=== PATIENT | female | born 1950 | race Caucasian/White ===

== ENCOUNTER → 2020-06-17 08:10 | Outpatient (REF) | payer MEDICARE, SELFPAY ==
--- NOTE | 2020-06-17 08:00 | CA_ITS ---
Acquisition Time: 2020-06-17 08:28:14 Total Exercise Time: 00:08:07 Test Indications: Dyspnea Medications: TRAMADOL LEVOTHYROXINE HYDRALAZINE SEE H Protocol: KELSIE Max HR: 153 BPM 101% of Pred: 151 BPM Max BP: 140/080 mmHG Max Work Load: 10.1 METS Exercise stress test using Kelsie protocol. total of 8 min 7 sec. METS 10.1 Pt tolerated well, denies any anginal sx. EKG without any arrhythmias, No ischemic changes seen in peak execise or in recovery. Normotensive response to exercise. Test reviewed with Dr. Oneill. Referred By: Mundo Camacho Overread By: Sophie De Los Santos
== END ==
LOC: HO.CARD 08:10
PROVIDERS: PCP Internal Medicine; Visit Provider Internal Medicine
DX: Z00.00 Encounter for general adult medical examination without abnormal findings (principal); K21.9 Gastro-esophageal reflux disease without esophagitis; E03.9 Hypothyroidism, unspecified; M81.0 Age-related osteoporosis without current pathological fracture; E66.3 Overweight; R06.02 Shortness of breath
CPT/HCPCS: 93017

== ENCOUNTER → 2020-06-20 12:42 | Outpatient (REF) | payer MEDICARE, SELFPAY ==
--- NOTE | 2020-06-20 12:49 | CA_ITS ---
Transthoracic Echocardiogram Patient (Last, First, Middle): Venus Nguyen, Gender: Female Date of : 1950 Age: 70 Procedure Date: 06/20/2020 Procedure Type: Transthoracic Echocardiogram Location: OP Height: 147.32 cm Weight: 64.86 kg BSA: 1.58 m2 Heart Rate: bpm BP: 106 / 70 mmHg Customer Experience Professional: MIGUEL ANGEL Referring MD: Mundo Camacho MD Symptoms: [facility] [place] Conclusions: - Normal biventricular function. - Mild mitral regurgitation. - Trace aortic regurgitation. - Mild tricuspid regurgitation. - No pericardial effusion. Findings Left Ventricle Normal left ventricular size, thickness, systolic function, and wall motion. The visually estimated ejection fraction is between 55-60%. Diastolic function is normal for age. Right Ventricle Normal right ventricular cavity size and systolic function. Atria Both atria are normal in size. There is no evidence of interatrial shunt by color Doppler. Aortic Valve Normal aortic valve structure and function. There is no aortic valve stenosis. There is trace (trivial) aortic valve regurgitation. Mitral Valve Normal mitral valve structure and function. There is mild mitral valve regurgitation. There is no mitral valve stenosis. Pulmonic Valve Normal pulmonic valve structure and function. There is trace pulmonic valve regurgitation. Tricuspid Valve Normal tricuspid valve structure and function. There is mild tricuspid valve regurgitation. Normal right atrial pressure. There is no evidence of pulmonary hypertension. Great Vessels All visible segments of the aorta are normal in size. The visualized portions of the pulmonary artery and branches are normal. Venous The inferior vena cava is normal in size and collapses greater than 50% with inspiration. Pericardium/Pleural Normal pericardial structure. Prior Study Comparison No prior study available for comparison. Measurements 2D Linear Measurements RVIDd: 2.85 RVIDd Index: 1.80 IVSd: 0.93 0.6-0.9/0.6-1.0 cm LVIDd: 4.19 3.9-5.3/4.2-5.9 cm LVIDd Index: 2.65 2.4-3.2/2.2-3.1 cm/m2 LVIDs: 2.61 2.0-3.6 cm LVPWd: 0.79 0.7-1.1 cm Ao Root: 2.30 2.1-3.5 cm LA Diam: 3.40 2.7-3.8/3.0-4.0 cm LAIDs Index: 2.15 1.5-2.3 cm/m2 LV Mass: 138.29 67-162/88-224 g LV Mass Index: 87.52 43-95/49-115 g/m2 LVOT Diam: 2.00 3.0+(-)1.3 cm 2D Systolic Function EF 4C: 70.40 >55% EF 2C: 77.00 >55% Mitral Valve MV Pk E: 0.97 MV PK A: 0.76 MV Decel Time: 236.00 E/A: 1.30 E'Lateral: 11.30 E'Medial: 8.05 E/E' Med: 12.00 E/E' Lat: 8.50 MR Vol - PW Dopp: 18.92 MR VTI: 1.72 MR ERO: 11.00 MR Alias Alec: 0.34 MR RAD: 0.50 Aortic Valve AoV Pk Alec: 1.42 AoV Mn Alec: 0.97 AoV VTI: 0.33 AoV Pk Grad: 8.00 Aov Mn Grad: 4.00 TEMITOPE Cont.VTI: 2.19 LVOT LVOT Pk Alec: 1.10 LVOT Mn Alec: 0.73 LVOT VTI: 0.23 LVOT Pk Grad: 5.00 LVOT Mn Grad: 3.00 LVOT Diam: 2.00 LVOT Area: 3.14 Diastolic Function MV Pk E: 0.97 MV Pk A: 0.76 E/A: 1.30 E'Medial: 8.05 E/E' Med: 12.00 E' Laterial: 11.30 E/E' Lat: 8.50 Tricuspid Valve TR Pk Alec: 2.55 TR Pk Grad: 26.00 RA Press: 3.00 RVSP: 29.00 Great Vessels Aorta Ao Root-2D: 2.30 2.0-3.7 cm Ao Asc: 3.10 2.1-3.4 cm Ao Arch: 2.90 Updated in Other Vendor System with Status of Final Rustam Kowalski MD electronically signed on 06/21/2020 7:12:34 PM with status of Final
== END ==
LOC: HO.CARD 12:42
PROVIDERS: PCP Internal Medicine; Visit Provider Internal Medicine
DX: Z00.00 Encounter for general adult medical examination without abnormal findings (principal); R06.02 Shortness of breath; K21.9 Gastro-esophageal reflux disease without esophagitis; E03.9 Hypothyroidism, unspecified; M81.0 Age-related osteoporosis without current pathological fracture; E66.3 Overweight
CPT/HCPCS: 93306

== ENCOUNTER 2020-07-07 06:17 | Outpatient (REF) | payer MEDICARE, SELFPAY ==
--- NOTE | 2020-07-07 06:33 | XR_ITS ---
EXAMINATION: XR CHEST CLINICAL INFORMATION: Shortness of breath on exertion. Annual physical exam. COMPARISON: 11/07/2018 TECHNIQUE: 2 views of the chest were obtained. FINDINGS: The lungs are well expanded. There is no focal consolidation, edema, or effusion. No pneumothorax. The cardiomediastinal silhouette is within normal limits. No acute osseous abnormality. XR/XR chest 2V IMPRESSION: Clear lungs.
[2020-07-07 07:39] LABS: MANUAL DIFF FLAG NO
[2020-07-07 07:43] LABS: Hematocrit 41.5 % (37-47); Hemoglobin 13.2 g/dl (12.0-16.0); Imm Gran Abs Auto 0.01 X10*3/uL (0.00-0.03); Imm Gran Pct Auto 0.2 % (0.0-0.4); Lymphocytes Absolute Auto 2.6 X10*3/uL (1.2-4.9); Lymphocytes Percent Auto 56.7 % (20-40); Mean Corpuscular HGB Conc 31.8 g/dl (31.0-35.0); Mean Corpuscular Hemoglobin 30.8 pg (27.0-33.0); Mean Platelet Volume 9.6 fL (9.4-12.3); Monocytes Absolute Auto 0.4 X10*3/uL (0.1-1.2); Monocytes Percent Auto 9.3 % (2-11); Neutrophils Absolute Auto 1.6 X10*3/uL (2.0-8.3); Neutrophils Percent Auto 33.8 % (45-73); Platelet Count 201 X10*3/uL (160-400); Red Blood Count 4.28 X10*6/uL (4.20-5.50); Red Cell Distribution Width 12.6 % (11.0-16.0); White Blood Count 4.6 X10*3/uL (4.8-10.8)
[2020-07-07 08:16] LABS: Alanine Aminotransferase 19 U/L (0-31); Alkaline Phosphatase 104 U/L (39-117); Anion Gap 12 (12-20); Aspartate Amino Transferase 27 U/L (5-31); Bilirubin Total 0.4 mg/dL (0.0-1.0); Blood Urea Nitrogen 15 mg/dL (9-16); Calcium 8.7 mg/dL (8.4-10.2); Carbon Dioxide 28 mmol/L (22-29); Chloride 105 mmol/L (96-108); Estimated Glomerular Filt Rate > 60; Glucose Fasting 89 mg/dL (60-99); Potassium 4.5 mmol/l (3.3-5.1); Sodium 140 mmol/L (135-145); Total Protein 6.4 g/dL (6.5-8.0)
== END 2020-07-07 06:18 | disposition home or self-care (01) ==
LOC: HO.LAB 06:17
PROVIDERS: Visit Provider Internal Medicine
DX: K21.9 Gastro-esophageal reflux disease without esophagitis (principal); Z00.00 Encounter for general adult medical examination without abnormal findings; E03.9 Hypothyroidism, unspecified; R06.02 Shortness of breath; M81.0 Age-related osteoporosis without current pathological fracture; E66.3 Overweight
CPT/HCPCS: 36415; 71046; 80053; 85025

== ENCOUNTER → 2020-07-09 08:45 | Outpatient (BNVA) | payer MEDICARE, SELFPAY | PROVIDERS: PCP Internal Medicine; Referring Provider Internal Medicine; Visit Provider Student in an Organized Health Care Education/Training Program | DX: M81.0 Age-related osteoporosis without current pathological fracture (principal); M19.042 Primary osteoarthritis, left hand; M19.041 Primary osteoarthritis, right hand; Z79.899 Other long term (current) drug therapy | CPT/HCPCS: 99212 ==

== ENCOUNTER 2020-11-12 06:14 | Outpatient (REF) | payer MEDICARE, SELFPAY ==
[2020-11-12 07:41] LABS: Alanine Aminotransferase 34 U/L (0-31); Albumin Level 4.2 g/dL (3.5-5.0); Alkaline Phosphatase 109 U/L (39-117); Anion Gap 9 (12-20); Aspartate Amino Transferase 40 U/L (5-31); Bilirubin Total 0.5 mg/dL (0.0-1.0); Blood Urea Nitrogen 16 mg/dL (9-16); Calcium 9.3 mg/dL (8.4-10.2); Carbon Dioxide 30 mmol/L (22-29); Chloride 105 mmol/L (96-108); Estimated Glomerular Filt Rate > 60; Glucose Random 95 mg/dL (60-115); Potassium 4.7 mmol/L (3.3-5.1); Sodium 139 mmol/L (135-145); Total Protein 6.5 g/dL (6.5-8.0)
[2020-11-12 08:02] LABS: TSH reflex Free T4 1.49 uIU/mL (0.32-4.0)
[2020-11-18 06:41] LABS: Vitamin D 25-OH, D2 <4 ng/mL; Vitamin D 25-OH, D3 32 ng/mL; Vitamin D 25-OH, Total 32 ng/mL (30-100)
== END 2020-11-12 06:15 | disposition home or self-care (01) ==
LOC: HO.LAB 06:14
PROVIDERS: Absent Provider Nurse Practitioner Family; PCP Internal Medicine; Visit Provider Student in an Organized Health Care Education/Training Program
DX: M81.0 Age-related osteoporosis without current pathological fracture (principal); E03.9 Hypothyroidism, unspecified
CPT/HCPCS: 36415; 80053; 82306; 84443

== ENCOUNTER 2020-12-11 11:04 | Outpatient (REF) | payer MEDICARE, SELFPAY ==
[2020-12-11 12:23] LABS: Glucose Urine UA NEG (NEG); Leukocyte Esterase Urine NEG (NEG); Nitrite Urine NEG (NEG); Urine Blood NEG (NEG); Urine Ketones NEG (NEG); Urine Protein NEG (NEG-TRACE)
[2020-12-11 12:35] LABS: Appearance Urine CLEAR; Color Urine YELLOW
== END 2020-12-11 11:05 | disposition home or self-care (01) ==
LOC: HO.LAB 11:04
PROVIDERS: PCP Internal Medicine; Visit Provider Internal Medicine
DX: R30.0 Dysuria (principal)
CPT/HCPCS: 81003

== ENCOUNTER → 2021-02-26 08:04 | Outpatient (BNVA) | payer MEDICARE, SELFPAY | PROVIDERS: PCP Internal Medicine; Visit Provider Student in an Organized Health Care Education/Training Program | DX: M81.0 Age-related osteoporosis without current pathological fracture (principal); M19.042 Primary osteoarthritis, left hand; M19.041 Primary osteoarthritis, right hand | CPT/HCPCS: 99212 ==

== ENCOUNTER 2021-05-14 08:00 | Outpatient (REF) | payer MEDICARE, SELFPAY ==
--- NOTE | ~2021-05-14 | US_ITS ---
EXAMINATION: US THYROID CLINICAL INFORMATION: Thyroid nodule. COMPARISON: Ultrasound soft tissue head/neck thyroid dated 03/06/2020 and 03/21/2019. TECHNIQUE: Linear transducer grayscale and color Doppler examination with attention to the region of the thyroid. FINDINGS: SIZE: Measurements of the thyroid lobes and nodules are given in sagittal, anteroposterior and transverse dimensions respectively. Right Thyroid Lobe: 3.3 x 0.9 x 0.8 cm, volume 1.2 mL. Previously 2.9 x 0.7 x 1.2 cm, volume 1.2 mL. Parenchyma: The gland echotexture is homogeneous. Thyroid vascularity is normal. Left Thyroid Lobe: 2.8 x 0.6 x 1.1 cm, volume 1.0 mL. Previously 3.3 x 0.7 x 1.0 cm, volume 0.1 mL. Parenchyma: The gland echotexture is homogeneous. Thyroid vascularity is normal. Isthmus: 0.3 cm in maximum AP dimension. Previously 0.2 cm. Estimated total number of nodules greater than or equal to 1 cm: 0. Planograph Operator nodules are described as follows: 1. Location: Right mid. Size: 0.1 x 0.1 x 0.1 cm, volume 0.001 mL. Previously: 0.1 x 0.1 x 0.1 cm, volume 0.001 mL. Nodule characteristics: Composition: Solid (2). Echogenicity: Hyperechoic (1). Shape: Not taller than wide (0). Margins: Smooth (0). Echogenic Foci: Macrocalcifications (1). ACR TI-RADS total points: 4 ACR TI-RADS category: 4 Significant change in size (>/= 20% in 2 dimensions and minimal increase of 2 mm or 50% or greater increase in volume): None Change in features: None Change in ACR TI-RADS risk category: Not applicable 2. Location: Right mid. Size: 0.1 x 0.15 0.1 cm, volume 0.001 mL. Previously: 0.1 x 0.2 x 0.1 cm, volume 0.002 mL. Nodule characteristics: Composition: Cystic(0). ACR TI-RADS total points: 0 ACR TI-RADS category: 1 Significant change in size (>/= 20% in 2 dimensions and minimal increase of 2 mm or 50% or greater increase in volume): None Change in features: None Change in ACR TI-RADS risk category: Not applicable 3. Location: Left mid. Size: 0.5 x 0.4 x 0.3 cm, volume 0.05 mL. Previously: 0.8 x 0.5 x 0.7 cm, volume 0.15 mL. Nodule characteristics: Composition: Solid (2). Echogenicity: Isoechoic (1). Shape: Not taller than wide (0). Margins: Smooth (0). Echogenic Foci: None (0). ACR TI-RADS total points: 3 ACR TI-RADS category: 3 Significant change in size (>/= 20% in 2 dimensions and minimal increase of 2 mm or 50% or greater increase in volume): None Change in features: None Change in ACR TI-RADS risk category: None applicable 4. Location: Left mid inferior. Size: 0.7 x 0.6 x 0.5 cm, volume 0.1 mL. Previously: 0.7 x 0.6 x 0.6 cm, volume 0.1 mL. Nodule characteristics: Composition: Solid (2). Echogenicity: Hypoechoic (2). Shape: Not taller than wide (0). Margins: Smooth (0). Echogenic Foci: None (0). ACR TI-RADS total points: 4 ACR TI-RADS category: 4 Significant change in size (>/= 20% in 2 dimensions and minimal increase of 2 mm or 50% or greater increase in volume): None Change in features: None Change in ACR TI-RADS risk category: Not applicable 5. Location: Left mid. Size: 0.7 x 0.5 x 0.6 cm, volume 0.1 mL. Previously: 0.3 x 0.4 x 0.2 cm, volume 0.1 mL. Nodule characteristics: Composition: Solid (2). Echogenicity: Hypoechoic (2). Shape: Not taller than wide (0). Margins: Smooth (0). Echogenic Foci: None (0). ACR TI-RADS total points: 4 ACR TI-RADS category: 4 Significant change in size (>/= 20% in 2 dimensions and minimal increase of 2 mm or 50% or greater increase in volume): None Change in features: None Change in ACR TI-RADS risk category: Not applicable NODES: No lymphadenopathy is seen in the tissue surrounding the thyroid gland. US/US thyroid IMPRESSION: Subcentimeter nonsuspicious nodules in both lobes, stable. ACR TI-RADS RECOMMENDATION REFERENCE: Ultrasound-guided fine-needle aspiration, followup ultrasound, no further follow up. * TR1 (0 point) and TR 2 (2 points): No FNA or follow up * TR3 (3 points): FNA if more than or equal to 2.5 cm in maximum dimension, followup ultrasound in 1, 3 and 5 years if 1.5 to 2.4 cm in maximum dimension. * TR4 (4-6 points): FNA if more than or equal to 1.5 cm in maximum dimension, followup ultrasound in 1, 2, 3 and 5 years if 1 to 1.4 cm in maximum dimension. * TR5 (more than or equal to 7 points): FNA if more than or equal to 1 cm in maximum dimension, followup ultrasound every year for 5 years if 0.5 to 0.9 cm in maximum dimension. * TR3, TR4 or TR5 nodules that are below the size threshold for follow up receive no follow up.
== END 2021-05-14 08:01 | disposition home or self-care (01) ==
LOC: HO.US 08:00
PROVIDERS: Visit Provider Internal Medicine
DX: E04.2 Nontoxic multinodular goiter (principal)
CPT/HCPCS: 76536

== ENCOUNTER 2021-05-19 16:10 | Outpatient (REF) | payer MEDICARE, SELFPAY ==
--- NOTE | ~2021-05-19 | MM_ITS ---
EXAMINATION: MM SCREENING DIGITAL BREAST TOMOSYNTHESIS, BILATERAL CLINICAL INFORMATION: Screening. Asymptomatic. Previous left breast biopsy, benign The lifetime risk of breast cancer based on the Tyrer-Cuzick Model is 1.9%. COMPARISON: Mammography: May 13, 2020 and studies dating back to March 27, 2012 TECHNIQUE: Digital breast tomosynthesis is performed in both the craniocaudal and mediolateral oblique views along with computer-aided detection (CAD). Synthesized 2D images are generated from the tomosynthesis. FINDINGS: There are scattered areas of fibroglandular density (ACR BI-RADS breast composition Category b). There are no significant masses, abnormal calcifications, or other abnormalities. MM/MM tomosynthesis screening BI IMPRESSION: There are no significant changes from prior study. ASSESSMENT: BI-RADS 1: Negative RECOMMENDATION: Routine annual mammography screening. This patient's information was entered into a reminder system with a target due date for their next mammogram.
== END 2021-05-19 16:11 | disposition home or self-care (01) ==
LOC: HO.MAMMO 16:10
PROVIDERS: Visit Provider Internal Medicine
DX: Z12.31 Encounter for screening mammogram for malignant neoplasm of breast (principal)
CPT/HCPCS: 77063; 77067

== ENCOUNTER 2021-06-23 06:19 | Outpatient (REF) | payer MEDICARE, SELFPAY ==
[2021-06-23 07:48] LABS: Alanine Aminotransferase 15 U/L (0-31); Albumin Level 4.3 g/dL (3.5-5.0); Alkaline Phosphatase 100 U/L (39-117); Anion Gap 12 (12-20); Aspartate Amino Transferase 24 U/L (5-31); Bilirubin Total 0.5 mg/dL (0.0-1.0); Blood Urea Nitrogen 15 mg/dL (9-16); Calcium 9.8 mg/dL (8.4-10.2); Carbon Dioxide 29 mmol/L (22-29); Chloride 106 mmol/L (96-108); Estimated Glomerular Filt Rate > 60; Glucose Fasting 92 mg/dL (60-99); Potassium 4.7 mmol/L (3.3-5.1); Sodium 142 mmol/L (135-145); Total Protein 6.8 g/dL (6.5-8.0)
== END 2021-06-23 06:20 | disposition home or self-care (01) ==
LOC: HO.LAB 06:19
PROVIDERS: PCP Internal Medicine; Visit Provider Nurse Practitioner Family
DX: Z13.1 Encounter for screening for diabetes mellitus (principal)
CPT/HCPCS: 36415; 80053

== ENCOUNTER → 2021-07-22 10:12 | Outpatient (BNVA) | payer MEDICARE, SELFPAY | PROVIDERS: PCP Internal Medicine; Visit Provider Internal Medicine | DX: E03.9 Hypothyroidism, unspecified (principal); E04.2 Nontoxic multinodular goiter; M81.0 Age-related osteoporosis without current pathological fracture | CPT/HCPCS: 99212 ==

== ENCOUNTER 2021-07-22 11:08 | Outpatient (REF) | payer MEDICARE, SELFPAY ==
[2021-07-22 14:44] LABS: Free T4 (Free Thyroxine) 1.13 ng/dL (0.71-1.85); Thyroid Stimulating Hormone 1.06 uIU/mL (0.32-4.0)
== END 2021-07-22 11:09 | disposition home or self-care (01) ==
LOC: HO.10HDL 11:08
PROVIDERS: Visit Provider Internal Medicine
DX: E03.9 Hypothyroidism, unspecified (principal); E04.2 Nontoxic multinodular goiter
CPT/HCPCS: 36415; 84439; 84443

== ENCOUNTER 2021-12-09 08:54 | Inpatient (IN) | payer MEDICARE, SELFPAY ==
[2021-12-09] VITALS (10 sets, daily range): BP systolic 121–156; BP diastolic 63–90; PULSE 73–102; RESP 14–31; TEMP 36.8–37.2; O2SAT 96–99; BMI 28.3
--- NOTE | ~2021-12-09 | XR_ITS ---
EXAMINATION: XR CHEST CLINICAL INFORMATION: Bradycardia. COMPARISON: 07/07/2020 chest radiographs. TECHNIQUE: Frontal view of the chest was obtained. FINDINGS: Support devices: Enteric tube. The lungs are clear. The heart and mediastinal structures are unremarkable. XR/XR chest 1V IMPRESSION: No acute cardiopulmonary process.
--- NOTE | ~2021-12-09 | CT_ITS ---
EXAMINATION: CT ABDOMEN AND PELVIS WITH CONTRAST CLINICAL INFORMATION: Left lower quadrant pain COMPARISON: None TECHNIQUE: Multidetector volumetric images were obtained from the superior aspect of the liver through the pubic symphysis following administration 85 mL of Omnipaque 350 intravenous contrast. Sagittal and coronal reformatted images were obtained on the technologist's workstation. Oral contrast: No This CT examination was performed using dose optimization techniques as appropriate, variously including the following: *Automated exposure control *Adjustment of mA and/or kV according to patient size (this includes techniques or standardized protocols for targeted exams where dose is matched to indication/reason for exam; i.e. extremities or head) *Use of iterative reconstruction technique DLP: 593 mGy-cm FINDINGS: LUNG BASES: Mild elevation of the right hemidiaphragm. The visualized cardiac structures are unremarkable. LIVER, GALLBLADDER, AND BILIARY TREE: The liver is normal in size, shape, and attenuation. No focal hepatic lesion or intrahepatic biliary ductal dilatation is present. The gallbladder is absent. Dilated common bile duct measuring 0.9 cm with no ductal filling defect. PANCREAS: Unremarkable. SPLEEN: Unremarkable. ADRENAL GLANDS: Unremarkable. KIDNEYS AND URETERS: The kidneys are normal in size, shape, and attenuation. No hydronephrosis, hydroureter, or calculi seen. No perinephric stranding. Right lower pole simple renal cyst. No follow-up imaging recommended. BLADDER: Unremarkable. GASTROINTESTINAL TRACT: The stomach is unremarkable. The small bowel is dilated and fluid-filled. This leads to an area of fecalization in the pelvis were there is transition to decompressed bowel, series 3 image 62. The small bowel distal to this location is decompressed. Scattered stool throughout and otherwise decompressed colon. No free air. Small volume ascites. ABDOMINAL WALL: No significant hernia is appreciated. LYMPH NODES: Normal. VASCULAR: Normal caliber aorta with mild atherosclerotic calcification. PELVIC VISCERA: Uterus not seen. No adnexal mass. OSSEOUS STRUCTURES: No acute or suspicious osseous abnormality. CT/CT abdomen pelvis w con IMPRESSION: Small bowel obstruction with transition point in the central pelvis. Small amount of free fluid. Fleischner guidelines were followed.
--- NOTE | 2021-12-09 10:07 | ED.ABDPAIN ---
HPI - Abdominal Pain General Chief Complaint: Abdominal Pain Stated Complaint: severe abd pain/vomiting Time Seen by Provider: 12/09/21 09:52 Source: patient and family Mode of arrival: ambulatory Limitations: no limitations History of Present Illness HPI narrative: 71-year-old female with a history of hypothyroidism, GERD, osteoarthritis, gastritis on PPI here with reports of intermittent left-sided abdominal pain since Tuesday. This is associated with nausea and vomiting. No diarrhea, constipation, new urinary symptoms, fevers or chills. Patient tells me she has a surgical history of a total hysterectomy and a cholecystectomy. Related Data Home Medications Medication Instructions Recorded Confirmed calcium carbonate 600 mg-vitamin 1 tab PO DAILY 07/09/20 12/09/21 D3 5 mcg (200 unit) tablet (Calcium 600 + D(3)) tramadol 50 mg tablet 50 mg PO DAILY PRN 12/09/21 12/09/21 Previous Rx's Medication Instructions Recorded levothyroxine 75 mcg tablet 75 mcg PO DAILY #84 tab 10/05/21 omeprazole 20 mg capsule,delayed 20 mg PO DAILY 90 Days #90 cap 11/20/21 release Allergies Allergy/AdvReac Type Severity Reaction Status Date / Time nystatin Allergy Intermediate Rash Verified 11/20/21 15:29 Review of Systems Review of Systems Yes all other systems are reviewed and are negative Constitutional: Reports no additional constitutional complaints, Denies body ache(s), Denies chills, Denies fever(s), Denies headache(s) and Denies weakness Eyes: Reports no additional eye complaints and Denies change in vision Reports system reviewed and no additional complaints, except as documented, Denies dizziness, Denies headache(s), Denies nasal congestion, Denies nasal discharge and Denies neck pain Cardiovascular: Reports no additional cardiovascular complaints, Denies chest pain, Denies leg edema and Denies dyspnea Respiratory: Reports no additional respiratory complaints, Denies cough and Denies dyspnea Gastrointestinal: Reports no additional gastrointestinal complaints, Reports abdominal pain, Denies diarrhea, Denies nausea and Reports vomiting Genitourinary: Reports no additional female genitourinary complaints and Denies urinary incontinence Musculoskeletal: Reports no additional musculoskeletal complaints, Denies back pain, Denies arthralgias, Denies joint swelling, Denies neck pain, Denies numbness and Denies tingling Skin/Breast: Reports system reviewed and no additional complaints, except as docu and Denies rash Reports system reviewed and no additional complaints, except as documented, Denies dizziness, Denies headache(s), Denies numbness, Denies tingling and Denies weakness PMFSH Past Medical History Attestation statement: The following information was validated with the patient. Source: old records reviewed and nursing notes reviewed Medical History GERD (gastroesophageal reflux disease) History of seizures Hypothyroidism Impacted cerumen of left ear Multinodular thyroid Osteoarthritis of hand, left Osteoarthritis of hand, right Osteoporosis Peripheral vascular disease Thyroid nodule Vitamin D deficiency Surgical History History of cholecystectomy History of colonoscopy History of surgery History of total abdominal hysterectomy and bilateral salpingo-oophorectomy Family History Family History Father Throat cancer Mother No problems noted. Brother Liver cancer Social History Social History Household Members: Spouse Housing: [facility] Alcohol intake: never Patient Tobacco Use Status: Never used Tobacco e-Cigarette/Vaping Use: Never Used Second Hand Smoke Exposure: No Use of substances other than those prescribed or required for medical reasons: No Advance Directives: No Advance Directives Information Provided: No service: No Current occupational status: unemployed Physical Exam ED Vital Signs: Vital Signs - 24 hr 12/09/21 08:58 12/09/21 09:55 12/09/21 10:58 Temperature 98.3 F 98.4 F Pulse Rate 102 H 86 81 Respiratory Rate 16 14 20 Blood Pressure 138/83 156/80 H 131/71 Pulse Oximetry 99 98 98 12/09/21 11:32 12/09/21 12:09 Temperature Pulse Rate 73 77 Respiratory Rate 16 15 Blood Pressure 126/68 121/63 Pulse Oximetry 97 98 BMI result Body Mass Index 28.3 Const General: alert Orientation/consciousness: patient oriented x3 Limitations: no limitations HENMT Other: Tacky MM Head: Yes normal to inspection Ears: hearing grossly normal bilaterally and TM's normal bilaterally General nose exam: Normal external nose present Face and sinus: Yes normal facial exam Throat: Yes posterior oropharynx normal Eyes General: appearance normal, both eyes and all related structures Pupils: Equal, round and reactive pupils present Neck Neck: Yes normal visual inspection, Yes full ROM, Yes no lymphadenopathy and Yes no meningeal signs Chest Chest palpation & inspection: normal inspection of the chest Resp Effort & Inspection: normal respiratory effort Auscultation: clear to auscultation bilaterally Cardio Rate: regular rate Rhythm: regular rhythm Peripheral pulses: Peripheral pulses 2+ throughout GI Inspection: Yes normal to inspection Palpation (GI): Soft to palpation and Tenderness to palpation present (GI) (LLQ/LUQ) General: Yes no CVA tenderness Back/Spine/Pelvis Back: no CVA tenderness Thoracic/Lumbar Spine: thoracic and lumbar spine normal to inspection Neuro General: patient oriented x3, moves all extremities and no meningeal signs Cranial nerves: Yes Equal, round and reactive pupils present Cognition (Neuro): normal cognition Extrem General: Yes normal to inspection, Yes no pedal edema and Yes no calf tenderness Course Course Course Narrative: 71-year-old female here with reports of left-sided abdominal pain with nausea and vomiting for several days. Pain radiates to the patient's back. On exam the patient has tenderness the left upper and left lower quadrant. Will check labs, UA, CT. Will provide analgesia, antiemetic 1240-CT concerning for small bowel obstruction. Will discuss with General surgery. Per patient had a BM yesterday morning and it was small. 1300-spoke to Dr. Gifford from general surgery. Patient will need NGT placement. Accepted admission. MDM - Abdominal Pain MDM Narrative Medical decision making narrative: SBO Differential Diagnosis Differential diagnosis: Likely calculus of kidney, diverticulitis and gastritis Medical Records Attestation: I reviewed the patient's medical records. Lab Data Attestation: I reviewed the patient's lab results. Result diagrams: 12/09/21 10:34 12/09/21 10:34 Labs: Lab Results 12/09/21 12/09/21 12/09/21 Range/Units 10:25 10:26 10:34 WBC 8.8 (4.8-10.8) X10*3/uL RBC 4.80 (4.20-5.50) X10*6/uL Hgb 14.6 (12.0-16.0) g/dl Hct 44.9 (37.0-47.0) % MCV 93.5 (80.0-98.0) fL MCH 30.4 (27.0-33.0) pg MCHC 32.5 (31.0-35.0) g/dl RDW 12.4 (11.0-16.0) % Plt Count 229 (160-400) X10*3/uL MPV 8.7 L (9.4-12.3) fL Immature Gran % (Auto) 0.3 (0.0-0.4) % Neut % (Auto) 84.7 H (45-73) % Lymph % (Auto) 9.3 L (20-40) % [place] % (Auto) 5.7 (2-11) % Eos % (Auto) 0.0 (0-4) % Baso % (Auto) 0.0 (0-2) % Lymph # (Auto) 0.8 L (1.2-4.9) X10*3/uL [place] # (Auto) 0.5 (0.1-1.2) X10*3/uL Eos # (Auto) 0.0 (0.0-0.4) X10*3/uL Baso # (Auto) 0.0 (0.0-0.2) X10*3/uL Abs Immat Gran (auto) 0.03 (0.00-0.03) X10*3/uL Absolute Neuts (auto) 7.5 (2.0-8.3) x10*3/uL Absolute Nucleated RBC 0.000 (0.0-0.012) X10*3/uL Nucleated RBC % (auto) 0.0 (0.0-0.2) /100WBC Sodium (135-145) mmol/L Potassium (3.3-5.1) mmol/L Chloride (96-108) mmol/L Carbon Dioxide (22-29) mmol/L Anion Gap (12-20) BUN (9-16) mg/dL Creatinine (0.5-1.4) mg/dL Estim Creat Clear Calc Estimated GFR Random Glucose (60-115) mg/dL Calcium (8.4-10.2) mg/dL Total Bilirubin (0.0-1.0) mg/dL Direct Bilirubin (0.0-0.5) mg/dL AST (5-31) U/L ALT (0-31) U/L Alkaline Phosphatase (39-117) U/L Total Protein (6.5-8.0) g/dL Albumin (3.5-5.0) g/dL Lipase (8-78) U/L Urine Color DK YELLOW Urine Appearance HAZY Urine pH 6.0 (5.0-8.0) Ur Specific Ericson >= 1.030 H (1.005-1.025) Urine Protein 1+ H (NEG-TRACE) MG/DL Urine Glucose (UA) NEG (NEG) MG/DL Urine Ketones 15 (NEG) MG/DL Urine Blood NEG (NEG) Urine Nitrite NEG (NEG) Ur Leukocyte Esterase NEG (NEG) Urine RBC 0 (0) /HPF Urine WBC 0-2 (0-4) /HPF Ur Squamous Epith Cells 1+ /LPF Urine Bacteria NONE /LPF Hyaline Casts 1-4 /LPF Urine Mucus 4+ /LPF Urine Test NEGATIVE (NEGATIVE) 12/09/21 Range/Units 10:34 WBC (4.8-10.8) X10*3/uL RBC (4.20-5.50) X10*6/uL Hgb (12.0-16.0) g/dl Hct (37.0-47.0) % MCV (80.0-98.0) fL MCH (27.0-33.0) pg MCHC (31.0-35.0) g/dl RDW (11.0-16.0) % Plt Count (160-400) X10*3/uL MPV (9.4-12.3) fL Immature Gran % (Auto) (0.0-0.4) % Neut % (Auto) (45-73) % Lymph % (Auto) (20-40) % [place] % (Auto) (2-11) % Eos % (Auto) (0-4) % Baso % (Auto) (0-2) % Lymph # (Auto) (1.2-4.9) X10*3/uL [place] # (Auto) (0.1-1.2) X10*3/uL Eos # (Auto) (0.0-0.4) X10*3/uL Baso # (Auto) (0.0-0.2) X10*3/uL Abs Immat Gran (auto) (0.00-0.03) X10*3/uL Absolute Neuts (auto) (2.0-8.3) x10*3/uL Absolute Nucleated RBC (0.0-0.012) X10*3/uL Nucleated RBC % (auto) (0.0-0.2) /100WBC Sodium 137 (135-145) mmol/L Potassium 4.0 (3.3-5.1) mmol/L Chloride 100 (96-108) mmol/L Carbon Dioxide 26 (22-29) mmol/L Anion Gap 15 (12-20) BUN 26 H (9-16) mg/dL Creatinine 0.78 (0.5-1.4) mg/dL Estim Creat Clear Calc 54.3 Estimated GFR > 60 Random Glucose 154 H (60-115) mg/dL Calcium 10.2 (8.4-10.2) mg/dL Total Bilirubin 0.9 (0.0-1.0) mg/dL Direct Bilirubin 0.5 (0.0-0.5) mg/dL AST 46 H D (5-31) U/L ALT 35 H (0-31) U/L Alkaline Phosphatase 139 H D (39-117) U/L Total Protein 7.1 (6.5-8.0) g/dL Albumin 4.4 (3.5-5.0) g/dL Lipase 11 (8-78) U/L Urine Color Urine Appearance Urine pH (5.0-8.0) Ur Specific [place] (1.005-1.025) Urine Protein (NEG-TRACE) MG/DL Urine Glucose (UA) (NEG) MG/DL Urine Ketones (NEG) MG/DL Urine Blood (NEG) Urine Nitrite (NEG) Ur Leukocyte Esterase (NEG) Urine RBC (0) /HPF Urine WBC (0-4) /HPF Ur Squamous Epith Cells /LPF Urine Bacteria /LPF Hyaline Casts /LPF Urine Mucus /LPF Urine Test (NEGATIVE) Discharge Plan Discharge Clinical Impression: Small bowel obstruction Patient Disposition: Admitted As Inpatient
[2021-12-09 10:33] LABS: Appearance Urine HAZY; Color Urine DK YELLOW; Glucose Urine UA NEG (NEG); Leukocyte Esterase Urine NEG (NEG); Nitrite Urine NEG (NEG); Specific Gravity - Urine >= 1.030 (1.005-1.025); UACC Culture Trigger NO; Urine Blood NEG (NEG); Urine Ketones 15 MG/DL (NEG); Urine Protein 1+ MG/DL (NEG-TRACE)
[2021-12-09 10:35] LABS: UPreg QC Valid YES; Urine Pregnancy NEGATIVE (NEGATIVE)
[2021-12-09 10:37] LABS: MANUAL DIFF FLAG NO
[2021-12-09 10:38] LABS: Hematocrit 44.9 % (37.0-47.0); Hemoglobin 14.6 g/dl (12.0-16.0); Imm Gran Abs Auto 0.03 X10*3/uL (0.00-0.03); Imm Gran Pct Auto 0.3 % (0.0-0.4); Lymphocytes Absolute Auto 0.8 X10*3/uL (1.2-4.9); Lymphocytes Percent Auto 9.3 % (20-40); Mean Corpuscular HGB Conc 32.5 g/dl (31.0-35.0); Mean Corpuscular Hemoglobin 30.4 pg (27.0-33.0); Mean Corpuscular Volume 93.5 fL (80.0-98.0); Mean Platelet Volume 8.7 fL (9.4-12.3); Monocytes Absolute Auto 0.5 X10*3/uL (0.1-1.2); Monocytes Percent Auto 5.7 % (2-11); Neutrophils Absolute Auto 7.5 x10*3/uL (2.0-8.3); Neutrophils Percent Auto 84.7 % (45-73); Platelet Count 229 X10*3/uL (160-400); Red Cell Distribution Width 12.4 % (11.0-16.0); White Blood Count 8.8 X10*3/uL (4.8-10.8)
[2021-12-09 10:47] LABS: Mucus Urine 4+ /LPF; RBC Urine 0 /HPF (0); Squamous Epithelial Cell Urine 1+ /LPF; WBC Urine 0-2 /HPF (0-4)
[2021-12-09 10:56] LABS: Alanine Aminotransferase 35 U/L (0-31); Albumin Level 4.4 g/dL (3.5-5.0); Alkaline Phosphatase 139 U/L (39-117); Anion Gap 15 (12-20); Aspartate Amino Transferase 46 U/L (5-31); Bilirubin Direct 0.5 mg/dL (0.0-0.5); Bilirubin Total 0.9 mg/dL (0.0-1.0); Blood Urea Nitrogen 26 mg/dL (9-16); Calcium 10.2 mg/dL (8.4-10.2); Carbon Dioxide 26 mmol/L (22-29); Chloride 100 mmol/L (96-108); Creatinine Clr Calc Pharmacy 54.3; Estimated Glomerular Filt Rate > 60; Glucose Random 154 mg/dL (60-115); Lipase 11 U/L (8-78); Sodium 137 mmol/L (135-145); Total Protein 7.1 g/dL (6.5-8.0)
[2021-12-09] MEDS: ondansetron HCL 4 MG/2 ML VIAL IVPUSH ×3 (11:04→23:27)
[2021-12-09] MEDS: Morphine Sulfate 2 MG/ML CARTRIDGE IVPUSH (11:05)
[2021-12-09] MEDS: iohexoL 350 MG/ML 100 ML INFUS..BTL 85 ML IV (12:01)
--- NOTE | 2021-12-09 13:09 | PHA.MEDREC ---
Pharmacy Consult ? Medication Reconciliation Pharmacy has completed the medication reconciliation.
--- NOTE | 2021-12-09 13:35 | P.HPGS_ITS ---
History of Present Illness History of Present Illness Date of Service: 12/09/21 <Christy Mondragon PA-C - Last Filed: 12/09/21 13:56> 12/09/21 <Moisés Gifford MD - Last Filed: 12/09/21 15:13> Chief complaint: SBO <Christy Mondragon PA-C - Last Filed: 12/09/21 13:56> Narrative: Venus Nguyen is a 71 year old female with PMH of hypothyroidism, osteoporosis, GERD who presented to the ED with complaints of abdominal pain. According to her daughter, she was having a phlebectomy for her varicose veins on Tuesday and began to complains of abdominal pain. This was associated with nausea without vomiting but she has been spitting up yellow/green material . The pain progressively worsened and persisted prompting them to come to the ED for evaluation. She passed flatus and had a normal bowel movement yesterday. She has never had a pain like this before. She has had a cholecystectomy and total hysterectomy in the past. Work up in the ED included CT scan abd/pelvis which showed dilated and fluid-filled small bowel leading to an area of fecalization in the pelvis were there is transition to decompressed bowel. <Christy Mondragon PA-C - Last Filed: 12/09/21 13:56> Review of Systems Constitutional: Constitutional: Denies chills and Denies fever(s) <Ranulfo Mondragon PA-C - Last Filed: 12/09/21 13:56> Cardiovascular: Cardiovascular: Denies chest pain, Denies palpitations and Denies dyspnea <Christy Mondragon PA-C - Last Filed: 12/09/21 13:56> Respiratory: Respiratory: Denies cough and Denies dyspnea <Christy Mondragon PA-C - Last Filed: 12/09/21 13:56> Gastrointestinal: Gastrointestinal: Reports as per HPI <MO Ackerman Last Filed: 12/09/21 13:56> Integumentary/Breasts: Skin/Breast: Denies rash <MO Ackerman Last Filed: 12/09/21 13:56> Neurologic: Denies focal weakness <MO Ackerman Last Filed: 12/09/21 13:56> Endocrine: Endocrine: Denies palpitations <MO Ackerman Last Filed: 12/09/21 13:56> [facility] Past Medical History Medical History: Medical History GERD (gastroesophageal reflux disease) History of seizures Hypothyroidism Impacted cerumen of left ear Multinodular thyroid Osteoarthritis of hand, left Osteoarthritis of hand, right Osteoporosis Peripheral vascular disease Thyroid nodule Vitamin D deficiency <MO Ackerman Last Filed: 12/09/21 13:56> Family History Family History: Family History Father Throat cancer Mother No problems noted. Brother Liver cancer <MO Ackerman Last Filed: 12/09/21 13:56> Surgical History Surgical History: Surgical History History of cholecystectomy History of colonoscopy History of surgery History of total abdominal hysterectomy and bilateral salpingo-oophorectomy <MO Ackerman Last Filed: 12/09/21 13:56> Social History Social History: Social History Household Members: Spouse [facility] Alcohol intake: never Patient Tobacco Use Status: Never used Tobacco e-Cigarette/Vaping Use: Never Used Second Hand Smoke Exposure: No Use of substances other than those prescribed or required for medical reasons: No Advance Directives: No Advance Directives Information Provided: No service: No Current occupational status: unemployed <MO Ackerman Last Filed: 12/09/21 13:56> Meds Allergies/Adverse reactions: Allergies Allergy/AdvReac Type Severity Reaction Status Date / Time nystatin Allergy Intermediate Rash Verified 11/20/21 15:29 <MO Ackerman Last Filed: 12/09/21 13:56> Active Medications: Current Medications Acetaminophen (Acetaminophen 325 Mg Tablet) 650 mg PO Q6H PRN PRN Reason: fever, pain Benzocaine (Throat Lozenge, Medicated Lozenge) 1 lozenge MUCOUS MEM Q2H PRN PRN Reason: Sore Throat Famotidine (Famotidine/Pf 20 Mg/2 Ml Vial) 20 mg IVPUSH DAILY [facility] Lactated Ringer's (Lr) 1,000 mls @ 100 mls/hr IVCONT .Q10H [place] Morphine Sulfate (Morphine Sulfate 4 Mg/Ml Cartridge) 2 mg IVPUSH Q3H PRN; Protocol PRN Reason: Pain, Severe (Pain Scale 7-10) Ondansetron HCl (Ondansetron Hcl 4 Mg/2 Ml Vial) 4 mg IVPUSH Q8H PRN PRN Reason: Nausea and Vomiting Pharmacy Consult (Consult Rx Perform Med Rec) 1 each MISCELLANE ONCE PRN PRN Reason: Consult order Sodium Chloride (0.9 % Sodium Chloride Flush 3 Ml Syringe) 3 ml IVFLUSH QSHIFT [facility] <MO Ackerman Last Filed: 12/09/21 13:56> Home medications: Home Medications Medication Instructions Recorded Confirmed Last Taken Type calcium carbonate 600 mg-vitamin 1 tab PO DAILY 07/09/20 12/09/21 12/08/21 History D3 5 mcg (200 unit) tablet (Calcium 600 + D(3)) tramadol 50 mg tablet 50 mg PO DAILY PRN 12/09/21 12/09/21 Unknown History <MO Ackerman Last Filed: 12/09/21 13:56> Physical Exam Vital Signs: Vital Signs: Last Vital Signs Temp 98.4 F 12/09/21 09:55 Pulse 77 12/09/21 12:09 Resp 15 12/09/21 12:09 BP 121/63 12/09/21 12:09 Pulse Ox 98 12/09/21 12:09 BMI result Body Mass Index 28.3 <MO Ackerman Last Filed: 12/09/21 13:56> Const: General: comfortable, no acute distress and alert <MO Acekrman Last Filed: 12/09/21 13:56> Orientation/consciousness: patient oriented x3 <MO Ackerman Last Filed: 12/09/21 13:56> Resp: Effort & Inspection: normal respiratory effort <MO Ackerman Last Filed: 12/09/21 13:56> Cardio: Rate: regular rate <MO Ackerman Last Filed: 13:56> GI: Inspection: Yes distended and Yes scar <MO Ackerman Last Filed: 12/09/21 13:56> Palpation (GI): Soft to palpation, Tenderness to palpation present (GI) (lower abdomen) Negative for with no rebound tenderness, no guarding and not rigid <MO Ackerman Last Filed: 12/09/21 13:56> Percussion: Yes tympanic to percussion <MO Ackerman Last Filed: 12/09/21 13:56> Abdomen image: 1. 2. 3. <MO Ackerman Last Filed: 12/09/21 13:56> Skin: General skin exam: no rashes or lesions noted <MO Ackerman Last Filed: 12/09/21 13:56> Neuro: General: patient oriented x3 <MO Ackerman Last Filed: 12/09/21 13:56> Extrem: General: Yes no clubbing, cyanosis or edema <Christy Mondragon MO Henry Last Filed: 12/09/21 13:56> Results Results Labs: Short CBC 12/09/21 Range/Units 10:34 WBC 8.8 (4.8-10.8) X10*3/uL Hgb 14.6 (12.0-16.0) g/dl Hct 44.9 (37.0-47.0) % Plt Count 229 (160-400) X10*3/uL BMP 12/09/21 10:34 Sodium 137 Potassium 4.0 Chloride 100 Carbon Dioxide 26 BUN 26 H Creatinine 0.78 Calcium 10.2 Liver Function 12/09/21 Range/Units 10:34 Total Bilirubin 0.9 (0.0-1.0) mg/dL Direct Bilirubin 0.5 (0.0-0.5) mg/dL AST 46 H D (5-31) U/L ALT 35 H (0-31) U/L Alkaline Phosphatase 139 H D (39-117) U/L Albumin 4.4 (3.5-5.0) g/dL Urine 12/09/21 12/09/21 Range/Units 10:25 10:26 Urine Color DK YELLOW Urine Appearance HAZY Urine pH 6.0 (5.0-8.0) Ur Specific [place] >= 1.030 H (1.005-1.025) Urine Protein 1+ H (NEG-TRACE) MG/DL Urine Glucose (UA) NEG (NEG) MG/DL Urine Test NEGATIVE (NEGATIVE) <Christy Mondragon PA-C - Last Filed: 12/09/21 13:56> Abdomen CT scan report/results: report reviewed and image reviewed <MO Ackerman Last Filed: 12/09/21 13:56> Assessment and Plan (1) Small bowel obstruction: Status: Acute <Christy Mondragon PA-C - Last Filed: 12/09/21 13:56> Patient with abdominal pain since about 48 hours ago Has history of hysterectomy and cholecystectomy Abdomen soft CT scan reviewed - diffuse small-bowel dilatation, with a transition point in the pelvis consistent with partial small-bowel obstruction There is good amount of air distally in the colon PSBO likely secondary to lesions postop NG tube placement, IV fluids pain management Explained plan to the patient and her daughter Seen and examined independently - agree with YANIRA Mondragon <Moisés Gifford MD - Last Filed: 12/09/21 15:13> Plan 71 year old female who presented with abdominal pain and nausea found to have dilated small bowel loops on CT scan. Picture consistent with SBO likely secondary to adhesions from prior surgery. She will be admitted to the surgical service for treatment of the obstruction. NGT to low intermittent suction for decompression, NPO status and IVF, PRN IV analgesics and antiemetics have been ordered. Further plan dependent on clinical course. This was discussed with patient and her daughter, Barbara. Encourage OOB and ambulation to stimulate bowel function. Patient is clinically well appearing with a relatively benign abdominal exam. Patient seen and discussed with Dr. Gifford. <Christy Mondragon PA-C - Last Filed: 12/09/21 13:56> Quality Stroke Does the patient have a stroke diagnosis?: No <Christy Mondragon PA-C - Last Filed: 12/09/21 13:56> VTE Prior VTE?: No <Christy Mondragon PA-C - Last Filed: 12/09/21 13:56> VTE Risk Level:: Medical - low <Christy Mondragon PA-C - Last Filed: 12/09/21 13:56> VTE Device Contraindication: N/A - Device Ordered <Christy Mondragon PA-C - Last Filed: 12/09/21 13:56> VTE Drug Contraindication: Treatment Not Indicated <Christy Mondragon PA-C - Last Filed: 12/09/21 13:56> Procedures Date of Service Date of Service: 12/09/21 <Christy Mondragon PA-C - Last Filed: 12/09/21 13:56>
[2021-12-09] MEDS: Lidocaine HCl 4 % Topical 50 ML SOLUTION 1 APPL TOPICAL (14:19)
[2021-12-09] MEDS: Morphine Sulfate 4 MG/ML CARTRIDGE 2 MG IVPUSH ×3 (14:25→23:27)
[2021-12-09] MEDS: Lactated Ringers 1,000 ML 100 ML IVCONT (15:03)
--- NOTE | 2021-12-09 15:19 | PC.NURSE ---
dr mc confimed ngt placement
[2021-12-09 16:09] LABS: COVID-19 Test Negative (Negative)
--- NOTE | 2021-12-09 23:27 | PC.NURSE ---
PT reported a return in pain and nausea that was relieved earlier with meds. PT requested zofran and morphine at this time.
[2021-12-10 00:09] VITALS: BP 115/72; PULSE 75; RESP 16; O2SAT 97
--- NOTE | 2021-12-10 00:14 | PC.NURSE ---
nursing report given to Akilah BOLAÑOS in ED overflow
[2021-12-10] MEDS: 0.9 % Sodium Chloride Flush 3 ML SYRINGE IVFLUSH (01:14)
[2021-12-10] MEDS: Lactated Ringers 1,000 ML 100 ML IVCONT ×3 (01:15→18:12)
--- NOTE | 2021-12-10 07:15 | PC.NURSE ---
assumed care of pt at 0700 this morning, AM Synthroid held by overnight RN pending Dr. Gifford rounds to determine status of NPO
[2021-12-10 07:29] LABS: Anion Gap 12 (12-20); Blood Urea Nitrogen 25 mg/dL (9-16); Calcium 8.9 mg/dL (8.4-10.2); Carbon Dioxide 28 mmol/L (22-29); Chloride 103 mmol/L (96-108); Creatinine Clr Calc Pharmacy 68.3; Estimated Glomerular Filt Rate > 60; Glucose Random 116 mg/dL (60-115); Potassium 4.5 mmol/L (3.3-5.1); Sodium 138 mmol/L (135-145)
[2021-12-10] MEDS: Levothyroxine Sodium 75 MCG TABLET PO (07:35)
[2021-12-10] MEDS: ondansetron HCL 4 MG/2 ML VIAL IVPUSH (07:35)
[2021-12-10] MEDS: Morphine Sulfate 4 MG/ML CARTRIDGE 2 MG IVPUSH (07:35)
--- NOTE | 2021-12-10 07:44 | PC.NURSE ---
surgery consult down to see pt, oked to clam NG tube and administer AM synthroid. pt given Morphine and zofran per NOV. pt at this time up to bathroom to change and clean herself.
[2021-12-10 08:11] VITALS: BP 113/65; PULSE 75; RESP 16; O2SAT 93
--- NOTE | 2021-12-10 08:59 | P.PNGS_ITS ---
Subjective Subjective Date of Service: 12/10/21 <Christy Mondragon PA-C - Last Filed: 12/10/21 09:02> 12/10/21 <Moisés Gifford MD - Last Filed: 12/10/21 10:11> Interval history: Less pain this morning and denies nausea but still feels a little bloated. Passing flatus but no BM. <MO Ackerman Last Filed: 12/10/21 09:02> Physical Exam Vital Signs: Vital Signs: Last Vital Signs Temp 98.6 F 12/09/21 22:36 Pulse 75 12/10/21 08:11 Resp 16 12/10/21 08:11 BP 113/65 12/10/21 08:11 Pulse Ox 93 12/10/21 08:11 BMI result Body Mass Index 28.3 <MO Ackerman Last Filed: 12/10/21 09:02> Const: General: comfortable, no acute distress and alert <Christy Mondragon PA-C - Last Filed: 12/10/21 09:02> Orientation/consciousness: patient oriented x3 <MO Ackerman Last Filed: 12/10/21 09:02> HEENT: Other: NGT in place <MO Ackerman Last Filed: 12/10/21 09:02> Resp: Effort & Inspection: normal respiratory effort <MO Ackerman Last Filed: 12/10/21 09:02> GI: Inspection: Yes distended (mild, soft) <MO Ackerman Last Filed: 12/10/21 09:02> Palpation (GI): Soft to palpation, Tenderness to palpation present (GI) periumbilically (on left), no guarding and not rigid <MO Ackerman Last Filed: 12/10/21 09:02> Percussion: Yes tympanic to percussion <MO Ackerman Last Filed: 12/10/21 09:02> Skin: General skin exam: no rashes or lesions noted <MO Ackerman Last Filed: 12/10/21 09:02> Neuro: General: patient oriented x3 <Christy Mondragon PA-C - Last Filed: 12/10/21 09:02> Objective Data Active Medications Acetaminophen (Acetaminophen 325 Mg Tablet) 650 mg PO Q6H PRN PRN Reason: fever, pain Benzocaine (Throat Lozenge, Medicated Lozenge) 1 lozenge MUCOUS MEM Q2H PRN PRN Reason: Sore Throat Famotidine (Famotidine/Pf 20 Mg/2 Ml Vial) 20 mg IVPUSH DAILY [facility] Lactated Ringer's (Lr) 1,000 mls @ 100 mls/hr IVCONT .Q10H [facility] Last Admin: 12/10/21 01:15 Dose: 100 mls/hr Documented by: JUDY Levothyroxine Sodium (Levothyroxine Sodium 75 Mcg Tablet) 75 mcg PO DAILY@0600 [facility] Last Admin: 12/10/21 07:35 Dose: 75 mcg Documented by: EMERY Morphine Sulfate (Morphine Sulfate 4 Mg/Ml Cartridge) 2 mg IVPUSH Q3H PRN; Protocol PRN Reason: Pain, Severe (Pain Scale 7-10) Last Admin: 12/10/21 07:35 Dose: 2 mg Documented by: EMERY Ondansetron HCl (Ondansetron Hcl 4 Mg/2 Ml Vial) 4 mg IVPUSH Q8H PRN PRN Reason: Nausea and Vomiting Last Admin: 12/10/21 07:35 Dose: 4 mg Documented by: EMERY Pharmacy Consult (Consult Rx Perform Med Rec) 1 each MISCELLANE ONCE PRN PRN Reason: Consult order Sodium Chloride (0.9 % Sodium Chloride Flush 3 Ml Syringe) 3 ml IVFLUSH QSHIFT [facility] Last Admin: 12/10/21 01:14 Dose: 3 ml Documented by: JUDY <Christy Mondragon PA-C - Last Filed: 12/10/21 09:02> Labs CBC & Chem 7: : 12/09/21 10:34 12/10/21 06:49 <Christy Mondragon PA-C - Last Filed: 12/10/21 09:02> Labs: Laboratory Results - last 24 hr 12/09/21 12/09/21 12/09/21 10:25 10:26 10:34 MCV 93.5 MCH 30.4 MCHC 32.5 RDW 12.4 Plt Count 229 MPV 8.7 L Immature Gran % (Auto) 0.3 Neut % (Auto) 84.7 H Lymph % (Auto) 9.3 L [place] % (Auto) 5.7 Eos % (Auto) 0.0 Baso % (Auto) 0.0 Lymph # (Auto) 0.8 L [place] # (Auto) 0.5 Eos # (Auto) 0.0 Baso # (Auto) 0.0 Abs Immat Gran (auto) 0.03 Absolute Neuts (auto) 7.5 Absolute Nucleated RBC 0.000 Nucleated RBC % (auto) 0.0 Anion Gap Estim Creat Clear Calc Estimated GFR Random Glucose Calcium Total Bilirubin Direct Bilirubin AST ALT Alkaline Phosphatase Total Protein Albumin Lipase Urine Color DK YELLOW Urine Appearance HAZY Urine pH 6.0 Ur Specific [place] >= 1.030 H Urine Protein 1+ H Urine Glucose (UA) NEG Urine Ketones 15 Urine Blood NEG Urine Nitrite NEG Ur Leukocyte Esterase NEG Urine RBC 0 Urine WBC 0-2 Ur Squamous Epith Cells 1+ Urine Bacteria NONE Hyaline Casts 1-4 Urine Mucus 4+ Urine Test NEGATIVE COVID-19 ([facility]) COVID-19 Clin Com 12/09/21 12/09/21 12/10/21 10:34 15:35 06:49 MCV MCH MCHC RDW Plt Count MPV Immature Gran % (Auto) Neut % (Auto) Lymph % (Auto) [place] % (Auto) Eos % (Auto) Baso % (Auto) Lymph # (Auto) [place] # (Auto) Eos # (Auto) Baso # (Auto) Abs Immat Gran (auto) Absolute Neuts (auto) Absolute Nucleated RBC Nucleated RBC % (auto) Anion Gap 15 12 Estim Creat Clear Calc 54.3 68.3 Estimated GFR > 60 > 60 Random Glucose 154 H 116 H Calcium 10.2 8.9 D Total Bilirubin 0.9 Direct Bilirubin 0.5 AST 46 H D ALT 35 H Alkaline Phosphatase 139 H D Total Protein 7.1 Albumin 4.4 Lipase 11 Urine Color Urine Appearance Urine pH Ur Specific [place] Urine Protein Urine Glucose (UA) Urine Ketones Urine Blood Urine Nitrite Ur Leukocyte Esterase Urine RBC Urine WBC Ur Squamous Epith Cells Urine Bacteria Hyaline Casts Urine Mucus Urine Test COVID-19 ([facility]) Negative COVID-19 Clin Com See Note <Christy Mondragon PA-C - Last Filed: 12/10/21 09:02> Procedures Date of Service Date of Service: 12/10/21 <Christy Mondragon PA-C - Last Filed: 12/10/21 09:02> Progress Note: A&P Assessment and plan (1) Small bowel obstruction: Status: Acute <Christy Mondragon PA-C - Last Filed: 12/10/21 09:02> Assessment and Plan: She denies flatus Does state that she seems better although still has pain Abdomen soft She looks well clinically Will re-evaluate NG tube later on for possible removal Seen and examined independently - agree with YANIRA Mondragon <Moisés Gifford MD - Last Filed: 12/10/21 10:11> Plan 71 year old female admitted with SBO. Appears to be resolving with supportive measures. Passing flatus and less pain this morning. VSS. Abd softly distended, tenderness appears to be improved. NGT output scanty. Will continue NGT, npo and IVF for now. Will reassess later today for possible dc of NGT. <Christy Mondragon PA-C - Last Filed: 12/10/21 09:02> Fall Risk Details Current Medications: Current Medications Acetaminophen (Acetaminophen 325 Mg Tablet) 650 mg PO Q6H PRN PRN Reason: fever, pain Benzocaine (Throat Lozenge, Medicated Lozenge) 1 lozenge MUCOUS MEM Q2H PRN PRN Reason: Sore Throat Famotidine (Famotidine/Pf 20 Mg/2 Ml Vial) 20 mg IVPUSH DAILY [facility] Lactated Ringer's (Lr) 1,000 mls @ 100 mls/hr IVCONT .Q10H [facility] Last Admin: 12/10/21 01:15 Dose: 100 mls/hr Documented by: Levothyroxine Sodium (Levothyroxine Sodium 75 Mcg Tablet) 75 mcg PO DAILY@0600 [facility] Last Admin: 12/10/21 07:35 Dose: 75 mcg Documented by: Morphine Sulfate (Morphine Sulfate 4 Mg/Ml Cartridge) 2 mg IVPUSH Q3H PRN; Protocol PRN Reason: Pain, Severe (Pain Scale 7-10) Last Admin: 12/10/21 07:35 Dose: 2 mg Documented by: Ondansetron HCl (Ondansetron Hcl 4 Mg/2 Ml Vial) 4 mg IVPUSH Q8H PRN PRN Reason: Nausea and Vomiting Last Admin: 12/10/21 07:35 Dose: 4 mg Documented by: Pharmacy Consult (Consult Rx Perform Med Rec) 1 each MISCELLANE ONCE PRN PRN Reason: Consult order Sodium Chloride (0.9 % Sodium Chloride Flush 3 Ml Syringe) 3 ml IVFLUSH QSHIFT [facility] Last Admin: 12/10/21 01:14 Dose: 3 ml Documented by: <Christy Mondragon PA-C - Last Filed: 12/10/21 09:02> Time Spent With Patient Time: Total time spent is greater than 50% in coordination of care (as documented) at patient's floor/unit and/or counseling patient: <MO Ackerman Last Filed: 12/10/21 09:02> Quality Stroke Does the patient have a stroke diagnosis?: No <Christy Mondragon PA-C - Last Filed: 12/10/21 09:02> VTE Prior VTE?: No <Christy Mondragon PA-C - Last Filed: 12/10/21 09:02> VTE Risk Level:: Medical - low <MO Ackerman Last Filed: 12/10/21 09:02> VTE Device Contraindication: N/A - Device Ordered <MO Ackerman Last Filed: 12/10/21 09:02> VTE Drug Contraindication: Treatment Not Indicated <MO Ackerman Last Filed: 12/10/21 09:02>
[2021-12-10] MEDS: Famotidine/PF 20 MG/2 ML VIAL IVPUSH (09:20)
--- NOTE | 2021-12-10 12:33 | MHC.CM.PN ---
Met with patient and her , Jun. Patient's primary language is [place], but she is able to speak and understand [place]ian. Patient lives with her , ambulates independently and had no services prior to coming to the hospital. No services anticiapted to be needed because patient is not homebound. PCP verified. Patient's daughter has a copy of HCP and will attempt to obtain a copy. IMM explained and signed. Patient received 3 Pfizer vaccines. Jun will transport patient home when medically stable. Continue to monitor for d/c needs.
[2021-12-10] MEDS: Morphine Sulfate 4 MG/ML CARTRIDGE IVPUSH ×2 (12:47→22:33)
[2021-12-10 13:43] VITALS: BP 102/56; PULSE 72; RESP 16; O2SAT 98
[2021-12-10 16:22] VITALS: BP 117/68; PULSE 76; RESP 16; O2SAT 97
[2021-12-10 18:10] VITALS: BP 132/72; PULSE 78; RESP 14; TEMP 36.9; O2SAT 96
[2021-12-10 23:46] VITALS: BP 118/64; PULSE 75; RESP 14; TEMP 36.8; O2SAT 95
[2021-12-11] VITALS (7 sets, daily range): BP systolic 120–145; BP diastolic 60–79; PULSE 70–82; RESP 16–19; TEMP 36.5–37.1; O2SAT 95–99
[2021-12-11] MEDS: Morphine Sulfate 4 MG/ML CARTRIDGE IVPUSH ×2 (04:30→14:53)
[2021-12-11] MEDS: Lactated Ringers 1,000 ML 100 ML IVCONT ×2 (04:31→13:59)
[2021-12-11] MEDS: Levothyroxine Sodium 75 MCG TABLET PO (05:23)
[2021-12-11] MEDS: Famotidine/PF 20 MG/2 ML VIAL IVPUSH (08:29)
[2021-12-11] MEDS: 0.9 % Sodium Chloride Flush 3 ML SYRINGE IVFLUSH ×2 (08:30→14:56)
--- NOTE | 2021-12-11 09:14 | PM.PNGS ---
Subjective Subjective Date of Service: 12/11/21 <Christy Mondragon PA-C - Last Filed: 12/11/21 09:17> 12/11/21 <Moisés Gifford MD - Last Filed: 12/11/21 13:50> Interval history: Feeling better this morning. Denies pain but some soreness. Denies flatus. Has been OOB and ambulating in room. <Christy Mondragon PA-C - Last Filed: 12/11/21 09:17> Physical Exam Vital Signs: Vital Signs: Last Vital Signs Temp 97.7 F 12/11/21 07:56 Pulse 75 12/11/21 07:56 Resp 18 12/11/21 07:56 BP 120/65 12/11/21 07:56 Pulse Ox 96 12/11/21 07:56 BMI result Body Mass Index 28.3 <MO Ackerman Last Filed: 12/11/21 09:17> Const: General: comfortable and no acute distress <Christy Mondragon PA-C - Last Filed: 12/11/21 09:17> Orientation/consciousness: patient oriented x3 <Christy Mondragon PA-C - Last Filed: 12/11/21 09:17> Resp: Effort & Inspection: normal respiratory effort <MO Ackerman Last Filed: 12/11/21 09:17> GI: Inspection: Yes distended (soft, decreasingly) <Christy Mondragon PA-C - Last Filed: 12/11/21 09:17> Palpation (GI): Soft to palpation, Tenderness to palpation present (GI) (very mild, periumbilical), no guarding and not rigid <Christy Mondragon PA-C - Last Filed: 12/11/21 09:17> Percussion: Yes normal to percussion <MO Ackerman Last Filed: 12/11/21 09:17> Skin: General skin exam: no rashes or lesions noted <MO Ackerman Last Filed: 12/11/21 09:17> Neuro: General: patient oriented x3 <MO Ackerman Last Filed: 12/11/21 09:17> Objective Data Active Medications Acetaminophen (Acetaminophen 325 Mg Tablet) 650 mg PO Q6H PRN PRN Reason: fever, pain Benzocaine (Throat Lozenge, Medicated Lozenge) 1 lozenge MUCOUS MEM Q2H PRN PRN Reason: Sore Throat Famotidine (Famotidine/Pf 20 Mg/2 Ml Vial) 20 mg IVPUSH DAILY REPLACED BY [facility] Last Admin: 12/11/21 08:29 Dose: 20 mg Documented by: LUCIA Lactated Ringer's (Lr) 1,000 mls @ 100 mls/hr IVCONT .Q10H REPLACED BY [facility] Last Admin: 12/11/21 04:31 Dose: 100 mls/hr Documented by: JEFFERSONASY Levothyroxine Sodium (Levothyroxine Sodium 75 Mcg Tablet) 75 mcg PO DAILY@0600 REPLACED BY [facility] Last Admin: 12/11/21 05:23 Dose: 75 mcg Documented by: SARAY Morphine Sulfate (Morphine Sulfate 4 Mg/Ml Cartridge) 4 mg IVPUSH Q4H PRN; Protocol PRN Reason: Pain, Severe (Pain Scale 7-10) Last Admin: 12/11/21 04:30 Dose: 4 mg Documented by: SARAY Ondansetron HCl (Ondansetron Hcl 4 Mg/2 Ml Vial) 4 mg IVPUSH Q8H PRN PRN Reason: Nausea and Vomiting Last Admin: 12/10/21 07:35 Dose: 4 mg Documented by: EMERY Pharmacy Consult (Consult Rx Perform Med Rec) 1 each MISCELLANE ONCE PRN PRN Reason: Consult order Sodium Chloride (0.9 % Sodium Chloride Flush 3 Ml Syringe) 3 ml IVFLUSH QSHIFT REPLACED BY [facility] Last Admin: 12/11/21 08:30 Dose: 3 ml Documented by: LUCIA <MO Ackerman Last Filed: 12/11/21 09:17> Labs CBC & Chem 7: : 12/09/21 10:34 12/10/21 06:49 <MO Ackerman Last Filed: 12/11/21 09:17> Procedures Date of Service Date of Service: 12/11/21 <MO Ackerman Last Filed: 12/11/21 09:17> Progress Note: A&P Assessment and plan (1) Small bowel obstruction: Status: Acute <Christy Mondragon PA-C - Last Filed: 12/11/21 09:17> Assessment and Plan: pt seen multiple times feels better but denies flatus NGT clamped - released just now, not much output pt however says she still feels bloated will keep NGT back to intermittent suction until nicolas (?) abd soft and benign seen and examined independently - agree with YANIRA Mondragon <Moisés Gifford MD - Last Filed: 12/11/21 13:50> Plan 71 year old female admitted with SBO. Improving symptomatically. NGT has had scanty output since placement but no real evidence of GI function yet. Will clamp ngt for 4 hrs, check residual. If remains asymptomatic and residual <100cc will remove. Continued to encourage OOB/ambulation for GI function. Patient comfortable with plan. <Christy Mondragon PA-C - Last Filed: 12/11/21 09:17> Fall Risk Details Current Medications: Current Medications Acetaminophen (Acetaminophen 325 Mg Tablet) 650 mg PO Q6H PRN PRN Reason: fever, pain Benzocaine (Throat Lozenge, Medicated Lozenge) 1 lozenge MUCOUS MEM Q2H PRN PRN Reason: Sore Throat Famotidine (Famotidine/Pf 20 Mg/2 Ml Vial) 20 mg IVPUSH DAILY REPLACED BY [facility] Last Admin: 12/11/21 08:29 Dose: 20 mg Documented by: Lactated Ringer's (Lr) 1,000 mls @ 100 mls/hr IVCONT .Q10H REPLACED BY [facility] Last Admin: 12/11/21 04:31 Dose: 100 mls/hr Documented by: Levothyroxine Sodium (Levothyroxine Sodium 75 Mcg Tablet) 75 mcg PO DAILY@0600 REPLACED BY [facility] Last Admin: 12/11/21 05:23 Dose: 75 mcg Documented by: Morphine Sulfate (Morphine Sulfate 4 Mg/Ml Cartridge) 4 mg IVPUSH Q4H PRN; Protocol PRN Reason: Pain, Severe (Pain Scale 7-10) Last Admin: 12/11/21 04:30 Dose: 4 mg Documented by: Ondansetron HCl (Ondansetron Hcl 4 Mg/2 Ml Vial) 4 mg IVPUSH Q8H PRN PRN Reason: Nausea and Vomiting Last Admin: 12/10/21 07:35 Dose: 4 mg Documented by: Pharmacy Consult (Consult Rx Perform Med Rec) 1 each MISCELLANE ONCE PRN PRN Reason: Consult order Sodium Chloride (0.9 % Sodium Chloride Flush 3 Ml Syringe) 3 ml IVFLUSH QSHIFT REPLACED BY [facility] Last Admin: 12/11/21 08:30 Dose: 3 ml Documented by: <Christy Mondragon PA-C - Last Filed: 12/11/21 09:17> Time Spent With Patient Time: Total time spent is greater than 50% in coordination of care (as documented) at patient's floor/unit and/or counseling patient: <Christy Mondragon PA-C - Last Filed: 12/11/21 09:17> Quality Stroke Does the patient have a stroke diagnosis?: No <Christy Mondragon PA-C - Last Filed: 12/11/21 09:17> VTE Prior VTE?: No <Christy Mondragon PA-C - Last Filed: 12/11/21 09:17> VTE Risk Level:: Medical - low <Christy Mondragon PA-C - Last Filed: 12/11/21 09:17> VTE Device Contraindication: N/A - Device Ordered <Christy Mondragon PA-C - Last Filed: 12/11/21 09:17> VTE Drug Contraindication: Treatment Not Indicated <Christy Mondragon PA-C - Last Filed: 12/11/21 09:17>
[2021-12-12] MEDS: Lactated Ringers 1,000 ML 100 ML IVCONT ×2 (02:15→12:49)
[2021-12-12 04:00] VITALS: BP 125/54; PULSE 82; RESP 17; TEMP 36.6; O2SAT 97
[2021-12-12] MEDS: Levothyroxine Sodium 75 MCG TABLET PO (05:03)
[2021-12-12 07:05] VITALS: BP 150/85; PULSE 77; RESP 18; TEMP 36; O2SAT 96
[2021-12-12] MEDS: Famotidine/PF 20 MG/2 ML VIAL IVPUSH (09:18)
[2021-12-12 10:57] VITALS: BP 136/64; PULSE 74; RESP 18; TEMP 37.2; O2SAT 96
[2021-12-12 15:28] VITALS: BP 140/65; PULSE 77; RESP 18; TEMP 37.1; O2SAT 98
--- NOTE | 2021-12-12 17:55 | PC.NURSE ---
Dr Hudson notified of approximatley 75ml output from NGT today. Pt passing small amount of flatus and had 2 liquid BMs this morning. Denies pain or nausea. States she just feels weak. Ambulated in [place] 3 times today. NGT clamped at this time. MD to come see pt after trial of clear liquids
[2021-12-12 20:00] VITALS: BP 154/71; PULSE 76; RESP 18; TEMP 36.4; O2SAT 98
--- NOTE | 2021-12-12 20:16 | P.PNGS_ITS ---
Subjective Subjective Date of Service: 12/12/21 Interval history: pt feeling ok, tired has been walking passing gas and several loose stools no burping has tolerated ng clamp for 3 hrs now drinking clear liquids Physical Exam Vital Signs: Vital Signs: Last Vital Signs Temp 97.6 F 12/12/21 20:00 Pulse 76 12/12/21 20:00 Resp 18 12/12/21 20:00 BP 154/71 H 12/12/21 20:00 Pulse Ox 98 12/12/21 20:00 BMI result Body Mass Index 28.3 GI: Other: soft, mild distension fair bowel sounds nontender Objective Data Active Medications Acetaminophen (Acetaminophen 325 Mg Tablet) 650 mg PO Q6H PRN PRN Reason: fever, pain Benzocaine (Throat Lozenge, Medicated Lozenge) 1 lozenge MUCOUS MEM Q2H PRN PRN Reason: Sore Throat Famotidine (Famotidine/Pf 20 Mg/2 Ml Vial) 20 mg IVPUSH DAILY [facility] Last Admin: 12/12/21 09:18 Dose: 20 mg Documented by: DANIE Levothyroxine Sodium (Levothyroxine Sodium 75 Mcg Tablet) 75 mcg PO DAILY@0600 [facility] Last Admin: 12/12/21 05:03 Dose: 75 mcg Documented by: RIZWAN Morphine Sulfate (Morphine Sulfate 4 Mg/Ml Cartridge) 4 mg IVPUSH Q4H PRN; Protocol PRN Reason: Pain, Severe (Pain Scale 7-10) Last Admin: 12/11/21 14:53 Dose: 4 mg Documented by: LUCIA Ondansetron HCl (Ondansetron Hcl 4 Mg/2 Ml Vial) 4 mg IVPUSH Q8H PRN PRN Reason: Nausea and Vomiting Last Admin: 12/10/21 07:35 Dose: 4 mg Documented by: EMERY Pharmacy Consult (Consult Rx Perform Med Rec) 1 each MISCELLANE ONCE PRN PRN Reason: Consult order Sodium Chloride (0.9 % Sodium Chloride Flush 3 Ml Syringe) 3 ml IVFLUSH QSHIFT [facility] Last Admin: 12/12/21 15:08 Dose: Not Given Documented by: DANIE Non-Admin Reason: IV Running Labs CBC & Chem 7: 12/09/21 10:34 12/10/21 06:49 Procedures Date of Service Date of Service: 12/12/21 Progress Note: A&P Assessment and plan (1) Small bowel obstruction: Status: Acute Plan pt improving from sbo - i clamped ng for the last 3 hrs and put back on suction and we got another 100 cc of clearish fluid which was probably the drink she had. bs are fair. nontender. plan to cont with ng clamp now. heplock and take in po liquids as tolerated if does well after breakfast check residual and dc ng tube and advance diet if nauseated hook back up to suction pt agrees with the plan Fall Risk Details Current Medications: Current Medications Acetaminophen (Acetaminophen 325 Mg Tablet) 650 mg PO Q6H PRN PRN Reason: fever, pain Benzocaine (Throat Lozenge, Medicated Lozenge) 1 lozenge MUCOUS MEM Q2H PRN PRN Reason: Sore Throat Famotidine (Famotidine/Pf 20 Mg/2 Ml Vial) 20 mg IVPUSH DAILY [facility] Last Admin: 12/12/21 09:18 Dose: 20 mg Documented by: Levothyroxine Sodium (Levothyroxine Sodium 75 Mcg Tablet) 75 mcg PO DAILY@0600 [facility] Last Admin: 12/12/21 05:03 Dose: 75 mcg Documented by: Morphine Sulfate (Morphine Sulfate 4 Mg/Ml Cartridge) 4 mg IVPUSH Q4H PRN; Protocol PRN Reason: Pain, Severe (Pain Scale 7-10) Last Admin: 12/11/21 14:53 Dose: 4 mg Documented by: Ondansetron HCl (Ondansetron Hcl 4 Mg/2 Ml Vial) 4 mg IVPUSH Q8H PRN PRN Reason: Nausea and Vomiting Last Admin: 12/10/21 07:35 Dose: 4 mg Documented by: Pharmacy Consult (Consult Rx Perform Med Rec) 1 each MISCELLANE ONCE PRN PRN Reason: Consult order Sodium Chloride (0.9 % Sodium Chloride Flush 3 Ml Syringe) 3 ml IVFLUSH QSHIFT [facility] Last Admin: 12/12/21 15:08 Dose: Not Given Documented by: Time Spent With Patient Time: Total time spent is greater than 50% in coordination of care (as documented) at patient's floor/unit and/or counseling patient: Quality Stroke Does the patient have a stroke diagnosis?: No VTE Prior VTE?: No VTE Risk Level:: Medical - low VTE Device Contraindication: N/A - Device Ordered VTE Drug Contraindication: Treatment Not Indicated
[2021-12-12 23:58] VITALS: BP 143/71; PULSE 78; RESP 18; TEMP 37.3; O2SAT 97
[2021-12-13] MEDS: 0.9 % Sodium Chloride Flush 3 ML SYRINGE IVFLUSH ×3 (01:22→17:23)
[2021-12-13 04:00] VITALS: BP 146/71; PULSE 85; RESP 18; TEMP 37.2; O2SAT 97
[2021-12-13] MEDS: Levothyroxine Sodium 75 MCG TABLET PO (06:18)
[2021-12-13 06:29] VITALS: BP 145/80; PULSE 85; RESP 16; TEMP 37.3; O2SAT 97
[2021-12-13] MEDS: Famotidine/PF 20 MG/2 ML VIAL IVPUSH (08:06)
[2021-12-13 11:49] VITALS: BP 131/75; PULSE 78; RESP 20; TEMP 36.7; O2SAT 99
--- NOTE | 2021-12-13 14:36 | P.PNGS_ITS ---
Subjective Subjective Date of Service: 12/13/21 Interval history: feels well tolerating liquids well passing gas and some small stools Physical Exam Vital Signs: Vital Signs: Last Vital Signs Temp 98.1 F 12/13/21 11:49 Pulse 78 12/13/21 11:49 Resp 20 12/13/21 11:49 BP 131/75 12/13/21 11:49 Pulse Ox 99 12/13/21 11:49 BMI result Body Mass Index 28.3 GI: Other: soft nontender nondistended active bowel sounds Objective Data Active Medications Acetaminophen (Acetaminophen 325 Mg Tablet) 650 mg PO Q6H PRN PRN Reason: fever, pain Benzocaine (Throat Lozenge, Medicated Lozenge) 1 lozenge MUCOUS MEM Q2H PRN PRN Reason: Sore Throat Famotidine (Famotidine/Pf 20 Mg/2 Ml Vial) 20 mg IVPUSH DAILY [facility] Last Admin: 12/13/21 08:06 Dose: 20 mg Documented by: DANIE Levothyroxine Sodium (Levothyroxine Sodium 75 Mcg Tablet) 75 mcg PO DAILY@0600 [facility] Last Admin: 12/13/21 06:18 Dose: 75 mcg Documented by: SAL Morphine Sulfate (Morphine Sulfate 4 Mg/Ml Cartridge) 4 mg IVPUSH Q4H PRN; Protocol PRN Reason: Pain, Severe (Pain Scale 7-10) Last Admin: 12/11/21 14:53 Dose: 4 mg Documented by: LUCIA Ondansetron HCl (Ondansetron Hcl 4 Mg/2 Ml Vial) 4 mg IVPUSH Q8H PRN PRN Reason: Nausea and Vomiting Last Admin: 12/10/21 07:35 Dose: 4 mg Documented by: EMERY Pharmacy Consult (Consult Rx Perform Med Rec) 1 each MISCELLANE ONCE PRN PRN Reason: Consult order Sodium Chloride (0.9 % Sodium Chloride Flush 3 Ml Syringe) 3 ml IVFLUSH QSHIFT [facility] Last Admin: 12/13/21 08:06 Dose: 3 ml Documented by: DANIE Labs CBC & Chem 7: 12/09/21 10:34 12/10/21 06:49 Procedures Date of Service Date of Service: 12/13/21 Progress Note: A&P Assessment and plan (1) Small bowel obstruction: Status: Acute Assessment and Plan: pt doing well resolved sbo prob from ileus - advance tand dc home tomorrow she understand and agrees with plan Fall Risk Details Current Medications: Current Medications Acetaminophen (Acetaminophen 325 Mg Tablet) 650 mg PO Q6H PRN PRN Reason: fever, pain Benzocaine (Throat Lozenge, Medicated Lozenge) 1 lozenge MUCOUS MEM Q2H PRN PRN Reason: Sore Throat Famotidine (Famotidine/Pf 20 Mg/2 Ml Vial) 20 mg IVPUSH DAILY [facility] Last Admin: 12/13/21 08:06 Dose: 20 mg Documented by: Levothyroxine Sodium (Levothyroxine Sodium 75 Mcg Tablet) 75 mcg PO DAILY@0600 [facility] Last Admin: 12/13/21 06:18 Dose: 75 mcg Documented by: Morphine Sulfate (Morphine Sulfate 4 Mg/Ml Cartridge) 4 mg IVPUSH Q4H PRN; Pro tocol PRN Reason: Pain, Severe (Pain Scale 7-10) Last Admin: 12/11/21 14:53 Dose: 4 mg Documented by: Ondansetron HCl (Ondansetron Hcl 4 Mg/2 Ml Vial) 4 mg IVPUSH Q8H PRN PRN Reason: Nausea and Vomiting Last Admin: 12/10/21 07:35 Dose: 4 mg Documented by: Pharmacy Consult (Consult Rx Perform Med Rec) 1 each MISCELLANE ONCE PRN PRN Reason: Consult order Sodium Chloride (0.9 % Sodium Chloride Flush 3 Ml Syringe) 3 ml IVFLUSH QSHIFT [facility] Last Admin: 12/13/21 08:06 Dose: 3 ml Documented by: Time Spent With Patient Time: Total time spent is greater than 50% in coordination of care (as documented) at patient's floor/unit and/or counseling patient: Quality Stroke Does the patient have a stroke diagnosis?: No VTE Prior VTE?: No VTE Risk Level:: Medical - low VTE Device Contraindication: N/A - Device Ordered VTE Drug Contraindication: Treatment Not Indicated
[2021-12-13 15:23] VITALS: BP 134/63; PULSE 87; RESP 18; TEMP 37.1; O2SAT 96
[2021-12-13 20:00] VITALS: BP 129/70; PULSE 78; RESP 18; TEMP 37; O2SAT 97
[2021-12-13 23:54] VITALS: BP 127/60; PULSE 83; RESP 20; TEMP 36.9; O2SAT 95
[2021-12-14 04:00] VITALS: BP 124/72; PULSE 85; RESP 17; TEMP 37.3; O2SAT 98
[2021-12-14] MEDS: Levothyroxine Sodium 75 MCG TABLET PO (05:42)
[2021-12-14 06:55] VITALS: BP 132/66; PULSE 77; RESP 18; TEMP 36.6; O2SAT 98
--- NOTE | 2021-12-14 09:13 | PM.PNGS ---
Subjective Subjective Date of Service: 12/14/21 Interval history: Tolerating diet No vomiting No abdominal pain Passing flatus, BMs Physical Exam Vital Signs: Vital Signs: Last Vital Signs Temp 98 F 12/14/21 06:55 Pulse 77 12/14/21 06:55 Resp 18 12/14/21 06:55 BP 132/66 12/14/21 06:55 Pulse Ox 98 12/14/21 06:55 BMI result Body Mass Index 28.3 Const: General: comfortable and no acute distress Resp: Effort & Inspection: normal respiratory effort Cardio: Rhythm: regular rhythm GI: Palpation (GI): Soft to palpation, not firm, nontender and no guarding Objective Data Active Medications Acetaminophen (Acetaminophen 325 Mg Tablet) 650 mg PO Q6H PRN PRN Reason: fever, pain Benzocaine (Throat Lozenge, Medicated Lozenge) 1 lozenge MUCOUS MEM Q2H PRN PRN Reason: Sore Throat Famotidine (Famotidine/Pf 20 Mg/2 Ml Vial) 20 mg IVPUSH DAILY [facility] Last Admin: 12/14/21 08:56 Dose: Not Given Documented by: DANIE Non-Admin Reason: No Access Levothyroxine Sodium (Levothyroxine Sodium 75 Mcg Tablet) 75 mcg PO DAILY@0600 [facility] Last Admin: 12/14/21 05:42 Dose: 75 mcg Documented by: ABRAM Morphine Sulfate (Morphine Sulfate 4 Mg/Ml Cartridge) 4 mg IVPUSH Q4H PRN; Protocol PRN Reason: Pain, Severe (Pain Scale 7-10) Last Admin: 12/11/21 14:53 Dose: 4 mg Documented by: LUCIA Ondansetron HCl (Ondansetron Hcl 4 Mg/2 Ml Vial) 4 mg IVPUSH Q8H PRN PRN Reason: Nausea and Vomiting Last Admin: 12/10/21 07:35 Dose: 4 mg Documented by: EMERY Pharmacy Consult (Consult Rx Perform Med Rec) 1 each MISCELLANE ONCE PRN PRN Reason: Consult order Sodium Chloride (0.9 % Sodium Chloride Flush 3 Ml Syringe) 3 ml IVFLUSH QSHIFT [facility] Last Admin: 12/14/21 06:59 Dose: Not Given Documented by: DANIE Non-Admin Reason: No Access Labs CBC & Chem 7: 12/09/21 10:34 04/07/22 06:49 Procedures Date of Service Date of Service: 12/14/21 Progress Note: A&P Assessment and plan (1) Small bowel obstruction: Status: Acute Assessment and Plan: Symptoms resolved Likely secondary to lesions from previous hysterectomy Good GI function Okay to DC home today She understands possibility of recurrent episodes Fall Risk Details Current Medications: Current Medications Acetaminophen (Acetaminophen 325 Mg Tablet) 650 mg PO Q6H PRN PRN Reason: fever, pain Benzocaine (Throat Lozenge, Medicated Lozenge) 1 lozenge MUCOUS MEM Q2H PRN PRN Reason: Sore Throat Famotidine (Famotidine/Pf 20 Mg/2 Ml Vial) 20 mg IVPUSH DAILY [facility] Last Admin: 12/14/21 08:56 Dose: Not Given Documented by: Levothyroxine Sodium (Levothyroxine Sodium 75 Mcg Tablet) 75 mcg PO DAILY@0600 [facility] Last Admin: 12/14/21 05:42 Dose: 75 mcg Documented by: Morphine Sulfate (Morphine Sulfate 4 Mg/Ml Cartridge) 4 mg IVPUSH Q4H PRN; Protocol PRN Reason: Pain, Severe (Pain Scale 7-10) Last Admin: 12/11/21 14:53 Dose: 4 mg Documented by: Ondansetron HCl (Ondansetron Hcl 4 Mg/2 Ml Vial) 4 mg IVPUSH Q8H PRN PRN Reason: Nausea and Vomiting Last Admin: 12/10/21 07:35 Dose: 4 mg Documented by: Pharmacy Consult (Consult Rx Perform Med Rec) 1 each MISCELLANE ONCE PRN PRN Reason: Consult order Sodium Chloride (0.9 % Sodium Chloride Flush 3 Ml Syringe) 3 ml IVFLUSH QSHIFT [facility] Last Admin: 12/14/21 06:59 Dose: Not Given Documented by: Time Spent With Patient Time: Total time spent is greater than 50% in coordination of care (as documented) at patient's floor/unit and/or counseling patient: Quality Stroke Does the patient have a stroke diagnosis?: No VTE Prior VTE?: No VTE Risk Level:: Medical - low VTE Device Contraindication: N/A - Device Ordered VTE Drug Contraindication: Treatment Not Indicated
--- NOTE | 2021-12-14 09:32 | MHC.CM.PN ---
PATIENT IS DISCHARGED HOME - SELF CARE SPOUSE IN ROOM TO PROVIDE TRANSPORT HOME. IMM 12/13 IN CHART
--- NOTE | 2021-12-15 10:59 | PM.DS ---
DS: Providers Provider Date of Service: 12/14/21 Date of admission: 12/09/21 13:27 Primary care physician: Mundo Camacho MD Attending physician on admission: Moisés Gifford Attending physician on discharge: Moisés Gifford DS: Diagnosis Discharge Diagnosis (1) Small bowel obstruction: Status: Acute DS: Summary Hospital Course Hospital Course: BRIEF HPI: Venus Nguyen is a 71 year old female with PMH of hypothyroidism, osteoporosis, GERD who presented to the ED with complaints of abdominal pain. According to her daughter, she was having a phlebectomy for her varicose veins on Tuesday and began to complains of abdominal pain. This was associated with nausea without vomiting but she has been spitting up yellow/green material . The pain progressively worsened and persisted prompting them to come to the ED for evaluation. She passed flatus and had a normal bowel movement yesterday. She has never had a pain like this before. She has had a cholecystectomy and total hysterectomy in the past. Work up in the ED included CT scan abd/pelvis which showed dilated and fluid-filled small bowel leading to an area of fecalization in the pelvis were there is transition to decompressed bowel. HOSPITAL COURSE: The patient was admitted to the surgical service for further treatment of the PSBO. NGT was inserted to low intermittent suction for bowel decompression, NPO status continued, IVF, PRN IV analgesics and antiemetics were ordered. The patient had an uncomplicated recovery course. The patient improved symptomatically with supportive measures. Her abdominal pain resolved and she had evidence of return of GI function. The NGT was left in place for 3 hospital days and then discontinued. She was started on clear liquids and then advanced to solid diet. She was tolerating a solid diet without recurrent abdominal pain, nausea or vomiting. She felt ready for discharge. She was discharged to home on 12/14/21 in stable condition. She is to follow up with her PCP upon discharge. Status at Discharge Functional status at discharge: independent ambulation Overall status at discharge: patient is back to baseline Time Spent with Patient Time attestation: Total time spent providing and/or coordinating discharge services: Discharge coordination time: Greater than 30 minutes Quality: Safe Use of Opioids Does Pt have an Active Cancer Diagnosis on the Problem List?: No Quality: Stroke Does the patient have a stroke diagnosis?: No Physical Exam Vital Signs: Vital Signs: Last Vital Signs Temp 98 F 12/14/21 06:55 Pulse 77 04/11/22 06:55 Resp 18 12/14/21 06:55 BP 132/66 12/14/21 06:55 Pulse Ox 98 12/14/21 06:55 BMI result Body Mass Index 28.3 Const: General: comfortable, no acute distress and alert Resp: Effort & Inspection: normal respiratory effort GI: Inspection: No distended Palpation (GI): Soft to palpation, nontender, no guarding and not rigid Skin: General skin exam: no rashes or lesions noted Discharge Plan Discharge Patient Disposition: Home, Self-Care Discharge Diagnosis: SBO Referrals: Po,Mundo Espinoza MD [Primary Care Provider] - 1 Week Discharge Medications: Continued levothyroxine 75 mcg tablet 75 mcg PO DAILY Qty: 84 1RF tramadol 50 mg tablet 50 mg PO DAILY PRN (Reason: pain) 0RF calcium carbonate-vitamin D3 [Calcium 600 + D(3)] 600 mg(1,500mg) -200 unit tablet 1 tab PO DAILY 0RF omeprazole 20 mg capsule,delayed release(DR/EC) 20 mg PO DAILY 90 Days Qty: 90 3RF Discharge Orders: Discharge Order (Routine); Ordered 12/14/21 Ordered By: Moisés Gifford Diet: advance to usual diet Activity on Discharge: As tolerated Stand Alone Forms: Patient Portal Discharge page Care Plan Goals: Gradual return to activity. Health Concerns: SBO Plan of Treatment: Supportive measures F/u with PCP Assessment: Improved Discharge Date/Time: 12/14/21 11:33
== END 2021-12-14 11:33 | disposition home or self-care (01) | DRG 390 ==
LOC: HO.ED 13:17 → HO.EDOVER 13:35 → HO.S3 12-10 15:41
PROVIDERS: Nurse Practitioner Family; Admitting Provider Physician Assistant Surgical; Emergency Provider Emergency Medicine Emergency Medical Services; PCP Internal Medicine; Visit Provider Physician Assistant Surgical
DX: K91.31 Postprocedural partial intestinal obstruction (principal); E03.9 Hypothyroidism, unspecified; K21.9 Gastro-esophageal reflux disease without esophagitis; M81.0 Age-related osteoporosis without current pathological fracture; Z20.822 Contact with and (suspected) exposure to COVID-19; Z79.890 Hormone replacement therapy; Z79.899 Other long term (current) drug therapy
CPT/HCPCS: 36415; 71045; 74177; 80048; 80076; 81001; 81025; 83690; 85025; 87635; 96374; 96375; 99284; 99285; J2270; J2405; Q9967

== ENCOUNTER 2021-12-22 13:20 | Outpatient (REF) | payer MEDICARE, SELFPAY ==
--- NOTE | ~2021-12-22 | MM_ITS ---
EXAMINATION: BONE DENSITOMETRY CLINICAL INDICATION: Age-related osteoporosis without current pathological fracture. COMPARISON: Previous BD dated 09/18/2019 and baseline BD dated 10/28/2006. TECHNIQUE: Using a [employer] DXA System (software version: 13.1) manufactured by [employer], dual-energy x-ray absorptiometry was performed of the lumbar spine and left hip. The images are of good technical quality. Summary results are attached. FINDINGS: AP SPINE L1-L4: Current: BMD 0.770 g/cm2, Z-score -1.7, T-score -3.4, osteoporosis, 10.5% decrease from previous, 16.8% decrease from baseline (<5% change is not significant). Prior: BMD 0.860 g/cm2. Baseline: BMD 0.926 g/cm2. LEFT FEMUR, NECK: Current: BMD 0.721 g/cm2, Z-score -0.6, T-score -2.3, osteopenia. Prior: BMD 0.759 g/cm2. Baseline: BMD 0.818 g/cm2. LEFT FEMUR, TOTAL: Current: BMD 0.774 g/cm2, Z-score -0.3, T-score -1.9, osteopenia, 7.2% decrease from previous, 8.5% decrease from baseline (<5% change is not significant). Prior: BMD 0.834 g/cm2. Baseline: BMD 0.846 g/cm2. IDENTIFIED RISK FACTORS: Early menopause, secondary osteoporosis, hysterectomy, bilateral oophorectomy. HISTORY OF FRACTURE: None listed. MEDICATIONS: Calcium supplements or multivitamin, vitamin D. MM/XR DEXA axial skeleton IMPRESSION: 1. DIAGNOSIS: Osteoporosis based on the lowest T-score value of -3.4 in the lumbar spine applying World Health Organization criteria. 2. 10-YEAR FRACTURE RISK PREDICTION, FRAX: According to the guidelines, FRAX calculation should only be performed on patients in the osteopenia bone density category. Therefore, FRAX was not performed on this patient. 3. Treatment Recommendations: NOF guidelines recommend consideration for treatment in postmenopausal women and men age 50 and older presenting with the following: -A hip or vertebral (clinical or morphometric) fracture. -T-score less than or equal to -2.5 at the femoral neck or spine after appropriate evaluation to exclude secondary causes. -Low bone mass at the hip or spine and a 10-year fracture probability by FRAX of greater than or equal to 3% for hip fracture or greater than or equal to 20% for major osteoporotic fracture based on the [place] adapted WHO algorithm. 4. Other Recommendations: All treatment decisions require clinical judgment and consideration of individual patient factors, including patient preferences, comorbidities, previous drug use, risk factors not captured in the FRAX model (e.g. frailty, falls, vitamin D deficiency, increased bone turnover, interval significant decline in bone density) and possible under or overestimation of fracture risk by FRAX. Additional medical evaluation for secondary cause of low bone mineral density may be appropriate. FUTURE SCAN RECOMMENDATION: People with diagnosed cases of osteoporosis or at high risk for fracture should have regular bone mineral density tests. For patients eligible for Medicare, routine testing is allowed once every 2 years. The testing frequency can be increased to one year for patients who have rapidly progressing disease, those who are receiving or discontinuing medical therapy to restore bone mass, or have additional risk factors.
== END 2021-12-22 13:21 | disposition home or self-care (01) ==
LOC: HO.MAMMO 13:20
PROVIDERS: PCP Internal Medicine; Visit Provider Internal Medicine
DX: Z13.820 Encounter for screening for osteoporosis (principal); M81.0 Age-related osteoporosis without current pathological fracture; Z78.0 Asymptomatic menopausal state
CPT/HCPCS: 77080

== ENCOUNTER 2021-12-29 06:01 | Outpatient (REF) | payer MEDICARE, SELFPAY ==
[2021-12-29 06:20] LABS: MANUAL DIFF FLAG NO
[2021-12-29 07:31] LABS: Basophils Percent Auto 0.3 % (0-2); Hematocrit 40.5 % (37.0-47.0); Hemoglobin 12.9 g/dl (12.0-16.0); Lymphocytes Absolute Auto 2.1 X10*3/uL (1.2-4.9); Lymphocytes Percent Auto 54.8 % (20-40); Mean Corpuscular HGB Conc 31.9 g/dl (31.0-35.0); Mean Corpuscular Hemoglobin 30.8 pg (27.0-33.0); Mean Corpuscular Volume 96.7 fL (80.0-98.0); Monocytes Absolute Auto 0.3 X10*3/uL (0.1-1.2); Monocytes Percent Auto 8.1 % (2-11); Neutrophils Absolute Auto 1.4 x10*3/uL (2.0-8.3); Neutrophils Percent Auto 36.8 % (45-73); Platelet Count 268 X10*3/uL (160-400); Red Blood Count 4.19 X10*6/uL (4.20-5.50); Red Cell Distribution Width 12.6 % (11.0-16.0); White Blood Count 3.9 X10*3/uL (4.8-10.8)
[2021-12-29 07:53] LABS: Alanine Aminotransferase 31 U/L (0-31); Alkaline Phosphatase 97 U/L (39-117); Anion Gap 10 (12-20); Aspartate Amino Transferase 35 U/L (5-31); Bilirubin Total 0.5 mg/dL (0.0-1.0); Blood Urea Nitrogen 11 mg/dL (9-16); Calcium 9.6 mg/dL (8.4-10.2); Carbon Dioxide 29 mmol/L (22-29); Chloride 105 mmol/L (96-108); Cholesterol 210 mg/dL; Estimated Glomerular Filt Rate > 60; Glucose Random 94 mg/dL (60-115); HDL Cholesterol 67 mg/dL; LDL Cholesterol Calculated 128 mg/dl; Potassium 4.5 mmol/L (3.3-5.1); Sodium 139 mmol/L (135-145); Total Protein 6.3 g/dL (6.5-8.0); Triglycerides 76 mg/dL
[2021-12-29 08:15] LABS: Free T4 (Free Thyroxine) 1.23 ng/dL (0.71-1.85); Thyroid Stimulating Hormone 1.79 uIU/mL (0.32-4.0); Vitamin D 25-OH Total 33.2 ng/mL (>30)
[2021-12-29 08:21] LABS: Erythrocyte Sedimentation Rate 12 MM/HR (0-20)
[2021-12-29 08:28] LABS: Folate 14.3 ng/mL (> or = 4.0); Vitamin B12 435 pg/mL (200-900)
[2021-12-31 14:11] LABS: Anti Nuclear Antibody Screen NEGATIVE (NEGATIVE)
== END 2021-12-29 06:02 | disposition home or self-care (01) ==
LOC: HO.LAB 06:01
PROVIDERS: PCP Internal Medicine; Visit Provider Internal Medicine
DX: R79.89 Other specified abnormal findings of blood chemistry (principal); K56.609 Unspecified intestinal obstruction, unspecified as to partial versus complete obstruction; E03.9 Hypothyroidism, unspecified; E78.00 Pure hypercholesterolemia, unspecified
CPT/HCPCS: 36415; 80053; 80061; 82306; 82607; 82746; 84439; 84443; 85025; 85652; 86038; 86039

== ENCOUNTER → 2021-12-30 10:06 | Outpatient (BNVA) | payer MEDICARE, SELFPAY | PROVIDERS: PCP Internal Medicine; Referring Provider Internal Medicine; Visit Provider Surgery | DX: K56.609 Unspecified intestinal obstruction, unspecified as to partial versus complete obstruction (principal) | CPT/HCPCS: 99212 ==

== ENCOUNTER 2022-01-06 13:46 | Outpatient (REF) | payer MEDICARE, SELFPAY ==
--- NOTE | ~2022-01-06 | US_ITS ---
EXAMINATION: US PELVIS LIMITED (BLADDER) CLINICAL INFORMATION: Frequency of micturition. COMPARISON: CT abdomen and pelvis 12/09/2021. TECHNIQUE: Real-time imaging of the bladder. FINDINGS: BLADDER: Well distended and normal. Bilateral ureteral jets are demonstrated. Prevoid bladder volume is 170.0 mL. Postvoid bladder volume is 29.9 mL. No significant wall thickening or trabeculation identified. US/US bladder IMPRESSION: Small post void residual.
== END 2022-01-06 13:47 | disposition home or self-care (01) ==
LOC: HO.US 13:46
PROVIDERS: PCP Internal Medicine; Visit Provider Internal Medicine
DX: R35.0 Frequency of micturition (principal); R30.0 Dysuria
CPT/HCPCS: 76857

== ENCOUNTER 2022-02-22 10:22 | Outpatient (REF) | payer MEDICARE, SELFPAY ==
[2022-02-22 18:23] LABS: Alanine Aminotransferase 20 U/L (0-31); Albumin Level 4.3 g/dL (3.5-5.0); Alkaline Phosphatase 121 U/L (39-117); Anion Gap 11 (12-20); Aspartate Amino Transferase 28 U/L (5-31); Bilirubin Total 0.5 mg/dL (0.0-1.0); Blood Urea Nitrogen 5 mg/dL (9-16); Calcium 9.2 mg/dL (8.4-10.2); Carbon Dioxide 28 mmol/L (22-29); Chloride 104 mmol/L (96-108); Estimated Glomerular Filt Rate > 60; Glucose Random 110 mg/dL (60-115); Sodium 139 mmol/L (135-145); Total Protein 6.8 g/dL (6.5-8.0)
[2022-02-22 18:44] LABS: Free T4 (Free Thyroxine) 1.06 ng/dL (0.71-1.85); Thyroid Stimulating Hormone 0.82 uIU/mL (0.32-4.0); Vitamin D 25-OH Total 29.5 ng/mL (>30)
[2022-02-23 13:57] LABS: Calcium (PTHI) 9.5 mg/dL (8.6-10.4); PTHI 95 pg/mL (16-77)
[2022-03-01 13:32] LABS: Prot Elec - Albumin 4.1 g/dL (3.8-4.8); Prot Elec - Alpha1 0.3 g/dL (0.2-0.3); Prot Elec - Alpha2 0.7 g/dL (0.5-0.9); Prot Elec - Beta 1 0.4 g/dL (0.4-0.6); Prot Elec - Beta 2 0.3 g/dL (0.2-0.5); Prot Elec - Gamma 0.8 g/dL (0.8-1.7); Prot Elec - Total Protein 6.5 g/dL (6.1-8.1)
== END 2022-02-22 10:23 | disposition home or self-care (01) ==
LOC: HO.LAB 10:22
PROVIDERS: PCP Internal Medicine; Visit Provider Internal Medicine
DX: K21.9 Gastro-esophageal reflux disease without esophagitis (principal); M81.0 Age-related osteoporosis without current pathological fracture; E03.9 Hypothyroidism, unspecified; E04.2 Nontoxic multinodular goiter; E55.9 Vitamin D deficiency, unspecified
CPT/HCPCS: 36415; 80053; 82306; 83970; 84100; 84165; 84439; 84443; Q3014

== ENCOUNTER 2022-02-24 11:06 | Outpatient (REF) | payer MEDICARE, SELFPAY ==
[2022-02-24 13:37] LABS: Total Volume 24 Hour Urine 2975 mL
[2022-02-26 16:41] LABS: Calcium, 24 Hr Urine 193 mg/24 h; Calcium/Creatinine Ratio 191 mg/g creat (30-275); Creatinine 24Hr Urine 1.01 g/24 h (0.50-2.15)
== END 2022-02-24 11:07 | disposition home or self-care (01) ==
LOC: HO.LNP 11:06
PROVIDERS: Visit Provider Internal Medicine
DX: M81.0 Age-related osteoporosis without current pathological fracture (principal)
CPT/HCPCS: 82340; 82570

== ENCOUNTER → 2022-02-26 08:13 | Outpatient (BNVA) | payer MEDICARE, SELFPAY | PROVIDERS: PCP Internal Medicine; Visit Provider Nurse Practitioner Family | DX: M19.042 Primary osteoarthritis, left hand (principal); M19.041 Primary osteoarthritis, right hand; M81.0 Age-related osteoporosis without current pathological fracture; M54.50 Low back pain, unspecified | CPT/HCPCS: 99212 ==

== ENCOUNTER 2022-04-28 14:08 | Outpatient (REF) | payer MEDICARE, SELFPAY ==
[2022-04-28 16:07] LABS: Alanine Aminotransferase 16 U/L (0-31); Albumin Level 4.5 g/dL (3.5-5.0); Alkaline Phosphatase 107 U/L (39-117); Anion Gap 15 (12-20); Aspartate Amino Transferase 28 U/L (5-31); Bilirubin Total 0.3 mg/dL (0.0-1.0); Blood Urea Nitrogen 13 mg/dL (9-16); Calcium 9.8 mg/dL (8.4-10.2); Carbon Dioxide 26 mmol/L (22-29); Chloride 104 mmol/L (96-108); Estimated Glomerular Filt Rate > 60; Glucose Random 92 mg/dL (60-115); Phosphorus 3.8 mg/dL (2.7-4.5); Potassium 4.5 mmol/L (3.3-5.1); Sodium 140 mmol/L (135-145)
[2022-04-28 16:29] LABS: Vitamin D 25-OH Total 34.5 ng/mL (>30)
[2022-04-29 16:13] LABS: Calcium (PTHI) 9.8 mg/dL (8.6-10.4); PTHI 90 pg/mL (16-77)
== END 2022-04-28 14:09 | disposition home or self-care (01) ==
LOC: HO.LAB 14:08
PROVIDERS: PCP Internal Medicine; Visit Provider Internal Medicine
DX: M81.0 Age-related osteoporosis without current pathological fracture (principal); E03.9 Hypothyroidism, unspecified; E04.2 Nontoxic multinodular goiter; E55.9 Vitamin D deficiency, unspecified; E21.3 Hyperparathyroidism, unspecified
CPT/HCPCS: 36415; 80053; 82306; 83970; 84100; 99212

== ENCOUNTER 2022-05-14 12:30 | Outpatient (REF) | payer MEDICARE, SELFPAY ==
[2022-05-14 13:25] LABS: Total Volume 24 Hour Urine 2475 mL
[2022-05-14 14:24] LABS: Creatinine, 24Hr Urine 0.7 G/Day (1.0-2.0); Creatinine, mg/dL 29.32
[2022-05-17 17:46] LABS: Calcium, 24 Hr Urine 210 mg/24 h; Calcium/Creatinine Ratio 274 mg/g creat (30-275); Creatinine 24Hr Urine 0.77 g/24 h (0.50-2.15)
== END 2022-05-14 12:31 | disposition home or self-care (01) ==
LOC: HO.LNP 12:30
PROVIDERS: Visit Provider Internal Medicine
DX: E21.3 Hyperparathyroidism, unspecified (principal)
CPT/HCPCS: 82340; 82570

== ENCOUNTER 2022-06-17 11:39 | Outpatient (REF) | payer MEDICARE, SELFPAY ==
--- NOTE | ~2022-06-17 | MM_ITS ---
EXAMINATION: MM SCREENING DIGITAL BREAST TOMOSYNTHESIS, BILATERAL CLINICAL INFORMATION: Screening. Asymptomatic. The lifetime risk of breast cancer based on the Tyrer-Cuzick Model is 2.8%. COMPARISON: Mammography: May 19, 2021 and studies dating back to July 15, 2014 TECHNIQUE: Digital breast tomosynthesis is performed in both the craniocaudal and mediolateral oblique views along with computer-aided detection (CAD). Synthesized 2D images are generated from the tomosynthesis. FINDINGS: There are scattered areas of fibroglandular density (ACR BI-RADS breast composition Category b). There are no significant masses, abnormal calcifications, or other abnormalities. MM/MM tomosynthesis screening BI IMPRESSION: No significant changes from prior exam. ASSESSMENT: BI-RADS 1: Negative RECOMMENDATION: Routine annual mammography screening. This patient's information was entered into a reminder system with a target due date for their next mammogram.
== END 2022-06-17 11:40 | disposition home or self-care (01) ==
LOC: HO.MAMMO 11:39
PROVIDERS: Visit Provider Internal Medicine
DX: Z12.31 Encounter for screening mammogram for malignant neoplasm of breast (principal)
CPT/HCPCS: 77063; 77067

== ENCOUNTER 2022-06-21 08:39 | Outpatient (REF) | payer MEDICARE, SELFPAY ==
--- NOTE | ~2022-06-21 | US_ITS ---
EXAMINATION: US THYROID CLINICAL INFORMATION: Nontoxic multinodular goiter. COMPARISON: Ultrasound thyroid 05/14/2021 and 03/06/2020. US-guided thyroid biopsy 05/15/2020. TECHNIQUE: Linear transducer grayscale and color Doppler examination with attention to the region of the thyroid. FINDINGS: SIZE: Measurements of the thyroid lobes and nodules are given in sagittal, anteroposterior and transverse dimensions respectively. Right Thyroid Lobe: 2.7 x 0.9 x 1.0 cm, volume 1.3 mL. Previously 3.3 x 0.9 x 0.8 cm, volume 1.2 mL. Parenchyma: The gland echotexture is heterogeneous. Thyroid vascularity is normal. Left Thyroid Lobe: 3.3 x 0.9 x 1.0 cm, volume 1.6 mL. Previously 2.8 x 0.6 x 1.1 cm, volume 1.0 mL. Parenchyma: The gland echotexture is heterogeneous. Thyroid vascularity is normal. Isthmus: 0.2 cm in maximum AP dimension. Previously 0.3 cm. Estimated total number of nodules greater than or equal to 1 cm: 0. Wrapper Caser nodules are described as follows: 1. Location: Right superior. Size: 0.2 x 0.1 x 0.1 cm, volume 0.001 mL. Previously: 0.1 x 0.1 x 0.1 cm, volume 0.001 mL. Nodule characteristics: Composition: Solid (2). Echogenicity: Hyperechoic (1). Shape: Not taller than wide (0). Margins: Smooth (0). Echogenic Foci: Macrocalcifications (1). ACR TI-RADS total points: 4 Previous: 3 ACR TI-RADS category: 4 Previous: 3 Significant change in size (>/= 20% in 2 dimensions and minimal increase of 2 mm or 50% or greater increase in volume): None Change in features: None Change in ACR TI-RADS risk category: None 2. Location: Right mid. Size: 0.3 x 0.3 x 0.2 cm, volume 0.009 mL. Previously: 0.1 x 0.2 x 0.1 cm, volume 0.001 mL. Nodule characteristics: Composition: Solid/almost completely solid (2). Echogenicity: Isoechoic (1). Shape: Not taller than wide (0). Margins: Smooth (0). Echogenic Foci: None (0). ACR TI-RADS total points: 3 Previous: 0 ACR TI-RADS category: 3 Previous: 1 Significant change in size (>/= 20% in 2 dimensions and minimal increase of 2 mm or 50% or greater increase in volume): None Change in features: None Change in ACR TI-RADS risk category: Slight increase 3. Location: Left superior. Size: 0.9 x 0.4 x 0.8 cm, volume 0.15 mL. Previously: 0.5 x 0.4 x 0.3 cm, volume 0.05 mL. Nodule characteristics: Composition: Solid/almost completely solid (2). Echogenicity: Isoechoic (1). Shape: Not taller than wide (0). Margins: Smooth (0). Echogenic Foci: None (0). ACR TI-RADS total points: 3 Previous: 3 ACR TI-RADS category: 3 Previous: 3 Significant change in size (>/= 20% in 2 dimensions and minimal increase of 2 mm or 50% or greater increase in volume): None Change in features: None Change in ACR TI-RADS risk category: None 4. Location: Left mid. Size: 0.9 x 0.5 x 0.7 cm, volume 0.16 mL. Previously: 0.7 x 0.6 x 0.5 cm, volume 0.1 mL. Nodule characteristics: Composition: Solid/almost completely solid (2). Echogenicity: Hypoechoic (2). Shape: Not taller than wide (0). Margins: Smooth (0). Echogenic Foci: None (0). ACR TI-RADS total points: 4 Previous: 4 ACR TI-RADS category: 4 Previous: 4 Significant change in size (>/= 20% in 2 dimensions and minimal increase of 2 mm or 50% or greater increase in volume): None Change in features: None Change in ACR TI-RADS risk category: No change 5. Location: Left inferior. Size: 0.8 x 0.5 x 0.7 cm, volume 0.14 mL. Previously: 0.7 x 0.5 x 0.6 cm, volume 0.1 mL. Nodule characteristics: Composition: Solid (2). Echogenicity: Hypoechoic (2). Shape: Not taller than wide (0). Margins: Smooth (0). Echogenic Foci: None (0). ACR TI-RADS total points: 4 Previous: 4 ACR TI-RADS category: 4 Previous: 4 Significant change in size (>/= 20% in 2 dimensions and minimal increase of 2 mm or 50% or greater increase in volume): None Change in features: None Change in ACR TI-RADS risk category: No change NODES: No lymphadenopathy is seen in the tissue surrounding the thyroid gland. US/US thyroid IMPRESSION: 1. Small heterogeneous thyroid gland with subcentimeter thyroid nodules. 2. TR1 (0 point) and TR 2 (2 points). 3. TR4 (4-6 points): FNA if more than or equal to 1.5 cm in maximum dimension, followup ultrasound in 1, 2, 3 and 5 years if 1 to 1.4 cm in maximum dimension. 4. TR5 (more than or equal to 7 points): FNA if more than or equal to 1 cm in maximum dimension, followup ultrasound every year for 5 years if 0.5 to 0.9 cm in maximum dimension.
== END 2022-06-21 08:40 | disposition home or self-care (01) ==
LOC: HO.US 08:39
PROVIDERS: Visit Provider Internal Medicine
DX: E04.2 Nontoxic multinodular goiter (principal)
CPT/HCPCS: 76536

== ENCOUNTER 2022-08-06 09:37 | Outpatient (REF) | payer MEDICARE, SELFPAY ==
[2022-08-06 12:25] LABS: Free T4 (Free Thyroxine) 1.15 ng/dL (0.71-1.85); Thyroid Stimulating Hormone 0.97 uIU/mL (0.32-4.0)
== END 2022-08-06 09:38 | disposition home or self-care (01) ==
LOC: HO.LAB 09:37
PROVIDERS: Internal Medicine; PCP Internal Medicine; Visit Provider Family Medicine Adult Medicine
DX: E03.9 Hypothyroidism, unspecified (principal); E04.2 Nontoxic multinodular goiter
CPT/HCPCS: 36415; 84439; 84443

== ENCOUNTER → 2022-10-06 09:15 | Outpatient (BNVA) | payer MEDICARE, SELFPAY | PROVIDERS: PCP Internal Medicine; Visit Provider Internal Medicine | DX: M81.0 Age-related osteoporosis without current pathological fracture (principal); E03.9 Hypothyroidism, unspecified; E04.2 Nontoxic multinodular goiter; E55.9 Vitamin D deficiency, unspecified; E21.3 Hyperparathyroidism, unspecified | CPT/HCPCS: 99212 ==

== ENCOUNTER 2022-10-06 10:23 | Outpatient (REF) | payer MEDICARE, SELFPAY ==
[2022-10-06 14:31] LABS: Alanine Aminotransferase 16 U/L (0-31); Albumin Level 4.5 g/dL (3.5-5.0); Alkaline Phosphatase 120 U/L (39-117); Anion Gap 13 (12-20); Aspartate Amino Transferase 28 U/L (5-31); Bilirubin Total 0.6 mg/dL (0.0-1.0); Blood Urea Nitrogen 14 mg/dL (9-16); Calcium 9.7 mg/dL (8.4-10.2); Carbon Dioxide 29 mmol/L (22-29); Chloride 103 mmol/L (96-108); Estimated Glomerular Filt Rate > 60; Glucose Random 93 mg/dL (60-115); Phosphorus 3.8 mg/dL (2.7-4.5); Potassium 4.6 mmol/L (3.3-5.1); Sodium 140 mmol/L (135-145)
[2022-10-06 14:49] LABS: Vitamin D 25-OH Total 32.9 ng/mL (>30)
[2022-10-07 18:48] LABS: Calcium (PTHI) 9.9 mg/dL (8.6-10.4); PTHI 73 pg/mL (16-77)
== END 2022-10-06 10:24 | disposition home or self-care (01) ==
LOC: HO.10HDL 10:23
PROVIDERS: PCP Internal Medicine; Visit Provider Internal Medicine
DX: E21.3 Hyperparathyroidism, unspecified (principal); E55.9 Vitamin D deficiency, unspecified
CPT/HCPCS: 36415; 80053; 82306; 83970; 84100

== ENCOUNTER 2022-12-10 06:21 | Outpatient (REF) | payer MEDICARE, SELFPAY ==
[2022-12-10 07:24] LABS: Hematocrit 43.9 % (37.0-47.0); Hemoglobin 13.9 g/dl (12.0-16.0); Imm Gran Abs Auto 0.01 X10*3/uL (0.00-0.03); Imm Gran Pct Auto 0.2 % (0.0-0.4); Lymphocytes Absolute Auto 2.7 X10*3/uL (1.2-4.9); Lymphocytes Percent Auto 61.7 % (20-40); MANUAL DIFF FLAG SCAN; Mean Corpuscular HGB Conc 31.7 g/dl (31.0-35.0); Mean Corpuscular Hemoglobin 30.5 pg (27.0-33.0); Mean Corpuscular Volume 96.3 fL (80.0-98.0); Mean Platelet Volume 9.4 fL (9.4-12.3); Monocytes Absolute Auto 0.4 X10*3/uL (0.1-1.2); Monocytes Percent Auto 8.5 % (2-11); Neutrophils Absolute Auto 1.3 x10*3/uL (2.0-8.3); Neutrophils Percent Auto 29.6 % (45-73); Platelet Count 199 X10*3/uL (160-400); Red Blood Count 4.56 X10*6/uL (4.20-5.50); Red Cell Distribution Width 12.7 % (11.0-16.0); SCAN SMEAR FLAG 1; White Blood Count 4.4 X10*3/uL (4.8-10.8)
[2022-12-10 08:04] LABS: Alanine Aminotransferase 15 U/L (0-31); Albumin Level 4.1 g/dL (3.5-5.0); Alkaline Phosphatase 103 U/L (39-117); Anion Gap 11 (12-20); Aspartate Amino Transferase 24 U/L (5-31); Bilirubin Total 0.6 mg/dL (0.0-1.0); Blood Urea Nitrogen 14 mg/dL (9-16); Calcium 9.4 mg/dL (8.4-10.2); Carbon Dioxide 29 mmol/L (22-29); Chloride 104 mmol/L (96-108); Cholesterol 231 mg/dL; Estimated Glomerular Filt Rate > 60; Glucose Random 88 mg/dL (60-115); HDL Cholesterol 75 mg/dL; LDL Cholesterol Calculated 135 mg/dl; Potassium 4.4 mmol/L (3.3-5.1); Sodium 140 mmol/L (135-145); Total Protein 6.3 g/dL (6.5-8.0); Triglycerides 105 mg/dL; Uric Acid 3.2 mg/dL (2.4-5.7)
[2022-12-10 08:12] LABS: SLIDE REVIEW VERIFIED
[2022-12-10 08:38] LABS: Folate 15.3 ng/mL (> or = 4.0); Vitamin B12 398 pg/mL (200-900)
== END 2022-12-10 06:22 | disposition home or self-care (01) ==
LOC: HO.LAB 06:21
PROVIDERS: PCP Internal Medicine; Visit Provider Internal Medicine
DX: E03.9 Hypothyroidism, unspecified (principal); E78.00 Pure hypercholesterolemia, unspecified; E21.3 Hyperparathyroidism, unspecified; M81.0 Age-related osteoporosis without current pathological fracture; E55.9 Vitamin D deficiency, unspecified
CPT/HCPCS: 36415; 80053; 80061; 82306; 82607; 82746; 84439; 84443; 84550; 85025

== ENCOUNTER 2022-12-28 08:06 | Outpatient (REF) | payer MEDICARE, SELFPAY ==
[2022-12-28 11:28] LABS: Alanine Aminotransferase 16 U/L (0-31); Albumin Level 4.3 g/dL (3.5-5.0); Alkaline Phosphatase 113 U/L (39-117); Anion Gap 20 (12-20); Aspartate Amino Transferase 32 U/L (5-31); Bilirubin Total 0.6 mg/dL (0.0-1.0); Blood Urea Nitrogen 17 mg/dL (9-16); Calcium 9.4 mg/dL (8.4-10.2); Carbon Dioxide 18 mmol/L (22-29); Chloride 107 mmol/L (96-108); Estimated Glomerular Filt Rate > 60; Glucose Random 84 mg/dL (60-115); Potassium 4.6 mmol/L (3.3-5.1); Sodium 140 mmol/L (135-145); Total Protein 7.1 g/dL (6.5-8.0)
== END 2022-12-28 08:07 | disposition home or self-care (01) ==
LOC: HO.LAB 08:06
PROVIDERS: PCP Internal Medicine; Visit Provider Internal Medicine
DX: E78.00 Pure hypercholesterolemia, unspecified (principal)
CPT/HCPCS: 36415; 80053

== ENCOUNTER 2023-01-05 10:15 | Outpatient (REF) | payer MEDICARE, SELFPAY ==
--- NOTE | ~2023-01-05 | US_ITS ---
EXAMINATION: US RETROPERITONEAL LIMITED (RENAL ONLY) CLINICAL INFORMATION: Frequency of micturition. COMPARISON: CT abdomen and pelvis 12/09/2021. TECHNIQUE: Real-time imaging of the kidneys. FINDINGS: RIGHT KIDNEY: 9.9 x 3.8 x 5.2 cm (SAG x AP x TRV). The kidney is normal in size, contour, and echogenicity. Renal cortical thickness is normal. Small cyst in the lower pole measuring 7 mm. No imaging follow-up recommended. No renal calculi or hydronephrosis. LEFT KIDNEY: 10.8 x 4.4 x 4.4 cm (SAG x AP x TRV). The kidney is normal in size, contour, and echogenicity. Renal cortical thickness is normal. Small cyst in the midpole measuring 6 mm. No imaging follow-up recommended. No renal calculi or hydronephrosis. US/US renal BI IMPRESSION: Small bilateral renal cysts. No imaging follow-up recommended. Otherwise unremarkable exam.
== END 2023-01-05 10:16 | disposition home or self-care (01) ==
LOC: HO.US 10:15
PROVIDERS: PCP Internal Medicine; Visit Provider Internal Medicine
DX: R35.0 Frequency of micturition (principal)
CPT/HCPCS: 76775

== ENCOUNTER → 2023-02-07 10:07 | Outpatient (BNVA) | payer MEDICARE, SELFPAY | PROVIDERS: PCP Internal Medicine; Visit Provider Internal Medicine | DX: M81.0 Age-related osteoporosis without current pathological fracture (principal); E03.9 Hypothyroidism, unspecified; E04.2 Nontoxic multinodular goiter; E55.9 Vitamin D deficiency, unspecified; E21.3 Hyperparathyroidism, unspecified | CPT/HCPCS: 99212 ==

== ENCOUNTER 2023-02-07 10:40 | Outpatient (REF) | payer MEDICARE, SELFPAY ==
[2023-02-07 13:48] LABS: Free T4 (Free Thyroxine) 1.09 ng/dL (0.71-1.85); Thyroid Stimulating Hormone 0.87 uIU/mL (0.32-4.0)
== END 2023-02-07 10:41 | disposition home or self-care (01) ==
LOC: HO.10HDL 10:40
PROVIDERS: Visit Provider Internal Medicine
DX: E04.2 Nontoxic multinodular goiter (principal); M81.0 Age-related osteoporosis without current pathological fracture; E03.9 Hypothyroidism, unspecified; E55.9 Vitamin D deficiency, unspecified; E21.3 Hyperparathyroidism, unspecified
CPT/HCPCS: 36415; 84439; 84443

== ENCOUNTER 2023-02-15 11:07 | Outpatient (REF) | payer MEDICARE, SELFPAY ==
[2023-02-15 12:35] LABS: Alanine Aminotransferase 75 U/L (0-31); Albumin Level 3.9 g/dL (3.5-5.0); Alkaline Phosphatase 116 U/L (39-117); Anion Gap 13 (12-20); Aspartate Amino Transferase 72 U/L (5-31); Bilirubin Total 0.5 mg/dL (0.0-1.0); Blood Urea Nitrogen 15 mg/dL (9-16); Calcium 9.4 mg/dL (8.4-10.2); Carbon Dioxide 23 mmol/L (22-29); Chloride 107 mmol/L (96-108); Cholesterol 206 mg/dL; Estimated Glomerular Filt Rate > 60; Glucose Random 103 mg/dL (60-115); HDL Cholesterol 77 mg/dL; LDL Cholesterol Calculated 115 mg/dl; Phosphorus 3.6 mg/dL (2.7-4.5); Potassium 4.2 mmol/L (3.3-5.1); Sodium 139 mmol/L (135-145); Total Protein 6.6 g/dL (6.5-8.0); Triglycerides 74 mg/dL
[2023-02-15 12:49] LABS: Free T4 (Free Thyroxine) 1.21 ng/dL (0.71-1.85); Thyroid Stimulating Hormone 1.17 uIU/mL (0.32-4.0); Vitamin D 25-OH Total 33.6 ng/mL (>30)
[2023-02-15 12:59] LABS: Appearance Urine Clear; Color Urine Yellow; Glucose Urine UA Negative (Negative); Leukocyte Esterase Urine Trace (Negative); Nitrite Urine Negative (Negative); Specific Gravity - Urine <= 1.005 (1.005-1.025); UMIC TRIGGER UACC YES; Urine Blood Negative (Negative); Urine Ketones Negative (Negative); Urine Protein Negative (Neg-Trace)
[2023-02-15 13:01] LABS: Bacteria Urine None Seen (None Seen); Hyaline Casts Urine 0-2 /LPF (0-2); RBC Urine 0-2 /HPF (0-2); Squamous Epithelial Cell Urine 0-2 /HPF (0-2); WBC Urine 0-5 /HPF (0-5)
[2023-02-16 13:24] LABS: Calcium (PTHI) 9.3 mg/dL (8.6-10.4); PTHI 70 pg/mL (16-77)
== END 2023-02-15 11:08 | disposition home or self-care (01) ==
LOC: HO.LAB 11:07
PROVIDERS: Internal Medicine; PCP Internal Medicine; Visit Provider Internal Medicine
DX: E03.9 Hypothyroidism, unspecified (principal); E04.2 Nontoxic multinodular goiter; E55.9 Vitamin D deficiency, unspecified; E78.00 Pure hypercholesterolemia, unspecified; M81.0 Age-related osteoporosis without current pathological fracture
CPT/HCPCS: 36415; 80053; 80061; 81001; 81003; 82306; 83970; 84100; 84439; 84443

== ENCOUNTER 2023-02-17 11:59 | Outpatient (REF) | payer MEDICARE, SELFPAY ==
[2023-02-23 07:48] LABS: N-Telopeptide 30 (see note); NTXCreaRU 50 mg/dL (20-275)
== END 2023-02-17 12:00 | disposition home or self-care (01) ==
LOC: HO.LNP 11:59
PROVIDERS: Visit Provider Internal Medicine
DX: M81.0 Age-related osteoporosis without current pathological fracture (principal)
CPT/HCPCS: 82523

== ENCOUNTER 2023-02-21 10:14 | Outpatient (REF) | payer MEDICARE, SELFPAY ==
[2023-02-21 11:53] LABS: Alanine Aminotransferase 28 U/L (0-31); Alkaline Phosphatase 112 U/L (39-117); Aspartate Amino Transferase 32 U/L (5-31); Bilirubin Direct 0.1 mg/dL (0.0-0.5); Bilirubin Total 0.4 mg/dL (0.0-1.0); Total Protein 6.8 g/dL (6.5-8.0)
[2023-02-21 11:56] LABS: Appearance Urine Clear; Color Urine Yellow; Glucose Urine UA Negative (Negative); Leukocyte Esterase Urine Small (1+) (Negative); Nitrite Urine Negative (Negative); PH 5.5 (5.0-9.0); UMIC TRIGGER UACC YES; Urine Blood Trace (Negative); Urine Ketones Negative (Negative); Urine Protein Negative (Neg-Trace)
[2023-02-21 12:07] LABS: Bacteria Urine None Seen (None Seen); Hyaline Casts Urine 0-2 /LPF (0-2); RBC Urine 0-2 /HPF (0-2); Squamous Epithelial Cell Urine 0-2 /HPF (0-2); UACC Culture Trigger YES; WBC Urine 0-5 /HPF (0-5)
[2023-02-21 12:08] LABS: Free T4 (Free Thyroxine) 1.02 ng/dL (0.71-1.85)
[2023-02-21 12:12] LABS: Thyroid Stimulating Hormone 0.91 uIU/mL (0.32-4.0)
== END 2023-02-21 10:15 | disposition home or self-care (01) ==
LOC: HO.LAB 10:14
PROVIDERS: PCP Internal Medicine; Visit Provider Internal Medicine
DX: E03.9 Hypothyroidism, unspecified (principal); E66.9 Obesity, unspecified; R82.90 Unspecified abnormal findings in urine
CPT/HCPCS: 36415; 80076; 81001; 84439; 84443; 87086

== ENCOUNTER 2023-03-12 06:58 | Outpatient (REF) | payer MEDICARE, SELFPAY | END 2023-03-12 06:59 | disposition home or self-care (01) | LOC: HO.LAB 06:58 | PROVIDERS: PCP Internal Medicine; Visit Provider Internal Medicine | DX: R82.90 Unspecified abnormal findings in urine (principal) | CPT/HCPCS: 81001; 87086 ==

== ENCOUNTER 2023-03-16 09:39 | Outpatient (AMB) | payer MEDICARE, SELFPAY ==
--- NOTE | 2023-03-16 09:36 | MHC.OFFVIS ---
Intake Intake Visit Reasons: Lab results/[phone] Allergies nystatin Allergy (Intermediate, Verified 03/16/23 11:05) Rash Medication List - Last Reconciled 03/16/23 by Maggie Lovell, DO calcium carbonate-vitamin D3 600 mg-5 mcg (200 unit) (Calcium 600 + D(3)) 1 tab PO DAILY dicyclomine 10 mg PO levothyroxine 75 mcg PO DAILY omeprazole 20 mg PO DAILY 90 days sulfamethoxazole-trimethoprim 800-160 mg (Bactrim DS) 1 tab PO BID tramadol 50 mg PO DAILY PRN HPI HPI Comments History of Present Illness Details 73 YO F with PMHx Hypothyroidism, a NTMNG and also hyperparathyroidism with resultant osteoporosis who is seen in F/U. 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 She has a heterogenous thyroid gland consistent with claribel's disease, but does appear to have a LMP true nodule. She underwent FNA biopsy of this nodule 05/15/[address] Baca with benign cytology. Repeat thyroid US reveals this nodule has decreased in size. She does report occasional dysphagia when eating pork cones, but otherwise denies any compressive symptoms. She denies any symptoms of hyper or hypothyroidism currently. She denies a personal history of head or neck irradiation. She denies any Family history of thyroid cancer. 2) Osteoporosis: Received treatment in the past with Actonel, for approximately 6 years.? She stopped this in 2019. Tolerated treatment well without complication. She also tried Fosamax, but had GI distress from this. She did have significant decline in her BMD while on Actonel, thus failing treatment with bisphosphonate. She underwent a full biochemical evaluation for secondary causes of osteoporosis which revealed an elevated PTH level, but was otherwise WNL. 24 hour urine collection is high normal. She underwent US head and neck which reveals a 0.9 cm L sided parathyroid adenoma. She was referred to Dr. Samayoa and will be undergoing a parathyroidectomy this May. No history of pathologic fracture or ONJ. Has 1 servings of dietary calcium per day in the form of cheese.? Takes Calcium supplement 1200 mg daily in divided doses.? Takes no additional Vitamin D supplement. Does use PPI daily. Denies ever using anticoagulant, antiepileptic or glucocorticoid medication.? Does weight bearing exercise 5 days per week in the form of walking. ? Fracture history: Denies Height loss: Has lost 3 inches in height [employer] MECH[employer] history: Menarche was age 16. Menses was always regular. . She did not breastfeed. Menopause was in her 30's after a TAHBSOO. She did not use HRT after. Denies history of Kidney stones: Denies family history of Osteoporosis or hip fracture. UTD on dental cleanings and sees dentist every 6 months.? No planned upcoming dental work or extractions. DXA: 12/22/2021 FINDINGS: AP SPINE L1-L4: Current: BMD 0.770 g/cm2, Z-score -1.7, T-score -3.4, osteoporosis, 10.5% decrease from previous, 16.8% decrease from baseline (<5% change is not significant). Prior: BMD 0.860 g/cm2. Baseline: BMD 0.926 g/cm2. LEFT FEMUR, NECK: Current: BMD 0.721 g/cm2, Z-score -0.6, T-score -2.3, osteopenia. Prior: BMD 0.759 g/cm2. Baseline: BMD 0.818 g/cm2. LEFT FEMUR, TOTAL: Current: BMD 0.774 g/cm2, Z-score -0.3, T-score -1.9, osteopenia, 7.2% decrease from previous, 8.5% decrease from baseline (<5% change is not significant). Prior: BMD 0.834 g/cm2. Baseline: BMD 0.846 g/cm2. Thyroid US: 06/21/2022 Right Thyroid Lobe: 2.7 x 0.9 x 1.0 cm, volume 1.3 mL. Previously 3.3 x 0.9 x 0.8 cm, volume 1.2 mL. Parenchyma: The gland echotexture is heterogeneous. Thyroid vascularity is normal. Left Thyroid Lobe: 3.3 x 0.9 x 1.0 cm, volume 1.6 mL. Previously 2.8 x 0.6 x 1.1 cm, volume 1.0 mL. Parenchyma: The gland echotexture is heterogeneous. Thyroid vascularity is normal. Isthmus: 0.2 cm in maximum AP dimension. Previously 0.3 cm. Estimated total number of nodules greater than or equal to 1 cm: 0. 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 Location: Right superior. ?? ? Size: 0.2 x 0.1 x 0.1 cm, volume 0.001 mL. ?? ? Previously: 0.1 x 0.1 x 0.1 cm, volume 0.001 mL. ?? ? Nodule characteristics: ?? ? Composition: Solid (2). ?? ? Echogenicity: Hyperechoic (1). ?? ? Shape: Not taller than wide (0). ?? ? Margins: Smooth (0). ?? ? Echogenic Foci: Macrocalcifications (1). ? ACR TI-RADS total points: 4 Previous: 3 ?? ? ACR TI-RADS category: 4 Previous: 3 ? Significant change in size (>/= 20% in 2 dimensions and minimal increase of 2 mm or 50% or greater increase in volume): None ?? ? Change in features: None ?? ? Change in ACR TI-RADS risk category: None 2.? Location: Right mid. ?? ? Size: 0.3 x 0.3 x 0.2 cm, volume 0.009 mL. ?? ? Previously: 0.1 x 0.2 x 0.1 cm, volume 0.001 mL. ?? ? Nodule characteristics: ?? ? Composition: Solid/almost completely solid (2). ?? ? Echogenicity: Isoechoic (1). ?? ? Shape: Not taller than wide (0). ?? ? Margins: Smooth (0). ?? ? Echogenic Foci: None (0). ? ACR TI-RADS total points: 3 Previous: 0 ?? ? ACR TI-RADS category: 3 Previous: 1 ? Significant change in size (>/= 20% in 2 dimensions and minimal increase of 2 mm or 50% or greater increase in volume): None ?? ? Change in features: None ?? ? Change in ACR TI-RADS risk category: Slight increase 3.? Location: Left superior. ?? ? Size: 0.9 x 0.4 x 0.8 cm, volume 0.15 mL. ?? ? Previously: 0.5 x 0.4 x 0.3 cm, volume 0.05 mL. ?? ? Nodule characteristics: ?? ? Composition: Solid/almost completely solid (2). ?? ? Echogenicity: Isoechoic (1). ?? ? Shape: Not taller than wide (0). ?? ? Margins: Smooth (0). ?? ? Echogenic Foci: None (0).? ACR TI-RADS total points: 3 Previous: 3 ?? ? ACR TI-RADS category: 3 Previous: 3 ? Significant change in size (>/= 20% in 2 dimensions and minimal increase of 2 mm or 50% or greater increase in volume): None ?? ? Change in features: None ?? ? Change in ACR TI-RADS risk category: None 4.? Location: Left mid. ?? ? Size: 0.9 x 0.5 x 0.7 cm, volume 0.16 mL. ?? ? Previously: 0.7 x 0.6 x 0.5 cm, volume 0.1 mL. ?? ? Nodule characteristics: ?? ? Composition: Solid/almost completely solid (2). ?? ? Echogenicity: Hypoechoic (2). ?? ? Shape: Not taller than wide (0). ?? ? Margins: Smooth (0). ?? ? Echogenic Foci: None (0). ? ACR TI-RADS total points: 4 Previous: 4 ?? ? ACR TI-RADS category: 4 Previous: 4 ? Significant change in size (>/= 20% in 2 dimensions and minimal increase of 2 mm or 50% or greater increase in volume): None ?? ? Change in features: None ?? ? Change in ACR TI-RADS risk category: No change 5.? Location: Left inferior. ?? ? Size: 0.8 x 0.5 x 0.7 cm, volume 0.14 mL. ?? ? Previously: 0.7 x 0.5 x 0.6 cm, volume 0.1 mL. ?? ? Nodule characteristics: ?? ? Composition: Solid (2). ?? ? Echogenicity: Hypoechoic (2). ?? ? Shape: Not taller than wide (0). ?? ? Margins: Smooth (0). ?? ? Echogenic Foci: None (0). ? ACR TI-RADS total points: 4 Previous: 4 ?? ? ACR TI-RADS category: 4 Previous: 4 ? Significant change in size (>/= 20% in 2 dimensions and minimal increase of 2 mm or 50% or greater increase in volume): None ?? ? Change in features: None ?? ? Change in ACR TI-RADS risk category: No change NODES: No lymphadenopathy is seen in the tissue surrounding the thyroid gland. Labs: Laboratory Tests 02/15/23 02/15/23 02/17/23 11:13 11:13 07:15 Creatinine 0.65 Estimated GFR > 60 Albumin N-Telopeptide X-li nked 30 25-OH Vitamin D To richar 33.6 PTH Intact 70 Calcium (PTH Intac t) 9.3 02/21/23 10:25 Creatinine Estimated GFR Albumin 4.0 N-Telopeptide X-li nked 25-OH Vitamin D To richar PTH Intact Calcium (PTH Intac t) PFSH Medical History Age-related osteoporosis without current pathological fracture GERD (gastroesophageal reflux disease) History of seizures Hyperparathyroidism Hypothyroidism Impacted cerumen of left ear Multinodular thyroid Osteoarthritis of hand, left Osteoarthritis of hand, right Osteoporosis Peripheral vascular disease Screening for breast cancer Screening for diabetes mellitus Thyroid nodule Surgical History History of cholecystectomy History of colonoscopy History of surgery History of total abdominal hysterectomy and bilateral salpingo-oophorectomy Family History Father Throat cancer Mother No problems noted. Brother Liver cancer Social History Household Members: Spouse Housing: Condominium Do you presently have visiting nurse or other home services: No Alcohol intake: never Patient Tobacco Use Status: Never used Tobacco e-Cigarette/Vaping Use: Never Used Second Hand Smoke Exposure: No service: No Current occupational status: unemployed Cognitive needs: No Hearing needs: No Vision needs: Yes Assessment & Plan Assessment & Plan (1) Osteoporosis: Code(s): M81.0 - Age-related osteoporosis without current pathological fracture Qualifiers: Osteoporosis type: age-related Presence of current pathological fracture: without current pathological fracture Qualified Code(s): M81.0 - Age-related osteoporosis without current pathological fracture Plan: Patient with Osteoporosis of the spine and osteopenia of the hip. She has failed treatment with oral bisphosphonate as she had significant declines in her BMD at all sites while on treatment. She completed 6 years of treatment with oral bisphosphonate. 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 She did not use HRT after. PTH levels were elevated, with labs consistent with normocalcemic hyperparathyroidism. 24 hour urine calcium is high normal. Her US images of her thyroid US dated 06/21/2022 were independently reviewed today and I suspect what is read as a 0.9 cm L lobe thyroid nodule in fact represents a parathyroid adenoma. We did discuss surgical parathyroidectomy as an option as she has failed antiresorptive treatment already. She did see Dr. Samayoa and will be undergoing a surgical parathyroidectomy later this year. She did have FNA biopsy of an abnormal appearing cervical lymph node, with nondiagnostic results. She is awaiting word regarding repeat FNA biopsy vs surgical excision at the time of her parathyroidectomy. She will F/U with our office after her parathyroidectomy. We did review that she will remain off all antiresorptive therapy for 2 years following parathyroidectomy to allow bone remineralization. All of her questions were answered. She is in agreement with this plan of care. I did review this plan of care over the phone with her Daughter. I spent 20 minutes in reviewing the record, seeing the patient and documenting in the medical record, including 10 minutes on the phone with the Patient. 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 She remains on levothyroxine 75 mcg PO daily. Last TSH was at goal. No changes. (3) Multinodular thyroid: Comment: May 2021 last ultrasound Code(s): E04.2 - Nontoxic multinodular goiter Plan: Patient with a multinodular thyroid. She previously underwent an FNA biopsy of her LMP 1.0 cm nodule 05/15/[address] Baca. I am not certain this represents a true nodule, it may be a pseudonodule as her gland is diffusely heterogenous. Images of her repeat thyroid US dated 06/21/2022 were independently reviewed. The gland is diffusely heterogenous and there are no nodules meeting indication for FNA biopsy at this time. (4) Hyperparathyroidism: Code(s): E21.3 - Hyperparathyroidism, unspecified Plan: Management as per osteoporosis section. Telehealth Telehealth Location of provider rendering services: practice address Location of patient: address on file Patient Identification confirmed using: Name, : Yes Telehealth method: voice only Patient verbally consented to treatment: Yes Patient verbally consented to billing insurance company: Yes Patient informed of any privacy concerns related to visit: Yes Coding Level of Care Code Tele Est Pt Level 3 (82547) Diagnoses Osteoporosis M81.0 Osteoporosis type: age-related Presence of current pathological fracture: without current pathological fracture Hypothyroidism E03.9 Hypothyroidism type: unspecified Multinodular thyroid E04.2 Hyperparathyroidism E21.3
== END 2023-03-16 12:32 | disposition home or self-care (01) ==
LOC: HO.ENCR 09:39
PROVIDERS: PCP Internal Medicine; Visit Provider Internal Medicine
DX: M81.0 Age-related osteoporosis without current pathological fracture (principal); E03.9 Hypothyroidism, unspecified; E04.2 Nontoxic multinodular goiter; E21.3 Hyperparathyroidism, unspecified
CPT/HCPCS: 99443

== ENCOUNTER → 2023-03-16 09:39 | Outpatient (BNVA) | payer MEDICARE, SELFPAY | PROVIDERS: PCP Internal Medicine; Visit Provider Internal Medicine ==

== ENCOUNTER 2023-03-17 10:42 | Outpatient (AMB) | payer MEDICARE, SELFPAY ==
[2023-03-17 10:45] VITALS: BP 120/68; PULSE 67; O2SAT 97; BMI 29.9
--- NOTE | 2023-03-17 10:45 | MHC.PC.OV ---
Vital Signs 03/17/23 10:45 Height 4 ft 11 in Weight 148 lb BMI 29.9 BP 120/68 Blood Pressure Location Lt brachial Position Sitting Pulse 67 Pulse Source Pulse Oximeter Pulse Oximetry (%) 97 Oxygen Delivery Method Room Air Intake Visit Reasons: hyperparathyroid, hypothyroid, cholesterol Allergies nystatin Allergy (Intermediate, Verified 03/17/23 10:46) Rash Medication List - Last Reconciled 03/17/23 by Mundo Camacho MD calcium carbonate-vitamin D3 600 mg-5 mcg (200 unit) (Calcium 600 + D(3)) 1 tab PO DAILY clobetasol 0.05% 1 appl topical BID 2 weeks dicyclomine 10 mg PO levothyroxine 75 mcg PO DAILY omeprazole 20 mg PO DAILY 90 days sulfamethoxazole-trimethoprim 800-160 mg (Bactrim DS) 1 tab PO BID tramadol 50 mg PO DAILY PRN Tobacco use date assessed: 03/03/23 Fall risk assessment: No Falls in past year Last assessed Fall Risk: 03/17/23 Dental Screening Dental Screen Date: 03/17/23 Did you have a dental visit in the last 12 months?: Yes Did you have a dental problem in the last 6 months where you did not have access to dental care?: No Was dental information given to patient?: Patient has dentist HPI hyperparathyroid, hypothyroid, cholesterol HPI Details 73 years old obese female with osteoporosis GERD multi nodule thyroid hyperparathyroidism with resultant osteoporosis, hypothyroidism coming in for follow-up. Last seen in December ultrasound and blood work was requested. Parathyroidectomy scheduled for May for left sided parathyroid adenoma 0.9 cm Patient follows up with endocrinology bone density last done in December 2021.. Patient was also seen by the nurse practitioner in February for pruritic rash patient was given a steroid taper . Patient had some blood work recently showing mildly elevated liver function test workup was requested for another blood work and ultrasound of abdomen . 2 WEEKS RASH ON THE HANDS ONLY STATES has not changes anything but explained to the patient that contact dermatitis patient also going on a trip to [place] and was asking for medication to calmer down when she flies. Discussed about things that can get allergies like soaps sun exposure lotions new clothing gloves latex? [facility] Medical History (Updated 03/17/23 @ 11:11 by Mundo Camacho MD) Age-related osteoporosis without current pathological fracture GERD (gastroesophageal reflux disease) History of seizures Hyperparathyroidism Hypothyroidism Impacted cerumen of left ear Multinodular thyroid Osteoarthritis of hand, left Osteoarthritis of hand, right Osteoporosis Peripheral vascular disease Screening for breast cancer Screening for diabetes mellitus Thyroid nodule Surgical History (Updated 03/17/23 @ 11:02 by Mundo Camacho MD) History of cholecystectomy History of colonoscopy History of surgery History of total abdominal hysterectomy and bilateral salpingo-oophorectomy Family History Father Throat cancer Mother No problems noted. Brother Liver cancer Social History Household Members: Spouse [facility] Do you presently have visiting nurse or other home services: No Alcohol intake: never Patient Tobacco Use Status: Never used Tobacco e-Cigarette/Vaping Use: Never Used Second Hand Smoke Exposure: No service: No Current occupational status: unemployed Cognitive needs: No Hearing needs: No Vision needs: Yes Questionnaire PHQ-9 Over the last 2 weeks, how often have you been bothered by any of the following problems? 1. Little interest or pleasure in doing things: not at all 2. Feeling down, depressed, or hopeless: not at all 3. Trouble falling or staying asleep, or sleeping too much: not at all 4. Feeling tired or having little energy: not at all 5. Poor appetite or overeating: not at all 6. Feeling bad about yourself - or that you are a failure or have let yourself or your family down: not at all 7. Trouble concentrating on things, such as reading the newspaper or watching television: not at all 8. Moving or speaking so slowly that other people could have noticed. Or the opposite - being so fidgety or restless that you have been moving around a lot more than usual: not at all 9. Thoughts that you would be better off or of hurting yourself in some way: not at all Total score: 0 Depression Screening Interpretation: Negative 42959 - PHQ-9 Billing: Yes Source: Developed by Drs. Suman Domingo, Josefa Al, Jay Zepeda and colleagues, with an educational atul from [employer]. Thrive Questionnaire Date Thrive assessed: 12/13/22 AUDIT C Alcohol Use Questionnaire (AUDIT-C) 1. How often do you have a drink containing alcohol?: Never 2. How many drinks containing alcohol do you have on a typical day when you are drinking?: 1 or 2 (0) 3. How often do you have six or more drinks on one occasion?: Never Total Score: 0 Score Reviewed/Action Taken: No LUCIA-7 AMB Questionnaire LUCIA-7 Date LUCIA - 7 assessed: 12/13/22 Source: Developed by Drs. Suman Domingo, Josefa Al, Jay Zepeda and colleagues, with an educational atul from [employer]. Physical exam (Primary Care) Vital Signs: Last Vital Signs Pulse 67 03/17/23 10:45 BP 120/68 03/17/23 10:45 Pulse Ox 97 03/17/23 10:45 Oxygen Delivery Method Room Air 03/17/23 10:45 Care Plan Goal for BP management: Right hand with erythema on all the fingers only with a little scabbing on the thumb area otherwise no other rash BMI result Body Mass Index 29.9 Tobacco/Smoking Status: Tobacco use Status Tobacco use date assessed 03/03/23 03/17/23 10:49 Patient Tobacco Use Status Never used Tobacco 03/17/23 10:49 e-Cigarette/Vaping Use Never Used 03/17/23 10:49 PHQ-9: PHQ-9 Score PHQ-9: Total score 0 03/17/23 10:49 Depression Screening Interpretation: Negative Thrive Assessment: Date of Thrive Assessment Date Thrive assessed 12/13/22 03/17/23 10:49 Const General: alert; No acute distress Eyes Conjunctivae: conjunctivae normal Resp Auscultation: clear to auscultation bilaterally Cardio Rate: regular rate Rhythm: regular rhythm GI Inspection: Yes normal to inspection Extrem General: Yes normal to inspection and No edema Assessment and Plan Assessment & Plan (1) Overweight (BMI 25.0-29.9): Code(s): E66.3 - Overweight Plan: Continue with diet and exercise (2) LFT elevation: Code(s): R79.89 - Other specified abnormal findings of blood chemistry Plan: Workup requested for ultrasound of the abdomen as well as follow-up blood work (3) Hypercholesterolemia: Code(s): E78.00 - Pure hypercholesterolemia, unspecified Plan: Avoid fried foods, chicken skin, eggs, butter margarine, pastries and meat. Be it pork or beef they have a lot of cholesterol LDL goal of less than 130 and triglyceride of less than 150 (4) Hyperparathyroidism: Code(s): E21.3 - Hyperparathyroidism, unspecified Plan: May 2023 planned parathyroidectomy (5) Multinodular thyroid: Comment: May 2021 last ultrasound Code(s): E04.2 - Nontoxic multinodular goiter Plan: Patient follows up with endocrinology and being monitored (6) GERD (gastroesophageal reflux disease): Code(s): K21.9 - Gastro-esophageal reflux disease without esophagitis Plan: Avoid the foods that causes that usually spicy foods, tomato products, juices, coffee, soda and foods that your sensitive to. After eating do not lie down, allow 3-4 hours before in lie down. And keep the head of bed above 30 degrees to avoid the acid from going up. On omeprazole (7) Hypothyroidism: Code(s): E03.9 - Hypothyroidism, unspecified Qualifiers: Hypothyroidism type: unspecified Qualified Code(s): E03.9 - Hypothyroidism, unspecified Plan: Continue with thyroid medication (8) Osteoporosis: Code(s): M81.0 - Age-related osteoporosis without current pathological fracture Qualifiers: Osteoporosis type: age-related Presence of current pathological fracture: without current pathological fracture Qualified Code(s): M81.0 - Age-related osteoporosis without current pathological fracture Plan: Parathyroidectomy planned May 2023 (9) Allergic contact dermatitis of hand: Code(s): L23.9 - Allergic contact dermatitis, unspecified cause (10) Generalized anxiety disorder: Code(s): F41.1 - Generalized anxiety disorder Medications: New clobetasol 0.05% 1 appl topical BID 2 weeks 118 mL 0RF L23.9 - Allergic contact dermatitis, unspecified cause alprazolam 0.25 mg PO DAILY 10 tabs 0RF F41.1 - Generalized anxiety disorder Coding Level of Care Code Est Pt Level 4 (39211) Diagnoses Overweight (BMI 25.0-29.9) E66.3 LFT elevation R79.89 Hypercholesterolemia E78.00 Hyperparathyroidism E21.3 Multinodular thyroid E04.2 GERD (gastroesophageal reflux disease) K21.9 Hypothyroidism E03.9 Hypothyroidism type: unspecified Osteoporosis M81.0 Osteoporosis type: age-related Presence of current pathological fracture: without current pathological fracture Allergic contact dermatitis of hand L23.9 Generalized anxiety disorder F41.1
== END 2023-03-17 11:14 | disposition home or self-care (01) ==
PROVIDERS: PCP Internal Medicine; Visit Provider Internal Medicine
DX: E21.3 Hyperparathyroidism, unspecified (principal); E04.2 Nontoxic multinodular goiter; K21.9 Gastro-esophageal reflux disease without esophagitis; E03.9 Hypothyroidism, unspecified; E78.00 Pure hypercholesterolemia, unspecified; R79.89 Other specified abnormal findings of blood chemistry; E66.3 Overweight; Z68.29 Body mass index [BMI] 29.0-29.9, adult; M81.0 Age-related osteoporosis without current pathological fracture; L23.9 Allergic contact dermatitis, unspecified cause; F41.1 Generalized anxiety disorder
CPT/HCPCS: 99214

== ENCOUNTER 2023-03-17 11:23 | Outpatient (REF) | payer MEDICARE, SELFPAY ==
[2023-03-17 13:48] LABS: Appearance Urine Clear; Color Urine Yellow; Glucose Urine UA Negative (Negative); Leukocyte Esterase Urine Negative (Negative); Nitrite Urine Negative (Negative); Urine Blood Negative (Negative); Urine Ketones Trace mg/dL (Negative); Urine Protein Negative (Neg-Trace)
[2023-03-17 14:35] LABS: Iron 84 mcg/dL (30-160); Percent Iron Saturation 30 % (15-50); Total Iron Binding Capacity 280 mcg/dL (228-428); Unsaturated Iron Binding 196 ug/dL
[2023-03-17 14:37] LABS: Ferritin 53 ng/mL (10-250)
[2023-03-18 05:26] LABS: HBc Num1 0.11 S/CO (0.00-0.79); HBsAGNum1 0.33 S/CO (0.00-0.99); Hepatitis B Core Antibody Nonreactive (Nonreactive); Hepatitis B Surface Antigen Negative (Negative); ~HepC Num1 0.07 S/CO (0.00-0.79); ~Hepatitis B Surface Antibody NONREACTIVE (Nonreactive); ~Hepatitis C Antibody Nonreactive (Nonreactive)
[2023-03-22 13:23] LABS: Prot Elec - Albumin 4.4 g/dL (3.8-4.8); Prot Elec - Alpha1 0.3 g/dL (0.2-0.3); Prot Elec - Alpha2 0.7 g/dL (0.5-0.9); Prot Elec - Beta 1 0.5 g/dL (0.4-0.6); Prot Elec - Beta 2 0.2 g/dL (0.2-0.5); Prot Elec - Gamma 0.8 g/dL (0.8-1.7); Prot Elec - Total Protein 6.8 g/dL (6.1-8.1)
== END 2023-03-17 11:24 | disposition home or self-care (01) ==
LOC: HO.LAB 11:23
PROVIDERS: PCP Internal Medicine; Visit Provider Internal Medicine
DX: R79.89 Other specified abnormal findings of blood chemistry (principal); R39.9 Unspecified symptoms and signs involving the genitourinary system
CPT/HCPCS: 36415; 81003; 82728; 83540; 84165; 86704; 86706; 86803; 87340

== ENCOUNTER 2023-04-05 07:43 | Outpatient (AMB) | payer MEDICARE, SELFPAY ==
[2023-04-05 08:02] VITALS: BP 108/66; PULSE 86; TEMP 36.3; O2SAT 98; BMI 30.5
--- NOTE | 2023-04-05 08:02 | A.OFFVIS_ITS ---
Intake Vital Signs 04/05/23 08:02 Height 4 ft 11 in Weight 151 lb 3.794 oz BMI 30.5 BP 108/66 Blood Pressure Location Lt brachial Position Sitting Pulse 86 Pulse Source Pulse Oximeter Temp 97.3 F Temp Source Skin Pulse Oximetry (%) 98 Intake Visit Reasons: osteoarthritis - LVM with appt Shotblaster Required: No Accompanied by: Self / Same As Patient Allergies nystatin Allergy (Intermediate, Verified 03/17/23 10:46) Rash Medication List - Last Reconciled 04/05/23 by Ruiz Early MD alprazolam 0.25 mg PO DAILY calcium carbonate-vitamin D3 600 mg-5 mcg (200 unit) (Calcium 600 + D(3)) 1 tab PO DAILY clobetasol 0.05% 1 appl topical BID 2 weeks dicyclomine 10 mg PO levothyroxine 75 mcg PO DAILY omeprazole 20 mg PO DAILY 90 days sulfamethoxazole-trimethoprim 800-160 mg (Bactrim DS) 1 tab PO BID tramadol 50 mg PO DAILY PRN HPI HPI Comments History of Present Illness Details This is a 73-year-old female who presents for evaluation of osteoarthritis. Patient states that sometimes she feels that her hands are weak and she has difficulty opening up jars. She denies any tingling or numbness of her fingers. She also has lower back pain that is nonradiating. She occasionally takes tramadol as needed for her pain. She states that she is scheduled for parathyroidectomy surgery next month. Doing well otherwise [facility] Medical History Age-related osteoporosis without current pathological fracture GERD (gastroesophageal reflux disease) History of seizures Hyperparathyroidism Hypothyroidism Impacted cerumen of left ear Multinodular thyroid Osteoarthritis of hand, left Osteoarthritis of hand, right Osteoporosis Peripheral vascular disease Screening for breast cancer Screening for diabetes mellitus Thyroid nodule Surgical History History of cholecystectomy History of colonoscopy History of surgery History of total abdominal hysterectomy and bilateral salpingo-oophorectomy Family History Father Throat cancer Mother No problems noted. Brother Liver cancer Social History Household Members: Spouse Housing: Condominium Do you presently have visiting nurse or other home services: No Alcohol intake: never Patient Tobacco Use Status: Never used Tobacco e-Cigarette/Vaping Use: Never Used Second Hand Smoke Exposure: No service: No Current occupational status: unemployed Cognitive needs: No Hearing needs: No Vision needs: Yes Review of Systems Musc Reports back pain, Reports arthralgias, Denies numbness and Denies tingling Neuro Denies numbness and Denies tingling Physical Exam Vital Signs: Last Vital Signs Temp 97.3 F 04/05/23 08:02 Pulse 86 04/05/23 08:02 BP 108/66 04/05/23 08:02 Pulse Ox 98 04/05/23 08:02 BMI result Body Mass Index 30.5 Const General: cooperative, healthy appearing and comfortable Nutritional Appearance: overweight Orientation/consciousness: patient oriented x3 Limitations: no limitations HEENT Head: Yes normocephalic and Yes atraumatic Mouth: moist mucous membranes Resp Effort & Inspection: normal respiratory effort and able to speak in complete sentences Auscultation: clear to auscultation bilaterally Cardio Rate: regular rate Rhythm: regular rhythm Skin General skin exam: no rashes or lesions noted Neuro General: patient oriented x3 Extrem Other: Normal gait. Normal range of motion of upper extremities Osteoarthritic changes of hands with no swollen or tender joints Negative Tinel sign bilaterally Assessment & Plan Assessment & Plan (1) Osteoarthritis of hand, left: Code(s): M19.042 - Primary osteoarthritis, left hand Qualifiers: Osteoarthritis type: primary Qualified Code(s): M19.042 - Primary osteoarthritis, left hand Plan: Stable at this time. Patient is having some intermittent trouble opening jars and completing household tasks with her hands. Discussed referral to occupational therapy which she declines at this time. She will continue Tylenol as needed for her pain. (2) Osteoarthritis of hand, right: Code(s): M19.041 - Primary osteoarthritis, right hand Qualifiers: Osteoarthritis type: primary Qualified Code(s): M19.041 - Primary osteoarthritis, right hand Plan: Stable. Continue Tylenol as needed. (3) Low back pain: Code(s): M54.50 - Low back pain, unspecified Plan: Without symptoms suggestive of radiculopathy. I suggested a heating pad. Coding Level of Care Code Est Pt Level 3 (98924) Diagnoses Osteoarthritis of hand, left M19.042 Osteoarthritis type: primary Osteoarthritis of hand, right M19.041 Osteoarthritis type: primary Low back pain M54.50
== END 2023-04-05 08:21 | disposition home or self-care (01) ==
PROVIDERS: PCP Internal Medicine; Visit Provider Student in an Organized Health Care Education/Training Program
DX: M19.042 Primary osteoarthritis, left hand (principal); M19.041 Primary osteoarthritis, right hand; M54.50 Low back pain, unspecified
CPT/HCPCS: 99213

== ENCOUNTER → 2023-04-05 07:43 | Outpatient (BNVA) | payer MEDICARE, SELFPAY | PROVIDERS: PCP Internal Medicine; Visit Provider Student in an Organized Health Care Education/Training Program | DX: M19.042 Primary osteoarthritis, left hand (principal); M19.041 Primary osteoarthritis, right hand; M54.50 Low back pain, unspecified | CPT/HCPCS: 99212 ==

== ENCOUNTER 2023-04-15 08:45 | Outpatient (REF) | payer MEDICARE, SELFPAY ==
--- NOTE | ~2023-04-15 | US_ITS ---
EXAMINATION: US ABDOMEN COMPLETE CLINICAL INFORMATION: Elevated liver function tests. COMPARISON: Renal ultrasound 01/05/2023. CT abdomen and pelvis 12/09/2021. TECHNIQUE: Real-time imaging of the abdominal viscera. Limited visualization due to bowel gas. FINDINGS: PANCREAS: Limited visualization of pancreatic tail and head. Imaged portion of pancreatic body is unremarkable. ABDOMINAL AORTA: Nonaneurysmal. INFERIOR VENA CAVA: Visualized portions are normal. LIVER: Diffusely heterogeneous liver with diffuse increase in echogenicity, characteristic of primary hepatocellular disease, possibly due to hepatic steatosis, limiting visualization. GALLBLADDER: Gallbladder is surgically absent. COMMON BILE DUCT: Normal in caliber measuring 0.5 cm in diameter. RIGHT KIDNEY: No hydronephrosis. No renal calculi. Renal cortical thickness is normal. The kidney measures 9.9 cm in maximum dimension. LEFT KIDNEY: No hydronephrosis. No renal calculi. Renal cortical thickness is normal. Left renal 0.9 x 0.7 x 0.8 cm lower pole cyst. There is no indication for followup imaging. The kidney measures 9.8 cm in maximum dimension. SPLEEN: Normal. The spleen measures 7.5 cm in maximum dimension. FREE FLUID: None. US/US abdomen complete IMPRESSION: 1. Diffusely heterogeneous liver with diffuse increase in echogenicity, characteristic of primary hepatocellular disease, possibly due to hepatic steatosis, limiting visualization. 2. Gallbladder is surgically absent.
== END 2023-04-15 08:46 | disposition home or self-care (01) ==
LOC: HO.US 08:45
PROVIDERS: PCP Internal Medicine; Visit Provider Internal Medicine
DX: R79.89 Other specified abnormal findings of blood chemistry (principal)
CPT/HCPCS: 76700

== ENCOUNTER 2023-06-06 09:34 | Outpatient (REF) | payer MEDICARE, SELFPAY ==
[2023-06-06 12:06] LABS: Appearance Urine Clear; Color Urine Yellow; Glucose Urine UA Negative (Negative); Leukocyte Esterase Urine Small (1+) (Negative); Nitrite Urine Negative (Negative); UMIC TRIGGER UACC YES; Urine Blood Negative (Negative); Urine Ketones Negative (Negative); Urine Protein Negative (Neg-Trace)
[2023-06-06 12:17] LABS: Bacteria Urine None Seen (None Seen); Hyaline Casts Urine 0-2 /LPF (0-2); RBC Urine 0-2 /HPF (0-2); Squamous Epithelial Cell Urine 0-2 /HPF (0-2); UACC Culture Trigger YES; WBC Urine 0-5 /HPF (0-5)
== END 2023-06-06 09:35 | disposition home or self-care (01) ==
LOC: HO.LAB 09:34
PROVIDERS: PCP Internal Medicine; Visit Provider Internal Medicine
DX: R39.9 Unspecified symptoms and signs involving the genitourinary system (principal)
CPT/HCPCS: 81001; 87086

== ENCOUNTER 2023-06-06 14:31 | Outpatient (AMB) | payer MEDICARE, SELFPAY ==
--- NOTE | 2023-06-06 14:33 | A.OFFPC_ITS ---
Vital Signs 06/06/23 14:34 Height 4 ft 11 in Weight 151 lb 8 oz BMI 30.6 BP 104/70 Blood Pressure Location Lt brachial Position Sitting Respiration 17 Pulse 87 Pulse Source Pulse Oximeter Pulse Oximetry (%) 97 Oxygen Delivery Method Room Air Intake Visit Reasons: vaginal itchiness Intake Note: Pt is here for ongoing vaginal discomfort and itchiness. Horseradish Grinder Required: No Accompanied by: Self / Same As Patient Allergies nystatin Allergy (Intermediate, Verified 06/07/23 07:17) Rash Medication List - Last Reconciled 06/07/23 by Delonte Langston PA-C alprazolam 0.25 mg PO DAILY calcitriol 0.25 mcg PO DAILY calcium carbonate-vitamin D3 600 mg-5 mcg (200 unit) (Calcium 600 + D(3)) 1 tab PO DAILY clobetasol 0.05% 1 appl topical BID 2 weeks dicyclomine 10 mg PO levothyroxine 75 mcg PO DAILY miconazole nitrate 2% 1 appl topical DAILY 14 days omeprazole 20 mg PO DAILY 90 days prednisone 10 mg PO DIRECTED 6 days tramadol 50 mg PO DAILY PRN Tobacco use date assessed: 03/03/23 Fall risk assessment: No Falls in past year Last assessed Fall Risk: 06/06/23 Dental Screening Dental Screen Date: 06/06/23 Did you have a dental visit in the last 12 months?: Yes Did you have a dental problem in the last 6 months where you did not have access to dental care?: No Was dental information given to patient?: Patient has dentist HPI vaginal itchiness HPI Details Patient is a 73-year-old female here today for problem visit. This is the 1st time I am meeting this 73 female. She reports over last 4 days having vaginal irritation and itch, denies any vaginal discharge or odor. Urinalysis done showing 1+ leukocytes -pending culturer [facility] Medical History Age-related osteoporosis without current pathological fracture GERD (gastroesophageal reflux disease) History of seizures Hyperparathyroidism Hypothyroidism Impacted cerumen of left ear Multinodular thyroid Osteoarthritis of hand, left Osteoarthritis of hand, right Osteoporosis Peripheral vascular disease Screening for breast cancer Screening for diabetes mellitus Thyroid nodule Surgical History History of colonoscopy History of surgery History of total abdominal hysterectomy and bilateral salpingo-oophorectomy History of cholecystectomy Family History Father Throat cancer Mother No problems noted. Brother Liver cancer Social History Household Members: Spouse Housing: Condominium Do you presently have visiting nurse or other home services: No Alcohol intake: never Patient Tobacco Use Status: Never used Tobacco e-Cigarette/Vaping Use: Never Used Second Hand Smoke Exposure: No service: No Current occupational status: unemployed Cognitive needs: No Hearing needs: No Vision needs: Yes Questionnaire Thrive Questionnaire Date Thrive assessed: 12/13/22 LUCIA-7 AMB Questionnaire LUCIA-7 Date LUCIA - 7 assessed: 12/13/22 Source: Developed by Drs. Suman Domingo, Josefa Al, Jay Zepeda and colleagues, with an educational atul from [employer]. Review of Systems Const Denies headache(s) Eyes Denies loss of vision ENT Denies vertigo, Denies dizziness, Denies headache(s) and Denies sore throat Card Denies chest pain, Denies leg edema and Denies lightheadedness Resp Denies cough, Denies hemoptysis and Denies wheezing GI Denies abdominal pain, Denies melena, Denies constipation, Denies diarrhea and Denies vomiting Denies urinary frequency, Denies dysuria and Denies urinary urgency Musc Denies arthralgias, Denies joint swelling, Denies numbness and Denies tingling Neuro Denies Abnormal speech present, Denies behavioral changes, Denies vertigo, Denies dizziness, Denies headache(s), Denies loss of vision, Denies memory loss, Denies numbness and Denies tingling Psych Denies anxiety, Denies behavioral changes, Denies depression, Denies memory loss and Denies panic attacks Alonso/Lymph Denies easy bleeding and Denies easy bruising Aller/Immun Denies wheezing Physical exam (Primary Care) Vital Signs: Last Vital Signs Pulse 87 06/06/23 14:34 Resp 17 06/06/23 14:34 BP 104/70 06/06/23 14:34 Pulse Ox 97 06/06/23 14:34 Oxygen Delivery Method Room Air 06/06/23 14:34 BMI result Body Mass Index 30.6 Tobacco/Smoking Status: Tobacco use Status Tobacco use date assessed 03/03/23 06/06/23 14:34 Patient Tobacco Use Status Never used Tobacco 06/06/23 14:34 e-Cigarette/Vaping Use Never Used 06/06/23 14:34 Thrive Assessment: Date of Thrive Assessment Date Thrive assessed 12/13/22 06/06/23 14:34 Const General: healthy appearing, no acute distress, alert and awake Nutritional Appearance: well nourished Orientation/consciousness: oriented to person, oriented to place and oriented to time HENMT Ears: TM's normal bilaterally General nose exam: Normal nasal mucous membranes and turbinates present Eyes Conjunctivae: conjunctivae normal Sclerae: sclerae normal Pupils: Equal, round and reactive pupils present Neck Neck: Yes no lymphadenopathy and Yes no JVD Thyroid: Thyroid normal Carotids: no bruits Resp Effort & Inspection: normal respiratory effort and not tachypneic Auscultation: no crackles, no rales, no rhonchi and no wheezes Cardio Rate: regular rate Rhythm: regular rhythm Heart sounds: no murmurs and normal S1 and S2 GI Palpation (GI): Soft to palpation, nontender, no hepatomegaly and no splenomegaly Auscultation: normal bowel sounds Skin General skin exam: no rashes or lesions noted and dry skin Neuro General: oriented to person, oriented to place and oriented to time Cranial nerves: Yes Equal, round and reactive pupils present Speech: No Abnormal speech present Gait exam (Neuro): Normal gait present Motor exam (neuro): no tremor noted Extrem Right upper extremity: full ROM Left upper extremity: full ROM Right lower extremity: full ROM; no edema Left lower extremity: full ROM; no edema Psych Mental Status: mental status grossly normal Speech and movement: Normal speech and movement present Affect: normal affect Attitude: cooperative Thought process: Normal thought process present Assessment and Plan Assessment & Plan (1) Vaginitis: Code(s): N76.0 - Acute vaginitis Qualifiers: Chronicity: acute Qualified Code(s): N76.0 - Acute vaginitis Plan: PATIENT'S SIGNS SYMPTOMS MOST CONSISTENT WITH A VAGINITIS, Has been treated in the past with prednisone taper for the skin irritation and inflammation. Has had reactions to nystatin cream. Will try miconazole 2% topical would cream. Medications: New miconazole nitrate 2% 1 appl topical DAILY 14 grams 0RF 14 days N76.0 - Acute vaginitis prednisone see taper instructions-Take 3 tablets x2 days, 2 tablets x2 days, 1 tablet x2 days, 10 mg PO DIRECTED 12 tabs 0RF 6 days N76.0 - Acute vaginitis Coding Level of Care Code Est Pt Level 3 (95711) Diagnoses Acute vaginitis N76.0 Chronicity: acute
[2023-06-06 14:34] VITALS: BP 104/70; PULSE 87; RESP 17; O2SAT 97; BMI 30.6
== END 2023-06-06 14:53 | disposition home or self-care (01) ==
PROVIDERS: PCP Internal Medicine; Visit Provider Physician Assistant
DX: N76.0 Acute vaginitis (principal)
CPT/HCPCS: 99213

== ENCOUNTER 2023-06-10 09:48 | Outpatient (AMB) | payer MEDICARE, SELFPAY ==
[2023-06-10 09:50] VITALS: BP 122/70; PULSE 79; O2SAT 98; BMI 30.7
--- NOTE | 2023-06-10 09:50 | AM.OFFVISMDC ---
Intake Vital Signs 06/10/23 09:50 Height 4 ft 11 in Weight 152 lb 0.2 oz BMI 30.7 BP 122/70 Blood Pressure Location Lt brachial Position Sitting Pulse 79 Pulse Source Pulse Oximeter Temp Source Skin Pulse Oximetry (%) 98 Oxygen Delivery Method Room Air Intake Visit Reasons: REJI [id number] Discuss/Bill ACP Intake Note: Patient is here for an Annual Wellness Visit. Redrawer Required: No Allergies nystatin Allergy (Intermediate, Verified 06/10/23 10:04) Rash Medication List - Last Reconciled 06/10/23 by TRISTA Gray alprazolam 0.25 mg PO DAILY calcitriol 0.25 mcg PO DAILY calcium carbonate-vitamin D3 600 mg-5 mcg (200 unit) (Calcium 600 + D(3)) 1 tab PO DAILY clobetasol 0.05% 1 appl topical BID 2 weeks dicyclomine 10 mg PO levothyroxine 75 mcg PO DAILY miconazole nitrate 2% 1 appl topical DAILY 14 days omeprazole 20 mg PO DAILY 90 days prednisone 10 mg PO DIRECTED 6 days tramadol 50 mg PO DAILY PRN HPI [facility] [id number] Discuss/Bill ACP HPI Details Patient is a 73-year-old female who presents today for subsequent wellness visit. Patient of Dr. Camacho. Patient is up-to-date with her health preventative screenings and immunizations. Patient has an upcoming mammogram 06/2023. Bone density screen 12/2021 with osteoporosis. Colonoscopy normal in 2014 and repeat in 10 years. Up-to-date with immunizations. [place] of care was reviewed with the patient and she was provided with a screening schedule. Healthcare proxy is on file and patient was provided with a MOLST form. In addition, patient reports that 5 days ago she was seen in the office and was diagnosed with vaginitis. She was started on prednisone and miconazole cream, patient reports no improvement in vaginal itching denies vaginal discharge or odor, urine was negative for UTI 5 days ago. Reports last prednisone will be taking today, no improvement in symptoms. [facility], LAT[facility] Medical History (Updated 06/10/23 @ 10:44 by TRISTA Gray) Overweight (BMI 25.0-29.9) Pruritic rash Superficial thrombophlebitis Small bowel obstruction Rash Varicose vein of leg Screening for breast cancer Hyperparathyroidism Age-related osteoporosis without current pathological fracture Multinodular thyroid Screening for diabetes mellitus Impacted cerumen of left ear History of seizures Peripheral vascular disease Thyroid nodule GERD (gastroesophageal reflux disease) Hypothyroidism Osteoarthritis of hand, right Osteoarthritis of hand, left Osteoporosis Surgical History History of colonoscopy History of surgery History of total abdominal hysterectomy and bilateral salpingo-oophorectomy History of cholecystectomy Family History Father Throat cancer Mother No problems noted. Brother Liver cancer Social History Household Members: Spouse Housing: Condominium Do you presently have visiting nurse or other home services: No Alcohol intake: never Patient Tobacco Use Status: Never used Tobacco e-Cigarette/Vaping Use: Never Used Second Hand Smoke Exposure: No service: No Current occupational status: unemployed Cognitive needs: No Hearing needs: No Vision needs: Yes Questionnaire Medicare Wellness Checkup [age] What gender do you identify with?: female During the past 4 weeks, how much have you been bothered by emotional problems such as feeling anxious, depressed, irritable, sad or downhearted, and blue?: not at all During the past 4 weeks, has your physical & emotional health limited your social activities with family, friends, neighbors, or groups?: not at all During the past 4 weeks, how much bodily pain have you generally had?: severe pain During the past 4 weeks, was someone available to help you if you needed & wanted help?: no, not at all During the past 4 weeks, what was the hardest physical activity you could do for at least 2 minutes?: light Can you get to places out of walking distance without help? (For eg., can you travel alone on buses, taxis or drive your car?): Yes Can you go shopping for groceries or clothes without someone's help?: Yes Can you prepare your own meals?: Yes Can you do your housework without help?: Yes Because of any health problems, do you need the help of another person with your personal care needs such as eating, bathing, dressing or getting around the house?: No Can you handle your own money without help?: Yes During the past 4 weeks, how would you rate your health in general?: very good During the past 4 weeks how have things been going for you?: good & bad parts about equal Are you having difficulties driving your car?: no Do you always fasten your seat belt when you are in a car?: yes, usually During past 4 weeks, have you been bothered by the following: never: Falling or dizzy when standing up, Sexual problems?, Trouble eating well?, Teeth or denture problems?, Problems using the telephone? and Tiredness or fatigue? Have you fallen 2 or more times in the past year?: No Are you afraid of falling?: Yes Are you a smoker?: no During the past 4 weeks, how many drinks of wine, beer, or other alcoholic beverages did you have?: no alcohol at all Do you exercise for about 20 minutes 3 or more times a week?: yes, most of the time Have you been given information to help with the following?: yes: Keeping track of your medications? and no: Hazards in your house that might hurt you? How often do you have trouble taking medicines the way you have been told to take them?: I always take medicine as prescribed How confident are you that you can control & manage most of your health problems?: very confident What is your race?: or origin or descent Mini Mental State Exam (MMSE) Orientation What is the (year) (season) (date) (day) (month)?: year, season, date, day and month Score Score: 5 Activity of Daily Living Bathing - sponge bath, tub bath or shower: receives no assistance (gets in/out by self, if usual bathing means Dressing - getting clothes from closets & drawers, including inner/outer garments & fasteners.: gets clothes & gets completely dressed without help Toileting - going to the 'toilet room' for urine/bowel elimination & cleaning self/arranging clothes: goes to toilet room, cleans self, arranges clothes without help Transfer: moves in & out of bed and chair without help (may use support object) Continence: controls urination/bowel movements completely by self Feeding: feeds self without help Total Score: 0 Information obtained from: patient Using telephone: independent Traveling: dependent Shopping: independent Preparing meals: independent Housework: independent Taking medicine: independent Managing money: independent PHQ-9 Over the last 2 weeks, how often have you been bothered by any of the following problems? 1. Little interest or pleasure in doing things: not at all 2. Feeling down, depressed, or hopeless: not at all 3. Trouble falling or staying asleep, or sleeping too much: not at all 4. Feeling tired or having little energy: not at all 5. Poor appetite or overeating: not at all 6. Feeling bad about yourself - or that you are a failure or have let yourself or your family down: not at all 7. Trouble concentrating on things, such as reading the newspaper or watching television: not at all 8. Moving or speaking so slowly that other people could have noticed. Or the opposite - being so fidgety or restless that you have been moving around a lot more than usual: not at all 9. Thoughts that you would be better off or of hurting yourself in some way: not at all Total score: 0 Depression Screening Interpretation: Negative Depression Screening Done: Yes 87693 - PHQ-9 Billing: Yes Source: Developed by Drs. Suman Domingo, Josefa Al, Jay Zepeda and colleagues, with an educational atul from [employer]. Review of Systems Reports as per HPI Physical Exam Vital Signs: Last Vital Signs Pulse 79 06/10/23 09:50 BP 122/70 06/10/23 09:50 Pulse Ox 98 06/10/23 09:50 Oxygen Delivery Method Room Air 06/10/23 09:50 BMI result Body Mass Index 30.7 Const General: cooperative and no acute distress Orientation/consciousness: patient oriented x3 HEENT Other: Whisper test: pass Resp Auscultation: clear to auscultation bilaterally Cardio Rate: regular rate Rhythm: regular rhythm Heart sounds: S1 normal heart sound present and S2 normal heart sound present GI Auscultation: normal bowel sounds Other: Labia majora and minora with mild erythema, no vaginal discharge noted Neuro Other: Balance: Normal Get up and walk: able to Romberg: negative Tandem gait: able to General: patient oriented x3 Assessment & Plan Assessment & Plan (1) Adult general medical exam: Code(s): Z00.00 - Encounter for general adult medical examination without abnormal findings (2) GERD (gastroesophageal reflux disease): Code(s): K21.9 - Gastro-esophageal reflux disease without esophagitis Plan: Continue omeprazole 20 mg daily. Encouraged to avoid GERD trigger foods. (3) Hypothyroidism: Code(s): E03.9 - Hypothyroidism, unspecified Qualifiers: Hypothyroidism type: unspecified Qualified Code(s): E03.9 - Hypothyroidism, unspecified Plan: Continue to follow-up with Endocrinology. Continue current treatment (4) Osteoporosis: Code(s): M81.0 - Age-related osteoporosis without current pathological fracture Qualifiers: Osteoporosis type: age-related Presence of current pathological fracture: without current pathological fracture Qualified Code(s): M81.0 - Age-related osteoporosis without current pathological fracture Plan: Continue to follow-up with endocrinology/rheumatology (5) Multinodular thyroid: Comment: May 2021 last ultrasound Code(s): E04.2 - Nontoxic multinodular goiter Plan: Continue to follow-up with endocrinology (6) Vaginitis: Code(s): N76.0 - Acute vaginitis Qualifiers: Chronicity: acute Qualified Code(s): N76.0 - Acute vaginitis Plan: Suspect yeast infection, will treat with Diflucan 150 mg x1 and if no improvement repeat dose in 3 days Signs and symptoms reviewed when to notify provider or go to the emergency department (7) Generalized anxiety disorder: Code(s): F41.1 - Generalized anxiety disorder Plan: On Xanax daily prn-educated about dependency and memory loss (8) Hyperparathyroidism: Code(s): E21.3 - Hyperparathyroidism, unspecified Plan: Continue to follow-up with endocrinology (9) Hypercholesterolemia: Code(s): E78.00 - Pure hypercholesterolemia, unspecified Plan: Low-cholesterol diet and weight loss (10) Obesity (BMI 30.0-34.9): Code(s): E66.9 - Obesity, unspecified Plan: Healthy food choices and exercise as tolerated Medications: New fluconazole (Diflucan) 150 mg PO Q3D 2 tabs 0RF N76.0 - Acute vaginitis Quality Reporting (2019) Depression/Bipolar (159/160/161/177) PHQ-9: Total score: 0 Coding Level of Care Code Medicare Subsequent (G0439) Diagnoses Adult general medical exam Z00.00 GERD (gastroesophageal reflux disease) K21.9 Hypothyroidism, unspecified type E03.9 Hypothyroidism type: unspecified Age-related osteoporosis without current pathological fracture M81.0 Osteoporosis type: age-related Presence of current pathological fracture: without current pathological fracture Multinodular thyroid E04.2 Acute vaginitis N76.0 Chronicity: acute Generalized anxiety disorder F41.1 Hyperparathyroidism E21.3 Hypercholesterolemia E78.00 Obesity (BMI 30.0-34.9) E66.9 CPT Codes Advance Care Planning - Advance Care Planning discussion: On file, no changes ([id number]) Advance Care Planning - Time spent: 1-15 minutes, on File ([id number]) Advance Care Planning Advance Care Planning discussion: On file, no changes Date of discussion: 06/10/23 Who was present: pt and granulating blender Forms completed: None Time spent: 1-15 minutes, on File Actual minutes spent: 2 Did not discuss due to Cultural/Spiritual beliefs: No
== END 2023-06-10 10:21 | disposition home or self-care (01) ==
PROVIDERS: PCP Internal Medicine; Visit Provider Nurse Practitioner Family
DX: Z00.00 Encounter for general adult medical examination without abnormal findings (principal); K21.9 Gastro-esophageal reflux disease without esophagitis; E03.9 Hypothyroidism, unspecified; E21.3 Hyperparathyroidism, unspecified; M81.0 Age-related osteoporosis without current pathological fracture; E04.2 Nontoxic multinodular goiter; N76.0 Acute vaginitis; F41.1 Generalized anxiety disorder; E78.00 Pure hypercholesterolemia, unspecified; E66.9 Obesity, unspecified
CPT/HCPCS: 1123F; G0439

== ENCOUNTER 2023-06-21 08:08 | Outpatient (REF) | payer MEDICARE, SELFPAY ==
--- NOTE | ~2023-06-21 | MM_ITS ---
EXAMINATION: MM SCREENING DIGITAL BREAST TOMOSYNTHESIS, BILATERAL CLINICAL INFORMATION: Screening. Asymptomatic. COMPARISON: Mammography: This study is compared with prior exams dating back to 2018. TECHNIQUE: Digital breast tomosynthesis is performed in both the craniocaudal and mediolateral oblique views along with computer-aided detection (CAD). Synthesized 2D images are generated from the tomosynthesis. FINDINGS: There are scattered areas of fibroglandular density (ACR BI-RADS breast composition Category b). There are no significant masses, abnormal calcifications, or other abnormalities. There is tissue marker in the superior aspect of the left breast from prior benign percutaneous biopsy. MM/MM tomosynthesis screening BI IMPRESSION: No mammographic evidence of malignancy. ASSESSMENT: BI-RADS BI-RADS 2 - Benign Findings RECOMMENDATION: Routine annual mammography screening. 1 year F/U This examination should not preclude the clinical evaluation of a suspicious palpable abnormality. This patient's information was entered into a reminder system with a target due date for their next mammogram.
== END 2023-06-21 08:09 | disposition home or self-care (01) ==
LOC: HO.MAMMO 08:08
PROVIDERS: PCP Internal Medicine; Visit Provider Internal Medicine
DX: Z12.31 Encounter for screening mammogram for malignant neoplasm of breast (principal)
CPT/HCPCS: 77063; 77067

== ENCOUNTER → 2023-06-21 08:30 | Outpatient (BNV) | payer MEDICARE, SELFPAY | PROVIDERS: PCP Internal Medicine; Visit Provider Radiology Diagnostic Radiology | DX: Z12.31 Encounter for screening mammogram for malignant neoplasm of breast (principal) | CPT/HCPCS: 77063; 77067 ==

== ENCOUNTER 2023-09-07 06:29 | Outpatient (REF) | payer MEDICARE, SELFPAY ==
[2023-09-07 13:48] LABS: Appearance Urine Clear; Color Urine Yellow; Glucose Urine UA Negative (Negative); Leukocyte Esterase Urine Negative (Negative); Nitrite Urine Negative (Negative); Specific Gravity - Urine <= 1.005 (1.005-1.025); Urine Blood Negative (Negative); Urine Ketones Negative (Negative); Urine Protein Negative (Neg-Trace)
== END 2023-09-07 06:30 | disposition home or self-care (01) ==
LOC: HO.LAB 06:29
PROVIDERS: PCP Internal Medicine; Visit Provider Internal Medicine
DX: R39.9 Unspecified symptoms and signs involving the genitourinary system (principal)
CPT/HCPCS: 81003

== ENCOUNTER 2023-09-19 10:38 | Outpatient (AMB) | payer MEDICARE, SELFPAY ==
[2023-09-19 10:41] VITALS: BP 122/82; PULSE 74; O2SAT 99; BMI 29.9
--- NOTE | 2023-09-19 10:41 | MHC.PC.OV ---
Vital Signs 09/19/23 10:41 Height 4 ft 11 in Weight 148 lb 0.4 oz BMI 29.9 BP 122/82 Blood Pressure Location Lt brachial Position Sitting Pulse 74 Pulse Source Pulse Oximeter Pulse Oximetry (%) 99 Oxygen Delivery Method Room Air Intake Visit Reasons: atrial fib Natural Sciences Department Chair Required: No Allergies nystatin Allergy (Intermediate, Verified 09/19/23 10:41) Rash Medication List - Last Reconciled 09/19/23 by Mundo Camacho MD alprazolam 0.25 mg PO DAILY calcium carbonate-vitamin D3 600 mg-5 mcg (200 unit) (Calcium 600 + D(3)) 1 tab PO BID dicyclomine 10 mg PO BID PRN levothyroxine 75 mcg PO DAILY omeprazole 20 mg PO DAILY 90 days tramadol 50 mg PO DAILY PRN Tobacco use date assessed: 09/19/23 Fall risk assessment: No Falls in past year Last assessed Fall Risk: 09/19/23 Dental Screening Dental Screen Date: 09/19/23 Did you have a dental visit in the last 12 months?: Yes Did you have a dental problem in the last 6 months where you did not have access to dental care?: No Was dental information given to patient?: Patient has dentist HPI atrial fib HPI Details 73-year-old obese female with hypercholesterolemia hyperparathyroidism multinodular thyroid GERD hypothyroidism osteoporosis and generalized anxiety disorder last seen in March 2023. Patient is up-to-date with bone density mammogram and colonoscopy. Patient did have the COVID and the flu shot. June 2023 seen by the nurse practitioner for annual well visit. Patient did undergo subtotal parathyroidectomy May 2023 for primary hyperparathyroidism and osteoporosis. Plan of repeating serum calcium and albumin levels on June 2023.. June 2023 noted also some vaginal itch and was seen by the nurse practitioner treated with miconazole and prednisone. Patient had some elevation in liver function test and had ultrasound done showing diffusely heterogeneous liver possibly due to hepatic steatosis.. Patient did see Rheumatology also for osteoarthritis has been advised to have occupational therapy [facility] Medical History (Updated 09/19/23 @ 11:04 by Mundo Camacho MD) Overweight (BMI 25.0-29.9) Pruritic rash Superficial thrombophlebitis Small bowel obstruction Rash Varicose vein of leg Screening for breast cancer Hyperparathyroidism Age-related osteoporosis without current pathological fracture Multinodular thyroid Screening for diabetes mellitus Impacted cerumen of left ear History of seizures Peripheral vascular disease Thyroid nodule GERD (gastroesophageal reflux disease) Hypothyroidism Osteoarthritis of hand, right Osteoarthritis of hand, left Osteoporosis Surgical History (Updated 09/13/23 @ 21:16 by Mundo Camacho MD) History of colonoscopy History of surgery History of total abdominal hysterectomy and bilateral salpingo-oophorectomy History of cholecystectomy Family History Father Throat cancer Mother No problems noted. Brother Liver cancer Social History Household Members: Spouse [facility]: [facility] Do you presently have visiting nurse or other home services: No Alcohol intake: never Patient Tobacco Use Status: Never used Tobacco e-Cigarette/Vaping Use: Never Used Second Hand Smoke Exposure: No service: No Current occupational status: unemployed Cognitive needs: No Hearing needs: No Vision needs: Yes Questionnaire PHQ-9 Over the last 2 weeks, how often have you been bothered by any of the following problems? 1. Little interest or pleasure in doing things: not at all 2. Feeling down, depressed, or hopeless: not at all 3. Trouble falling or staying asleep, or sleeping too much: not at all 4. Feeling tired or having little energy: not at all 5. Poor appetite or overeating: not at all 6. Feeling bad about yourself - or that you are a failure or have let yourself or your family down: not at all 7. Trouble concentrating on things, such as reading the newspaper or watching television: not at all 8. Moving or speaking so slowly that other people could have noticed. Or the opposite - being so fidgety or restless that you have been moving around a lot more than usual: not at all 9. Thoughts that you would be better off or of hurting yourself in some way: not at all Total score: 0 Depression Screening Interpretation: Negative Depression Screening Done: Yes 08079 - PHQ-9 Billing: Yes Source: Developed by Drs. Suman Domingo, Josefa Al, Jay Zepeda and colleagues, with an educational atul from [email or web address]. Thrive Questionnaire Date Thrive assessed: 09/19/23 AUDIT C Alcohol Use Questionnaire (AUDIT-C) 1. How often do you have a drink containing alcohol?: Never 2. How many drinks containing alcohol do you have on a typical day when you are drinking?: 1 or 2 (0) 3. How often do you have six or more drinks on one occasion?: Never Total Score: 0 Score Reviewed/Action Taken: No LUCIA-7 AMB Questionnaire LUCIA-7 Date LUCIA - 7 assessed: 09/19/23 Feeling nervous, anxious, or on edge: 0 = Not at all Not being able to stop or control worryin = Not at all Worrying too much about different things: 0 = Not at all Trouble relaxin = Not at all Being so restless that it is hard to sit still: 0 = Not at all Becoming easily annoyed or irritable: 0 = Not at all Feeling afraid as if something awful might happen: 0 = Not at all Total LUCIA-7 score (0-4 normal; 5-9 mild; 10-14 moderate; 15-21 severe): 0 Source: Developed by Drs. Suman Domingo, Josefa Al, Jay Zepeda and colleagues, with an educational atul from [email or web address]. Physical exam (Primary Care) Vital Signs: Oxygen Delivery Method Room Air 09/19/23 10:41 Blood pressure is normal pulse ox is normal and pulse normal BMI result Body Mass Index 29.9 Tobacco/Smoking Status: Tobacco use Status Tobacco use date assessed 09/19/23 09/19/23 10:47 Patient Tobacco Use Status Never used Tobacco 09/19/23 10:47 e-Cigarette/Vaping Use Never Used 09/19/23 10:47 PHQ-9: PHQ-9 Score PHQ-9: Total score 0 09/19/23 10:47 Depression Screening Interpretation: Negative Thrive Assessment: Date of Thrive Assessment Date Thrive assessed 09/19/23 09/19/23 10:47 Const General: alert; No acute distress Eyes Conjunctivae: conjunctivae normal Resp Auscultation: clear to auscultation bilaterally Cardio Rate: regular rate Rhythm: regular rhythm GI Inspection: Yes normal to inspection Extrem General: Yes normal to inspection and No edema Assessment and Plan Assessment & Plan (1) Hyperparathyroidism: Comment: May 2023 status post parathyroidectomy subtotal Code(s): E21.3 - Hyperparathyroidism, unspecified Plan: Status post parathyroidectomy May 2023. Monitor for calcium (2) S/P parathyroidectomy: Comment: 05/2023 Code(s): Z98.890 - Other specified postprocedural states; Z90.89 - Acquired absence of other organs Plan: Monitor for calcium (3) Osteoarthritis of hand, left: Code(s): M19.042 - Primary osteoarthritis, left hand Qualifiers: Osteoarthritis type: primary Qualified Code(s): M19.042 - Primary osteoarthritis, left hand Plan: Has met with Rheumatology discussed about occupational therapy (4) Osteoarthritis of hand, right: Code(s): M19.041 - Primary osteoarthritis, right hand Qualifiers: Osteoarthritis type: primary Qualified Code(s): M19.041 - Primary osteoarthritis, right hand Plan: Met with Rheumatology and advised occupational therapy but patient did not go for occupational therapy. Discussed about diclofenac gel to help with pain (5) GERD (gastroesophageal reflux disease): Code(s): K21.9 - Gastro-esophageal reflux disease without esophagitis Plan: GERD plan (6) Osteoporosis: Code(s): M81.0 - Age-related osteoporosis without current pathological fracture Qualifiers: Osteoporosis type: age-related Presence of current pathological fracture: without current pathological fracture Qualified Code(s): M81.0 - Age-related osteoporosis without current pathological fracture Plan: Patient on calcium and vitamin-D status post parathyroidectomy (7) Hypothyroidism: Code(s): E03.9 - Hypothyroidism, unspecified Qualifiers: Hypothyroidism type: unspecified Qualified Code(s): E03.9 - Hypothyroidism, unspecified Plan: Continue with thyroid medication (8) Vaginal pruritus: Code(s): N89.8 - Other specified noninflammatory disorders of vagina (9) Varicose veins of both lower extremities: Code(s): I83.93 - Asymptomatic varicose veins of bilateral lower extremities Orders: Orders Vitamin D 25-OH Total Today Z90.89 - Acquired absence of other organs, Z98.890 - Other specified postprocedural states Lipid Panel Today E03.9 - Hypothyroidism, unspecified, E78.00 - Pure hypercholesterolemia, unspecified Comprehensive Met. Panel Today Z90.89 - Acquired absence of other organs, Z98.890 - Other specified postprocedural states Thyroid Stimulating Hormone Today E03.9 - Hypothyroidism, unspecified Free T4 (Free Thyroxine) Today E03.9 - Hypothyroidism, unspecified Complete Blood Count Auto Diff Today E03.9 - Hypothyroidism, unspecified ECG 12 lead EKG Today E78.00 - Pure hypercholesterolemia, unspecified Referrals [employer] Referral N89.8 - Other specified noninflammatory disorders of vagina Vascular Surgery Referral I83.93 - Asymptomatic varicose veins of bilateral lower extremities Medications: Refilled omeprazole 20 mg PO DAILY 90 days 90 caps 3RF K21.9 - Gastro-esophageal reflux disease without esophagitis Coding Level of Care Code Est Pt Level 4 (41133) Diagnoses Hyperparathyroidism E21.3 S/P parathyroidectomy Z98.890; Z90.89 Primary osteoarthritis of left hand M19.042 Osteoarthritis type: primary Primary osteoarthritis of right hand M19.041 Osteoarthritis type: primary GERD (gastroesophageal reflux disease) K21.9 Age-related osteoporosis without current pathological fracture M81.0 Osteoporosis type: age-related Presence of current pathological fracture: without current pathological fracture Hypothyroidism, unspecified type E03.9 Hypothyroidism type: unspecified Vaginal pruritus N89.8 Varicose veins of both lower extremities I83.93
== END 2023-09-19 11:08 | disposition home or self-care (01) ==
PROVIDERS: PCP Internal Medicine; Visit Provider Internal Medicine
DX: E21.3 Hyperparathyroidism, unspecified (principal); Z98.890 Other specified postprocedural states; Z90.89 Acquired absence of other organs; M19.042 Primary osteoarthritis, left hand; M19.041 Primary osteoarthritis, right hand; K21.9 Gastro-esophageal reflux disease without esophagitis; M81.0 Age-related osteoporosis without current pathological fracture; E03.9 Hypothyroidism, unspecified; N89.8 Other specified noninflammatory disorders of vagina; I83.93 Asymptomatic varicose veins of bilateral lower extremities
CPT/HCPCS: 99214

== ENCOUNTER → 2023-10-05 11:03 | Outpatient (REF) | payer MEDICARE, SELFPAY ==
--- NOTE | 2023-10-05 11:10 | ECG_ITS ---
Test Reason : E78.00 Blood Pressure : / mmHG Vent. Rate : 064 BPM Atrial Rate : 064 BPM P-R Int : 168 ms QRS Dur : 072 ms QT Int : 414 ms P-R-T Axes : 058 059 034 degrees QTc Int : 427 ms Normal sinus rhythm Normal ECG No previous ECGs available Referred By: Mundo Camacho Electronically Signed By:DAVE CHUNG MD
== END ==
LOC: HO.CARD 11:03
PROVIDERS: PCP Internal Medicine; Visit Provider Internal Medicine
DX: E78.00 Pure hypercholesterolemia, unspecified (principal)
CPT/HCPCS: 93005

== ENCOUNTER → 2023-10-05 11:10 | Outpatient (BNV) | payer MEDICARE, SELFPAY | PROVIDERS: PCP Internal Medicine; Visit Provider Internal Medicine Cardiovascular Disease | DX: E78.00 Pure hypercholesterolemia, unspecified (principal) | CPT/HCPCS: 93010 ==

== ENCOUNTER 2023-10-07 06:08 | Outpatient (REF) | payer MEDICARE, SELFPAY ==
[2023-10-07 06:30] LABS: MANUAL DIFF FLAG NO
[2023-10-07 07:33] LABS: Hematocrit 41.8 % (37.0-47.0); Hemoglobin 13.9 g/dl (12.0-16.0); Lymphocytes Absolute Auto 1.6 X10*3/uL (1.2-4.9); Lymphocytes Percent Auto 41.1 % (20-40); Mean Corpuscular HGB Conc 33.3 g/dl (31.0-35.0); Mean Corpuscular Hemoglobin 31.9 pg (27.0-33.0); Mean Corpuscular Volume 95.9 fL (80.0-98.0); Mean Platelet Volume 9.6 fL (9.4-12.3); Monocytes Absolute Auto 0.4 X10*3/uL (0.1-1.2); Monocytes Percent Auto 10.5 % (2-11); Neutrophils Absolute Auto 1.9 x10*3/uL (2.0-8.3); Neutrophils Percent Auto 48.4 % (45-73); Platelet Count 179 X10*3/uL (160-400); Red Blood Count 4.36 X10*6/uL (4.20-5.50); Red Cell Distribution Width 12.6 % (11.0-16.0); White Blood Count 3.8 X10*3/uL (4.8-10.8)
[2023-10-07 08:03] LABS: Alanine Aminotransferase 22 U/L (0-31); Albumin Level 4.1 g/dL (3.5-5.0); Alkaline Phosphatase 98 U/L (39-117); Anion Gap 12 (12-20); Aspartate Amino Transferase 28 U/L (5-31); Bilirubin Total 0.4 mg/dL (0.0-1.0); Blood Urea Nitrogen 18 mg/dL (9-16); Calcium 9.1 mg/dL (8.4-10.2); Carbon Dioxide 25 mmol/L (22-29); Chloride 107 mmol/L (96-108); Cholesterol 211 mg/dL (<200); Estimated Glomerular Filt Rate > 60; Glucose Random 84 mg/dL (60-115); HDL Cholesterol 74 mg/dL (>40); LDL Cholesterol Calculated 121 mg/dL (<100); Sodium 140 mmol/L (135-145); Total Protein 6.9 g/dL (6.5-8.0); Triglycerides 81 mg/dL (<150)
[2023-10-07 08:25] LABS: Free T4 (Free Thyroxine) 1.13 ng/dL (0.71-1.85); Thyroid Stimulating Hormone 1.57 uIU/mL (0.32-4.0); Vitamin D 25-OH Total 41.3 ng/mL (>30)
== END 2023-10-07 06:09 | disposition home or self-care (01) ==
LOC: HO.LAB 06:08
PROVIDERS: PCP Internal Medicine; Visit Provider Internal Medicine
DX: E03.9 Hypothyroidism, unspecified (principal); E78.00 Pure hypercholesterolemia, unspecified; Z90.89 Acquired absence of other organs; Z98.890 Other specified postprocedural states
CPT/HCPCS: 36415; 80053; 80061; 82306; 84439; 84443; 85025

== ENCOUNTER 2023-10-13 15:40 | Outpatient (AMB) | payer MEDICARE, SELFPAY ==
[2023-10-13 15:50] VITALS: BP 140/82; PULSE 51
--- NOTE | 2023-10-13 15:50 | MHC.OFFVIS ---
Intake Vital Signs 10/13/23 15:50 Height 41 ft Weight 149 lb 14.629 oz BMI 0.4 BP 140/82 H Blood Pressure Location Lt brachial Position Sitting Pulse 51 Pulse Source Pulse Oximeter Intake Visit Reasons: F/U Hyperparathyroidism-lvm Intake Note: Patient present today for Hyperparathyroidism follow up visit. Patient last seen by Dr. Butler on 03/16/23. 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 The patient last saw Dr. 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 She has a heterogenous thyroid gland consistent with claribel's disease, but does appear to have a LMP true nodule. She underwent FNA biopsy of this nodule 05/15/[address] Baca with benign cytology. Repeat thyroid US reveals this nodule has decreased in size. She does report occasional dysphagia when eating pork cones, but otherwise denies any compressive symptoms. She denies any symptoms of hyper or hypothyroidism currently. She denies a personal history of head or neck irradiation. She denies any Family history of thyroid cancer. 2) Osteoporosis: Received treatment in the past with Actonel, for approximately 6 years.? She stopped this in 2019. Tolerated treatment well without complication. She also tried Fosamax, but had GI distress from this. She did have significant decline in her BMD while on Actonel, thus failing treatment with bisphosphonate. She underwent a full biochemical evaluation for secondary causes of osteoporosis which revealed an elevated PTH level, but was otherwise WNL. 24 hour urine collection is high normal. She underwent US head and neck which reveals a 0.9 cm L sided parathyroid adenoma. She was referred to Dr. Samayoa and will be undergoing a parathyroidectomy this May. No history of pathologic fracture or ONJ. Has 1 servings of dietary calcium per day in the form of cheese.? Takes Calcium supplement 1200 mg daily in divided doses.? Takes no additional Vitamin D supplement. Does use PPI daily. Denies ever using anticoagulant, antiepileptic or glucocorticoid medication.? Does weight bearing exercise 5 days per week in the form of walking. ? 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 Menses was always regular. . She did not breastfeed. Menopause was in her 30's after a TAHBSOO. She did not use HRT after. Denies history of Kidney stones: Denies family history of Osteoporosis or hip fracture. UTD on dental cleanings and sees dentist every 6 months.? No planned upcoming dental work or extractions. DXA: 12/22/2021 FINDINGS: AP SPINE L1-L4: Current: BMD 0.770 g/cm2, Z-score -1.7, T-score -3.4, osteoporosis, 10.5% decrease from previous, 16.8% decrease from baseline (<5% change is not significant). Prior: BMD 0.860 g/cm2. Baseline: BMD 0.926 g/cm2. LEFT FEMUR, NECK: Current: BMD 0.721 g/cm2, Z-score -0.6, T-score -2.3, osteopenia. Prior: BMD 0.759 g/cm2. Baseline: BMD 0.818 g/cm2. LEFT FEMUR, TOTAL: Current: BMD 0.774 g/cm2, Z-score -0.3, T-score -1.9, osteopenia, 7.2% decrease from previous, 8.5% decrease from baseline (<5% change is not significant). Prior: BMD 0.834 g/cm2. Baseline: BMD 0.846 g/cm2. Thyroid US: 06/21/2022 Right Thyroid Lobe: 2.7 x 0.9 x 1.0 cm, volume 1.3 mL. Previously 3.3 x 0.9 x 0.8 cm, volume 1.2 mL. Parenchyma: The gland echotexture is heterogeneous. Thyroid vascularity is normal. Left Thyroid Lobe: 3.3 x 0.9 x 1.0 cm, volume 1.6 mL. Previously 2.8 x 0.6 x 1.1 cm, volume 1.0 mL. Parenchyma: The gland echotexture is heterogeneous. Thyroid vascularity is normal. Isthmus: 0.2 cm in maximum AP dimension. Previously 0.3 cm. Estimated total number of nodules greater than or equal to 1 cm: 0. Horticultural Agent nodules are described as follows: 1.? Location: Right superior. ?? ? Size: 0.2 x 0.1 x 0.1 cm, volume 0.001 mL. ?? ? Previously: 0.1 x 0.1 x 0.1 cm, volume 0.001 mL. ?? ? Nodule characteristics: ?? ? Composition: Solid (2). ?? ? Echogenicity: Hyperechoic (1). ?? ? Shape: Not taller than wide (0). ?? ? Margins: Smooth (0). ?? ? Echogenic Foci: Macrocalcifications (1). ? ACR TI-RADS total points: 4 Previous: 3 ?? ? ACR TI-RADS category: 4 Previous: 3 ? Significant change in size (>/= 20% in 2 dimensions and minimal increase of 2 mm or 50% or greater increase in volume): None ?? ? Change in features: None ?? ? Change in ACR TI-RADS risk category: None 2.? Location: Right mid. ?? ? Size: 0.3 x 0.3 x 0.2 cm, volume 0.009 mL. ?? ? Previously: 0.1 x 0.2 x 0.1 cm, volume 0.001 mL. ?? ? Nodule characteristics: ?? ? Composition: Solid/almost completely solid (2). ?? ? Echogenicity: Isoechoic (1). ?? ? Shape: Not taller than wide (0). ?? ? Margins: Smooth (0). ?? ? Echogenic Foci: None (0). ? ACR TI-RADS total points: 3 Previous: 0 ?? ? ACR TI-RADS category: 3 Previous: 1 ? Significant change in size (>/= 20% in 2 dimensions and minimal increase of 2 mm or 50% or greater increase in volume): None ?? ? Change in features: None ?? ? Change in ACR TI-RADS risk category: Slight increase 3.? Location: Left superior. ?? ? Size: 0.9 x 0.4 x 0.8 cm, volume 0.15 mL. ?? ? Previously: 0.5 x 0.4 x 0.3 cm, volume 0.05 mL. ?? ? Nodule characteristics: ?? ? Composition: Solid/almost completely solid (2). ?? ? Echogenicity: Isoechoic (1). ?? ? Shape: Not taller than wide (0). ?? ? Margins: Smooth (0). ?? ? Echogenic Foci: None (0).? ACR TI-RADS total points: 3 Previous: 3 ?? ? ACR TI-RADS category: 3 Previous: 3 ? Significant change in size (>/= 20% in 2 dimensions and minimal increase of 2 mm or 50% or greater increase in volume): None ?? ? Change in features: None ?? ? Change in ACR TI-RADS risk category: None 4.? Location: Left mid. ?? ? Size: 0.9 x 0.5 x 0.7 cm, volume 0.16 mL. ?? ? Previously: 0.7 x 0.6 x 0.5 cm, volume 0.1 mL. ?? ? Nodule characteristics: ?? ? Composition: Solid/almost completely solid (2). ?? ? Echogenicity: Hypoechoic (2). ?? ? Shape: Not taller than wide (0). ?? ? Margins: Smooth (0). ?? ? Echogenic Foci: None (0). ? ACR TI-RADS total points: 4 Previous: 4 ?? ? ACR TI-RADS category: 4 Previous: 4 ? Significant change in size (>/= 20% in 2 dimensions and minimal increase of 2 mm or 50% or greater increase in volume): None ?? ? Change in features: None ?? ? Change in ACR TI-RADS risk category: No change 5.? Location: Left inferior. ?? ? Size: 0.8 x 0.5 x 0.7 cm, volume 0.14 mL. ?? ? Previously: 0.7 x 0.5 x 0.6 cm, volume 0.1 mL. ?? ? Nodule characteristics: ?? ? Composition: Solid (2). ?? ? Echogenicity: Hypoechoic (2). ?? ? Shape: Not taller than wide (0). ?? ? Margins: Smooth (0). ?? ? Echogenic Foci: None (0). ? ACR TI-RADS total points: 4 Previous: 4 ?? ? ACR TI-RADS category: 4 Previous: 4 ? Significant change in size (>/= 20% in 2 dimensions and minimal increase of 2 mm or 50% or greater increase in volume): None ?? ? Change in features: None ?? ? Change in ACR TI-RADS risk category: No change NODES: No lymphadenopathy is seen in the tissue surrounding the thyroid gland. Labs: Laboratory Tests 02/15/23 02/15/23 02/17/23 11:13 11:13 07:15 Creatinine 0.65 Estimated GFR > 60 Albumin N-Telopeptide X-li nked 30 25-OH Vitamin D To richar 33.6 PTH Intact 70 Calcium (PTH Intac t) 9.3 02/21/23 10:25 Creatinine Estimated GFR Albumin 4.0 N-Telopeptide X-li nked 25-OH Vitamin D To richar PTH Intact Calcium (PTH Intac t) She underwent a parathyroidectomy on 05/13/2023 with removal of a left superior, left inferior, right superior and right inferior gland. She is currently on calcium and vitamin-D supplementation. Recent calcium is 9.1 . She has underlying osteoporosis worse the spine [facility] Medical History (Updated 09/19/23 @ 11:04 by Mundo Camacho MD) Overweight (BMI 25.0-29.9) Pruritic rash Superficial thrombophlebitis Small bowel obstruction Rash Varicose vein of leg Screening for breast cancer Hyperparathyroidism Age-related osteoporosis without current pathological fracture Multinodular thyroid Screening for diabetes mellitus Impacted cerumen of left ear History of seizures Peripheral vascular disease Thyroid nodule GERD (gastroesophageal reflux disease) Hypothyroidism Osteoarthritis of hand, right Osteoarthritis of hand, left Osteoporosis Surgical History History of colonoscopy History of surgery History of total abdominal hysterectomy and bilateral salpingo-oophorectomy History of cholecystectomy Family History Father Throat cancer Mother No problems noted. Brother Liver cancer Social History Household Members: Spouse Housing: Condominium Do you presently have visiting nurse or other home services: No Alcohol intake: never Patient Tobacco Use Status: Never used Tobacco e-Cigarette/Vaping Use: Never Used Second Hand Smoke Exposure: No service: No Current occupational status: unemployed Cognitive needs: No Hearing needs: No Vision needs: Yes Physical Exam Vital Signs: Last Vital Signs Pulse 51 10/13/23 15:50 BP 140/82 H 10/13/23 15:50 BMI result Body Mass Index 0.4 Assessment & Plan Assessment & Plan (1) S/P parathyroidectomy: Comment: 05/2023 Code(s): Z98.890 - Other specified postprocedural states; Z90.89 - Acquired absence of other organs Plan: Status post parathyroidectomy with normalization of calcium. Currently on calcium and vitamin-D supplementation with recent normal calcium. Continue current management (2) Osteoporosis: Code(s): M81.0 - Age-related osteoporosis without current pathological fracture Qualifiers: Osteoporosis type: age-related Presence of current pathological fracture: without current pathological fracture Qualified Code(s): M81.0 - Age-related osteoporosis without current pathological fracture Plan: Will recheck DEXA bone density of hip, spine distal forearm in 6 months' to 1 year time. Continue calcium and vitamin-D supplementation hold off on pharmacologic therapy. She had difficulty swallowing the calcium supplementation and I recommended she switch to Viactiv 600 mg twice a day or 1200 mg once a day and vitamin D3 1000 units per day Orders: Orders XR DEXA axial skeleton 8 Months M81.0 - Age-related osteoporosis without current pathological fracture Coding Level of Care Code Est Pt Level 3 (92562) Diagnoses S/P parathyroidectomy Z98.890; Z90.89 Age-related osteoporosis without current pathological fracture M81.0 Osteoporosis type: age-related Presence of current pathological fracture: without current pathological fracture
== END 2023-10-13 16:25 | disposition home or self-care (01) ==
PROVIDERS: PCP Internal Medicine; Visit Provider Internal Medicine Endocrinology, Diabetes & Metabolism
DX: Z98.890 Other specified postprocedural states (principal); Z90.89 Acquired absence of other organs; M81.0 Age-related osteoporosis without current pathological fracture
CPT/HCPCS: 99213

== ENCOUNTER → 2023-10-13 15:40 | Outpatient (BNVA) | payer MEDICARE, SELFPAY | PROVIDERS: PCP Internal Medicine; Visit Provider Internal Medicine Endocrinology, Diabetes & Metabolism | DX: M81.0 Age-related osteoporosis without current pathological fracture (principal); Z98.890 Other specified postprocedural states; Z90.89 Acquired absence of other organs | CPT/HCPCS: 99212 ==

== ENCOUNTER 2023-12-08 10:42 | Outpatient (AMB) | payer MEDICARE, SELFPAY ==
--- NOTE | 2023-12-08 10:43 | MHC.OFFVIS ---
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 She reports last year she was treated at urgent care for a fungal infection she reports it did not really improve any after treatment. Currently today she feels okay. She has not sexually active as her has medical issues. Admits to occasional vaginal odor. She does not use soap externally, wears cotton undergarments. Admits to frequency of urination at times with a sense of urgency, occasionally urinates at night. She does not drink excessive amounts of caffeine, or any consumption of soda, artificial sweeteners, sugary drinks, or carbonated beverages. Denies any pelvic pain. History of a hysterectomy due to heavy menstrual bleeding and fibroids. [facility] Medical History Overweight (BMI 25.0-29.9) Pruritic rash Superficial thrombophlebitis Small bowel obstruction Rash Varicose vein of leg Screening for breast cancer Hyperparathyroidism Age-related osteoporosis without current pathological fracture Multinodular thyroid Screening for diabetes mellitus Impacted cerumen of left ear History of seizures Peripheral vascular disease Thyroid nodule GERD (gastroesophageal reflux disease) Hypothyroidism Osteoarthritis of hand, right Osteoarthritis of hand, left Osteoporosis Surgical History History of colonoscopy History of surgery History of total abdominal hysterectomy and bilateral salpingo-oophorectomy History of cholecystectomy Family History Father Throat cancer Mother No problems noted. Brother Liver cancer Social History Household Members: Spouse Housing: Condominium Do you presently have visiting nurse or other home services: No Alcohol intake: never Patient Tobacco Use Status: Never used Tobacco e-Cigarette/Vaping Use: Never Used Second Hand Smoke Exposure: No service: No Current occupational status: unemployed Cognitive needs: No Hearing needs: No Vision needs: Yes Female Reproductive History Menstrual Menopause type: surgical Total pregnancies: 3 Full term: 3 Number of Living Children: 3 Review of Systems Const All systems reviewed & are unremarkable except as noted in HPI and below Physical Exam Vital Signs: Last Vital Signs BP 132/84 12/08/23 10:44 BMI result Body Mass Index 30.1 Const General: cooperative, healthy appearing and no acute distress Orientation/consciousness: patient oriented x3 GI Inspection: Yes normal to inspection Palpation (GI): Soft to palpation and Other GI palpation findings present (Nontender) Rectal Exam - Female: visual inspection normal Other: Externally dry General: Yes bladder normal to palpation External Female Exam: normal appearance of the urethra Speculum Exam - Vagina: normal appearance of the vagina, normal palpation, vagina atrophic (Moderate atrophy with petechiae) and other (Very little vaginal moisture) Speculum Exam - Cervix: Cervix absent (Vaginal cuff present no lesions or nodules) Bimanual exam- vagina & uterus: normal bimanual exam, normal palpation, bladder normal to palpation and uterus absent Bimanual Exam- Adnexa, other: normal adnexae Neuro General: patient oriented x3 Assessment & Plan Assessment & Plan (1) Vaginal atrophy: Code(s): N95.2 - Postmenopausal atrophic vaginitis (2) Vulvar pruritus: Code(s): L29.2 - Pruritus vulvae Plan BV panel sent. Discussed atrophic changes, with use of a vulvar and internal anatomy pictures. Explained menopausal changes in its affect on the vulva and urinary symptoms. She denies any risk to breast cancer history. Is interested in starting estrogen therapy external use only at this time as she is not sexually active and has no plans to be. Instructions for Estrace use reviewed with the use of the diagram. All of her questions and concerns were addressed to the best of my ability and shared decision making. She is agreeable to the plan of care. Follow-up exam in 6-8 weeks after initial therapy. Patient to scheduled today on her way out. This note is constructed using voice recognition software. While every effort has been made to ensure accuracy, gunner's mate m errors may have been included. Orders: Orders Bacterial Vaginosis Panel Today N76.0 - Acute vaginitis, N89.8 - Other specified noninflammatory disorders of vagina Medications: New estradiol 0.01%(0.1mg/gram) (Estrace) use nightly externally for two weeks, then twice a week 1 g vaginal 2XW 42.5 grams 0RF Coding Level of Care Code Tele New Pt Level 3 (62677) Diagnoses Vaginal atrophy N95.2 Vulvar pruritus L29.2
[2023-12-08 10:44] VITALS: BP 132/84; BMI 30.1
== END 2023-12-08 11:14 | disposition home or self-care (01) ==
PROVIDERS: PCP Internal Medicine; Visit Provider Advanced Practice Midwife
DX: N95.2 Postmenopausal atrophic vaginitis (principal); L29.2 Pruritus vulvae
CPT/HCPCS: 99203

== ENCOUNTER 2023-12-08 10:42 | Outpatient (REF) | payer MEDICARE, SELFPAY ==
[2023-12-09 14:00] LABS: BV Int Neg Control Negative (Negative); BV Int Pos Control Positive (Positive)
== END 2023-12-08 10:43 | disposition home or self-care (01) ==
LOC: HO.LAB 10:42
PROVIDERS: PCP Internal Medicine; Visit Provider Advanced Practice Midwife
DX: N76.0 Acute vaginitis (principal); R35.0 Frequency of micturition; N95.2 Postmenopausal atrophic vaginitis; L29.2 Pruritus vulvae
CPT/HCPCS: 87480; 87510; 87660; 99202

== ENCOUNTER 2023-12-24 07:01 | Outpatient (REF) | payer MEDICARE, SELFPAY ==
[2023-12-24 07:25] LABS: MANUAL DIFF FLAG NO
[2023-12-24 09:01] LABS: Basophils Percent Auto 0.2 % (0-2); Hematocrit 42.3 % (37.0-47.0); Hemoglobin 13.6 g/dl (12.0-16.0); Imm Gran Abs Auto 0.01 X10*3/uL (0.00-0.03); Imm Gran Pct Auto 0.2 % (0.0-0.4); Lymphocytes Absolute Auto 1.9 X10*3/uL (1.2-4.9); Lymphocytes Percent Auto 44.6 % (20-40); Mean Corpuscular HGB Conc 32.2 g/dl (31.0-35.0); Mean Corpuscular Hemoglobin 31.7 pg (27.0-33.0); Mean Corpuscular Volume 98.6 fL (80.0-98.0); Mean Platelet Volume 9.5 fL (9.4-12.3); Monocytes Absolute Auto 0.4 X10*3/uL (0.1-1.2); Monocytes Percent Auto 10.1 % (2-11); Neutrophils Absolute Auto 1.9 x10*3/uL (2.0-8.3); Neutrophils Percent Auto 44.9 % (45-73); Platelet Count 216 X10*3/uL (160-400); Red Blood Count 4.29 X10*6/uL (4.20-5.50); Red Cell Distribution Width 13.2 % (11.0-16.0); White Blood Count 4.2 X10*3/uL (4.8-10.8)
[2023-12-24 09:44] LABS: Alanine Aminotransferase 14 U/L (0-31); Alkaline Phosphatase 96 U/L (39-117); Anion Gap 10 (12-20); Aspartate Amino Transferase 23 U/L (5-31); Bilirubin Total 0.5 mg/dL (0.0-1.0); Blood Urea Nitrogen 16 mg/dL (9-16); Calcium 8.9 mg/dL (8.4-10.2); Carbon Dioxide 28 mmol/L (22-29); Chloride 108 mmol/L (96-108); Estimated Glomerular Filt Rate > 60; Glucose Random 85 mg/dL (60-115); Potassium 4.4 mmol/L (3.3-5.1); Sodium 142 mmol/L (135-145); Total Protein 6.7 g/dL (6.5-8.0)
[2023-12-24 10:04] LABS: Free T4 (Free Thyroxine) 1.03 ng/dL (0.71-1.85); Thyroid Stimulating Hormone 1.95 uIU/mL (0.32-4.0)
== END 2023-12-24 07:02 | disposition home or self-care (01) ==
LOC: HO.LAB 07:01
PROVIDERS: PCP Internal Medicine; Visit Provider Internal Medicine
DX: E03.9 Hypothyroidism, unspecified (principal)
CPT/HCPCS: 36415; 80053; 84439; 84443; 85025

== ENCOUNTER 2024-01-02 09:25 | Outpatient (AMB) | payer MEDICARE, SELFPAY ==
[2024-01-02 09:27] VITALS: BP 130/72; PULSE 73; O2SAT 96; BMI 30.1
--- NOTE | 2024-01-02 09:27 | MHC.PC.OV ---
Vital Signs 01/02/24 09:27 Height 4 ft 11 in Weight 149 lb 0.2 oz BMI 30.1 BP 130/72 Blood Pressure Location Lt brachial Position Sitting Pulse 73 Pulse Source Pulse Oximeter Pulse Oximetry (%) 96 Oxygen Delivery Method Room Air Intake Visit Reasons: cholesterol , parathyroid Dual Rate Supervisor Required: No Allergies nystatin Allergy (Intermediate, Verified 01/02/24 09:27) Rash Tobacco use date assessed: 01/02/24 Fall risk assessment: No Falls in past year Last assessed Fall Risk: 01/02/24 Dental Screening Dental Screen Date: 09/19/23 HPI cholesterol , parathyroid HPI Details 73-year-old obese female with a history of parathyroidectomy for hyperparathyroidism, GERD osteoporosis hypothyroidism coming in for follow-up. Last seen in September 2023. Osteoporosis December 2021 last bone density, mammogram is up-to-date June 2023 and colonoscopy up-to-date July 2015. Patient follows up with Dr. Coe regarding peripheral vascular disease. Advised conservative measures. Reviewed the notes has followed up with Gynecology as well as endocrinology.. Bone density scheduled in June 2024 normal calcium currently on calcium and vitamin-D. complains of cough and has had this since may [facility] Medical History Overweight (BMI 25.0-29.9) Pruritic rash Superficial thrombophlebitis Small bowel obstruction Rash Varicose vein of leg Screening for breast cancer Hyperparathyroidism Age-related osteoporosis without current pathological fracture Multinodular thyroid Screening for diabetes mellitus Impacted cerumen of left ear History of seizures Peripheral vascular disease Thyroid nodule GERD (gastroesophageal reflux disease) Hypothyroidism Osteoarthritis of hand, right Osteoarthritis of hand, left Osteoporosis Surgical History History of colonoscopy History of surgery History of total abdominal hysterectomy and bilateral salpingo-oophorectomy History of cholecystectomy Family History Father Throat cancer Mother No problems noted. Brother Liver cancer Social History Household Members: Spouse Housing: Condominium Do you presently have visiting nurse or other home services: No Alcohol intake: never Patient Tobacco Use Status: Never used Tobacco e-Cigarette/Vaping Use: Never Used Second Hand Smoke Exposure: No service: No Current occupational status: unemployed Cognitive needs: No Hearing needs: No Vision needs: Yes Questionnaire Thrive Questionnaire Date Thrive assessed: 09/19/23 AUDIT C Alcohol Use Questionnaire (AUDIT-C) 1. How often do you have a drink containing alcohol?: Never 2. How many drinks containing alcohol do you have on a typical day when you are drinking?: 1 or 2 (0) 3. How often do you have six or more drinks on one occasion?: Never Total Score: 0 Score Reviewed/Action Taken: No LUCIA-7 AMB Questionnaire LUCIA-7 Date LUCIA - 7 assessed: 09/19/23 Source: Developed by Drs. Suman Domingo, Josefa Al, Jay Zepeda and colleagues, with an educational atul from [employer]. Physical exam (Primary Care) Vital Signs: Last Vital Signs Pulse 73 01/02/24 09:27 BP 130/72 01/02/24 09:27 Pulse Ox 96 01/02/24 09:27 Oxygen Delivery Method Room Air 01/02/24 09:27 BMI result Body Mass Index 30.1 Tobacco/Smoking Status: Tobacco use Status Tobacco use date assessed 01/02/24 01/02/24 09:32 Patient Tobacco Use Status Never used Tobacco 01/02/24 09:32 e-Cigarette/Vaping Use Never Used 01/02/24 09:32 Thrive Assessment: Date of Thrive Assessment Date Thrive assessed 09/19/23 01/02/24 09:32 Const General: alert; No acute distress Eyes Conjunctivae: conjunctivae normal Resp Auscultation: clear to auscultation bilaterally Cardio Rate: regular rate Rhythm: regular rhythm GI Inspection: Yes normal to inspection Extrem General: Yes normal to inspection and No edema Assessment and Plan Assessment & Plan (1) Hypothyroidism: Code(s): E03.9 - Hypothyroidism, unspecified Qualifiers: Hypothyroidism type: unspecified Qualified Code(s): E03.9 - Hypothyroidism, unspecified Plan: Continue with thyroid medication. Blood work up-to-date December 2023 (2) GERD (gastroesophageal reflux disease): Code(s): K21.9 - Gastro-esophageal reflux disease without esophagitis Plan: Avoid the foods that causes that usually spicy foods, tomato products, juices, coffee, soda and foods that your sensitive to. After eating do not lie down, allow 3-4 hours before in lie down. And keep the head of bed above 30 degrees to avoid the acid from going up. (3) Osteoporosis: Code(s): M81.0 - Age-related osteoporosis without current pathological fracture Qualifiers: Osteoporosis type: age-related Presence of current pathological fracture: without current pathological fracture Qualified Code(s): M81.0 - Age-related osteoporosis without current pathological fracture Plan: Patient is being followed up by Endocrinology scheduled June to have bone density (4) S/P parathyroidectomy: Comment: 05/2023 Code(s): Z98.890 - Other specified postprocedural states; Z90.89 - Acquired absence of other organs Plan: Patient is being monitored by Endocrinology. Calcium normal (5) Varicose veins of both lower extremities: Code(s): I83.93 - Asymptomatic varicose veins of bilateral lower extremities Plan: Patient is being followed up by vascular surgeon and conservative management. When sitting down elevate the legs, exercise, and support stockings (6) Generalized anxiety disorder: Code(s): F41.1 - Generalized anxiety disorder Plan: Stable continue with present medication (7) Obesity (BMI 30.0-34.9): Code(s): E66.9 - Obesity, unspecified Plan: Diet and exercise (8) Cough: Code(s): R05.9 - Cough, unspecified Plan: States had this since may 2023 post surgery. advised to try allergy med for 2 weeks and see. if persist - will need PFT (9) Frequency of micturition: Code(s): R35.0 - Frequency of micturition Orders: Orders XR chest 2V Today R05.9 - Cough, unspecified UA CC w/rflx Micro + Cult Today R30.0 - Dysuria, R35.0 - Frequency of micturition US bladder Today R35.0 - Frequency of micturition Coding Level of Care Code Est Pt Level 4 (43063) Diagnoses Hypothyroidism, unspecified type E03.9 Hypothyroidism type: unspecified GERD (gastroesophageal reflux disease) K21.9 Age-related osteoporosis without current pathological fracture M81.0 Osteoporosis type: age-related Presence of current pathological fracture: without current pathological fracture S/P parathyroidectomy Z98.890; Z90.89 Varicose veins of both lower extremities I83.93 Generalized anxiety disorder F41.1 Obesity (BMI 30.0-34.9) E66.9 Cough R05.9 Frequency of micturition R35.0
== END 2024-01-02 09:53 | disposition home or self-care (01) ==
PROVIDERS: PCP Internal Medicine; Visit Provider Internal Medicine
DX: E03.9 Hypothyroidism, unspecified (principal); K21.9 Gastro-esophageal reflux disease without esophagitis; E66.9 Obesity, unspecified; Z68.30 Body mass index [BMI] 30.0-30.9, adult; M81.0 Age-related osteoporosis without current pathological fracture; Z98.890 Other specified postprocedural states; Z90.89 Acquired absence of other organs; I83.93 Asymptomatic varicose veins of bilateral lower extremities; F41.1 Generalized anxiety disorder; R05.9 Cough, unspecified; R35.0 Frequency of micturition
CPT/HCPCS: 99214

== ENCOUNTER 2024-01-09 15:01 | Outpatient (REF) | payer MEDICARE, SELFPAY ==
--- NOTE | ~2024-01-09 | US_ITS ---
EXAMINATION: US PELVIS LIMITED (BLADDER) CLINICAL INFORMATION: Frequency of micturition. COMPARISON: Bladder ultrasound 01/06/2022. TECHNIQUE: Real-time imaging of the bladder. FINDINGS: BLADDER: Well distended and appears normal. Bilateral ureteral jets are demonstrated. Prevoid bladder volume is 210.0 mL. Postvoid bladder volume is 19.4 mL. US/US bladder IMPRESSION: Morphologically normal-appearing urinary bladder. Post void bladder residual of 20 mL..
== END 2024-01-09 15:02 | disposition home or self-care (01) ==
LOC: HO.US 15:01
PROVIDERS: PCP Internal Medicine; Visit Provider Internal Medicine
DX: R35.0 Frequency of micturition (principal)
CPT/HCPCS: 76857

== ENCOUNTER 2024-01-17 08:03 | Outpatient (AMB) | payer MEDICARE, SELFPAY ==
--- NOTE | 2024-01-17 08:09 | A.OFFVIS_ITS ---
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 Allergies nystatin Allergy (Intermediate, Verified 01/02/24 09:27) Rash Medication List - Last Reconciled 01/17/24 by Georgette Pierce LPN calcium carbonate-vitamin D3 600 mg-5 mcg (200 unit) (Calcium 600 + D(3)) 1 tab PO BID dicyclomine 10 mg PO BID PRN estradiol 0.01%(0.1mg/gram) (Estrace) 1 g vaginal 2XW levothyroxine 75 mcg PO DAILY omeprazole 20 mg PO DAILY 90 days tramadol 50 mg PO DAILY PRN Post menopausal: Yes Do you need a note to return to daycare/school/sports/work: No HPI Comments Details: Patient is here today for a follow up skin check she has been using estrogen cream externally for atrophic changes. She reports some improvement but not 100%. She has not currently sexually active and does not plan to be and she does not interested in internal use of Estrace because she does not like the medicine coming out later. [facility] Medical History Overweight (BMI 25.0-29.9) Pruritic rash Superficial thrombophlebitis Small bowel obstruction Rash Varicose vein of leg Screening for breast cancer Hyperparathyroidism Age-related osteoporosis without current pathological fracture Multinodular thyroid Screening for diabetes mellitus Impacted cerumen of left ear History of seizures Peripheral vascular disease Thyroid nodule GERD (gastroesophageal reflux disease) Hypothyroidism Osteoarthritis of hand, right Osteoarthritis of hand, left Osteoporosis Surgical History History of colonoscopy History of surgery History of total abdominal hysterectomy and bilateral salpingo-oophorectomy History of cholecystectomy Family History Father Throat cancer Mother No problems noted. Brother Liver cancer Social History Household Members: Spouse Housing: Condominium Do you presently have visiting nurse or other home services: No Alcohol intake: never Patient Tobacco Use Status: Never used Tobacco e-Cigarette/Vaping Use: Never Used Second Hand Smoke Exposure: No service: No Current occupational status: unemployed Cognitive needs: No Hearing needs: No Vision needs: Yes Review of Systems Const All systems reviewed & are unremarkable except as noted in HPI and below Physical Exam Vital Signs: Last Vital Signs BP 116/64 01/17/24 08:11 BMI result Body Mass Index 31.1 Const General: cooperative, healthy appearing and no acute distress Orientation/consciousness: patient oriented x3 GI Inspection: Yes normal to inspection Palpation (GI): Soft to palpation and Other GI palpation findings present (Nontender) Rectal Exam - Female: visual inspection normal Other: No external lesions or erythema General: Yes bladder normal to palpation External Female Exam: normal appearance of the urethra Speculum Exam - Vagina: normal appearance of the vagina, normal palpation, normal vaginal discharge and vagina atrophic Speculum Exam - Cervix: normal appearance of the cervix and normal palpation Bimanual exam- vagina & uterus: normal bimanual exam, normal palpation, uterine size normal, bladder normal to palpation, normal palpation, uterine shape normal and non-tender Bimanual Exam- Adnexa, other: normal adnexae Neuro General: patient oriented x3 Assessment & Plan Assessment & Plan (1) Vulvar pruritus: Code(s): L29.2 - Pruritus vulvae Plan Discussed: Instructions: Clean with warm water, no soaps, scented products. Wear loose, cotton underclothes, avoid tight outer clothing. Medication use reviewed. Reviewed again risks and contraindications for use including breast cancer diagnoses. Return to the office in 2 months for a skin check, or call sooner if she has not improving. All of her questions and concerns were addressed to the best of my ability and shared decision making. She is agreeable to the plan of care. This note is constructed using voice recognition software. While every effort has been made to ensure accuracy, anthropology department chair errors may have been included. Coding Level of Care Code Est Pt Level 3 (46547) Diagnoses Vulvar pruritus L29.2
[2024-01-17 08:11] VITALS: BP 116/64; BMI 31.1
== END 2024-01-17 08:36 | disposition home or self-care (01) ==
LOC: HO.HWS 08:03
PROVIDERS: PCP Internal Medicine; Visit Provider Advanced Practice Midwife
DX: L29.2 Pruritus vulvae (principal)
CPT/HCPCS: 99213

== ENCOUNTER → 2024-01-17 08:03 | Outpatient (BNVA) | payer MEDICARE, SELFPAY | PROVIDERS: PCP Internal Medicine; Visit Provider Advanced Practice Midwife | DX: L29.2 Pruritus vulvae (principal) | CPT/HCPCS: 99212 ==

== ENCOUNTER 2024-03-20 09:00 | Outpatient (AMB) | payer MEDICARE, SELFPAY ==
--- NOTE | 2024-03-20 09:07 | A.OFFVIS_ITS ---
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 She reports little itching still on the right labia externally. She is using her cream 2 to 3 times a week externally only. She has not sexually active. [facility] Medical History Overweight (BMI 25.0-29.9) Pruritic rash Superficial thrombophlebitis Small bowel obstruction Rash Varicose vein of leg Screening for breast cancer Hyperparathyroidism Age-related osteoporosis without current pathological fracture Multinodular thyroid Screening for diabetes mellitus Impacted cerumen of left ear History of seizures Peripheral vascular disease Thyroid nodule GERD (gastroesophageal reflux disease) Hypothyroidism Osteoarthritis of hand, right Osteoarthritis of hand, left Osteoporosis Surgical History History of colonoscopy History of surgery History of total abdominal hysterectomy and bilateral salpingo-oophorectomy History of cholecystectomy Family History Father Throat cancer Mother No problems noted. Brother Liver cancer Social History Household Members: Spouse Housing: Condominium Do you presently have visiting nurse or other home services: No Alcohol intake: never Patient Tobacco Use Status: Never used Tobacco e-Cigarette/Vaping Use: Never Used Second Hand Smoke Exposure: No service: No Current occupational status: unemployed Cognitive needs: No Hearing needs: No Vision needs: Yes Review of Systems Const All systems reviewed & are unremarkable except as noted in HPI and below Physical Exam Const General: cooperative, healthy appearing and no acute distress Orientation/consciousness: patient oriented x3 GI Inspection: Yes normal to inspection Palpation (GI): Soft to palpation and Other GI palpation findings present (No ntender) Rectal Exam - Female: visual inspection normal Other: External inspection skin is clear there is no lesions, discoloration, hypopigmentation, excoriations, erythema, or other abnormal changes. Skin is clean healthy we would aging changes. General: Yes bladder normal to palpation External Female Exam: normal appearance of the urethra Speculum Exam - Vagina: normal appearance of the vagina, normal palpation, normal vaginal discharge and vagina atrophic Speculum Exam - Cervix: Cervix absent (No lesions or nodules) Bimanual exam- vagina & uterus: normal bimanual exam, normal palpation, bladder normal to palpation and uterus absent Bimanual Exam- Adnexa, other: normal adnexae Neuro General: patient oriented x3 Assessment & Plan Assessment & Plan (1) Vulvar pruritus: Code(s): L29.2 - Pruritus vulvae (2) Atrophic skin: Code(s): L90.9 - Atrophic disorder of skin, unspecified Plan Discussed: Use of medication, application, continue with cotton underwear no soap, if itching is not improved or worsens to follow up in office for further evaluation. Plan skin check in 6 months. All of her questions and concerns we re addressed to the best of my ability and shared decision making. She is agreeable to the plan of care. This note is constructed using voice recognition software. While every effort has been made to ensure accuracy, director insurance errors may have been included. Medications: Refilled estradiol 0.01%(0.1mg/gram) (Estrace) use nightly externally for two weeks, then twice a week 1 g vaginal 2XW 42.5 grams 1RF Coding Level of Care Code Est Pt Level 3 (51646) Diagnoses Vulvar pruritus L29.2 Atrophic skin L90.9
[2024-03-20 09:14] VITALS: BP 110/64; BMI 31.1
== END 2024-03-20 09:54 | disposition home or self-care (01) ==
LOC: HO.HWS 09:01
PROVIDERS: PCP Internal Medicine; Visit Provider Advanced Practice Midwife
DX: L29.2 Pruritus vulvae (principal); L90.9 Atrophic disorder of skin, unspecified
CPT/HCPCS: 99213

== ENCOUNTER → 2024-03-20 09:00 | Outpatient (BNVA) | payer MEDICARE, SELFPAY | PROVIDERS: PCP Internal Medicine; Visit Provider Advanced Practice Midwife | DX: L29.2 Pruritus vulvae (principal); L90.9 Atrophic disorder of skin, unspecified | CPT/HCPCS: 99212 ==

== ENCOUNTER 2024-04-05 07:53 | Outpatient (AMB) | payer MEDICARE, SELFPAY ==
--- NOTE | 2024-04-05 07:54 | A.OFFVIS_ITS ---
Vital Signs 04/05/24 07:58 Height 4 ft 11 in Weight 152 lb 1.903 oz BMI 30.7 BP 116/68 Blood Pressure Location Rt brachial Position Sitting Pulse 75 Pulse Source Pulse Oximeter Pulse Oximetry (%) 98 Oxygen Delivery Method Room Air Intake Visit Reasons: OA/lm Intake Note: Patient presents for OA. Allergies nystatin Allergy (Intermediate, Verified 04/05/24 07:57) Rash Medication List - Last Reconciled 04/05/24 by Ruiz Early MD calcium carbonate-vitamin D3 600 mg-5 mcg (200 unit) (Calcium 600 + D(3)) 1 tab PO BID dicyclomine 10 mg PO BID PRN estradiol 0.01%(0.1mg/gram) (Estrace) 1 g vaginal 2XW levothyroxine 75 mcg PO DAILY omeprazole 20 mg PO DAILY 90 days HPI Comments Details: This is a 74-year-old female who presents for evaluation of osteoarthritis. She states that she continues to have intermittent achy hands as well as weakness, some difficulty opening up jars but she still able to open them. She uses a squeeze ball and lifts light weights at home. She takes Tylenol as needed for joint pains [facility] Medical History (Updated 04/05/24 @ 08:11 by Ruiz Early MD) Overweight (BMI 25.0-29.9) Pruritic rash Superficial thrombophlebitis Small bowel obstruction Rash Varicose vein of leg Screening for breast cancer Hyperparathyroidism Age-related osteoporosis without current pathological fracture Multinodular thyroid Screening for diabetes mellitus Impacted cerumen of left ear History of seizures Peripheral vascular disease Thyroid nodule GERD (gastroesophageal reflux disease) Hypothyroidism Osteoporosis Surgical History History of colonoscopy History of surgery History of total abdominal hysterectomy and bilateral salpingo-oophorectomy History of cholecystectomy Family History Father Throat cancer Mother No problems noted. Brother Liver cancer Social History Household Members: Spouse Housing: Condominium Do you presently have visiting nurse or other home services: No Alcohol intake: never Patient Tobacco Use Status: Never used Tobacco e-Cigarette/Vaping Use: Never Used Second Hand Smoke Exposure: No service: No Current occupational status: unemployed Cognitive needs: No Hearing needs: No Vision needs: Yes Female Reproductive History Menstrual Menopause type: surgical Total pregnancies: 3 Full term: 3 Number of Living Children: 3 Review of Systems Musc Reports arthralgias, Denies joint swelling and Reports muscle weakness Physical Exam Vital Signs: Last Vital Signs Pulse 75 04/05/24 07:58 BP 116/68 04/05/24 07:58 Pulse Ox 98 04/05/24 07:58 Oxygen Delivery Method Room Air 04/05/24 07:58 BMI result Body Mass Index 30.7 Const General: cooperative, healthy appearing and comfortable Nutritional Appearance: overweight Orientation/consciousness: patient oriented x3 Limitations: no limitations HEENT Head: Yes normocephalic and Yes atraumatic Mouth: moist mucous membranes Resp Effort & Inspection: normal respiratory effort and able to speak in complete sentences Auscultation: clear to auscultation bilaterally Cardio Rate: regular rate Rhythm: regular rhythm Skin General skin exam: no rashes or lesions noted Neuro General: patient oriented x3 Extrem Other: Normal gait. 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 Advised patient to continue to use squeeze ball maintain her hand strength.? She will continue Tylenol as needed for her pain. Follow-up as needed Plan I spent 12 minutes reviewing patient's chart, evaluating patient, counseling patient and documenting in the chart Coding Level of Care Code Est Pt Level 3 (11927) Diagnoses Osteoarthritis of hands, bilateral M19.041; M19.042
[2024-04-05 07:58] VITALS: BP 116/68; PULSE 75; O2SAT 98; BMI 30.7
== END 2024-04-05 08:12 | disposition home or self-care (01) ==
PROVIDERS: PCP Internal Medicine; Visit Provider Student in an Organized Health Care Education/Training Program
DX: M19.041 Primary osteoarthritis, right hand (principal); M19.042 Primary osteoarthritis, left hand
CPT/HCPCS: 99213

== ENCOUNTER → 2024-04-05 07:53 | Outpatient (BNVA) | payer MEDICARE, SELFPAY | PROVIDERS: PCP Internal Medicine; Visit Provider Student in an Organized Health Care Education/Training Program | DX: M19.041 Primary osteoarthritis, right hand (principal); M19.042 Primary osteoarthritis, left hand | CPT/HCPCS: 99212 ==

== ENCOUNTER 2024-04-09 10:10 | Outpatient (REF) | payer MEDICARE, SELFPAY ==
--- NOTE | ~2024-04-09 | XR_ITS ---
EXAMINATION: XR CHEST 2 VIEWS CLINICAL INFORMATION: Cough. COMPARISON: Chest radiograph dated 12/09/2021. TECHNIQUE: Frontal and lateral views of the chest were obtained. FINDINGS: The heart, great vessels, pulmonary vasculature and mediastinum are normal. The lungs show no focal infiltrate, effusion or pneumothorax. There is no acute osseous abnormality. There is a mild thoracic levoscoliosis, which may be positional. XR/XR chest 2V IMPRESSION: No active cardiopulmonary disease. Electronically signed by: Gene Jauregui MD 05/03/2024 02:26 PM EDT
== END 2024-04-09 10:11 | disposition home or self-care (01) ==
LOC: HO.XRAY 10:10
PROVIDERS: PCP Internal Medicine; Visit Provider Internal Medicine
DX: R05.9 Cough, unspecified (principal)
CPT/HCPCS: 71046

== ENCOUNTER 2024-04-10 06:07 | Outpatient (REF) | payer MEDICARE, SELFPAY ==
[2024-04-10 07:56] LABS: Cholesterol 191 mg/dL (<200); HDL Cholesterol 70 mg/dL (>40); LDL Cholesterol Calculated 109 mg/dL (<100); Triglycerides 64 mg/dL (<150)
[2024-04-10 08:12] LABS: Free T4 (Free Thyroxine) 1.14 ng/dL (0.71-1.85); Thyroid Stimulating Hormone 0.64 uIU/mL (0.32-4.0)
[2024-04-10 10:22] LABS: Appearance Urine Clear; Color Urine Yellow; Glucose Urine UA Negative (Negative); Leukocyte Esterase Urine Moderate (2+) (Negative); Nitrite Urine Negative (Negative); UMIC TRIGGER UACC YES; Urine Blood Negative (Negative); Urine Ketones Negative (Negative); Urine Protein Negative (Neg-Trace)
[2024-04-10 10:45] LABS: Bacteria Urine None Seen (None Seen); Hyaline Casts Urine 0-2 /LPF (0-2); RBC Urine 0-2 /HPF (0-2); WBC Urine 0-5 /HPF (0-5)
[2024-04-10 10:49] LABS: UACC Culture Trigger YES
== END 2024-04-10 06:08 | disposition home or self-care (01) ==
LOC: HO.LAB 06:07
PROVIDERS: PCP Internal Medicine
DX: Z00.00 Encounter for general adult medical examination without abnormal findings (principal); R30.0 Dysuria; R35.0 Frequency of micturition
CPT/HCPCS: 36415; 80061; 81001; 84439; 84443; 87086

== ENCOUNTER 2024-04-16 14:35 | Outpatient (AMB) | payer MEDICARE, SELFPAY ==
[2024-04-16 14:52] VITALS: BP 124/70; PULSE 74; O2SAT 98; BMI 30.1
--- NOTE | 2024-04-16 14:52 | A.OFFPC_ITS ---
Vital Signs 04/16/24 14:52 Height 4 ft 11 in Weight 149 lb BMI 30.1 BP 124/70 Blood Pressure Location Lt brachial Position Sitting Pulse 74 Pulse Source Pulse Oximeter Pulse Oximetry (%) 98 Oxygen Delivery Method Room Air Intake Visit Reasons: 3 month frequency & cough Allergies nystatin Allergy (Intermediate, Verified 04/16/24 14:53) Rash Medication List - Last Reconciled 04/16/24 by Mundo Camacho MD calcium-vitamin D3-vitamin K 650 mg-12.5 mcg-40 mcg (Viactiv) 1 tab PO BID cholecalciferol (vitamin D3) 25 mcg PO DAILY dicyclomine 10 mg PO BID PRN estradiol 0.01%(0.1mg/gram) (Estrace) 1 g vaginal 2XW levothyroxine 75 mcg PO DAILY nitrofurantoin monohyd/m-cryst 100 mg 100 mg PO Q12H 5 days omeprazole 20 mg PO DAILY 90 days Tobacco use date assessed: 01/02/24 Fall risk assessment: No Falls in past year Last assessed Fall Risk: 04/16/24 Dental Screening Dental Screen Date: 09/19/23 HPI 3 month frequency & cough HPI Details 74-year-old obese female(noted 3 lb weig ht loss) with hypothyroidism GERD osteoporosis peripheral vascular disease and generalized anxiety disorder last seen in December 2023. Patient's bone density is due for this year mammogram is up-to-date colonoscopy is up-to-date. Patient was seen by the Rheumatology in 04/05/2024 diagnosis of osteoarthritis of the hands advised to exercise. Patient also being followed up by gynecology for vaginal atrophy and was treated with Estrace cream. Patient was complaining frequency and had bladder ultrasound showing normal results. [facility] Medical History (Updated 04/05/24 @ 08:11 by Ruiz Early MD) Overweight (BMI 25.0-29.9) Pruritic rash Superficial thrombophlebitis Small bowel obstruction Rash Varicose vein of leg Screening for breast cancer Hyperparathyroidism Age-related osteoporosis without current pathological fracture Multinodular thyroid Screening for diabetes mellitus Impacted cerumen of left ear History of seizures Peripheral vascular disease Thyroid nodule GERD (gastroesophageal reflux disease) Hypothyroidism Osteoporosis Surgical History History of colonoscopy History of surgery History of total abdominal hysterectomy and bilateral salpingo-oophorectomy History of cholecystectomy Family History Father Throat cancer Mother No problems noted. Brother Liver cancer Social History Household Members: Spouse Housing: Condominium Do you presently have visiting nurse or other home services: No Alcohol intake: never Patient Tobacco Use Status: Never used Tobacco Tobacco use type: Cigarette e-Cigarette/Vaping Use: Never Used Second Hand Smoke Exposure: No service: No Current occupational status: unemployed Cognitive needs: No Hearing needs: No Vision needs: Yes Questionnaire PHQ-9 Over the last 2 weeks, how often have you been bothered by any of the following problems? 1. Little interest or pleasure in doing things: not at all 2. Feeling down, depressed, or hopeless: not at all 3. Trouble falling or staying asleep, or sleeping too much: not at all 4. Feeling tired or having little energy: not at all 5. Poor appetite or overeating: not at all 6. Feeling bad about yourself - or that you are a failure or have let yourself or your family down: not at all 7. Trouble concentrating on things, such as reading the newspaper or watching television: not at all 8. Moving or speaking so slowly that other people could have noticed. Or the opposite - being so fidgety or restless that you have been moving around a lot more than usual: not at all 9. Thoughts that you would be better off or of hurting yourself in some way: not at all Total score: 0 Depression Screening Interpretation: Negative Depression Screening Done: Yes 92492 - PHQ-9 Billing: Yes Source: Developed by Drs. Suman Domingo, Josefa Al, Jay Zepeda and colleagues, with an educational atul from [employer]. Thrive Questionnaire Date Thrive assessed: 09/19/23 AUDIT C Alcohol Use Questionnaire (AUDIT-C) 1. How often do you have a drink containing alcohol?: Never 2. How many drinks containing alcohol do you have on a typical day when you are drinking?: 1 or 2 (0) 3. How often do you have six or more drinks on one occasion?: Never Total Score: 0 Score Reviewed/Action Taken: No LUCIA-7 AMB Questionnaire LUCIA-7 Date LUCIA - 7 assessed: 09/19/23 Source: Developed by Drs. Suman Domingo, Josefa Al, Jay Zepeda and colleagues, with an educational atul from [employer]. Physical exam (Primary Care) Vital Signs: Last Vital Signs Pulse 74 04/16/24 14:52 BP 124/70 04/16/24 14:52 Pulse Ox 98 04/16/24 14:52 Oxygen Delivery Method Room Air 04/16/24 14:52 BMI result Body Mass Index 30.1 Tobacco/Smoking Status: Tobacco use Status Tobacco use date assessed 01/02/24 04/16/24 14:56 Patient Tobacco Use Status Never used Tobacco 04/16/24 14:56 Tobacco use type Cigarette 04/16/24 14:56 e-Cigarette/Vaping Use Never Used 04/16/24 14:56 PHQ-9: PHQ-9 Score PHQ-9: Total score 0 04/16/24 14:56 Depression Screening Interpretation: Negative Thrive Assessment: Date of Thrive Assessment Date Thrive assessed 09/19/23 04/16/24 14:56 Const General: alert; No acute distress Eyes Conjunctivae: conjunctivae normal Resp Auscultation: clear to auscultation bilaterally Cardio Rate: regular rate Rhythm: regular rhythm GI Inspection: Yes normal to inspection Extrem General: Yes normal to inspection and No edema Assessment and Plan Assessment & Plan (1) Frequency of micturition: Code(s): R35.0 - Frequency of micturition Plan: Ultrasound was done with negative results. (2) Osteoarthritis of hands, bilateral: Code(s): M19.041 - Primary osteoarthritis, right hand; M19.042 - Primary osteoarthritis, left hand Plan: Patient was advised by Rheumatology for exercises (3) Cough: Code(s): R05.9 - Cough, unspecified Plan: Chest x-ray is pending (4) Obesity (BMI 30.0-34.9): Code(s): E66.9 - Obesity, unspecified Plan: Diet and exercise (5) Hypercholesterolemia: Code(s): E78.00 - Pure hypercholesterolemia, unspecified Plan: Avoid fried foods, chicken skin, eggs, butter margarine, pastries and meat. Be it pork or beef they have a lot of cholesterol LDL goal of less than 130 and triglyceride of less than 150 (6) Generalized anxiety disorder: Code(s): F41.1 - Generalized anxiety disorder Plan: Stable (7) Hypothyroidism: Code(s): E03.9 - Hypothyroidism, unspecified Qualifiers: Hypothyroidism type: unspecified Qualified Code(s): E03.9 - Hypothyroidism, unspecified Plan: Continue with thyroid medication (8) GERD (gastroesophageal reflux disease): Code(s): K21.9 - Gastro-esophageal reflux disease without esophagitis Plan: Avoid the foods that causes that usually spicy foods, tomato products, juices, coffee, soda and foods that your sensitive to. After eating do not lie down, allow 3-4 hours before in lie down. And keep the head of bed above 30 degrees to avoid the acid from going up. (9) Osteoporosis: Code(s): M81.0 - Age-related osteoporosis without current pathological fracture Qualifiers: Osteoporosis type: age-related Presence of current pathological fracture: without current pathological fracture Qualified Code(s): M81.0 - Age- related osteoporosis without current pathological fracture Plan: Discussed about calcium and vitamin-D and keeping active. Medications: New calcium-vitamin D3-vitamin K 650 mg-12.5 mcg-40 mcg (Viactiv) 1 tab PO BID 60 tabs 0RF cholecalciferol (vitamin D3) 25 mcg PO DAILY 30 caps 0RF Coding Level of Care Code Est Pt Level 4 (33657) Diagnoses Frequency of micturition R35.0 Osteoarthritis of hands, bilateral M19.041; M19.042 Cough R05.9 Obesity (BMI 30.0-34.9) E66.9 Hypercholesterolemia E78.00 Generalized anxiety disorder F41.1 Hypothyroidism, unspecified type E03.9 Hypothyroidism type: unspecified GERD (gastroesophageal reflux disease) K21.9 Age-related osteoporosis without current pathological fracture M81.0 Osteoporosis type: age-related Presence of current pathological fracture: without current pathological fracture
== END 2024-04-16 15:29 | disposition home or self-care (01) ==
PROVIDERS: PCP Internal Medicine; Visit Provider Internal Medicine
DX: R35.0 Frequency of micturition (principal); M19.041 Primary osteoarthritis, right hand; M19.042 Primary osteoarthritis, left hand; R05.9 Cough, unspecified; Z68.30 Body mass index [BMI] 30.0-30.9, adult; E66.9 Obesity, unspecified; E78.00 Pure hypercholesterolemia, unspecified; F41.1 Generalized anxiety disorder; E03.9 Hypothyroidism, unspecified; K21.9 Gastro-esophageal reflux disease without esophagitis; M81.0 Age-related osteoporosis without current pathological fracture
CPT/HCPCS: 99214

== ENCOUNTER 2024-06-22 08:42 | Outpatient (REF) | payer MEDICARE, SELFPAY ==
--- NOTE | ~2024-06-22 | MM_ITS ---
EXAMINATION: BONE DENSITOMETRY CLINICAL INDICATION: Age-related osteoporosis without current pathological fracture. COMPARISON: Previous BD dated 12/22/2021 and baseline BD dated 10/28/2006. This is the patient's baseline examination for the forearm radius 33%. TECHNIQUE: Using a [employer] DXA System (software version: 13.1) manufactured by [employer], dual-energy x-ray absorptiometry was performed of the lumbar spine, left hip and left forearm radius 33%. The images are of good technical quality. Summary results are attached. FINDINGS: LEFT FEMUR, NECK: Current: BMD 0.789 g/cm2, Z-score 0.1, T-score -1.8, osteopenia. Prior: BMD 0.721 g/cm2. Baseline: BMD 0.818 g/cm2. LEFT FEMUR, TOTAL: Current: BMD 0.805 g/cm2, Z-score 0.0, T-score -1.6, osteopenia, 4.0% increase from previous, 4.8% decrease from baseline (<5% change is not significant). Prior: BMD 0.774 g/cm2. Baseline: BMD 0.846 g/cm2. AP SPINE L1-L4: Current: BMD 0.812 g/cm2, Z-score -1.3, T-score -3.1, osteoporosis, 5.5% increase from previous, 12.3% decrease from baseline (<5% change is not significant). Prior: BMD 0.770 g/cm2. Baseline: BMD 0.926 g/cm2. LEFT FOREARM RADIUS 33%: BMD 0.580 g/cm2, Z-score -1.3, T-score -3.4, osteoporosis. IDENTIFIED RISK FACTORS: Early menopause, secondary osteoporosis, hysterectomy, bilateral oophorectomy, hyperparathyroidism, osteoporosis. HISTORY OF FRACTURE: None listed. MEDICATIONS: Vitamin D. MM/XR DEXA appendicular skeleton IMPRESSION: 1. DIAGNOSIS: Osteoporosis based on the lowest T-score value of -3.4 in the forearm radius 33% applying World Health Organization criteria. 2. 10-YEAR FRACTURE RISK PREDICTION, FRAX: According to the guidelines, FRAX calculation should only be performed on patients in the osteopenia bone density category. Therefore, FRAX was not performed on this patient. 3. Treatment Recommendations: NOF guidelines recommend consideration for treatment in postmenopausal women and men age 50 and older presenting with the following: -A hip or vertebral (clinical or morphometric) fracture. -T-score less than or equal to -2.5 at the femoral neck or spine after appropriate evaluation to exclude secondary causes. -Low bone mass at the hip or spine and a 10-year fracture probability by FRAX of greater than or equal to 3% for hip fracture or greater than or equal to 20% for major osteoporotic fracture based on the [place] adapted WHO algorithm. 4. Other Recommendations: All treatment decisions require clinical judgment and consideration of individual patient factors, including patient preferences, comorbidities, previous drug use, risk factors not captured in the FRAX model (e.g. frailty, falls, vitamin D deficiency, increased bone turnover, interval significant decline in bone density) and possible under or overestimation of fracture risk by FRAX. Additional medical evaluation for secondary cause of low bone mineral density may be appropriate. FUTURE SCAN RECOMMENDATION: People with diagnosed cases of osteoporosis or at high risk for fracture should have regular bone mineral density tests. For patients eligible for Medicare, routine testing is allowed once every 2 years. The testing frequency can be increased to one year for patients who have rapidly progressing disease, those who are receiving or discontinuing medical therapy to restore bone mass, or have additional risk factors. Electronically signed by: Garfield Lockett MD 06/22/2024 04:28 PM EDT RP
--- NOTE | ~2024-06-22 | MM_ITS ---
EXAMINATION: MM SCREENING DIGITAL BREAST TOMOSYNTHESIS, BILATERAL CLINICAL INFORMATION: Screening. Asymptomatic. COMPARISON: Mammography: Comparison is made with available priors TECHNIQUE: Digital breast mammography with tomosynthesis is performed in both the craniocaudal and mediolateral oblique views along with computer-aided detection (CAD). FINDINGS: There are scattered areas of fibroglandular density (ACR BI-RADS breast composition Category b). There are no significant masses, abnormal calcifications, or other abnormalities. MM/MM tomosynthesis screening BI IMPRESSION: No mammographic evidence of malignancy. ASSESSMENT: BI-RADS BI-RADS 1 - Negative RECOMMENDATION: Routine annual mammography screening. 1 year F/U This examination should not preclude the clinical evaluation of a suspicious palpable abnormality. This patient's information was entered into a reminder system with a target due date for their next mammogram. Electronically signed by: Elba White DO 07/03/2024 01:52 PM EDT
== END 2024-06-22 08:43 | disposition home or self-care (01) ==
LOC: HO.MAMMO 08:42
PROVIDERS: PCP Internal Medicine; Referring Provider Student in an Organized Health Care Education/Training Program; Visit Provider Internal Medicine Endocrinology, Diabetes & Metabolism
DX: Z12.31 Encounter for screening mammogram for malignant neoplasm of breast (principal); M81.0 Age-related osteoporosis without current pathological fracture
CPT/HCPCS: 77063; 77067; 77081

== ENCOUNTER → 2024-06-22 09:00 | Outpatient (BNV) | payer MEDICARE, SELFPAY | PROVIDERS: PCP Internal Medicine; Referring Provider Student in an Organized Health Care Education/Training Program; Visit Provider Internal Medicine | DX: Z12.31 Encounter for screening mammogram for malignant neoplasm of breast (principal) | CPT/HCPCS: 77063; 77067 ==

== ENCOUNTER 2024-07-10 08:16 | Outpatient (AMB) | payer MEDICARE, SELFPAY ==
--- NOTE | 2024-07-10 08:28 | A.OFFVIS_ITS ---
Intake Vital Signs 07/10/24 08:30 Height 4 ft 11 in Weight 68.039 kg BMI 30.3 BP 122/68 Blood Pressure Location Lt brachial Position Sitting Pulse 74 Pulse Source Pulse Oximeter Pulse Oximetry (%) 97 Oxygen Delivery Method Room Air Intake Visit Reasons: REJI [id number] comm Allergies nystatin Allergy (Intermediate, Verified 07/10/24 08:31) Rash Medication List - Last Reconciled 07/10/24 by Mundo Camacho MD calcium-vitamin D3-vitamin K 650 mg-12.5 mcg-40 mcg (Viactiv) 1 tab PO BID cholecalciferol (vitamin D3) 25 mcg PO DAILY dicyclomine 10 mg PO BID PRN estradiol 0.01%(0.1mg/gram) (Estrace) 1 g vaginal 2XW levothyroxine 75 mcg PO DAILY omeprazole 20 mg PO DAILY 90 days HPI [facility] [id number] comm HPI Details 74-year-old obese female with a history of osteoporosis hypothyroidism GERD hypercholesterolemia generalized anxiety disorder and osteoarthritis coming in for annual well visit last seen in April 2024. Patient's bone density last done in 12/23/2021 mammogram up-to-date in 06/24/2024 colonoscopy done in 2014. Review of the notes has seen vascular for the varicose veins had ultrasound- guided foam sclerotherapy, conservative measures recommended will be seeing to have another procedure 07/25/2024. Bone density done in June 22 showing osteoporosis with left femur 4% increase and spine 5% increase. Normal LV function 06/2020 Osteoporosis September 06/24/2024^ Mammogram May Colonoscopy Dr. Yates July 2015 Gynecology December 2023 [facility], rheumatology Dr. Early, endocrinology and [facility] Surgeon Dr[facility] Medical History (Updated 07/10/24 @ 08:55 by Mundo Camacho MD) Overweight (BMI 25.0-29.9) Pruritic rash Superficial thrombophlebitis Small bowel obstruction Rash Varicose vein of leg Screening for breast cancer Hyperparathyroidism Age-related osteoporosis without current pathological fracture Multinodular thyroid Screening for diabetes mellitus Impacted cerumen of left ear History of seizures Peripheral vascular disease Thyroid nodule GERD (gastroesophageal reflux disease) Hypothyroidism Osteoporosis Surgical History History of colonoscopy History of surgery History of total abdominal hysterectomy and bilateral salpingo-oophorectomy History of cholecystectomy Family History Father Throat cancer Mother No problems noted. Brother Liver cancer Social History Household Members: Spouse Housing: Condominium Do you presently have visiting nurse or other home services: No Alcohol intake: never Patient Tobacco Use Status: Never used Tobacco Tobacco use type: Cigarette e-Cigarette/Vaping Use: Never Used Second Hand Smoke Exposure: No service: No Current occupational status: unemployed Cognitive needs: No Hearing needs: No Vision needs: Yes Questionnaire Medicare Wellness Checkup [age] What gender do you identify with?: female During the past 4 weeks, how much have you been bothered by emotional problems such as feeling anxious, depressed, irritable, sad or downhearted, and blue?: not at all During the past 4 weeks, has your physical & emotional health limited your social activities with family, friends, neighbors, or groups?: not at all During the past 4 weeks, how much bodily pain have you generally had?: mild pain During the past 4 weeks, was someone available to help you if you needed & wanted help?: no, not at all During the past 4 weeks, what was the hardest physical activity you could do for at least 2 minutes?: moderate Can you get to places out of walking distance without help? (For eg., can you travel alone on buses, taxis or drive your car?): Yes Can you go shopping for groceries or clothes without someone's help?: Yes Can you prepare your own meals?: Yes Can you do your housework without help?: Yes Because of any health problems, do you need the help of another person with your personal care needs such as eating, bathing, dressing or getting around the ho use?: No Can you handle your own money without help?: Yes During the past 4 weeks, how would you rate your health in general?: excellent During the past 4 weeks how have things been going for you?: very well; could hardly better Are you having difficulties driving your car?: not applicable, I don't use a car Do you always fasten your seat belt when you are in a car?: yes, usually During past 4 weeks, have you been bothered by the following: never: Falling or dizzy when standing up, Sexual problems?, Trouble eating well?, Teeth or denture problems?, Problems using the telephone? and Tiredness or fatigue? Have you fallen 2 or more times in the past year?: No Are you afraid of falling?: Yes Are you a smoker?: no During the past 4 weeks, how many drinks of wine, beer, or other alcoholic beverages did you have?: no alcohol at all Do you exercise for about 20 minutes 3 or more times a week?: yes, all the time Have you been given information to help with the following?: yes: Keeping track of your medications? and no: Hazards in your house that might hurt you? How often do you have trouble taking medicines the way you have been told to take them?: I always take medicine as prescribed How confident are you that you can control & manage most of your health problems?: very confident What is your race?: or origin or descent PHQ-9 Over the last 2 weeks, how often have you been bothered by any of the following problems? 1. Little interest or pleasure in doing things: not at all 2. Feeling down, depressed, or hopeless: not at all 3. Trouble falling or staying asleep, or sleeping too much: not at all 4. Feeling tired or having little energy: not at all 5. Poor appetite or overeating: not at all 6. Feeling bad about yourself - or that you are a failure or have let yourself or your family down: not at all 7. Trouble concentrating on things, such as reading the newspaper or watching television: not at all 8. Moving or speaking so slowly that other people could have noticed. Or the opposite - being so fidgety or restless that you have been moving around a lot more than usual: not at all 9. Thoughts that you would be better off or of hurting yourself in some way: not at all Total score: 0 Depression Screening Interpretation: Negative Depression Screening Done: Yes [id number] - PHQ-9 Billing: Yes Source: Developed by Drs. Suman Domingo, JosefaJay Champion and colleagues, with an educational atul from [employer]. Thrive Questionnaire Date Thrive assessed: 09/19/23 LUCIA-7 AMB Questionnaire LUCIA-7 Date LUCIA - 7 assessed: 09/19/23 Source: Developed by Drs. Suman Domingo, Jay Lindsey and colleagues, with an educational atul from [employer]. Review of Systems Const Denies poor appetite and Denies weakness Eyes Denies no additional complaints ENT Reports Normal hearing present, Denies dizziness, Denies nasal congestion, Denies tinnitus and Denies sore throat Card Denies chest pain, Denies syncope, Denies rapid heart rate and Denies dyspnea Resp Denies cough and Denies dyspnea GI Denies change in stool character, Reports constipation, Denies diarrhea, Denies nausea and Denies vomiting Denies urinary frequency, Denies difficulty voiding and Denies dysuria Neuro Reports Normal hearing present, Denies confusion, Denies dizziness, Denies syncope and Denies weakness Psych Denies confusion Physical Exam Vital Signs: Last Vital Signs Pulse 74 07/10/24 08:30 BP 122/68 07/10/24 08:30 Pulse Ox 97 07/10/24 08:30 Oxygen Delivery Method Room Air 07/10/24 08:30 BMI result Body Mass Index 30.3 Const General: No confusion Orientation/consciousness: No confusion HEENT Head: Yes normocephalic Ears: external ears normal and TM's normal bilaterally Face and sinus: Yes normal facial exam Mouth: moist mucous membranes Throat: Yes tonsils normal Eyes Conjunctivae: conjunctivae normal Pupils: Equal, round and reactive pupils present and Pupil accommodation reflex normal Direct Ophthalmoscopy: normal light reflex Neck Neck: No lymphadenopathy Thyroid: Thyroid normal Chest Chest palpation & inspection: normal inspection of the chest Resp Effort & Inspection: normal respiratory effort and no audible wheezes Auscultation: clear to auscultation bilaterally, no crackles, no wheezes and lung sounds not diminished Cardio Rate: regular rate Rhythm: regular rhythm Peripheral pulses: radial pulses present and dorsalis pedis present GI Other: guaiac negative Palpation (GI): no masses Auscultation: normal bowel sounds and normoactive bowel sounds Rectal Exam - Female: deferred Skin General skin exam: no rashes or lesions noted Rashes: no rashes Neuro General: No confusion Cranial nerves: Yes Equal, round and reactive pupils present and Yes Normal hearing present Cognition (Neuro): normal cognition Gait exam (Neuro): Normal gait present Motor exam (neuro): 5/5 motor strength present throughout Deep tendon reflexes (DTR's): Right brachioradialis reflex intensity grade: 2+, Left brachioradialis reflex intensity grade: 2+, Right patellar reflex intensity grade: 2+ and Left patellar reflex intensity grade: 2+ Extrem General: No edema Immunizations tetanus-diphtheria toxoids-Td 2 Lf unit-2 Lf unit/0.5 mL IM suspension Performing Provider: Mundo Camacho MD [facility] Administered by: Akilah Ames CMA on 07/10/24 09:18 Dose Route Admin Location Dispensed Lot Number Expiration Date NDC Motor Room Controller 0.5 mL IM Left Deltoid 0.5 mL [id number] 10/15/24 [address]-9 [employer] VIS Given Date VIS Provided VIS Publication Date 07/10/24 Single Vaccine 21 Eligibility Eligibility Date Funding Source Not [facility] Eligible 07/10/24 [facility] Assessment & Plan Assessment & Plan (1) Medicare annual wellness visit, subsequent: Code(s): Z00.00 - Encounter for general adult medical examination without abnormal findings Plan: Patient is advised to eat healthy, keep well hydrated, keep active and have adequate sleep. (2) Varicose veins of both lower extremities: Code(s): I83.93 - Asymptomatic varicose veins of bilateral lower extremities Qualifiers: Varicose vein complication: unspecified Qualified Code(s): I83.93 - Asymptomatic varicose veins of bilateral lower extremities Plan: Patient follows up with the vascular surgeon (3) Osteoporosis: Comment: 06/24/2024 Code(s): M81.0 - Age-related osteoporosis without current pathological fracture Qualifiers: Osteoporosis type: age-related Presence of current pathological fracture: without current pathological fracture Qualified Code(s): M81.0 - Age- related osteoporosis without current pathological fracture Plan: Discussed about calcium and vitamin-D. There is improvement of the bone density. (4) Hypothyroidism: Code(s): E03.9 - Hypothyroidism, unspecified Qualifiers: Hypothyroidism type: unspecified Qualified Code(s): E03.9 - Hypothyroidism, unspecified Plan: Continue with thyroid medication (5) GERD (gastroesophageal reflux disease): Code(s): K21.9 - Gastro-esophageal reflux disease without esophagitis Qualifiers: Esophagitis presence: without esophagitis Qualified Code(s): K21.9 - Gastro-esophageal reflux disease without esophagitis Plan: Avoid the foods that causes that usually spicy foods, tomato products, juices, coffee, soda and foods that your sensitive to. After eating do not lie down, allow 3-4 hours before in lie down. And keep the head of bed above 30 degrees to avoid the acid from going up. (6) Hypercholesterolemia: Code(s): E78.00 - Pure hypercholesterolemia, unspecified Plan: Avoid fried foods, chicken skin, eggs, butter margarine, pastries and meat. Be it pork or beef they have a lot of cholesterol LDL goal of less than 130 and triglyceride of less than 150. (7) Obesity (BMI 30.0-34.9): Code(s): E66.9 - Obesity, unspecified Plan: Diet and exercise (8) Generalized anxiety disorder: Code(s): F41.1 - Generalized anxiety disorder Plan: Stable Orders: Orders Complete Blood Count Auto Diff 3 Months E21.3 - Hyperparathyroidism, unspecified Td State Immunization Today Z23 - Encounter for immunization Comprehensive Met. Panel 3 Months E21.3 - Hyperparathyroidism, unspecified Free T4 (Free Thyroxine) 3 Months E21.3 - Hyperparathyroidism, unspecified Thyroid Stimulating Hormone 3 Months E21.3 - Hyperparathyroidism, unspecified Lipid Panel 3 Months E21.3 - Hyperparathyroidism, unspecified, E78.00 - Pure hypercholesterolemia, unspecified Vitamin B12 and Folate 3 Months E21.3 - Hyperparathyroidism, unspecified UA CC w/rflx Micro + Cult 3 Months E21.3 - Hyperparathyroidism, unspecified, R30.0 - Dysuria Medications: New tetanus-diphtheria toxoids-Td 0.5 mL IM ONCE 0.5 mL 0RF Z23 - Encounter for immunization Refilled omeprazole 20 mg PO DAILY 90 caps 3RF 90 days K21.9 - Gastro-esophageal reflux disease without esophagitis tramadol 50 mg PO DAILY PRN 30 tabs 1RF pain Quality Reporting (2019) Depression/Bipolar (159/160/161/177) PHQ-9: Total score: 0 Coding Level of Care Code Medicare Subsequent (G0439) Diagnoses Medicare annual wellness visit, subsequent Z00.00 Varicose veins of both lower extremities, unspecified whether complicated I83.93 Varicose vein complication: unspecified Age-related osteoporosis without current pathological fracture M81.0 Osteoporosis type: age-related Presence of current pathological fracture: without current pathological fracture Hypothyroidism, unspecified type E03.9 Hypothyroidism type: unspecified Gastroesophageal reflux disease without esophagitis K21.9 Esophagitis presence: without esophagitis Hypercholesterolemia E78.00 Obesity (BMI 30.0-34.9) E66.9 Generalized anxiety disorder F41.1
[2024-07-10 08:30] VITALS: BP 122/68; PULSE 74; O2SAT 97; BMI 30.3
== END 2024-07-10 09:34 | disposition home or self-care (01) ==
LOC: HO.HMCH 08:17
PROVIDERS: PCP Internal Medicine; Visit Provider Internal Medicine
DX: Z00.00 Encounter for general adult medical examination without abnormal findings (principal); I83.93 Asymptomatic varicose veins of bilateral lower extremities; M81.0 Age-related osteoporosis without current pathological fracture; Z68.30 Body mass index [BMI] 30.0-30.9, adult; E03.9 Hypothyroidism, unspecified; K21.9 Gastro-esophageal reflux disease without esophagitis; E78.00 Pure hypercholesterolemia, unspecified; E66.9 Obesity, unspecified; F41.1 Generalized anxiety disorder; Z23 Encounter for immunization

== ENCOUNTER → 2024-07-10 08:16 | Outpatient (BNVA) | payer MEDICARE, SELFPAY | PROVIDERS: PCP Internal Medicine; Visit Provider Internal Medicine | DX: Z00.00 Encounter for general adult medical examination without abnormal findings (principal); Z23 Encounter for immunization; I83.93 Asymptomatic varicose veins of bilateral lower extremities; M81.0 Age-related osteoporosis without current pathological fracture; E03.9 Hypothyroidism, unspecified; K21.9 Gastro-esophageal reflux disease without esophagitis; E78.00 Pure hypercholesterolemia, unspecified; F41.1 Generalized anxiety disorder; E66.9 Obesity, unspecified | CPT/HCPCS: 90471; 90714; 96127 ==

== ENCOUNTER 2024-07-12 09:09 | Outpatient (AMB) | payer MEDICARE, SELFPAY ==
--- NOTE | 2024-07-12 09:14 | A.OFFVIS_ITS ---
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 Accompanied by: Self / Same As Patient Allergies nystatin Allergy (Intermediate, Verified 07/12/24 09:18) Rash Medication List - Last Reconciled 07/12/24 by Suman Perez MD calcium-vitamin D3-vitamin K 650 mg-12.5 mcg-40 mcg (Viactiv) 1 tab PO BID cholecalciferol (vitamin D3) 25 mcg PO DAILY dicyclomine 10 mg PO BID PRN estradiol 0.01%(0.1mg/gram) (Estrace) 1 g vaginal 2XW levothyroxine 75 mcg PO DAILY omeprazole 20 mg PO DAILY 90 days tramadol 50 mg PO DAILY PRN HPI Comments Details: 74 YO F with PMHx Hypothyroidism, a NTMNG and also hyperparathyroidism with resultant osteoporosis who is seen in F/U. 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 She has a heterogenous thyroid gland consistent with claribel's disease, but does appear to have a LMP true nodule. She underwent FNA biopsy of this nodule 05/15/[address] Baca with benign cytology. Repeat thyroid US reveals this nodule has decreased in size. She does report occasional dysphagia when eating pork cones, but otherwise denies any compressive symptoms. She denies any symptoms of hyper or hypothyroidism currently. She denies a personal history of head or neck irradiation. She denies any Family history of thyroid cancer. 2) Osteoporosis: Received treatment in the past with Actonel, for approximately 6 years.? She stopped this in 2019. Tolerated treatment well without complication. She also tried Fosamax, but had GI distress from this. She did have significant decline in her BMD while on Actonel, thus failing treatment with bisphosphonate. She underwent a full biochemical evaluation for secondary causes of osteoporosis which revealed an elevated PTH level, but was otherwise WNL. 24 hour urine collection is high normal. She underwent US head and neck which reveals a 0.9 cm L sided parathyroid adenoma. She was referred to Dr. Samayoa and will be undergoing a parathyr oidectomy this May. No history of pathologic fracture or ONJ. Has 1 servings of dietary calcium per day in the form of cheese.? Takes Calcium supplement 1200 mg daily in divided doses.? Takes no additional Vitamin D supplement. Does use PPI daily. Denies ever using anticoagulant, antiepileptic or glucocorticoid medication.? Does weight bearing exercise 5 days per week in the form of walking. ? 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 Menses was always regular. . She did not breastfeed. Menopause was in her 30's after a TAHBSOO. She did not use HRT after. Denies history of Kidney stones: Denies family history of Osteoporosis or hip fracture. UTD on dental cleanings and sees dentist every 6 months.? No planned upcoming dental work or extractions. DXA: 12/22/2021 FINDINGS: AP SPINE L1-L4: Current: BMD 0.770 g/cm2, Z-score -1.7, T-score -3.4, osteoporosis, 10.5% decrease from previous, 16.8% decrease from baseline (<5% change is not significant). Prior: BMD 0.860 g/cm2. Baseline: BMD 0.926 g/cm2. LEFT FEMUR, NECK: Current: BMD 0.721 g/cm2, Z-score -0.6, T-score -2.3, osteopenia. Prior: BMD 0.759 g/cm2. Baseline: BMD 0.818 g/cm2. LEFT FEMUR, TOTAL: Current: BMD 0.774 g/cm2, Z-score -0.3, T-score -1.9, osteopenia, 7.2% decrease from previous, 8.5% decrease from baseline (<5% change is not significant). Prior: BMD 0.834 g/cm2. Baseline: BMD 0.846 g/cm2. Thyroid US: 06/21/2022 Right Thyroid Lobe: 2.7 x 0.9 x 1.0 cm, volume 1.3 mL. Previously 3.3 x 0.9 x 0.8 cm, volume 1.2 mL. Parenchyma: The gland echotexture is heterogeneous. Thyroid vascularity is normal. Left Thyroid Lobe: 3.3 x 0.9 x 1.0 cm, volume 1.6 mL. Previously 2.8 x 0.6 x 1.1 cm, volume 1.0 mL. Parenchyma: The gland echotexture is heterogeneous. Thyroid vascularity is normal. Isthmus: 0.2 cm in maximum AP dimension. Previously 0.3 cm. Estimated total number of nodules greater than or equal to 1 cm: 0. Lotteries Agent nodules are described as follows: 1.? Location: Right superior. ?? ? Size: 0.2 x 0.1 x 0.1 cm, volume 0.001 mL. ?? ? Previously: 0.1 x 0.1 x 0.1 cm, volume 0.001 mL. ?? ? Nodule characteristics: ?? ? Composition: Solid (2). ?? ? Echogenicity: Hyperechoic (1). ?? ? Shape: Not taller than wide (0). ?? ? Margins: Smooth (0). ?? ? Echogenic Foci: Macrocalcifications (1). ? ACR TI-RADS total points: 4 Previous: 3 ?? ? ACR TI-RADS category: 4 Previous: 3 ? Significant change in size (>/= 20% in 2 dimensions and minimal increase of 2 mm or 50% or greater increase in volume): None ?? ? Change in features: None ?? ? Change in ACR TI-RADS risk category: None 2.? Location: Right mid. ?? ? Size: 0.3 x 0.3 x 0.2 cm, volume 0.009 mL. ?? ? Previously: 0.1 x 0.2 x 0.1 cm, volume 0.001 mL. ?? ? Nodule characteristics: ?? ? Composition: Solid/almost completely solid (2). ?? ? Echogenicity: Isoechoic (1). ?? ? Shape: Not taller than wide (0). ?? ? Margins: Smooth (0). ?? ? Echogenic Foci: None (0). ? ACR TI-RADS total points: 3 Previous: 0 ?? ? ACR TI-RADS category: 3 Previous: 1 ? Significant change in size (>/= 20% in 2 dimensions and minimal increase of 2 mm or 50% or greater increase in volume): None ?? ? Change in features: None ?? ? Change in ACR TI-RADS risk category: Slight increase 3.? Location: Left superior. ?? ? Size: 0.9 x 0.4 x 0.8 cm, volume 0.15 mL. ?? ? Previously: 0.5 x 0.4 x 0.3 cm, volume 0.05 mL. ?? ? Nodule characteristics: ?? ? Composition: Solid/almost completely solid (2). ?? ? Echogenicity: Isoechoic (1). ?? ? Shape: Not taller than wide (0). ?? ? Margins: Smooth (0). ?? ? Echogenic Foci: None (0).? ACR TI-RADS total points: 3 Previous: 3 ?? ? ACR TI-RADS category: 3 Previous: 3 ? Significant change in size (>/= 20% in 2 dimensions and minimal increase of 2 mm or 50% or greater increase in volume): None ?? ? Change in features: None ?? ? Change in ACR TI-RADS risk category: None 4.? Location: Left mid. ?? ? Size: 0.9 x 0.5 x 0.7 cm, volume 0.16 mL. ?? ? Previously: 0.7 x 0.6 x 0.5 cm, volume 0.1 mL. ?? ? Nodule characteristics: ?? ? Composition: Solid/almost completely solid (2). ?? ? Echogenicity: Hypoechoic (2). ?? ? Shape: Not taller than wide (0). ?? ? Margins: Smooth (0). ?? ? Echogenic Foci: None (0). ? ACR TI-RADS total points: 4 Previous: 4 ?? ? ACR TI-RADS category: 4 Previous: 4 ? Significant change in size (>/= 20% in 2 dimensions and minimal increase of 2 mm or 50% or greater increase in volume): None ?? ? Change in features: None ?? ? Change in ACR TI-RADS risk category: No change 5.? Location: Left inferior. ?? ? Size: 0.8 x 0.5 x 0.7 cm, volume 0.14 mL. ?? ? Previously: 0.7 x 0.5 x 0.6 cm, volume 0.1 mL. ?? ? Nodule characteristics: ?? ? Composition: Solid (2). ?? ? Echogenicity: Hypoechoic (2). ?? ? Shape: Not taller than wide (0). ?? ? Margins: Smooth (0). ?? ? Echogenic Foci: None (0). ? ACR TI-RADS total points: 4 Previous: 4 ?? ? ACR TI-RADS category: 4 Previous: 4 ? Significant change in size (>/= 20% in 2 dimensions and minimal increase of 2 mm or 50% or greater increase in volume): None ?? ? Change in features: None ?? ? Change in ACR TI-RADS risk category: No change NODES: No lymphadenopathy is seen in the tissue surrounding the thyroid gland. Labs: Laboratory Tests 02/15/23 02/15/23 02/17/23 11:13 11:13 07:15 Creatinine 0.65 Estimated GFR > 60 Albumin N-Telopeptide X-linked 30 25-OH Vitamin D Total 33.6 PTH Intact 70 Calcium (PTH Intact) 9.3 02/21/23 10:25 Creatinine Estimated GFR Albumin 4.0 N-Telopeptide X-linked 25-OH Vitamin D Total PTH Intact Calcium (PTH Intact) She underwent a parathyroidectomy on 05/13/2023 with removal of a left superior, left inferior, right superior and right inferior gland. She is currently on calcium and vitamin-D supplementation. Recent calcium is 9.1 . She has underlying osteoporosis worse the spine [facility] Medical History (Updated 07/10/24 @ 08:55 by Mnudo Camacho MD) Overweight (BMI 25.0-29.9) Pruritic rash Superficial thrombophlebitis Small bowel obstruction Rash Varicose vein of leg Screening for breast cancer Hyperparathyroidism Age-related osteoporosis without current pathological fracture Multinodular thyroid Screening for diabetes mellitus Impacted cerumen of left ear History of seizures Peripheral vascular disease Thyroid nodule GERD (gastroesophageal reflux disease) Hypothyroidism Osteoporosis Surgical History History of colonoscopy History of surgery History of total abdominal hysterectomy and bilateral salpingo-oophorectomy History of cholecystectomy Family History Father Throat cancer Mother No problems noted. Brother Liver cancer Social History Household Members: Spouse Housing: Condominium Do you presently have visiting nurse or other home services: No Alcohol intake: never Patient Tobacco Use Status: Never used Tobacco Tobacco use type: Cigarette e-Cigarette/Vaping Use: Never Used Second Hand Smoke Exposure: No service: No Current occupational status: unemployed Cognitive needs: No Hearing needs: No Vision needs: Yes Physical Exam Vital Signs: BMI result Body Mass Index 31.1 Assessment & Plan Assessment & Plan (1) Osteoporosis: Comment: 06/24/2024 Code(s): M81.0 - Age-related osteoporosis without current pathological fracture Category: Medical Qualifiers: Osteoporosis type: age-related Presence of current pathological fracture: without current pathological fracture Qualified Code(s): M81.0 - Age- related osteoporosis without current pathological fracture Plan: This 74-year-old white female with a history of primary hyperparathyroidism status post parathyroidectomy 05/13/2023 with residual osteoporosis moderate to severe seen on recent bone density Continue calcium and vitamin-D supplementation hold off on pharmacologic therapy. Would consider starting anabolic therapy at this point > 1 yr after parathyroid surgery. Would avoid Tymlos and Forteo as patient had prior history of primary hyperparathyroidism but would use Evenity . Alternatively, this does not get insurance approval, we will consider use of NXT-ID Coding Level of Care Code Est Pt Level 3 (94025) Diagnoses Age-related osteoporosis without current pathological fracture M81.0 Osteoporosis type: age-related Presence of current pathological fracture: without current pathological fracture
[2024-07-12 09:17] VITALS: BP 114/66; PULSE 69; BMI 31.1
== END 2024-07-12 09:41 | disposition home or self-care (01) ==
LOC: HO.ENCR 09:09
PROVIDERS: PCP Internal Medicine; Visit Provider Internal Medicine Endocrinology, Diabetes & Metabolism
DX: M81.0 Age-related osteoporosis without current pathological fracture (principal)
CPT/HCPCS: 99213

== ENCOUNTER → 2024-07-12 09:09 | Outpatient (BNVA) | payer MEDICARE, SELFPAY | PROVIDERS: PCP Internal Medicine; Visit Provider Internal Medicine Endocrinology, Diabetes & Metabolism | DX: M81.0 Age-related osteoporosis without current pathological fracture (principal); E21.3 Hyperparathyroidism, unspecified | CPT/HCPCS: 99212 ==

== ENCOUNTER 2024-07-23 09:38 | Outpatient (AMB) | payer MEDICARE, SELFPAY ==
--- NOTE | 2024-07-23 10:14 | AM.OFFVISNUR ---
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 Pt tolerated injection well and was observed for 15 minutes following injection. Pt advised to watch injection sites for any redness, warmth or swelling and to call us if this were to occur. Pt advised areas may be sore for a few days but to call us with any increasing pain. Assessment & Plan Assessment & Plan Orders: Orders AMB Romosozumab Injection Patient Supplied Today M81.0 - Age-related osteoporosis without current pathological fracture Medications: New romosozumab-aqqg 210 mg (2.34 mL) subcut ONCE 2.34 mL 0RF M81.0 - Age-related osteoporosis without current pathological fracture
== END 2024-07-23 10:13 | disposition home or self-care (01) ==
PROVIDERS: PCP Internal Medicine
DX: M81.0 Age-related osteoporosis without current pathological fracture (principal)

== ENCOUNTER → 2024-07-23 09:38 | Outpatient (BNVA) | payer MEDICARE, SELFPAY | PROVIDERS: PCP Internal Medicine | DX: M81.0 Age-related osteoporosis without current pathological fracture (principal) | CPT/HCPCS: 96372; J3111 ==

== ENCOUNTER 2024-08-20 09:38 | Outpatient (AMB) | payer MEDICARE, SELFPAY ==
--- OUTSIDE RECORDS SUMMARY | 2024-08-20 09:43 | XMS_ITS | Continuity of Care Document ---
Author Organization [facility] Address [address] [place] [address] Phone Care Team Providers Care Nursing Techn Name Role Phone Saravanan CARRILLO, GIANA, Suman EDDY Unavailable U navailable Allergies, Adverse Reactions, Alerts Substance Reaction Status Criticality latex Active No Information Medications Medication Instructions Dosage Effective Dates (start - stop) Status Comments levothyroxine 88 mcg tablet - Active Prilosec OTC 20 mg tablet,delayed release - Active Calcium 500 500 mg calcium (1,250 mg) chewable tablet - Active Procedures Procedure Date Duplex Scan-extrem Veins; Uni/ CT & MA D Inj Scleros Solut; Mx Veins 1- CT & MA N Ultrason Guidan Needle Bx-rad- CT & MA N Duplex Scan-extrem Veins; Uni/ CT & MA N Inj Scleros Solut; Mx Veins 1- CT & MA N Ultrason Guidan Needle Bx-rad- CT & MA N Offic Cons New/estab Mod 40 Mi- CT & [place] Duplex Scan-extrem Veins; Uni/ CT & [place] O ct Office/Outpt E&M Established 15 Mins- CT & [place] Duplex Scan-extrem Veins; Comp- CT & [place] Duplex Scan-extrem Veins; Comp- CT & [place] Inj Scleros Solut; Mx Veins 1- CT & MA M Ultrason Guidan Needle Bx-rad- CT & MA M Duplex Scan-extrem Veins; Uni/ 24 Inj Scleros Solut; Mx Veins 1 4 Ultrason Guidan Needle Bx-rad 4 Offic Cons New/estab Mod-hi 60 Duplex Scan-extrem Veins; Comp Advance Directives Directive Yes / No Effective Date File Name No Information Encounters Encounter Description Practice Location Reason(s) For Visit Diagnoses Date Provider Providers Copied on Encounter [facility], [address] [place] [address] Dr Escobedo 1000SuIbrahima yeh [place], [id number], [place] tel:[phone] CVR - [facility] Encounter for follow-up examination after completed treatment for conditions other than malignant neoplasmPain in right leg 4 Saravanan CARRILLO RVT, NUNU Will. [address] [place] [address], [id number], [place]. tel:[phone] Referring Provider: Mundo Camacho MD, [address] [place] [address] [address] [facility] [place], [address]. tel:[phone] [place] [facility], [address] [place] [address] Dr Escobedo 1000SuIbrahima yeh MD, [id number], [place] tel:[phone] CVR [facility] Varicose veins of right lower extremity with other complications 4 Saravanan CARRILLO RVT, RPVI Robert. [address] [place] [address], [place], [place], [id number], [place]. tel:[phone] Referring Provider: Mundo Camacho MD, [address] [place] [address] Dr [address] [place], [address]. tel:[phone] [facility], [address] [place] [address] Dr Escobedo 1000SuIbrahima yeh [place], [id number], [place] tel:[phone] CVR - [facility] Encounter for follow-up examination after completed treatment for conditions other than malignant nePain in right leg 4 Saravanan CARRILLO RVT, RPVI Robert. [address] [place] [address], [place] [address], [place], [place], [id number], [place]. tel:[phone] Referring Provider: Mundo Caamcho MD, [address] [place] [address] [place], [address]. tel:[phone] [place] [facility], [address] [place] [address] [address]Suite Ibrahima Espinoza MD, [id number], [place] tel:[phone] [facility] Varicose veins of right lower extremity with other complications 4 Matteo Martinez. [address] [place] [address], [place] [address], [place], [place], [id number], [place]. tel:[phone] Referring Provider: Mundo Camacho MD, [address] [place] [address] [address] [place] [address] [place], [address]. tel:[phone] Offic Cons New/estab Mod 40 Mi- CT & [place] [facility], [address] [place] [address] [address] 1000Ibrahima [place], [id number], [place] tel:[phone] [facility] Body mass index [BMI] 30.0-30.9, adultChronic venous hypertension (idiopathic) without complications of right lower extremity Jun- 4 Saravanan CARRILLO RVT, RPVI Robert. [address] [place] [address], Suite [facility], [place], [place], [id number], [place]. tel:[phone] Referring Provider: Mundo Camacho MD, [address] [place] [address] [address] [place] [address] [place], [address]. tel:[phone] [place] [facility], [address] [place] [address] Dr Escobedo 1000[address] 1000Ibrahima [place], [id number], [place] tel:[phone] [facility] Chronic venous hypertension (idiopathic) with other complications of right lower extremity 4 Saravanan CARRILLO RVT, RPVI Robert. [address] [facility], [address], [facility] [place], [id number], [place]. tel:[phone] Referring Provider: Mundo Camacho MD, [address] [place] [address] Dr [address] [facility] [place], [address]. tel:[phone] Office/Outpt E&M Established 15 Mins- CT & [place] [facility], [address] [place] [address] [address]Suite Ibrahima Espinoza MD, [id number], [place] tel:[phone] CVR - [facility] Venous insufficiency (chronic) (peripheral) 4 Saravanan CARRILLO RVT, RPVI Robert. [address] [place] [address], Suite [facility], [place], [id number], [place]. tel:[phone] Referring Provider: Mundo Camacho MD, [address] [place] [address] [address] [place] [address] [place], [address]. tel:[phone] [place] [facility], [address] [place] [address] [address]Suite Ibrahima Espinoza MD, [id number], [place] tel:[phone] CVR - [facility] Varicose veins of bilateral lower extremities with pain 4 Saravanan CARRILLO RVT, NUNU Will. [address] [place] [address], Suite [facility], [facility] [place], [id number], [place]. tel:[phone] Referring Provider: Mundo Camacho MD, [address] [place] [address] Dr [address] [facility] [place], [address]. tel:[phone] [place] [facility], [address] [place] [address] [address]Suite Ibrahima Espinoza [place], [id number], [place] tel:[phone] CV[place] - [place] Encounter for follow-up examination after completed treatment for conditions other than malignant neChronic venous hypertension (idiopathic) with other complications of bilateral lower extremity 4 Saravanan CARRILLO RVT, RPVI Robert. [address] [facility], [address], [place], [id number], [place]. tel:[phone] Referring Provider: Mundo Camacho MD, [address] [place] [address] [place], [address]. tel:[phone] [facility], [address] [place] [address] Dr Escobedo 1000Suite 1000Ibrahima [place], [id number], [place] tel:[phone] CVR - [facility] Varicose veins of left lower extremity with other complications Mar-2 0 4 Leonel Cotton. [address] [place] [address], [place], [place], [id number], [place]. tel:[phone] Referring Provider: Mundo Camacho MD, [address] [place] [address], [address]. tel:[phone] [place] [facility], [address] [place] [address] [address] [address]Ibrah[place], [id number], [place] tel:[phone] CVR - [facility] Encounter for follow-up examination after completed treatment for conditions other than malignant neVaricose veins of right lower extremity with pain Nov- 4 Saravanan CARRILLO, RVT, RPGATITO Will. [address] [address], [place], [place], [id number], [place]. tel:[phone] Referring Provider: Mundo Camacho MD, [address] [place] [address] [place] [address], . tel:[phone] [facility], [address] [place] [address] [address] [address]Ibrah[place], [id number], [place] tel:[phone] CVR - [facility] Chronic venous hypertension (idiopathic) with inflammation of right lower extremity Nov-0 4 Leonel Cotton. [address] [address], [place], [place], [id number], [place]. tel:[phone] Referring Provider: Mundo Camacho MD, [address] [place] [address] [place], [address]. tel:[phone] Offic Cons New/estab Mod-hi 60 [facility], [address] [place] [address] Dr Escobedo 1000Suite 1000Ibrahima [place], [id number], tel:[phone] [facility] Chronic venous hypertension (idiopathic) with other complications of bilateral lower extremityPain in left lower legPain in right legPain in left legVenous insufficiency (chronic) (peripheral)C ramp and spasm b 4 Saravanan CARRILLO RVT, NUNU Will. [address] [place] [address], [facility] [place], [id number], [place]. tel:[phone] Referring Provider: Mundo Camacho MD, [address] [place] [address] [address] [facility] [place], [address]. tel:[phone] [facility], [address] [place] [address] Dr Escobedo 1000Suite Ibrahima Espinoza [place], [id number], [place] tel:[phone] [facility] Varicose veins of bilateral lower extremities with pain 4 Saravanan CARRILLO RVT, NUNU Will. [address] [place] [address], [facility] [place], [id number], [place]. tel:[phone] Referring Provider: Mundo Camacho MD, [address] [place] [address] Dr [address] [facility] [place], [address]. tel:[phone] Family History Family Member Type Diagnosis Age At Onset No Information Payers Payer name Insurance type Covered green party ID fela chiaraodilon(s) [employer] Medicare CI [id number] Social History Type Description Quantity Date Captured Comments Sex Female Smoking Status No Information Chief Complaint And Reason For Visit No Information Reason For Referral Reason For Referral No Information Plan Of Treatment Date Type Action Status Goal Diet education completed Goal Diet education completed Goal Diet education completed Referral Ordered: Weight management: Referral to physician timeframe: 3 Months (related to Body mass index (BMI) 30.0-30.9, adult) ordered Feb-05-2024 Referral Ordered: Weight management: Referral to physician timeframe: 3 Months (related to Body mass index (BMI) 30.0-30.9, adult) ordered Appointment Venus Nguyen BOOKED Appointment Venus Nguyen BOOKED History Of Present Illness Encounter Date Complaint History Of Prese nt Illness No Information Functional Status Date Functional Assessmen t No Information Instructions Date Instruction Additional Infor mation Continue compression stocking us e Related to Chrn Vns Hypertnsn w/o Compl; RIGHT Patient education booklet given Related to Chrn Vns Hypertnsn w/o Compl; RIGHT Giving Encouragement to Exercise Related to Body mass index [BMI] 30.0-30.9, adult Diet education Related to Body mass index [BMI] 30.0-30.9, adult Diet education Related to Body mass index (BMI) 30.0-30.9, adult Giving Encouragement to exercise Related to Body mass index (BMI) 30.0-30.9, adult Lifestyle education Related to B jasmin mass index (BMI) 30.0-30.9, adult Compression stocking usage as conservative measure Related to Venous insufficiency (chronic) (peripheral) Patient education booklet given Related to Venous insufficiency (chronic) (peripheral) Diet education Related to Body mass index (BMI) 30.0-30.9, adult Giving Encouragement to exercise Related to Body mass index (BMI) 30.0-30.9, adult Lifestyle education Related to B jasmin mass index (BMI) 30.0-30.9, adult Patient education booklet given Related to Chronic venous hypertension (idiopathic) with other complications of bilateral lower extremity Compression stocking usage as conservative measure Related to Chronic venous hypertension (idiopathic) with other complications of bilateral lower extremity Assessments Type Assessment Date No Information Patient Care Teams Name Effective Dates (start - stop) Status Members No Information
--- NOTE | 2024-08-20 10:14 | AM.OFFVISNUR ---
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 Pt denied any adverse reactions with first evenity injection. Pt tolerated injections well. Assessment & Plan Assessment & Plan Orders: Orders AMB Romosozumab Injection Patient Supplied Today M81.0 - Age-related osteoporosis without current pathological fracture Medications: New romosozumab-aqqg 210 mg (2.34 mL) subcut ONCE 2.34 mL 0RF M81.0 - Age-related osteoporosis without current pathological fracture
== END 2024-08-20 10:11 | disposition home or self-care (01) ==
PROVIDERS: PCP Internal Medicine
DX: M81.0 Age-related osteoporosis without current pathological fracture (principal)

== ENCOUNTER → 2024-08-20 09:38 | Outpatient (BNVA) | payer MEDICARE, SELFPAY | PROVIDERS: PCP Internal Medicine | DX: M81.0 Age-related osteoporosis without current pathological fracture (principal) | CPT/HCPCS: 96372; J3111 ==

== ENCOUNTER 2024-08-21 08:59 | Outpatient (AMB) | payer MEDICARE, SELFPAY ==
--- OUTSIDE RECORDS SUMMARY | 2024-08-21 09:12 | XMS_ITS | Continuity of Care Document ---
Author Organization [facility] Address [address] [place] [address] Phone Care Team Providers Care Pin Drafter Name Role Phone Saravanan CARRILLO, GIANA, Suman [...] Providers Copied on Encounter [facility], [address] [place] [address] Dr Escobedo [address]SuIbrahima yeh [place], [id number], [place] tel:[phone] CVR - [facility] Encounter for follow-up examination after completed treatment for conditions other than malignant neoplasmPain in right leg 4 Saravanan CARRILLO RVT, NUNU Will. [address] [place] [address], [id number], [place]. tel:[phone] Referring Provider: Mundo Camacho MD, [address] [place] [address] [address] [facility] [place], [address]. tel:[phone] [place] [facility], [address] [place] [address] Dr Escobedo 1000SuIbrahima eyh MD, [id number], [place] tel:[phone] CVR [facility] Varicose veins of right lower extremity with other complications 4 Saravanan CARRILLO RVT, RPVI Robert. [address] [place] [address], [place], [place], [id number], [place]. tel:[phone] Referring Provider: Mundo Camacho MD, [address] [place] [address] Dr [address] [place], [address]. tel:[phone] [facility], [address] [place] [address] Dr Escobedo 1000SuIbrahima yeh [place], [id number], [place] tel:[phone] CVR - [facility] Encounter for follow-up examination after completed treatment for conditions other than malignant nePain in right leg 4 Saravanan CARRILLO RVT, RPVI Robert. [address] [place] [address], [place] [address], [place], [place], [id number], [place]. tel:[phone] Referring Provider: Munod Camacho MD, [address] [place] [address] [place], [address]. tel:[phone] [place] [facility], [address] [place] [address] [address]Suite Ibrahima Espinoza MD, [id number], [place] tel:[phone] [facility] Varicose veins of right lower extremity with other complications 4 Matteo Martinez. [address] [place] [address], [place] [address], [place], [place], [id number], [place]. tel:[phone] Referring Provider: Mundo Camacho MD, [address] [place] [address] Dr [address] [place] [address] [place], [address]. tel:[phone] Offic Cons New/estab Mod 40 Mi- CT & [place] [facility], [address] [place] [address] [address] 1000Ibrahima [place], [id number], [place] tel:[phone] [facility] Body mass index [BMI] 30.0-30.9, adultChronic venous hypertension (idiopathic) without complications of right lower extremity Jun- 4 Saravanan CARRILLO RVT, RPVI Robert. [address] [place] [address], Suite [facility], [place], [place], [id number], [place]. tel:[phone] Referring Provider: Mundo Camacho MD, [address] [place] [address] Dr [address] [place] [address] [place], [address]. tel:[phone] [place] [facility], [address] [place] [address] Dr Escobedo 1000Suite 1000Ibrahima [place], [id number], [place] tel:[phone] [facility] Chronic venous hypertension (idiopathic) with other complications of right lower extremity 4 Saravanan CARRILLO RVT, RPVI Robert. [address] [facility], [address], [facility] [place], [id number], [place]. tel:[phone] Referring Provider: Mundo Camacho MD, [address] [place] [address] Dr [address] [facility] [place], [address]. tel:[phone] Office/Outpt E&M Established 15 Mins- CT & [place] [facility], [address] [place] [address] [address]Suite Ibrahima Espinoza MD, [id number], [place] tel:[phone] CVR - [facility] Venous insufficiency (chronic) (peripheral) 4 Saravanan CARRILLO RVT, RPVI Robert. [address] [place] [address], Suite [facility], [place], [id number], [place]. tel:[phone] Referring Provider: Mundo Camacho MD, [address] [place] [address] Dr [address] [place] [address] [place], [address]. tel:[phone] [place] [facility], [address] [place] [address] [address]Suite Ibrahima Espinoza MD, [id number], [place] tel:[phone] CVR - [facility] Varicose veins of bilateral lower extremities with pain 4 Saravanan CARRILLO RVT, NUNU Will. [address] [place] [address], Suite [facility], [facility] [place], [id number], [place]. tel:[phone] Referring Provider: Mundo Camacho MD, [address] [place] [address] Dr [address] [facility] [place], [address]. tel:[phone] [place] [facility], [address] [place] [address] [address]Suite Ibrahima Espinoza MD, [id number], [place] tel:[phone] CVR - [place] [facility] [place] Encounter for follow-up examination after completed treatment for conditions other than malignant neChronic venous hypertension (idiopathic) with other complications of bilateral lower extremity 4 Saravanan CARRILLO RVT, RPVI Robert. [address] [facility], [address], [place], [id number], [place]. tel:[phone] Referring Provider: Mundo Camacho MD, [address] [place] [address] [place], [address]. tel:[phone] [place] [facility], [address] [place] [address] Dr Escobedo 1000Suite 1000Ibrahima [place], [id number], [place] tel:[phone] CVR - [facility] Varicose veins of left lower extremity with other complications Mar-2 0 4 Leonel Cotton. [address] [address], [place], [place], [id number], [place]. tel:[phone] Referring Provider: Mundo Camacho MD, [address] [place] [address], [address]. tel:[phone] [place] [facility], [address] [place] [address] [address] [address]Ibrah[place], [id number], [place] tel:[phone] CVR - [facility] Encounter for follow-up examination after completed treatment for conditions other than malignant neVaricose veins of right lower extremity with pain Nov- 4 Saravanan CARRILLO, RVT, RPGATITO Will. [address] [address], [place], [place], [id number], [place]. tel:[phone] Referring Provider: Mundo Camacho MD, [address] [place] [address] [place] [address], . tel:[phone] [place] [facility], [address] [place] [address] [address] [address]Ibrahima [place], [id number], [place] tel:[phone] CVR - [facility] Chronic venous hypertension (idiopathic) with inflammation of right lower extremity Nov-0 4 Leonel Cotton. [address] [address], [place], [place], [id number], [place]. tel:[phone] Referring Provider: Mundo Camacho MD, [address] [place] [address] [place], [address]. tel:[phone] Offic Cons New/estab Mod-hi 60 [facility], [address] [place] [address] Dr Escobedo 1000Suite 1000I[place]hima [place], [id number], tel:[phone] [facility] Chronic venous hypertension (idiopathic) with other complications of bilateral lower extremityPain in left lower legPain in right legPain in left legVenous insufficiency (chronic) (peripheral)C ramp and spasm b 4 Saravanan CARRILLO RVT, NUNU Will. [address] [place] [address], [facility] [place], [id number], [place]. tel:[phone] Referring Provider: Mundo Camacho MD, [address] [place] [address] [address] [facility] [place], [address]. tel:[phone] [facility], [address] [place] [address] Dr Escobedo 1000Suite Ibrahima Espinoza [place], [id number], [place] tel:[phone] [facility] Varicose veins of bilateral lower extremities with pain 4 Saravanan CARRILLO RVT, NUNU Will. [address] [place] [address], [facility] [place], [id number], [place]. tel:[phone] Referring Provider: Mundo Camacho MD, [address] [place] [address] Dr [address] [facility] [place], [address]. tel:[phone] Family History Family Member Type Diagnosis Age At Onset No Information Payers Payer name Insurance type Covered constitution party ID fela chiaraodilon(s) [employer] Medicare CI [id number] Social History Type Description Quantity Date Captured [...] No Information Instructions Date Instruction Additional Infor edson Diet education Related to Body mass index [BMI] 30.0-30.9, adult Giving Encouragement to Exercise Related to Body mass index [BMI] 30.0-30.9, adult Patient education booklet given Related to Chrn Vns Hypertnsn w/o Compl; RIGHT Continue compression stocking us e Related to Chrn Vns Hypertnsn w/o Compl; RIGHT Patient education booklet given Related to Venous insufficiency (chronic) (peripheral) Compression stocking usage as conservative measure Related to Venous insufficiency (chronic) (peripheral) Lifestyle education Related to B jasmin mass index (BMI) 30.0-30.9, adult Giving Encouragement to exercise Related to Body mass index (BMI) 30.0-30.9, adult Diet education Related to Body mass index (BMI) 30.0-30.9, adult Compression stocking usage as conservative measure Related to Chronic venous hypertension (idiopathic) with other complications of bilateral lower extremity Patient education booklet given Related to Chronic venous hypertension (idiopathic) with other complications of bilateral lower extremity Lifestyle education Related to B jasmin mass index (BMI) 30.0-30.9, adult Giving Encouragement to exercise Related to Body mass index (BMI) 30.0-30.9, adult Diet education Related to Body mass index (BMI) 30.0-30.9, adult Assessments Type Assessment Date No Information Patient Care Teams Name Effective Dates (start - stop) Status Members No Information
--- NOTE | 2024-08-21 10:06 | MHC.OFFWIV ---
Intake Vital Signs 08/21/24 10:09 Weight 155 lb BP 138/80 Blood Pressure Location Lt brachial Position Sitting Pulse 68 Pulse Source Pulse Oximeter Temp 98.0 F Temp Source Oral Pulse Oximetry (%) 97 Oxygen Delivery Method Room Air Intake Visit Reasons: EP cough, headache, chills Intake Note: Patient here for cough, headache and chills that started about 1 week ago. Patient Tobacco Use Status: Never used Tobacco Allergies nystatin Allergy (Intermediate, Verified 08/21/24 10:09) Rash Do you need a note to return to daycare/school/sports/work: No HPI EP cough, headache, chills HPI Details This is a 74-year-old female patient who presents to the walk-in clinic today with a one-week history of cough, headache, chills. Reports productive cough with thick green sputum. States she gets in to severe coughing fits at times. Denies fever. Denies any GI symptoms. Has been taking Tylenol and Mucinex at home with minimal benefit. Denies any known exposure to sick contacts. [facility] Medical History Overweight (BMI 25.0-29.9) Pruritic rash Superficial thrombophlebitis Small bowel obstruction Rash Varicose vein of leg Screening for breast cancer Hyperparathyroidism Age-related osteoporosis without current pathological fracture Multinodular thyroid Screening for diabetes mellitus Impacted cerumen of left ear History of seizures Peripheral vascular disease Thyroid nodule GERD (gastroesophageal reflux disease) Hypothyroidism Osteoporosis Surgical History History of colonoscopy History of surgery History of total abdominal hysterectomy and bilateral salpingo-oophorectomy History of cholecystectomy Family History Father Throat cancer Mother No problems noted. Brother Liver cancer Social History Household Members: Spouse Housing: Condominium Do you presently have visiting nurse or other home services: No Alcohol intake: never Patient Tobacco Use Status: Never used Tobacco Tobacco use type: Cigarette e-Cigarette/Vaping Use: Never Used Second Hand Smoke Exposure: No service: No Current occupational status: unemployed Cognitive needs: No Hearing needs: No Vision needs: Yes Review of Systems Const All systems reviewed & are unremarkable except as noted in HPI and below Physical Exam Vital Signs: Last Vital Signs Temp 98.0 F 08/21/24 10:09 Pulse 68 08/21/24 10:09 BP 138/80 08/21/24 10:09 Pulse Ox 97 08/21/24 10:09 Oxygen Delivery Method Room Air 08/21/24 10:09 Const General: cooperative and no acute distress Limitations: no limitations HEENT Head: Yes normal to inspection Ears: hearing grossly normal bilaterally General nose exam: Normal external nose present Face and sinus: Yes normal facial exam Mouth: Normal oral and palatal mucosa present Throat: Yes posterior oropharynx normal Neck Neck: Yes no lymphadenopathy Resp Effort & Inspection: normal respiratory effort and Actively coughing Quality: productive Auscultation: rhonchi upper bilaterally Cardio Rate: regular rate Rhythm: regular rhythm Skin General skin exam: no rashes or lesions noted Extrem General: Yes normal to inspection, Yes capillary refill normal and Yes no clubbing, cyanosis or edema Psych Appearance: grossly normal Mental Status: mental status grossly normal Speech and movement: Normal speech and movement present Assessment & Plan Assessment & Plan (1) Upper respiratory infection: Code(s): J06.9 - Acute upper respiratory infection, unspecified Qualifiers: URI type: unspecified URI Qualified Code(s): J06.9 - Acute upper respiratory infection, unspecified Plan: Ongoing URI, greater than one-week, unresponsive to qbje-dij-[id number] measures. We will start on azithromycin. Reviewed indications, use, possible side effects of this medication. Will also start on benzonatate - reviewed this with patient. She declines any viral testing today. Advised ongoing conservative measures with rest, adequate hydration, healthy diet, [id number] Tylenol as needed. Patient will return to the clinic if she does not improve with time and these measures, or if new symptoms develop. She verbalizes understanding and agrees to plan. Medications: New benzonatate 100 mg PO BID 7 days PRN 14 caps 0RF cough R05.9 - Cough, unspecified azithromycin For 250 mg dose pack: take 500 mg today (day 1), then 250 mg for 4 days (days 2-5) PO 6 tabs 0RF J06.9 - Acute upper respiratory infection, unspecified Coding Level of Care Code Est Pt Level 4 (75228) Diagnoses Upper respiratory tract infection, unspecified type J06.9 URI type: unspecified URI
[2024-08-21 10:09] VITALS: BP 138/80; PULSE 68; TEMP 36.7; O2SAT 97
== END 2024-08-21 10:45 | disposition home or self-care (01) ==
PROVIDERS: PCP Internal Medicine; Visit Provider Nurse Practitioner Family
DX: J06.9 Acute upper respiratory infection, unspecified (principal)

== ENCOUNTER → 2024-08-21 08:59 | Outpatient (BNVA) | payer MEDICARE, SELFPAY | PROVIDERS: PCP Internal Medicine | DX: J06.9 Acute upper respiratory infection, unspecified (principal) | CPT/HCPCS: 99212 ==

== ENCOUNTER 2024-09-17 10:05 | Outpatient (AMB) | payer MEDICARE, SELFPAY ==
--- NOTE | 2024-09-17 10:30 | AM.OFFVISNUR ---
Intake Visit Reasons: evenity #3 Allergies nystatin Allergy (Intermediate, Verified 08/21/24 10:09) Rash Office Meds romosozumab-aqqg 210 mg/2.34 mL(105 mg/1.17 mL x2)subcutaneous syringe Performing Provider: Suman Perez [place] [facility] [place] Administered by: Althea Duncan RN on 09/17/24 10:30 Dose Route Admin Location Dispensed Lot Number Expiration Date [facility] House Director 210 mg subcut bilateral upper arms 2.34 mL [id number] 12/03/26 43474-712-80 AMGEN Comments: Consent form signed by patient. Pt tolerated injections well. Pt denies any adverse reactions to previous injections. Assessment & Plan Assessment & Plan Orders: Orders AMB Romosozumab Injection Patient Supplied Today M81.0 - Age-related osteoporosis without current pathological fracture Medications: New romosozumab-aqqg 210 mg (2.34 mL) subcut ONCE 2.34 mL 0RF M81.0 - Age-related osteoporosis without current pathological fracture
--- OUTSIDE RECORDS SUMMARY | 2024-09-17 11:29 | XMS_ITS | Continuity of Care Document ---
Author Organization [facility] Address [address] [place] [address] Phone Care Team Providers Care [employer] Specialist Name Role Phone Saravanan CARRILLO, GIANA, Suman [...] Mins- [place] & [place] [facility], [address] [place] [address] Dr [address] [address], [id number], [place] tel:[phone] [facility] Venous insufficiency (chronic) (peripheral) 4 Saravanan CARRILLO RVT, RPVI Robert. [address] [place] [address], [place], [id number], [place]. tel:[phone] Referring Provider: Mundo Camacho MD, [address] [place] [address] [address] [facility], [place], [address]. tel:[phone] [facility], [address] [place] [address] Dr Escobedo [address] 1000[place], [id number], [place] tel:[phone] [facility] Chronic venous hypertension (idiopathic) with other complications of right lower extremity 4 Saravanan CARRILLO RVT, RPVI Robert. [address] [place] [address], [facility] [place], [id number], [place]. tel:[phone] Referring Provider: Mundo Camacho MD, [address] [place] [address] [place], [address]. tel:[phone] [facility], [address] [place] [address] Dr [address]Suite [place]brahima Espinoza [place], [id number], [place] tel:[phone] [facility] - [place] [facility] [place] Encounter for follow-up examination after completed treatment for conditions other than malignant neoplasmPain in right leg 4 Saravanan CARRILLO RVT, NUNU Will. [address] [place] [address], [address], [facility] [place], [id number], [place]. tel:[phone] Referring Provider: Mundo Camacho MD, [address] [place] [address], [address]. tel:[phone] [place] [facility], [address] [place] [address] Dr [address] [address], [id number], [place] tel:[phone] [facility] - [place] Encounter for follow-up examination after completed treatment for conditions other than malignant nePain in right leg 4 Saravanan CARRILLO RVT, NUNU Will. [address] [facility], [address], [facility] [place], [id number], [place]. tel:[phone] Referring Provider: Mundo Camacho MD, [address] [place] [address], [address]. tel:[phone] [place] [facility], [address] [place] [address] Dr [address], [id number], [place] tel:[phone] [facility] - [place] [facility] [place] Varicose veins of right lower extremity with other complications 4 Saravanan CARRILLO RVT, NUNU Will. [address] [facility], [address], [facility] [place], [id number], [place]. tel:[phone] Referring Provider: Mundo Camacho MD, [address] [place] [address] [place], [address]. tel:[phone] [facility], [address] [place] [address] [address], [id number], [place] tel:[phone] [facility] - [place] [facility] [place] Varicose veins of right lower extremity with other complications Jul-2 0 4 Matteo Martinez. [facility], Suite [facility], [facility] [place], [id number], [place]. tel:[phone] Referring Provider: Mundo Camacho MD, [address] [facility] [place], [address]. tel:[phone] Offic Cons New/estab Mod 40 Mi- CT & [place] [facility], [address] [place] [address] Dr Escob[address], [id number], [place] tel:[phone] [facility] - [place] Body mass index [BMI] 30.0-30.9, adultChronic venous hypertension (idiopathic) without complications of right lower extremity Jun- 4 Saravanan CARRILLO RVT, RPVI Robert. [address] [place] [address], [place] [address], [facility] [place], [id number], [place]. tel:[phone] Referring Provider: Mundo Camacho MD, [address] [facility] [place], [address]. tel:[phone] [facility], [address] [place] [address] [address] [address]I[place], [id number], [place] tel:[phone] CV[facility] - [place] Chronic venous hypertension (idiopathic) with other complications of right lower extremity Jun- 4 Saravanan CARRILLO RVT, RPVI Robert. [address] [place] [address], Suite [facility], [facility] [place], [id number], [place]. tel:[phone] Referring Provider: Mundo Camacho MD, [address] [facility] [place], [address]. tel:[phone] Office/Outpt E&M Established 15 Mins- CT & [place] [facility], [address] [place] [address] Dr Ecso[address]o [address]Suite [place]bra[place] Espinoza [place], [id number], [place] tel:[phone] [facility] - [place] Venous insufficiency (chronic) (peripheral) 4 Saravanan CARRILLO RVT, NUNU Will. [address] [place] [address], Suite [facility], [place], [place], [id number], [place]. tel:[phone] Referring Provider: Mundo Camacho MD, [address] [place] [address] Dr [address] [facility] [place], [address]. tel:[phone] [place] [facility], [address] [place] [address] Dr Escobedo [address]Suite Ibrahima Espinoza [place], [id number], [place] tel:[phone] [facility] - [place] Varicose veins of bilateral lower extremities with pain 4 Saravanan CARRILLO RVT, NUNU Will. [address] [place] [address], [place] [address], [facility] [place], [id number], [place]. tel:[phone] Referring Provider: Mundo Camacho MD, [address] [place] [address] [place] [address] [place], [address]. tel:[phone] [facility], [address] [place] [address] Dr [address]ob[address]Suite Ibrahima Espinoza [place], [id number], [place] tel:[phone] [facility] - [place] Encounter for follow-up examination after completed treatment for conditions other than malignant neChronic venous hypertension (idiopathic) with other complications of bilateral lower extremity 4 Saravanan CARRILLO RVT, NUNU Will. [address] [place] [address], [address], [facility] [place], [id number], [place]. tel:[phone] Referring Provider: Mundo Camacho MD, [address] [place] [address] Dr [address] [place] [address] [place], [address]. tel:[phone] [facility], [address] [place] [address] Dr [address]Suite Ibrahima Espinoza [place], [id number], [place] tel:[phone] [facility] Varicose veins of left lower extremity with other complications 0 4 Leonel Cotton. [address] [address], [place], [place], [id number], [place]. tel:[phone] Referring Provider: Mundo Camacho MD, [address] [place] [address] Dr [address] [place] [address] [place], [address]. tel:[phone] [facility], [address] [place] [address] Dr [address]Suite [place] Espino[place], [id number], [place] tel:[phone] [facility] Encounter for follow-up examination after completed treatment for conditions other than malignant neVaricose veins of right lower extremity with pain 4 Saravanan CARRILLO, RVT, RPVI Suman. [address] [place] [address], [place], [place], [id number], [place]. tel:[phone] Referring Provider: Mundo Camacho MD, [address] [place] [address] Dr [address] [place] [address] [place], [address]. tel:[phone] [facility], [address] [place] [address] Dr [address]Suite [place]brahima Espinoza [place], [id number], [place] tel:[phone] [facility] Chronic venous hypertension (idiopathic) with inflammation of right lower extremity Nov-0 4 Leonel Cotton. [address] [address], [place], [place], [id number], [place]. tel:[phone] Referring Provider: Mundo Camacho MD, [address] [place] [address] Dr [address] [facility] In [facility], [place], [address]. tel:[phone] Offic Cons New/estab Mod-hi 60 [facility], [address] [place] [address] Dr [address]Suite [place]bra[place]ima Espinoza [place], [id number], [place] tel:[phone] [facility] Chronic venous hypertension (idiopathic) with other complications of bilateral lower extremityPain in left lower legPain in right legPain in left legVenous insufficiency (chronic) (peripheral)C ramp and spasm Feb-0 4 Saravanan CARRILLO RVT, NUNU Will. [address] [facility], [place] [address], [place], [place], [id number], [place]. tel:[phone] Referring Provider: Mundo Camacho MD, [address] [place] [address] Dr [address] [facility], [address]. tel:[phone] [facility], [address], [place], [id number], [place] tel:[phone] R - [facility] Varicose veins of bilateral lower extremities with pain b-0 4 Saravanan CARRILLO RVT, NUNU Will. [address] [facility], [place] [address], [place], [place], [id number], [place]. tel:[phone] Referring Provider: Mundo Camacho MD, [address] [place] [address] Dr [address] [facility] [place], [address]. tel:[phone] Family History Family Member Type Diagnosis Age At Onset No Information Payers Payer name Insurance type Covered green party ID Everett nicole(s) [employer] Medicare CI [id number] Social History Type Description Quantity Date Captured [...] given Related to Venous insufficiency (chronic) (peripheral) Continue compression stocking us e Related to [...]
== END 2024-09-17 10:32 | disposition home or self-care (01) ==
PROVIDERS: PCP Internal Medicine
DX: M81.0 Age-related osteoporosis without current pathological fracture (principal)

== ENCOUNTER → 2024-09-17 10:05 | Outpatient (BNVA) | payer MEDICARE, SELFPAY | PROVIDERS: PCP Internal Medicine | DX: M81.0 Age-related osteoporosis without current pathological fracture (principal) | CPT/HCPCS: 96372; J3111 ==

== ENCOUNTER 2024-09-25 08:19 | Outpatient (AMB) | payer MEDICARE, SELFPAY ==
--- NOTE | 2024-09-25 08:22 | A.OFFVIS_ITS ---
Vital Signs 09/25/24 08:23 BP 110/70 Intake Visit Reasons: skin check/30 minutes needed [employer] Fsc[employer] Developer: [employer] Fsc[employer] Developer Present (Marisela) Allergies nystatin Allergy (Intermediate, Verified 09/25/24 08:23) Rash Is last menstrual period known: Yes HPI Comments Details: Patient is here for a follow up skin check due to history of pruritus and atrophic changes. Currently using estrogen cream topically 3 to 4 times a week and still has some itching, although she reports it is much better. She admits to using [place] spring soap and loves hot showers. She denies any other powders lotions creams or other medical changes since her last visit [facility] Medical History Overweight (BMI 25.0-29.9) Pruritic rash Superficial thrombophlebitis Small bowel obstruction Rash Varicose vein of leg Screening for breast cancer Hyperparathyroidism Age-related osteoporosis without current pathological fracture Multinodular thyroid Screening for diabetes mellitus Impacted cerumen of left ear History of seizures Peripheral vascular disease Thyroid nodule GERD (gastroesophageal reflux disease) Hypothyroidism Osteoporosis Surgical History History of colonoscopy History of surgery History of total abdominal hysterectomy and bilateral salpingo-oophorectomy History of cholecystectomy Family History Father Throat cancer Mother No problems noted. Brother Liver cancer Social History Household Members: Spouse Housing: Condominium Do you presently have visiting nurse or other home services: No Alcohol intake: never Patient Tobacco Use Status: Never used Tobacco Tobacco use type: Cigarette e-Cigarette/Vaping Use: Never Used Second Hand Smoke Exposure: No service: No Current occupational status: unemployed Cognitive needs: No Hearing needs: No Vision needs: Yes Review of Systems Const All systems reviewed & are unremarkable except as noted in HPI and below Endo Reports no additional complaints Physical Exam Vital Signs: Last Vital Signs BP 110/70 09/25/24 08:23 Const General: cooperative, healthy appearing and no acute distress GI Rectal Exam - Female: visual inspection normal Other: External inspection only skin has normal aging changes there are no lesions, erythema, thickening, or excoriations. External Female Exam: normal external appearance and normal appearance of the urethra Psych Appearance: well kempt Attitude: cooperative Thought process: Normal thought process present Assessment & Plan Assessment & Plan (1) Atrophic skin: Code(s): L90.9 - Atrophic disorder of skin, unspecified Plan Discussed: Continuing with Estrace cream topically use 2 to 3 times a week, initiate Aquaphor skin barrier moisturizer to the external labia majora groin crease junction as needed for dry skin. Schedule annual exam and skin check in 3 months. Discontinue [place] spring soap, use only a mild soap such as a baby on sent it soap and no additional creams lotions or powders. If any worsening of symptoms occurs to report to the office sooner than her scheduled follow up time. Refill for Estrace provided. The patient expressed understanding and agreement with the plan of care. All of her questions and concerns were addressed to the best of my ability. This note is constructed using voice recognition software. While every effort has been made to ensure accuracy, glass wool blanket machine feeder errors may have been included. Medications: Refilled estradiol 0.01%(0.1mg/gram) (Estrace) use nightly externally for two weeks, then twice a week 1 g vaginal 2XW 42.5 grams 1RF Coding Level of Care Code Est Pt Level 3 (32031) Diagnoses Atrophic skin L90.9
[2024-09-25 08:23] VITALS: BP 110/70
--- OUTSIDE RECORDS SUMMARY | 2024-09-25 08:26 | XMS_ITS | Continuity of Care Document ---
Author Organization [facility] Address [address] [place] [address] Phone Care Team Providers Care Supervisor Stage Carpentry Name Role Phone Saravanan CARRILLO, GIANA, Suman [...] Mins- [place] & [place] [facility], [address] [place] [address] Dr [address] [address], [id number], [place] tel:[phone] [facility] Venous insufficiency (chronic) (peripheral) 4 Saravanan CARRILLO RVT, RPVI Robert. [address] [place] [address], [place], [id number], [place]. tel:[phone] Referring Provider: Mundo Camacho MD, [address] [place] [address] [address] [facility], [place], [address]. tel:[phone] [facility], [address] [place] [address] Dr Escobedo 1000[facility] [address], [id number], [place] tel:[phone] [facility] Chronic venous hypertension (idiopathic) with other complications of right lower extremity 4 Saravanan CARRILLO RVT, RPVI Robert. [address] [place] [address], [facility] [place], [id number], [place]. tel:[phone] Referring Provider: Mundo Camacho MD, [address] [place] [address] [place], [address]. tel:[phone] [facility], [address] [place] [address] Dr [address]Suite [place]bra[place]ima Espinoza [place], [id number], [place] tel:[phone] [facility] [place] Encounter for follow-up examination after completed treatment for conditions other than malignant neoplasmPain in right leg 4 Saravanan CARRILLO RVT, NUNU Will. [address] [place] [address], Suite [facility], [facility] [place], [id number], [place]. tel:[phone] Referring Provider: Mundo Camacho MD, [address] [place] [address], [address]. tel:[phone] [facility], [address] [place] [address] Dr [address] [address]I[place], [id number], [place] tel:[phone] [facility] Varicose veins of right lower extremity with other complications 4 Saravanan CARRILLO RVT, NUNU Will. [address] [place] [address], [address], [facility] [place], [id number], [place]. tel:[phone] Referring Provider: Mundo Camacho MD, [address] [place] [address] Dr [address] [place] [address], [address]. tel:[phone] [facility], [address] [place] [address] Dr [address]Suite [place]bra[place]ima Espinoza [place], [id number], [place] tel:[phone] [facility] [place] Encounter for follow-up examination after completed treatment for conditions other than malignant nePain in right leg 4 Saravanan CARRILLO RVT, NUNU Will. [address] [facility], [address], [facility] [place], [id number], [place]. tel:[phone] Referring Provider: Mundo Camacho MD, [address] [facility] [place], [address]. tel:[phone] [facility], [address] [place] [address] [address]I[place]ima [place], [id number], [place] tel:[phone] [facility] [place] Varicose veins of right lower extremity with other complications Jul-2 0 4 Matteo Martinez. [facility], Suite [facility], [facility] [place], [id number], [place]. tel:[phone] Referring Provider: Mundo Camacho MD, [address] [facility] [place], [address]. tel:[phone] Offic Cons New/estab Mod 40 Mi- CT & [place] [facility], [address] [place] [address] Dr [address], [id number], [place] tel:[phone] [facility] [place] Body mass index [BMI] 30.0-30.9, adultChronic venous hypertension (idiopathic) without complications of right lower extremity Jun- 4 Saravanan CARRILLO RVT, RPVI Robert. [address] [place] [address], [place] [address], [facility] [place], [id number], [place]. tel:[phone] Referring Provider: Mundo Camacho MD, [address] [facility] [place], [address]. tel:[phone] [facility], [address] [place] [address] [address] 1000I[place], [id number], [place] tel:[phone] [facility] [place] Chronic venous hypertension (idiopathic) with other complications of right lower extremity Jun- 4 Saravanan CARRILLO RVT, RPVI Robert. [address] [place] [address], Suite [facility], [facility] [place], [id number], [place]. tel:[phone] Referring Provider: Mundo Camacho MD, [address] [facility] [place], [address]. tel:[phone] Office/Outpt E&M Established 15 Mins- [place] & [place] [facility], [address] [place] [address] Dr Escobedo [address]Suite [place]brahima Espinoza [place], [id number], [place] tel:[phone] [facility] [place] Venous insufficiency (chronic) (peripheral) 4 Saravanan CARRILLO RVT, NUNU Will. [address] [place] [address], Suite [facility], [place], [place], [id number], [place]. tel:[phone] Referring Provider: Mundo Camacho MD, [address] [place] [address] Dr [address] [facility] [place], [address]. tel:[phone] [facility], [address] [place] [address] Dr [address]ob[address]Suite [place]bra[place]ima [place], [id number], [place] tel:[phone] [facility] [place] Varicose veins of bilateral lower extremities with pain 4 Saravanan CARRILLO RVT, NUNU Will. [address] [place] [address], [place] [address], [facility] [place], [id number], [place]. tel:[phone] Referring Provider: Mundo Camacho MD, [address] [place] [address] [place] [address] [place], [address]. tel:[phone] [facility], [address] [place] [address] Dr [address]ob[address]Suite [place]brahima Espinoza [place], [id number], [place] tel:[phone] [facility] [place] Encounter for follow-up examination after completed treatment for conditions other than malignant neChronic venous hypertension (idiopathic) with other complications of bilateral lower extremity 4 Saravanan CARRILLO RVT, NUNU Will. [address] [place] [address], [address], [facility] [place], [id number], [place]. tel:[phone] Referring Provider: Mundo Camacho MD, [address] [place] [address] Dr [address] [place] [address] [place], [address]. tel:[phone] [facility], [address] [place] [address] Dr [address]Suite [place]brahima [place], [id number], [place] tel:[phone] [facility] Varicose veins of left lower extremity with other complications 0 4 Leonel Cotton. [address] [place] [address], [place], [place], [id number], [place]. tel:[phone] Referring Provider: Mundo Camacho MD, [address] [place] [address] Dr [address] [place] [address] [place], [address]. tel:[phone] [facility], [address] [place] [address] Dr [address]Suite [place]brahima Espinoza [place], [id number], [place] tel:[phone] [facility] Encounter for follow-up examination after completed treatment for conditions other than malignant neVaricose veins of right lower extremity with pain 4 Saravanan CARRILLO, RVT, RPVI Suman. [address] [place] [address], [place], [place], [id number], [place]. tel:[phone] Referring Provider: Mundo Camacho MD, [address] [place] [address] Dr [address] [place] [address] [place], [address]. tel:[phone] [facility], [address] [place] [address] Dr [address]Suite Ibrahima [place]inoza [place], [id number], [place] tel:[phone] [facility] Chronic venous hypertension (idiopathic) with inflammation of right lower extremity Nov-0 4 Leonel Cotton. [address] [place] [address], [place], [place], [id number], [place]. tel:[phone] Referring Provider: Mundo Camacho MD, [address] [place] [address] Dr [address] [facility] In [facility], [place], [address]. tel:[phone] Offic Cons New/estab Mod-hi 60 [facility], [address] [place] [address] Dr [address]Suite [place]brahima [place], [id number], [place] tel:[phone] CVR [facility] Chronic venous hypertension (idiopathic) with other complications of bilateral lower extremityPain in left lower legPain in right legPain in left legVenous insufficiency (chronic) (peripheral)C ramp and spasm Feb-0 4 Saravanan CARRILLO RVT, NUNU Will. [address] [facility], [place] [address], [place], [place], [id number], [place]. tel:[phone] Referring Provider: Mundo Camacho MD, [address] [place] [address] Dr [address] [facility] [place], [address]. tel:[phone] [facility], [address], [place], [id number], [place] tel:[phone] [facility] Varicose veins of bilateral lower extremities with pain b-0 4 Saravanan CARRILLO RVT, NUNU Will. [address] [facility], [place] [address], [place], [place], [id number], [place]. tel:[phone] Referring Provider: Mundo Camacho MD, [address] [place] [address] Dr [address] [facility] [place], [address]. tel:[phone] Family History Family Member Type Diagnosis Age At Onset No Information Payers Payer name Insurance type Covered constitution party ID Everett nicole(s) [employer] Medicare CI [id number] Social History Type Description Quantity Date Captured [...] to Body mass index (BMI) 30.0-30.9, adult Patient education [...]
== END 2024-09-25 09:11 | disposition home or self-care (01) ==
LOC: HO.HWS 08:19
PROVIDERS: PCP Internal Medicine; Visit Provider Advanced Practice Midwife
DX: L90.9 Atrophic disorder of skin, unspecified (principal)
CPT/HCPCS: 99213

== ENCOUNTER → 2024-09-25 08:19 | Outpatient (BNVA) | payer MEDICARE, SELFPAY | PROVIDERS: PCP Internal Medicine; Visit Provider Advanced Practice Midwife | DX: L90.9 Atrophic disorder of skin, unspecified (principal) | CPT/HCPCS: 99212 ==

== ENCOUNTER 2024-10-15 09:46 | Outpatient (AMB) | payer MEDICARE, SELFPAY ==
--- NOTE | 2024-10-15 09:58 | AM.OFFVISNUR ---
Intake Visit Reasons: Evenity #4 Allergies nystatin Allergy (Intermediate, Verified 09/25/24 08:23) Rash Office Meds romosozumab-aqqg 210 mg/2.34 mL(105 mg/1.17 mL x2)subcutaneous syringe Performing Provider: Suman Perez MD Performing Location: [facility] Endocrinology Administered by: Althea Duncan RN on 10/15/24 09:58 Dose Route Admin Location Dispensed Lot Number Expiration Date [facility] Inside Polisher 210 mg subcut bilateral upper arms 2.34 mL [id number] 12/03/26 71700-694-08 AMGEN Comments: Consent form signed by patient. Pt tolerated injection well. Pt denies any problems with previous injections. Assessment & Plan Assessment & Plan Orders: Orders AMB Romosozumab Injection Patient Supplied Today M81.0 - Age-related osteoporosis without current pathological fracture Medications: New romosozumab-aqqg 210 mg (2.34 mL) subcut ONCE 2.34 mL 0RF M81.0 - Age-related osteoporosis without current pathological fracture Coding
== END 2024-10-15 09:58 | disposition home or self-care (01) ==
PROVIDERS: PCP Internal Medicine
DX: M81.0 Age-related osteoporosis without current pathological fracture (principal)

== ENCOUNTER → 2024-10-15 09:46 | Outpatient (BNVA) | payer MEDICARE, SELFPAY | PROVIDERS: PCP Internal Medicine | DX: M81.0 Age-related osteoporosis without current pathological fracture (principal) | CPT/HCPCS: 96372; J3111 ==

== ENCOUNTER 2024-11-12 08:57 | Outpatient (AMB) | payer MEDICARE, SELFPAY ==
--- NOTE | 2024-11-12 09:52 | AM.OFFVISNUR ---
Intake Visit Reasons: Evenity #5 Allergies nystatin Allergy (Intermediate, Verified 11/12/24 09:18) Rash Office Meds romosozumab-aqqg 210 mg/2.34 mL(105 mg/1.17 mL x2)subcutaneous syringe Performing Provider: Suman Perez MD Performing Location: [facility] [place] Endocrinology Administered by: Althea Duncan RN on 11/12/24 09:52 Dose Route Admin Location Dispensed Lot Number Expiration Date [facility] Electrical Engineer 210 mg subcut bilateral upper arms 2.34 mL [id number] 12/03/26 74293-317-34 AMGEN Comments: Consent form signed by patient. Pt tolerated injection well. Pt denies any problems with previous injections. Assessment & Plan Assessment & Plan Orders: Orders AMB Romosozumab Injection Patient Supplied Today M81.0 - Age-related osteoporosis without current pathological fracture Medications: New romosozumab-aqqg 210 mg (2.34 mL) subcut ONCE 2.34 mL 0RF M81.0 - Age-related osteoporosis without current pathological fracture Coding
== END 2024-11-12 09:50 | disposition home or self-care (01) ==
PROVIDERS: PCP Internal Medicine
DX: M81.0 Age-related osteoporosis without current pathological fracture (principal)

== ENCOUNTER 2024-11-12 08:57 | Outpatient (AMB) | payer MEDICARE, SELFPAY ==
--- NOTE | 2024-11-12 09:11 | A.OFFVIS_ITS ---
Vital Signs 11/12/24 09:17 Height 4 ft 11 in Weight 159 lb 9.835 oz BMI 32.2 BP 114/66 Blood Pressure Location Rt brachial Position Sitting Pulse 63 Pulse Source Pulse Oximeter Pulse Oximetry (%) 98 Oxygen Delivery Method Room Air Intake Visit Reasons: f/u osteoporosis Intake Note: Patient present today for Osteoporosis follow up. Supervisor Photocomposition Required: No Accompanied by: Self / Same As Patient Allergies nystatin Allergy (Intermediate, Verified 11/12/24 09:18) Rash Medication List - Last Reconciled 11/12/24 by Suman Perez MD calcium-vitamin D3-vitamin K 650 mg-12.5 mcg-40 mcg (Viactiv) 1 tab PO BID cholecalciferol (vitamin D3) 25 mcg PO DAILY dicyclomine 10 mg PO BID PRN estradiol 0.01%(0.1mg/gram) (Estrace) 1 g vaginal 2XW levothyroxine 75 mcg PO DAILY omeprazole 20 mg PO DAILY 90 days romosozumab-aqqg (Evenity) 210 mg (2.34 mL) subcut .q month tramadol 50 mg PO DAILY PRN HPI Comments Details: 74 YO F with PMHx Hypothyroidism, a NTMNG and also hyperparathyroidism with resultant osteoporosis who is seen in F/U for osteoporosis. 2) Osteoporosis: Received treatment in the past with Actonel, for approximately 6 years.? She stopped this in 2019. Tolerated treatment well without complication. She also tried Fosamax, but had GI distress from this. She did have significant decline in her BMD while on Actonel, thus failing treatment with bisphosphonate. She underwent a full biochemical evaluation for secondary causes of osteoporosis which revealed an elevated PTH level, but was otherwise WNL. 24 hour urine collection is high normal. She underwent US head and neck which reveals a 0.9 cm L sided parathyroid adenoma. She was referred to Dr. Samayoa and will be undergoing a parathyroidectomy this May. No history of pathologic fracture or ONJ. Has 1 servings of dietary calcium per day in the form of cheese.? Takes Calcium supplement 1200 mg daily in divided doses.? Takes no additional Vitamin D supplement. Does use PPI daily. Denies ever using anticoagulant, antiepileptic or glucocorticoid medication.? Does weight bearing exercise 5 days per week in the form of walking. ? Fracture history: Denies PRIVATE ADVISOR history: Menarche was age 16. Menses was always regular. . She did not breastfeed. Menopause was in her 30's after a TAHBSOO. She did not use HRT after. Denies history of Kidney stones: Denies family history of Osteoporosis or hip fracture. UTD on dental cleanings and sees dentist every 6 months.? No planned upcoming dental work or extractions. DXA: 12/22/2021 FINDINGS: AP SPINE L1-L4: Current: BMD 0.770 g/cm2, Z-score -1.7, T-score -3.4, osteoporosis, 10.5% decrease from previous, 16.8% decrease from baseline (<5% change is not significant). Prior: BMD 0.860 g/cm2. Baseline: BMD 0.926 g/cm2. LEFT FEMUR, NECK: Current: BMD 0.721 g/cm2, Z-score -0.6, T-score -2.3, osteopenia. Prior: BMD 0.759 g/cm2. Baseline: BMD 0.818 g/cm2. LEFT FEMUR, TOTAL: Current: BMD 0.774 g/cm2, Z-score -0.3, T-score -1.9, osteopenia, 7.2% decrease from previous, 8.5% decrease from baseline (<5% change is not significant). Prior: BMD 0.834 g/cm2. Baseline: BMD 0.846 g/cm2. Laboratory Tests 02/15/23 02/15/23 02/17/23 11:13 11:13 07:15 Creatinine 0.65 Estimated GFR > 60 Albumin N-Telopeptide X-linked 30 25-OH Vitamin D Total 33.6 PTH Intact 70 Calcium (PTH Intact) 9.3 02/21/23 10:25 Creatinine Estimated GFR Albumin 4.0 N-Telopeptide X-linked 25-OH Vitamin D Total PTH Intact Calcium (PTH Intact) The patient is a 74-year-old female presenting with osteoporosis management follow-up and unexplained weight gain. She initiated an osteoporosis treatment with Evenity regimen five months ago and is currently on the fifth dose. The treatment is well-tolerated with no fracture occurrences since the last clinic visit. The patient adheres to daily calcium and vitamin D supplementation. Despite adherence to a walking routine and a healthy diet, she struggles with weight gain. [facility] Medical History Overweight (BMI 25.0-29.9) Pruritic rash Superficial thrombophlebitis Small bowel obstruction Rash Varicose vein of leg Screening for breast cancer Hyperparathyroidism Age-related osteoporosis without current pathological fracture Multinodular thyroid Screening for diabetes mellitus Impacted cerumen of left ear History of seizures Peripheral vascular disease Thyroid nodule GERD (gastroesophageal reflux disease) Hypothyroidism Osteoporosis Surgical History History of colonoscopy History of surgery History of total abdominal hysterectomy and bilateral salpingo-oophorectomy History of cholecystectomy Family History Father Throat cancer Mother No problems noted. Brother Liver cancer Social History Household Members: [facility] Do you presently have visiting nurse or other home services: No Alcohol intake: never Patient Tobacco Use Status: Never used Tobacco Tobacco use type: Cigarette e-Cigarette/Vaping Use: Never Used Second Hand Smoke Exposure: No service: No Current occupational status: unemployed Cognitive needs: No Hearing needs: No Vision needs: Yes Assessment & Plan Assessment & Plan (1) Osteoporosis: Comment: 06/24/2024 Code(s): M81.0 - Age-related osteoporosis without current pathological fracture Category: Medical Qualifiers: Osteoporosis type: age-related Presence of current pathological fracture: without current pathological fracture Qualified Code(s): M81.0 - Age- related osteoporosis without current pathological fracture Plan: This 74-year-old white female with a history of primary hyperparathyroidism status post parathyroidectomy 05/13/2023 with residual osteoporosis moderate to severe seen on recent bone density. About to start Evenity : Ongoing management with the current treatment regimen of Evenity is well- tolerated, with future consideration to switch therapy to an agent like Prolia. Daily supplementation with calcium and vitamin D remains crucial. I discussed the ongoing osteoporosis treatment with the patient, noting the progress without fractures and the tolerance of the medication. Future treatment considerations, such as transitioning to Prolia, were outlined to maintain bone density. In response to the patient's concern about weight gain, I suggested a referral to a drawing in hand to comprehensively review her dietary habits and noted the potential for thyroid function assessment.. We agreed on follow-up timing after five months to evaluate medication strategy and health status. (2) Obesity (BMI 30.0-34.9): Code(s): E66.9 - Obesity, unspecified Category: Medical Plan: . Weight Gain: Further evaluation through dietary assessment with a drawing in hand and potential thyroid function tests will be considered. Continued dietary and physical activity monitoring will be necessary.. a referral was made to drawing in hand. Orders: Referrals Nutrition/Dietitian Referral E66.9 - Obesity, unspecified Coding Level of Care Code Est Pt Level 3 (83122) Diagnoses Age-related osteoporosis without current pathological fracture M81.0 Osteoporosis type: age-related Presence of current pathological fracture: without current pathological fracture Obesity (BMI 30.0-34.9) E66.9
[2024-11-12 09:17] VITALS: BP 114/66; PULSE 63; O2SAT 98; BMI 32.2
--- OUTSIDE RECORDS SUMMARY | 2024-11-12 09:26 | XMS_ITS | Patient Health Record ---
Author Organization [facility] Address [address] [place] [address] Care Team Providers Care Snowsport Instructor Name Role Phone Mundo Camacho MD Primary Care Provider Suman Orta [phone] Allergies Allergen (clinical drug ingredient) Drug/Non Drug Allergy documented on EMR Reaction Allergy Type Onset Date Status nystatin Nystatin rash Drug Allergy Active Latex Latex Unknown Allergy Active Reason For Referral No Information Medications Medication SIG (Take, Route, Frequency, Duration) Notes Start Date End Date Status Dicyclomine HCl 10 MG TAKE 1 OR 2 BY HELEN TH EVERY 6 HOURS NEEDED ABDOMINAL BLOATING/CRAMPS/DISCOMFO RT 30 DAY(S) for 90 Active traMADol HCl 50 MG 1 tablet as needed Orally BID/PRN Active Vitamin D (Cholecalciferol) Active Levothyroxine Sodium 75 MCG 1 capsule Or ally Once a day Active PriLOSEC OTC 20 MG 1 tablet Orally Once a day 01/29/2014 Active Immunizations Vaccine Route Administration Date Status Comme nts Influenza Unknown 05/07/2021 Administered Problems Problem Type SNOMED Code ICD Code Onset Dates Problem Status W/U Status Risk Notes Problem Abdominal bloating (963620050) Abdominal bloating (R14.0) Active confirmed Problem Irritable bowel syndrome (16895811) IBS (irritable bowel syndrome) (K58.9) Active confirmed Problem Epigastric pain (27195008) Abdominal pain, epigastric (R10.13) Active confirmed Problem Flatus (51679898) Flatus (R14.3) Active confirmed Plan Of Treatment Future Test Test Name Order Date COLONOSCOPY 05/06/2015 Insurance Providers Payer Name Payer Address Payer Phone Subscriber Number Group Number Insured Name Patient Relationship to Insured Coverage Start Date Coverage End Date [facility] [address] [place] [phone] [id number] ZOLTAN NGUYEN Self - patient is the insured Medical (General) History Medical History History ICD Code Colonoscopy 12-04-2004--no markel yps-small internal hemorrhoids and mild diverticulosis GERD--EGD in 2001 with a sma ll HH-no esophagitis,; EGD in 04/2014-small HH, but otherwise negative for esophagitis or Navarro's esophagus Hypothyroidism Osteoporosis Arthritis Negative colonoscopy in 07/2015 Denies [place],DM,CVA,Lung disease,renal dise ase Small bowel obstruction--December 2021--res olved with a NG tube-Dr. Gifford Surgical History Surgery Date(Month/Year) [facility] ARINA Varicose vein stripping Tubal ligation Hemorrhoid surgery [place] [address] Jorgito blackmon
--- OUTSIDE RECORDS SUMMARY | 2024-11-12 09:26 | XMS_ITS | Data Portability ---
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 Plan of Treatment Reminders Order Date Submit Date Provider Last Modified By Organization Details Last Modified Time Details Appointments None recorded. Lab urinalysis, dipstick 2022 023 [email or web address] [facility] [address], [address] [place], [address], 3 16:54:19 vaginal pathogens panel, LIZZETH+probe, vaginal fluid 2022 023 [facility], [address] [place] [address], [place], [address], 3 06:08:24 Referral None recorded. Procedures None recorded. Surgeries None recorded. Imaging None recorded. Medication Orders terconazole 80 mg vaginal suppository 2022 023 HEMP[id number], [phone] [place], [address], 3 16:54:23 Patient TargetsNo targets recorded. Patient Instructions Encounter Date Encounter Id Patient Instructions Last Modified By Organization Details Last Modified Time 02/19/2023 [id number] -Reviewed the various causes of vaginal problems. Reviewed good vulvar/vaginal hygiene and ways to reduce symptoms. Advised to call if treatment is not helpful or if symptoms persist or recur. -Do not wear tight fitting clothes. Do not have sex until your symptoms are gone. Do not use Douches or other irritating products in your vagina as this can make the symptoms worse. - Use condoms for all sexual activity. - If you develop severe back pain or pelvic/abdominal with nausea, fevers, and vomiting you need to go to Emergency room immediately - I recommend complete treatment fully before engaging in intercourse, if you are waiting for a STD test I do not recommend engaging in intercourse until test results have returned. [email or web address] Not available 02/19/2023 16:52:09 Reason for Referral None Reported. Results Created Date Observation Date Name Description Value Unit Range Abnormal Flag Note LastModifiedBy Organization Detail LastModifiedTime 02/20/20 23 02/21/2023 NUA B VAGIN ITIS PLUS (VG+) atopobium vaginae LOW - 0 score Not Available [facility] ([facility]) [address] [facility], [place], [address], 02/23/2023 06:08:24 02/20/20 23 02/21/2023 [facility] B VAGIN ITIS PLUS (VG+) bvab 2 LOW - 0 score Not Available [facility] ([facility]) [address] [facility], [place], [address], 02/23/2023 06:08:24 02/20/20 23 02/21/2023 NUA B VAGIN ITIS PLUS (VG+) megasphaera 1 LOW - 0 score Calcu late total score by huang glass the 3 indiv idual bacte rial vagin osis (BV) marke r score s toget her. Total score is inter prete d as follo ws: Total score 0-1: Indic ates the absen ce of BV. Total score 2: Indet ermin ate for BV. Addit ional clini alan data shoul d be evalu ated to estab aranza a diagn osis. Total score 3-6: Indic ates the prese nce of BV. This test was devel oped and its perfo rmanc e katlyn cteri stics deter mined by [facility]. It has not been clear ed or appro cheyanne by the Food and Drug Admin istra tion. Not Available [facility] ([facility]) [address] [facility], [place], [address], 02/23/2023 06:08:24 02/20/20 23 02/21/2023 NUSWA B VAGIN ITIS PLUS (VG+) hilary albicans, LIZZETH NEGATI VE negati ve Not Available [facility] ([facility]) [address] [facility], [place], [address], 02/23/2023 06:08:24 02/20/20 23 02/21/2023 NUSWA B VAGIN ITIS PLUS (VG+) hilary glabrata, LIZZETH NEGATI VE negati ve Not Available [facility] ([facility]) [address] [facility], [place], [address], 02/23/2023 06:08:24 02/20/20 23 02/23/2023 NUA B VAGIN ITIS PLUS (VG+) trich vag by LIZZETH NEGATI VE negati ve Not Available [facility] ([facility]) [address] [facility], [place], [address], 02/23/2023 06:08:24 02/20/20 23 02/23/2023 NUA B VAGIN ITIS PLUS (VG+) chlamydia trachomatis, LIZZETH NEGATI VE negati ve Not Available [facility] ([facility]) [address] [facility], [place], [address], 02/23/2023 06:08:24 02/20/20 23 02/23/2023 NUA B VAGIN ITIS PLUS (VG+) neisseria gonorrhoeae, LIZZETH NEGATI VE negati ve Not Available [facility] ([facility]) [address] [place], [address], 02/23/2023 06:08:24 02/20/20 23 02/19/2023 urina lysis , dipst ick Unknown Analyte Normal = light yellow Not Available [address] [place], [address], 02/19/2023 16:29:42 02/20/20 23 02/19/2023 urina lysis , dipst ick Unknown Analyte Yellow Not Available [id number] [place] [address] [address] [place], [address], 02/19/2023 16:29:42 02/20/20 23 02/19/2023 urina lysis , dipst ick Unknown Analyte Normal = clear Not Available [facility] [address] [place], [address], 02/19/2023 16:29:42 02/20/20 23 02/19/2023 urina lysis , dipst ick Unknown Analyte Clear Not Available [id number] [place] [address] [address] [place], [address], 02/19/2023 16:29:42 02/20/20 23 02/19/2023 urina lysis , dipst ick Unknown Analyte Normal = negati ve Not Available [address] [place], [address], 02/19/2023 16:29:42 02/20/20 23 02/19/2023 urina lysis , dipst ick Unknown Analyte Negati ve Not Available [address] [place], [address], 02/19/2023 16:29:42 02/20/20 23 02/19/2023 urina lysis , dipst ick Unknown Analyte Normal = Negati ve Not Available [address] [place], [address], 02/19/2023 16:29:42 02/20/20 23 02/19/2023 urina lysis , dipst ick Unknown Analyte Negati ve Not Available [address] [place], [address], 02/19/2023 16:29:42 02/20/20 23 02/19/2023 urina lysis , dipst ick Unknown Analyte Normal = Negati ve Not Available [facility] [address] [place], [address], 02/19/2023 16:29:42 02/20/20 23 02/19/2023 urina lysis , dipst ick Unknown Analyte Negati ve Not Available [address]i[facility] [address] [place], [address], 02/19/2023 16:29:42 02/20/20 23 02/19/2023 urina lysis , dipst ick Unknown Analyte Normal = 1.010, 1.015, 1.[address] [facility] [address] [place], [address], 02/19/2023 16:29:42 02/20/20 23 02/19/2023 urina lysis , dipst ick Unknown Analyte 1.020 Not Available [id number] [place] [address] [address] [place], [address], 02/19/2023 16:29:42 02/20/20 23 02/19/2023 urina lysis , dipst ick Unknown Analyte Normal = Negati ve Not Available [address]i[facility] [address] [place], [address], 02/19/2023 16:29:42 02/20/20 23 02/19/2023 urina lysis , dipst ick Unknown Analyte Negati ve Not Available [address] [place], [address], 02/19/2023 16:29:42 02/20/20 23 02/19/2023 urina lysis , dipst ick Unknown Analyte Normal = 6.5, 7.0, 7.5, 8.0 Not Available [address] [place], [address], 02/19/2023 16:29:42 02/20/20 23 02/19/2023 urina lysis , dipst ick Unknown Analyte 7.0 Not Available [facility] [address] [place], [address], 02/19/2023 16:29:42 02/20/20 23 02/19/2023 urina lysis , dipst ick Unknown Analyte Normal = Negati ve Not Available [address] [place], [address], 02/19/2023 16:29:42 02/20/20 23 02/19/2023 urina lysis , dipst ick Unknown Analyte Negati ve Not Available analiin [address] [place], [address], 02/19/2023 16:29:42 02/20/20 23 02/19/2023 urina lysis , dipst ick Unknown Analyte Normal = 0.2, 1.0 Not Available [address] [place], [address], 02/19/2023 16:29:42 02/20/20 23 02/19/2023 urina lysis , dipst ick Unknown Analyte 0.2 E.U./d L Not Available [address] [place], [address], 02/19/2023 16:29:42 02/20/20 23 02/19/2023 urina lysis , dipst ick Unknown Analyte Normal = Negati ve Not Available [address] [place], [address], 02/19/2023 16:29:42 02/20/20 23 02/19/2023 urina lysis , dipst ick Unknown Analyte Negati ve Not Available [address] [address] [place], [address], 02/19/2023 16:29:42 02/20/20 23 02/19/2023 urina lysis , dipst ick Unknown Analyte Normal = Negati ve Not Available [address] [place], [address], 02/19/2023 16:29:42 02/20/20 23 02/19/2023 urina lysis , dipst ick Unknown Analyte Negati ve Not Available [address] [place], [address], 02/19/2023 16:29:42 Result Notes None recorded. Problems Name Problem SNOMED Code Status Onset Date Resolution Date Notes Provider Name and Address Organization Details Recorded Time Disorder of thyroid gland 61537339 Active 2022 KORI DRINKWINE null, [place] - [facility] 3 16:23:22 Gastroesophage al reflux disease 053298496 Active 2022 KORI DRINKWINE null, PA - [facility] 3 16:24:19 Diverticulitis 811400328 Active 2022 KORI DRINKWINE null, PA - [facility] 3 16:25:14 Problem Notes None recorded. Procedures Surgical History Date Name Laterality Status Provider Name and Address Organization Details Recorded Time hysterectomy completed KORI DRINKWINE PA - [facility] 02/19/2023 16:23:36 cholecystectomy completed KORI DRINKWINE PA - [facility] 02/19/2023 16:23:54 Imaging Results None recorded. Procedure Notes None recorded. Medical Equipment None Reported. Allergies Allergen ID Allergen Name Allergen Category Reaction Reaction Severity Criticality Documentation Date Start Date Code Code System Note Provider Name and Address Organization Details Recorded Time 343146 latex environme nt,medica tion rash Not available Not available 02/19/2023 79903 91 RxNorm YANIR[facility] 3 16:22:30 Medications Name Sig Start Date Stop Date Status Note LastModified by Organization Details LastModified Time tramadol 50 mg tablet TAKE 1 TABLET BY MOUTH DAILY NEEDED FOR PAIN active Not Available Not Available No t Available levothyroxi ne 75 mcg tablet TAKE 1 TABLET BY MOUTH EVERY DAY active Not Available Not Available No t Available terconazole 80 mg vaginal suppository Insert 1 supposito ry every day by vaginal route at bedtime for 6 days. 2022 active Not Available Not Available Not Avai lable omeprazole 20 mg capsule,del ayed release TAKE 1 CAPSULE BY MOUTH EVERY DAY active Not Available Not Available No t Available dicyclomine 10 mg capsule TAKE 1 OR 2 BY MOUTH EVERY 6 HOURS NEEDED ABDOMINAL BLOATING/ CRAMPS/DI SCOMFORT 30 DAY(S) 02/19 completed Not Available Not Available Not Available BinaxNOW COVID-19 Ag Self Test kit USE DIRECTED 02/19 completed Not Available Not Available Not Available Vitals Date Recorded Body height Body mass index (BMI) Body weight Pain severity - 0-10 verbal numeric rating [Score] - Reported Body temperature Respiratory rate Heart rate Oxygen saturation Oxygen saturation in Arterial blood by Pulse oximetry Systolic blood pressure Diastolic blood pressure Provider Name and Address Organization Details Last Updated DateTime 3 149.86 cm 30.9 kg/m2 34410.6 3 g 0 97.9 [degF] 16 /min 78 /min 100 % 100 % 130 mm[Hg] 82 mm[Hg] KORI DOYLE - [facility] 3 16:29:01 Social History Question Answer Notes LastModified by Organizat ion Details LastModified Time Tobacco Smoking Status Never Smoker YANIRA [facility] 02/19/2023 16:26:30 Do You Use Any Illicit Or Recreational Drugs? No Information not available 02/19/2023 Have You Recently Traveled Abroad? No Information not available 02/19/2023 Do You Or Have You Ever Used Any Other Forms Of Tobacco Or Nicotine? No Information not available 02/19/2023 Sex: Unknown Functional Status None recorded. Mental Status None recorded. Family History Relationship Description Onset Age of this Age Resolved Age Notes LastModified by Organization Details LastModified Time Father Malignant tumor of lung [email or web address] Not available 02/19 16:26:11 Medical History No medical history recorded. Gynecological HistoryNo gynecological history recorded. Obstetrics History GPAL:G 0 P 0 0 0 0 Immunizations Vaccine Type Date Status Note Provider Nam e and Address Organization Details Recorded Time Influenza, adjuvanted, trivalent, PF 8 completed KORI DRINKWINE null, PA - [facility] 02/19/2023 16:25:25 zoster recombinant 8 completed KORI DRINKWINE null, PA - [facility] 02/19/2023 16:25:25 Influenza, adjuvanted, quadrivalent, PF 0 completed KORI DRINKWINE null, PA - [facility] 02/19/2023 16:25:25 Influenza, adjuvanted, quadrivalent, PF 1 completed KORI DRINKWINE null, PA - [facility] 02/19/2023 16:25:25 COVID-19, mRNA, LNP-S, PF, 30 mcg/0.3 mL dose 1 completed KORI DRINKWINE null, PA - [facility] 02/19/2023 16:25:25 COVID-19, mRNA, LNP-S, PF, 30 mcg/0.3 mL dose 1 completed KORI DRINKWINE null, PA - [facility] 02/19/2023 16:25:25 COVID-19, mRNA, LNP-S, PF, 30 mcg/0.3 mL dose 1 completed KORI DRINKWINE null, PA - [facility] 02/19/2023 16:25:25 pneumococcal polysaccharide PPV23 7 completed KORI DRINKWINE null, PA - [facility] 02/19/2023 16:25:25 Pneumococcal conjugate PCV 13 8 completed KORI DRINKWINE null, PA - [facility] 02/19/2023 16:25:25 zoster live 8 completed KORI DRINKWINE null, PA - [facility] 02/19/2023 16:25:25 Influenza, high-dose, trivalent, PF 7 completed KORI DRINKWINE null, PA - [facility] 02/19/2023 16:25:25 Influenza, high-dose, trivalent, PF 9 completed KORI DRINKWINE null, PA - [facility] 02/19/2023 16:25:25 Influenza, split virus, quadrivalent, PF 2 completed KORI DRINKWINE null, PA - [facility] 02/19/2023 16:25:25 Past Encounters Encounter ID Performer Location Encounter Start Date Encounter Closed Date Diagnosis/Indication Diagnosis SNOMED-CT Code Diagnosis ICD10 Code Diagnosis Note [id number] [address] [address] 10/07/2018 14:05:34 10/07/2018 14:34:25 [id number] [place] [address] [place] [address] 02/19/2023 16:08:16 02/19/2023 17:12:57 Acute vaginitis 61837075 N76.0 Health Concerns Section Related Observation LastModified by Organization Detai ls LastModified Time None Recorded Concern Status LastModified by Organization Details LastModified Time None Recorded Advance Directives Directive None Recorded Payers Encounter Date Sequence Insurance Name Policy Number Policy Billings Covered Member ID Billings Member ID Guarantor Name 10/07/2018 1 [employer] (MEDICARE REPLACEMENT PPO) Venus Nguyen [id number] Venus Nguyen 02/19/2023 1 [employer] (MEDICARE REPLACEMENT PPO) Venus Nguyen [id number] Venus Nguyen Notes Date Note Type Note Provider Name and Address Organization Details Recorded Time 3 text/html 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 Problems-FemaleReported bypatient.source of patient informationInformation obtained from patient; Patient arrived at Urgent Care ambulatory; learning styles: auditory Location:vaginal Quality:aching;itching Severity:moderate Duration:constant; symptoms lasting over 2 weeks Onset/Timing:worse Context:not sexually active; no sexual dysfunction; no prior history of STDs Modifying Factors:nothing gives relief Associated Symptoms:no flank pain; no jaundice; no blood in the urine; no pain during urination; no urgency;clear vaginal discharge Jackson Larson NP [address] [place], [address], PA - [facility] 02/19/2023 16:54:34 OBGyn Episode No OBEpisode recorded.
== END 2024-11-12 09:53 | disposition home or self-care (01) ==
PROVIDERS: PCP Internal Medicine; Visit Provider Internal Medicine Endocrinology, Diabetes & Metabolism
DX: M81.0 Age-related osteoporosis without current pathological fracture (principal); E66.9 Obesity, unspecified
CPT/HCPCS: 99213

== ENCOUNTER → 2024-11-12 08:57 | Outpatient (BNVA) | payer MEDICARE, SELFPAY | PROVIDERS: PCP Internal Medicine; Visit Provider Internal Medicine Endocrinology, Diabetes & Metabolism | DX: M81.0 Age-related osteoporosis without current pathological fracture (principal); E66.9 Obesity, unspecified; Z68.32 Body mass index [BMI] 32.0-32.9, adult | CPT/HCPCS: 96372; 99212; J3111 ==

== ENCOUNTER 2024-12-06 09:49 | Outpatient (AMB) | payer MEDICARE, SELFPAY ==
[2024-12-06 10:07] VITALS: BMI 32.5
--- NOTE | 2024-12-06 10:07 | A.OFFVIS_ITS ---
VS Expanded 12/06/24 10:07 12/06/24 10:18 Height 4 ft 11 in 4 ft 11 in Weight 160 lb 11.472 oz 161 lb BMI 32.5 32.5 Intake Visit Reasons: Obesity Allergies nystatin Allergy (Intermediate, Verified 11/12/24 09:18) Rash Nutrition Presentation Details: Pt present for MNT for obesity Typical meal intake 9: 30-10 am crackers with cheese/butter, coffee hot cereals 12:30 : hot dog no bread or tuna lettuce/tomato, water 3 pm : coffee with carnation and sugar 5 pm root vegetables iwth chicken , water 9 coffee with sugar and cheese fruit : not including yogurt not including fish:2 times a week fried foods : 0-1/wks eating out : eating out 1-2 / walking : 3 -4 times/k BS Monitoring Most Recent Diabetes Results: No Data to Display IZY-Uuqahem-Pe.Danielle Equation Height: 4 ft 11 in Weight: 161 lb Resting Metabolic Rate: 1146.02 Calculated Activity Level: Sedentary Calories Needed to Maintain Weight: 1375.22 Diagnosis Nutrition problem #1: excessive energy intake As related to (etiology) #1: diagnosis As evidenced by (sign/symptom) #1: knowledge deficit of diet [facility] Medical History Overweight (BMI 25.0-29.9) Pruritic rash Superficial thrombophlebitis Small bowel obstruction Rash Varicose vein of leg Screening for breast cancer Hyperparathyroidism Age-related osteoporosis without current pathological fracture Multinodular thyroid Screening for diabetes mellitus Impacted cerumen of left ear History of seizures Peripheral vascular disease Thyroid nodule GERD (gastroesophageal reflux disease) Hypothyroidism Osteoporosis Surgical History History of colonoscopy History of surgery History of total abdominal hysterectomy and bilateral salpingo-oophorectomy History of cholecystectomy Family History Father Throat cancer Mother No problems noted. Brother Liver cancer Social History Household Members: Spouse Housing: Condominium Do you presently have visiting nurse or other home services: No Alcohol intake: never Patient Tobacco Use Status: Never used Tobacco Tobacco use type: Cigarette e-Cigarette/Vaping Use: Never Used Second Hand Smoke Exposure: No service: No Current occupational status: unemployed Cognitive needs: No Hearing needs: No Vision needs: Yes Assessment & Plan Assessment & Plan (1) Obesity (BMI 30.0-34.9): Code(s): E66.9 - Obesity, unspecified Category: Medical Plan: Wt: 73 Kg ( 12/28 ) Est kcal needs as per MSJ: 1400 (40% carb, 30% protein/fat) Est fluid needs as per 25-30 ml/d: 2200 Est prot per day as per 1 g/kg bw: 70 Recommend fiber intake : 8-10 g per day and gradually increase to 25-28 g per day for women and 35-38 g for men or as tolerated Recommend sodium intake per day : less than 1500 mg less than 2000 mg Educated patient on: ( R = reviewed V = verbalizes understanding N/R = needs review N/A = not applicable * Food sources of carbohydrate, adequate serving sizes and its role in various health conditions: R * Differences between complex carbohydrates a simple carbohydrates, role of fiber in diet: R * Lean protein sources of foods: R V NR * Differences between types of fats and role in diet (mono on saturated fat fatty acids, saturated fatty acids, trans fats): R V N/R * Food sources of sodium in salt and healthy modifications for heart health in kidney health: R V R/V * Vitamins and minerals: R V N/R * Healthy plate method concept: R * Physical activity: Benefits a precaution: R V N/R * Patient Instructions: Work on reducing on sugar and salty foods /snacks Have 3 meals per day following healthy plate method, 45 g carb per meal , 0-20 g as snack (opt for a fruit) Coding Level of Care Code Nutr Indiv Intake (08943) Diagnoses Obesity (BMI 30.0-34.9) E66.9 Time Spent (min) 30
[2024-12-06 10:18] VITALS: BMI 32.5
--- OUTSIDE RECORDS SUMMARY | 2024-12-06 10:21 | XMS_ITS | Patient Health Record ---
Author Organization [facility] Address [address] [place] [address] Care Team Providers Care Finisher Map And Chart Name Role Phone Mundo Camacho MD Primary Care Provider Suman Orta [phone] Allergies Allergen (clinical drug ingredient) Drug/Non Drug [...] W/U Status Risk Notes Problem Abdominal bloating (275040154) Abdominal bloating (R14.0) Active confirmed Problem Irritable bowel syndrome (93561693) IBS (irritable bowel syndrome) (K58.9) Active confirmed Problem Epigastric pain (18912400) Abdominal pain, epigastric (R10.13) Active confirmed Problem Flatus (17727657) Flatus (R14.3) Active confirmed Plan Of Treatment Future Test Test Name Order Date COLONOSCOPY 05/06/2015 Insurance Providers Payer Name Payer Address Payer Phone Subscriber Number Group Number Insured Name Patient Relationship to Insured Coverage Start Date Coverage End Date [facility] [address] [place] [phone] [id number] ZOLTAN NGUYEN Self - patient is the insured Medical (General) History Medical History History ICD Code Colonoscopy 12-04-2004--no markel yps-small internal hemorrhoids and mild diverticulosis GERD--EGD in 2001 with a sma ll HH-no esophagitis,; EGD in 04/2014-small HH, but otherwise negative for esophagitis or Navarro's esophagus Hypothyroidism Osteoporosis Arthritis Negative colonoscopy in 07/2015 Denies MT,DM,CVA,Lung disease,renal dise ase Small bowel obstruction--December 2021--res olved with a NG tube-Dr. Gifford Surgical History Surgery Date(Month/Year) [facility] ARINA Varicose vein stripping Tubal ligation Hemorrhoid surgery in [address] Jorgito blackmon
== END 2024-12-06 11:03 | disposition home or self-care (01) ==
LOC: HO.ENCR 09:49
PROVIDERS: PCP Internal Medicine; Visit Provider Dietitian, Registered
DX: E66.9 Obesity, unspecified (principal)

== ENCOUNTER → 2024-12-06 09:49 | Outpatient (BNVA) | payer MEDICARE, SELFPAY | PROVIDERS: PCP Internal Medicine; Visit Provider Dietitian, Registered | DX: E66.9 Obesity, unspecified (principal); Z68.32 Body mass index [BMI] 32.0-32.9, adult | CPT/HCPCS: 97802 ==

== ENCOUNTER 2024-12-10 09:47 | Outpatient (AMB) | payer MEDICARE, SELFPAY ==
--- NOTE | 2024-12-10 10:20 | AM.OFFVISNUR ---
Intake Visit Reasons: Evenity #6 Allergies nystatin Allergy (Intermediate, Verified 11/12/24 09:18) Rash Nursing Note Pt signed consent form. Pt tolerated injection well and denies any adverse reactions with previous. Office Meds romosozumab-aqqg 210 mg/2.34 mL(105 mg/1.17 mL x2)subcutaneous syringe Performing Provider: Suman Perez MD Performing Location: [facility] [place] Endocrinology Administered by: Althea Duncan RN on 12/10/24 10:00 Dose Route Admin Location Dispensed Lot Number Expiration Date [facility] Outside Sales Representative Insurance 210 mg subcut bilateral upper arms 2.34 mL [id number] 12/03/26 [id number] AMGEN Assessment & Plan Assessment & Plan Orders: Orders AMB Romosozumab Injection Patient Supplied Today M81.0 - Age-related osteoporosis without current pathological fracture Medications: New romosozumab-aqqg 210 mg (2.34 mL) subcut ONCE 2.34 mL 0RF M81.0 - Age-related osteoporosis without current pathological fracture Coding
--- OUTSIDE RECORDS SUMMARY | 2024-12-10 11:21 | XMS_ITS | Patient Health Record ---
Author Organization [facility] Address [address] [place] [address] Care Team Providers Care Commercial Loan Officer Name Role Phone Mundo Camacho MD Primary Care Provider Suman Orta [phone] Allergies Allergen (clinical drug ingredient) Drug/Non Drug [...] W/U Status Risk Notes Problem Abdominal bloating (143406286) Abdominal bloating (R14.0) Active confirmed Problem Irritable bowel syndrome (32154034) IBS (irritable bowel syndrome) (K58.9) Active confirmed Problem Epigastric pain (66749044) Abdominal pain, epigastric (R10.13) Active confirmed Problem Flatus (22380176) Flatus (R14.3) Active confirmed Plan Of Treatment Future Test Test Name Order Date COLONOSCOPY 05/06/2015 Insurance Providers Payer Name Payer Address Payer Phone Subscriber Number Group Number Insured Name Patient Relationship to Insured Coverage Start Date Coverage End Date [facility] [address] [place] [phone] [id number] ZOLTAN NGUYEN Self - patient is the insured Medical (General) History Medical History History ICD Code Colonoscopy 12-04-2004--no markel yps-small internal hemorrhoids and mild diverticulosis GERD--EGD in 2001 with a sma ll HH-no esophagitis,; EGD in 04/2014-small HH, but otherwise negative for esophagitis or Navarro's esophagus Hypothyroidism Osteoporosis Arthritis Negative colonoscopy in 07/2015 Denies PR,DM,CVA,Lung disease,renal dise ase Small bowel obstruction--December 2021--res olved with a NG tube-Dr. Gifford Surgical History Surgery Date(Month/Year) CCY ARINA Varicose vein stripping Tubal ligation Hemorrhoid surgery in [address] Jorgito blackmon
--- OUTSIDE RECORDS SUMMARY | 2024-12-10 11:21 | XMS_ITS | Data Portability ---
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 Plan of Treatment Reminders Order Date Submit Date Provider Last Modified By Organization Details Last Modified Time Details Appointments None recorded. Lab urinalysis, dipstick 2022 023 [email or web address] [facility] [address], [address] [place], [address], 3 16:54:19 vaginal pathogens panel, LIZZETH+probe, vaginal fluid 2022 023 [place] [facility], [address] [place] [address], [place], [address], 3 06:08:24 Referral None recorded. Procedures None recorded. Surgeries None recorded. Imaging None recorded. Medication Orders terconazole 80 mg vaginal suppository 2022 023 [place] [id number], [phone] [place], [address], 3 16:54:23 Patient TargetsNo targets recorded. Patient Instructions Encounter Date Encounter Id Patient Instructions Last Modified By Organization Details Last Modified Time 02/19/2023 [id number] -Reviewed the various causes of vaginal problems. [...] LOW - 0 score Not Available [facility] ([facility]) [address] [facility], [place], [address], 02/23/2023 06:08:24 02/20/20 23 02/21/2023 [facility] B VAGIN ITIS PLUS (VG+) bvab 2 LOW - 0 score Not Available [facility] ([facility]) [address] [facility], [place], [address], 02/23/2023 06:08:24 02/20/20 23 02/21/2023 NUA B [...] Drug Admin istra tion. Not Available [facility] ([facility]) [address] [facility], [place], [address], 02/23/2023 06:08:24 02/20/20 23 02/21/2023 NUSWA B VAGIN ITIS PLUS (VG+) hilary albicans, LIZZETH NEGATI VE negati ve Not Available [facility] ([facility]) [address] [facility], [place], [address], 02/23/2023 06:08:24 02/20/20 23 02/21/2023 NUSWA B VAGIN ITIS PLUS (VG+) hilary glabrata, LIZZETH NEGATI VE negati ve Not Available [facility] ([facility]) [address] [facility], [place], [address], 02/23/2023 06:08:24 02/20/20 23 02/23/2023 NUA B VAGIN ITIS PLUS (VG+) trich vag by LIZZETH NEGATI VE negati ve Not Available [facility] ([facility]) [address] [facility], [place], [address], 02/23/2023 06:08:24 02/20/20 23 02/23/2023 NUA B VAGIN ITIS PLUS (VG+) chlamydia trachomatis, LIZZETH NEGATI VE negati ve Not Available [facility] ([facility]) [address] [facility], [place], [address], 02/23/2023 06:08:24 02/20/20 23 02/23/2023 NUA B VAGIN ITIS PLUS (VG+) neisseria gonorrhoeae, LIZZETH NEGATI VE negati ve Not Available [facility] ([facility]) [address] [place], [address], 02/23/2023 06:08:24 02/20/20 23 02/19/2023 urina lysis , dipst ick Unknown Analyte Normal = light yellow Not Available [address] [place], [address], 02/19/2023 16:29:42 02/20/20 23 02/19/2023 urina lysis , dipst ick Unknown Analyte Yellow Not Available [id number] [place] [address] [address] [place], [address], 02/19/2023 16:29:42 02/20/20 23 02/19/2023 urina lysis , dipst ick Unknown Analyte Normal = clear Not Available [facility] [place], [address], 02/19/2023 16:29:42 02/20/20 23 02/19/2023 urina lysis , dipst ick Unknown Analyte Clear Not Available [id number] [place] [address] [address] [place], [address], 02/19/2023 16:29:42 02/20/20 23 02/19/2023 urina lysis , dipst ick Unknown Analyte Normal = negati ve Not Available [address] [place], [address], 02/19/2023 16:29:42 02/20/20 23 02/19/2023 urina lysis , dipst ick Unknown Analyte Negati ve Not Available [facility] [place], [address], 02/19/2023 16:29:42 02/20/20 23 02/19/2023 urina lysis , dipst ick Unknown Analyte Normal = Negati ve Not Available [address] [place], [address], 02/19/2023 16:29:42 02/20/20 23 02/19/2023 urina lysis , dipst ick Unknown Analyte Negati ve Not Available [address] [place], [address], 02/19/2023 16:29:42 02/20/20 23 02/19/2023 urina lysis , dipst ick Unknown Analyte Normal = Negati ve Not Available analiin g[address] [place], [address], 02/19/2023 16:29:42 02/20/20 23 02/19/2023 urina lysis , dipst ick Unknown Analyte Negati ve Not Available analiin [address] [place], [address], 02/19/2023 16:29:42 02/20/20 23 02/19/2023 urina lysis , dipst ick Unknown Analyte Normal = 1.010, 1.015, 1.020 Not Available [facility] [address] [place], [address], 02/19/2023 16:29:42 02/20/20 23 02/19/2023 urina lysis , dipst ick Unknown Analyte 1.020 Not Available [address] [place] [address] [address] [place], [address], 02/19/2023 16:29:42 02/20/20 23 02/19/2023 urina lysis , dipst ick Unknown Analyte Normal = Negati ve Not Available [address] [place], [address], 02/19/2023 16:29:42 02/20/20 23 02/19/2023 urina lysis , dipst ick Unknown Analyte Negati ve Not Available [address] [place], [address], 02/19/2023 16:29:42 02/20/20 23 02/19/2023 urina lysis , dipst ick Unknown Analyte Normal = 6.5, 7.0, 7.5, 8.0 Not Available [address] [place], [address], 02/19/2023 16:29:42 02/20/20 23 02/19/2023 urina lysis , dipst ick Unknown Analyte 7.0 Not Available [facility] [address] [place], [address], 02/19/2023 16:29:42 02/20/20 23 02/19/2023 urina lysis , dipst ick Unknown Analyte Normal = Negati ve Not Available [facility] [place], [address], 02/19/2023 16:29:42 02/20/20 23 02/19/2023 urina lysis , dipst ick Unknown Analyte Negati ve Not Available [facility] [address] [place], [address], 02/19/2023 16:29:42 02/20/20 23 02/19/2023 urina lysis , dipst ick Unknown Analyte Normal = 0.2, 1.0 Not Available [facility] [place], [address], 02/19/2023 16:29:42 02/20/20 23 02/19/2023 urina lysis , dipst ick Unknown Analyte 0.2 E.U./d L Not Available [facility] [place], [address], 02/19/2023 16:29:42 02/20/20 23 02/19/2023 urina lysis , dipst ick Unknown Analyte Normal = Negati ve Not Available [address] [place], [address], 02/19/2023 16:29:42 02/20/20 23 02/19/2023 urina lysis , dipst ick Unknown Analyte Negati ve Not Available _[facility] [address] [place], [address], 02/19/2023 16:29:42 02/20/20 23 02/19/2023 urina lysis , dipst ick Unknown Analyte Normal = Negati ve Not Available [address] [place], [address], 02/19/2023 16:29:42 02/20/20 23 02/19/2023 urina lysis , dipst ick Unknown Analyte Negati ve Not Available [address] [place], [address], 02/19/2023 16:29:42 Result Notes None recorded. Problems Name Problem SNOMED Code Status Onset Date Resolution Date Notes Provider Name and Address Organization Details Recorded Time Disorder of thyroid gland 33973851 Active 2022 KORI DRINKWINE null, [place] - [facility] 3 16:23:22 Gastroesophage al reflux disease 224129185 Active 2022 KORI DRINKWINE null, [place] - [facility] 3 16:24:19 Diverticulitis 941246563 Active 2022 KORI DRINKWINE null, [place] - [...] Name and Address Organization Details Recorded Time 935448 latex environme nt,medica tion rash Not available Not available 02/19/2023 51708 91 RxNorm [facility] 3 16:22:30 [...] Updated DateTime 3 149.86 cm 30.9 kg/m2 11242.6 3 g 0 97.9 [degF] 16 /min [...] SNOMED-CT Code Diagnosis ICD10 Code Diagnosis Note [id number] 2[address] [address] 10/07/2018 14:05:34 10/07/2018 14:34:25 [id number] [place] [address] [place] [address] 02/19/2023 16:08:16 02/19/2023 17:12:57 Acute vaginitis 47957083 N76.0 Health Concerns Section Related Observation LastModified by Organization Detai ls LastModified Time None Recorded Concern Status LastModified by Organization Details LastModified Time None Recorded Advance Directives Directive None Recorded Payers Encounter Date Sequence Insurance Name Policy Number Policy Billings Covered Member ID Billings Member ID Guarantor Name 10/07/2018 1 [employer] - SENIOR PLAN (MEDICARE REPLACEMENT PPO) Venus Nguyen [id number] Venus Nguyen 02/19/2023 1 [employer] - SENIOR PLAN (MEDICARE REPLACEMENT PPO) Venus Nguyen [id number] Venus Nguyen Notes Date Note Type Note Provider Name and Address Organization Details Recorded Time 3 text/html Urinary / Squeegeer And Former Problems-FemaleReported bypatient.source of patient informationInformation obtained from [...] Larson NP [address] [place], [address], [place] - [facility] 02/19/2023 16:54:34 OBGyn Episode No OBEpisode recorded.
== END 2024-12-10 10:17 | disposition home or self-care (01) ==
LOC: HO.ENCR 09:48
PROVIDERS: PCP Internal Medicine; Visit Provider Internal Medicine Endocrinology, Diabetes & Metabolism
DX: M81.0 Age-related osteoporosis without current pathological fracture (principal)

== ENCOUNTER → 2024-12-10 09:47 | Outpatient (BNVA) | payer MEDICARE, SELFPAY | PROVIDERS: PCP Internal Medicine; Visit Provider Internal Medicine Endocrinology, Diabetes & Metabolism | DX: M81.0 Age-related osteoporosis without current pathological fracture (principal) | CPT/HCPCS: 96372; J3111 ==

== ENCOUNTER 2024-12-11 11:18 | Outpatient (AMB) | payer MEDICARE, SELFPAY ==
--- NOTE | 2024-12-11 11:20 | A.OFFVIS_ITS ---
Vital Signs 12/11/24 11:21 Height 4 ft 11 in Weight 161 lb BMI 32.5 BP 120/70 Intake Visit Reasons: 45 mins skin check Fiberglass Roller: Fiberglass Roller Present (Marisela) Allergies nystatin Allergy (Intermediate, Verified 12/11/24 11:20) Rash HPI Comments Details: Patient is here today for a follow up skin check. She has a history of atrophic changes, itching and dryness. She reports using cream as directed. She admits occasional itching but overall the medicine has been helpful. Additionally she uses Aquaphor for moisturizing as needed. She has switched in use Dylon unscented toilet paper and mild soap. She admits to urinating very often, has had a urology testing, she reports all was normal. [facility] Medical History Overweight (BMI 25.0-29.9) Pruritic rash Superficial thrombophlebitis Small bowel obstruction Rash Varicose vein of leg Screening for breast cancer Hyperparathyroidism Age-related osteoporosis without current pathological fracture Multinodular thyroid Screening for diabetes mellitus Impacted cerumen of left ear History of seizures Peripheral vascular disease Thyroid nodule GERD (gastroesophageal reflux disease) Hypothyroidism Osteoporosis Surgical History History of colonoscopy History of surgery History of total abdominal hysterectomy and bilateral salpingo-oophorectomy History of cholecystectomy Family History Father Throat cancer Mother No problems noted. Brother Liver cancer Social History Household Members: Spouse Housing: Condominium Do you presently have visiting nurse or other home services: No Alcohol intake: never Patient Tobacco Use Status: Never used Tobacco Tobacco use type: Cigarette e-Cigarette/Vaping Use: Never Used Second Hand Smoke Exposure: No service: No Current occupational status: unemployed Cognitive needs: No Hearing needs: No Vision needs: Yes Physical Exam Vital Signs: Last Vital Signs BP 120/70 12/11/24 11:21 BMI result Body Mass Index 32.5 Other: External inspection only-no hypopigmentation, erythema or excoriations. Assessment & Plan Assessment & Plan (1) Vulvar atrophy: Code(s): N90.5 - Atrophy of vulva Plan Discussed normal aging changes, thinning of the skin, loss of moisture and architecture. Continue with the estrogen topically at least 2 times a week, Aquaphor as needed post wiping, use of nathalia rinse bottle and gentle pat drying, use of cotton underwear and loose clothing. If itching is persistent or worse natasha to return to the office for re-evaluate. Med refill sent in. The patient expressed understanding and agreement with the plan of care. All of her questions and concerns were addressed to the best of my ability. This note is constructed using voice recognition software. While every effort has been made to ensure accuracy, merchandise displayer errors may have been included. Medications: Refilled estradiol 0.01%(0.1mg/gram) (Estrace) use nightly externally for two weeks, then twice a week 1 g vaginal 2XW 42.5 grams 3RF Coding Level of Care Code Est Pt Level 3 (57272) Diagnoses Vulvar atrophy N90.5
[2024-12-11 11:21] VITALS: BP 120/70; BMI 32.5
--- OUTSIDE RECORDS SUMMARY | 2024-12-11 13:52 | XMS_ITS | Data Portability ---
Author Organization [facility], [address] Address [address] [place] [address] Care Team Providers Care Mechanic Marine Engine Name Role Phone LACEYHUBERT Primary Care Provider Assessment No assessment recorded. Plan of Treatment Reminders Order Date Submit Date Provider Last Modified By Organization Details Last Modified Time Details Appointments None recorded. Lab urinalysis, dipstick 2022 023 [email or web address] _[facility] [address], [address] [place], [address], 3 16:54:19 vaginal pathogens panel, LIZZETH+probe, vaginal fluid 2022 023 [facility], [address] [place] [address], [place], [address], 3 06:08:24 Referral None recorded. Procedures None recorded. Surgeries None recorded. Imaging None recorded. Medication Orders terconazole 80 mg vaginal suppository 2022 023 [place] [id number], [phone] [place], [address], 3 16:54:23 Patient TargetsNo targets recorded. Patient Instructions Encounter Date Encounter Id Patient Instructions Last Modified By Organization Details Last Modified Time 02/19/2023 [id number] -Reviewed the various causes of vaginal problems. [...] LOW - 0 score Not Available [facility] ([facility]) [address] [facility], [place], [address], 02/23/2023 06:08:24 02/20/20 23 02/21/2023 [facility] B VAGIN ITIS PLUS (VG+) bvab 2 LOW - 0 score Not Available [facility] ([facility]) [address] [facility], [place], [address], 02/23/2023 06:08:24 02/20/20 23 02/21/2023 NUA B [...] Drug Admin istra tion. Not Available [facility] ([facility]) [address] [facility], [place], [address], 02/23/2023 06:08:24 02/20/20 23 02/21/2023 NUSWA B VAGIN ITIS PLUS (VG+) hilary albicans, LIZZETH NEGATI VE negati ve Not Available [facility] ([facility]) [address] [facility], [place], [address], 02/23/2023 06:08:24 02/20/20 23 02/21/2023 NUSWA B VAGIN ITIS PLUS (VG+) hilary glabrata, LIZZETH NEGATI VE negati ve Not Available [facility] ([facility]) [address] [facility], [place], [address], 02/23/2023 06:08:24 02/20/20 23 02/23/2023 NUA B VAGIN ITIS PLUS (VG+) trich vag by LIZZETH NEGATI VE negati ve Not Available [facility] ([facility]) [address] [facility], [place], [address], 02/23/2023 06:08:24 02/20/20 23 02/23/2023 NUA B VAGIN ITIS PLUS (VG+) chlamydia trachomatis, LIZZETH NEGATI VE negati ve Not Available [facility] ([facility]) [address] [facility], [place], [address], 02/23/2023 06:08:24 02/20/20 23 02/23/2023 NUA B VAGIN ITIS PLUS (VG+) neisseria gonorrhoeae, LIZZETH NEGATI VE negati ve Not Available [facility] ([facility]) [address] [place], [address], 02/23/2023 06:08:24 02/20/20 23 02/19/2023 urina lysis , dipst ick Unknown Analyte Normal = light yellow Not Available [address] [place], [address], 02/19/2023 16:29:42 02/20/20 23 02/19/2023 urina lysis , dipst ick Unknown Analyte Yellow Not Available [address] [place] [address] [address] [place], [address], 02/19/2023 16:29:42 02/20/20 23 02/19/2023 urina lysis , dipst ick Unknown Analyte Normal = clear Not Available [facility] [address] [place], [address], 02/19/2023 16:29:42 02/20/20 23 02/19/2023 urina lysis , dipst ick Unknown Analyte Clear Not Available [address] [place] [address] [address] [place], [address], 02/19/2023 16:29:42 02/20/20 23 02/19/2023 urina lysis , dipst ick Unknown Analyte Normal = negati ve Not Available [facility] [address] [place], [address], 02/19/2023 16:29:42 02/20/20 23 02/19/2023 urina lysis , dipst ick Unknown Analyte Negati ve Not Available [facility] [address] [place], [address], 02/19/2023 16:29:42 02/20/20 23 02/19/2023 urina lysis , dipst ick Unknown Analyte Normal = Negati ve Not Available [address] [place], [address], 02/19/2023 16:29:42 02/20/20 23 02/19/2023 urina lysis , dipst ick Unknown Analyte Negati ve Not Available [facility] [place], [address], 02/19/2023 16:29:42 02/20/20 23 02/19/2023 urina lysis , dipst ick Unknown Analyte Normal = Negati ve Not Available analiin gf [address] [place], [address], 02/19/2023 16:29:42 02/20/20 23 02/19/2023 urina lysis , dipst ick Unknown Analyte Negati ve Not Available anal[facility]in g[address] [place], [address], 02/19/2023 16:29:42 02/20/20 23 02/19/2023 urina lysis , dipst ick Unknown Analyte Normal = 1.010, 1.015, 1.020 Not Available [facility] [address] [place], [address], 02/19/2023 16:29:42 02/20/20 23 02/19/2023 urina lysis , dipst ick Unknown Analyte 1.020 Not Available [address] [place] [address] [address] [place], [address], 02/19/2023 16:29:42 02/20/20 23 02/19/2023 urina lysis , dipst ick Unknown Analyte Normal = Negati ve Not Available analiin gf [address] [place], [address], 02/19/2023 16:29:42 02/20/20 23 02/19/2023 urina lysis , dipst ick Unknown Analyte Negati ve Not Available [address] [place], [address], 02/19/2023 16:29:42 02/20/20 23 02/19/2023 urina lysis , dipst ick Unknown Analyte Normal = 6.5, 7.0, 7.5, 8.0 Not Available [address] [place], [address], 02/19/2023 16:29:42 02/20/20 23 02/19/2023 urina lysis , dipst ick Unknown Analyte 7.[address] [facility] [address] [place], [address], 02/19/2023 16:29:42 02/20/20 23 02/19/2023 urina lysis , dipst ick Unknown Analyte Normal = Negati ve Not Available [facility] [address] [place], [address], 02/19/2023 16:29:42 02/20/20 23 02/19/2023 urina lysis , dipst ick Unknown Analyte Negati ve Not Available analiin gf [address] [place], [address], 02/19/2023 16:29:42 02/20/20 23 02/19/2023 urina lysis , dipst ick Unknown Analyte Normal = 0.2, 1.0 Not Available [facility] [address] [place], [address], 02/19/2023 16:29:42 02/20/20 23 02/19/2023 urina lysis , dipst ick Unknown Analyte 0.2 E.U./d L Not Available spr[facility] [address] [place], [address], 02/19/2023 16:29:42 02/20/20 23 02/19/2023 urina lysis , dipst ick Unknown Analyte Normal = Negati ve Not Available [address] [place], [address], 02/19/2023 16:29:42 02/20/20 23 02/19/2023 urina lysis , dipst ick Unknown Analyte Negati ve Not Available [address] [address] [place], [address], 02/19/2023 16:29:42 02/20/20 23 02/19/2023 urina lysis , dipst ick Unknown Analyte Normal = Negati ve Not Available [address] [place], [address], 02/19/2023 16:29:42 02/20/20 23 02/19/2023 urina lysis , dipst ick Unknown Analyte Negati ve Not Available [address] [place], [address], 02/19/2023 16:29:42 Result Notes None recorded. Problems Name Problem SNOMED Code Status Onset Date Resolution Date Notes Provider Name and Address Organization Details Recorded Time Disorder of thyroid gland 57819314 Active 2022 KORI DRINKWINE null, [place] - [facility] 3 16:23:22 Gastroesophage al reflux disease 953762924 Active 2022 KORI DRINKWINE null, [place] - [facility] 3 16:24:19 Diverticulitis 768810244 Active 2022 KORI DRINKWINE null, [place] - [...] Name and Address Organization Details Recorded Time 865940 latex environme nt,medica tion rash Not available Not available 02/19/2023 52065 91 RxNorm YANIRA [facility] 3 16:22:30 [...] Updated DateTime 3 149.86 cm 30.9 kg/m2 29782.6 3 g 0 97.9 [degF] 16 /min [...] SNOMED-CT Code Diagnosis ICD10 Code Diagnosis Note [id number] [address]_Chi [address] [address] 10/07/2018 14:05:34 10/07/2018 14:34:25 [id number] [place] [address] [place] [address] 02/19/2023 16:08:16 02/19/2023 17:12:57 Acute vaginitis 05423987 N76.0 Health Concerns Section Related Observation LastModified by Organization Detai ls LastModified Time None Recorded Concern Status LastModified by Organization Details LastModified Time None Recorded Advance Directives Directive None Recorded Payers Encounter Date Sequence Insurance Name Policy Number Policy Billings Covered Member ID Billings Member ID Guarantor Name 10/07/2018 1 [employer] - SENIOR [employer] (MEDICARE REPLACEMENT PPO) Venus Nguyen [id number] Venus Nguyen 02/19/2023 1 [employer] - SENIOR [employer]AN (MEDICARE REPLACEMENT PPO) Venus Nguyen [id number] Venus Nguyen Notes Date Note Type Note Provider Name and Address Organization Details Recorded Time 3 text/html Urinary / Senior Research Fellow Problems-FemaleReported bypatient.source of patient informationInformation obtained from [...] Larson NP [address] [place], [address], [place] - [facility] 02/19/2023 16:54:34 OBGyn Episode No OBEpisode recorded.
--- OUTSIDE RECORDS SUMMARY | 2024-12-11 13:52 | XMS_ITS | Patient Health Record ---
Author Organization [facility] Address [address] [place] [address] Care Team Providers Care Audio Visual Design Engineer Name Role Phone Mundo Camacho MD Primary Care Provider Suman Orta [phone] Allergies Allergen (clinical drug ingredient) Drug/Non Drug [...] W/U Status Risk Notes Problem Abdominal bloating (846856751) Abdominal bloating (R14.0) Active confirmed Problem Irritable bowel syndrome (15238353) IBS (irritable bowel syndrome) (K58.9) Active confirmed Problem Epigastric pain (78531368) Abdominal pain, epigastric (R10.13) Active confirmed Problem Flatus (27580228) Flatus (R14.3) Active confirmed Plan Of Treatment Future Test Test Name Order Date COLONOSCOPY 05/06/2015 Insurance Providers Payer Name Payer Address Payer Phone Subscriber Number Group Number Insured Name Patient Relationship to Insured Coverage Start Date Coverage End Date [facility] [address] L[place] Stiles [phone] [id number] ZOLTAN NGUYEN Self - patient is the insured Medical (General) History Medical History History ICD Code Colonoscopy 12-04-2004--no markel yps-small internal hemorrhoids and mild diverticulosis GERD--EGD in 2001 with a sma ll HH-no esophagitis,; EGD in 04/2014-small HH, but otherwise negative for esophagitis or Navarro's esophagus Hypothyroidism Osteoporosis Arthritis Negative colonoscopy in 07/2015 Denies DE,DM,CVA,Lung disease,renal dise ase Small bowel obstruction--December 2021--res olved with a NG tube-Dr. Gifford Surgical History Surgery Date(Month/Year) CCY ARINA Varicose vein stripping Tubal ligation Hemorrhoid surgery [place] [address] Jorgito blackmon
== END 2024-12-11 11:40 | disposition home or self-care (01) ==
LOC: HO.HWS 11:18
PROVIDERS: PCP Internal Medicine; Visit Provider Advanced Practice Midwife
DX: N90.5 Atrophy of vulva (principal)
CPT/HCPCS: 99213

== ENCOUNTER → 2024-12-11 11:18 | Outpatient (BNVA) | payer MEDICARE, SELFPAY | PROVIDERS: PCP Internal Medicine; Visit Provider Advanced Practice Midwife | DX: N90.5 Atrophy of vulva (principal) | CPT/HCPCS: 99212 ==

== ENCOUNTER 2025-01-07 09:47 | Outpatient (AMB) | payer MEDICARE, SELFPAY ==
--- NOTE | 2025-01-07 10:10 | AM.OFFVISNUR ---
Intake Visit Reasons: Evenity #7 Allergies nystatin Allergy (Intermediate, Verified 12/11/24 11:20) Rash Office Meds romosozumab-aqqg 210 mg/2.34 mL(105 mg/1.17 mL x2)subcutaneous syringe Performing Provider: Suman Perez MD Performing Location[place] [facility] [place] [facility] Administered by: Althea Root RN on 01/07/25 10:10 Dose Route Admin Location Dispensed Lot Number Expiration Date [facility] Assistant Financial Accountant 210 mg subcut bilateral upper arms 2.34 mL [id number] 01/02/27 35326-299-14 AMGEN Comments: Consent form signed by patient. Pt tolerated injections well. Patient denies any problems with previous injections. Assessment & Plan Assessment & Plan Orders: Orders AMB Romosozumab Injection Patient Supplied Today M81.0 - Age-related osteoporosis without current pathological fracture Medications: New romosozumab-aqqg 210 mg (2.34 mL) subcut ONCE 2.34 mL 0RF M81.0 - Age-related osteoporosis without current pathological fracture Coding
--- OUTSIDE RECORDS SUMMARY | 2025-01-07 10:53 | XMS_ITS | Continuity of Care Document ---
Author Organization [facility] Address [address] [place] [address] Phone Care Team Providers Care Plant Operations Coordinator Name Role Phone Saravanan CARRILLO, GIANA, Suman [...] Mins- [place] & [place] [facility], [address] [place] [address] [address] [address], [id number], [place] tel:[phone] [facility] Venous insufficiency (chronic) (peripheral) 4 Saravanan CARRILLO RVT, RPVI Robert. [address] [place] [address], [place], [id number], [place]. tel:[phone] Referring Provider: Mundo Camacho MD, [address] [place] [address] [address] [facility] In Internal [facility]i, [place], [address]. tel:[phone] [facility], [address] [place] [address] Dr Escobedo 1000[facility] [address], [id number], [place] tel:[phone] [facility] Chronic venous hypertension (idiopathic) with other complications of right lower extremity 4 Saravanan CARRILLO RVT, RPVI Robert. [address] [place] [address], [facility] [place], [id number], [place]. tel:[phone] Referring Provider: Mundo Cmaacho MD, [address] [place] [address] [place], [address]. tel:[phone] [facility], [address] [place] [address] Dr [address]Suite [place] Espinoza [place], [id number], [place] tel:[phone] CVR - [place] - [place] Encounter for follow-up examination after completed treatment for conditions other than malignant neoplasmPain in right leg 4 Saravanan CARRILLO RVT, NUNU Will. [address] [place] [address], Suite [facility], [facility] [place], [id number], [place]. tel:[phone] Referring Provider: Mundo Camacho MD, [address] [place] [address], [address]. tel:[phone] [place] [facility], [address] [place] [address] Dr [address] [address]I[place], [id number], [place] tel:[phone] CVR - [facility] Varicose veins of right lower extremity with other complications 4 Saravanan CARRILLO RVT, NUNU Will. [address] [place] [address], [address], [facility] [place], [id number], [place]. tel:[phone] Referring Provider: Mundo Camacho MD, [address] [place] [address] Dr [address] [place] [address], [address]. tel:[phone] [facility], [address] [place] [address] Dr [address]Suite [place], [id number], [place] tel:[phone] CVR - [place] Encounter for follow-up examination after completed treatment for conditions other than malignant nePain in right leg 4 Saravanan CARRILLO RVT, NUNU Will. [address] [facility], [address], [facility] [place], [id number], [place]. tel:[phone] Referring Provider: Mundo Camacho MD, [address] [facility] [place], [address]. tel:[phone] [facility], [address] [place] [address] [address] [address], [id number], [place] tel:[phone] CVR - [place] - [place] Varicose veins of right lower extremity with other complications Jul-2 0 4 Matteo Martinez. [facility], Suite [facility], [facility] [place], [id number], [place]. tel:[phone] Referring Provider: Mundo Camacho MD, [address] [facility] [place], [address]. tel:[phone] Offic Cons New/estab Mod 40 Mi- CT & [place] [facility], [address] [place] [address] Dr [address]ob[address] [address], [id number], [place] tel:[phone] CV[place] - [place] Body mass index [BMI] 30.0-30.9, adultChronic venous hypertension (idiopathic) without complications of right lower extremity Jun- 4 Saravanan CARRILLO RVT, RPVI Robert. [address] [place] [address], [place] [address], [facility] [place], [id number], [place]. tel:[phone] Referring Provider: Mundo Camacho MD, [address] [facility] [place], [address]. tel:[phone] [facility], [address] [place] [address] [address] [address]ima [place], [id number], [place] tel:[phone] CVR - [place] Chronic venous hypertension (idiopathic) with other complications of right lower extremity Jun- 4 Saravanan CARRILLO RVT, RPVI Robert. [address] [place] [address], Suite [facility], [facility] [place], [id number], [place]. tel:[phone] Referring Provider: Mundo Camacho MD, [address] [facility] [place], [address]. tel:[phone] Office/Outpt E&M Established 15 Mins- CT & [place] [facility], [address] [place] [address] Dr [address]ob[address]Suite [place], [id number], [place] tel:[phone] CVR - [place] - [place] Venous insufficiency (chronic) (peripheral) 4 Saravanan CARRILLO RVT, NUNU Will. [address] [place] [address], Suite [facility], [place], [place], [id number], [place]. tel:[phone] Referring Provider: Mundo Camacho MD, [address] [place] [address] Dr [address] [facility], [address]. tel:[phone] [place] [facility], [address] [place] [address] Dr [address]ob[address]Suite [place]bra[place] Espinoza [place], [id number], [place] tel:[phone] CVR - [place] Varicose veins of bilateral lower extremities with pain 4 Saravanan CARRILLO RVT, NUNU Will. [address] [place] [address], [place] [address], [facility] [place], [id number], [place]. tel:[phone] Referring Provider: Mundo Camacho MD, [address] [place] [address] [place] [address] [place], [address]. tel:[phone] [facility], [address] [place] [address] Dr Escob[address]Suite [place]bra[place] Espino[place], [id number], [place] tel:[phone] CVR - [place] Encounter for follow-up examination after completed treatment for conditions other than malignant neChronic venous hypertension (idiopathic) with other complications of bilateral lower extremity 4 Saravanan CARRILLO RVT, NUNU Will. [address] [place] [address], [address], [facility] [place], [id number], [place]. tel:[phone] Referring Provider: Mundo Camacho MD, [address] [place] [address] Dr [address] [place] [address] [place], [address]. tel:[phone] [facility], [address] [place] [address] Dr [address]ob[address]Suite [place]bra[place]ino[place], [id number], [place] tel:[phone] [facility] Varicose veins of left lower extremity with other complications 0 4 Leonel Cotton. [address] [address], [place], [place], [id number], [place]. tel:[phone] Referring Provider: Mundo Camacho MD, [address] [place] [address] Dr [address] [place] [address] [place], [address]. tel:[phone] [facility], [address] [place] [address] Dr [address]Suite [place]bra[place] Espino[place], [id number], [place] tel:[phone] [facility] Encounter for follow-up examination after completed treatment for conditions other than malignant neVaricose veins of right lower extremity with pain 4 Saravanan CARRILLO, RVT, RPVI Suman. [address] [place] [address], [place], [place], [id number], [place]. tel:[phone] Referring Provider: Mundo Camacho MD, [address] [place] [address] Dr [address] [place] [address] [place], [address]. tel:[phone] [facility], [address] [place] [address] Dr [address]ob[address]Suite [place]bra[place] Espino[place], [id number], [place] tel:[phone] [facility] Chronic venous hypertension (idiopathic) with inflammation of right lower extremity Nov-0 4 Leonel Cotton. [address] [address], [place], [place], [id number], [place]. tel:[phone] Referring Provider: Mundo Camacho MD, [address] [place] [address] Dr [address] [facility] In [facility], [place], [address]. tel:[phone] Offic Cons New/estab Mod-hi 60 [facility], [address] [place] [address] Dr [address]Suite [place]bra[place]ima Espinoza [place], [id number], [place] tel:[phone] CVR [facility] Chronic venous hypertension (idiopathic) with other complications of bilateral lower extremityPain in left lower legPain in right legPain in left legVenous insufficiency (chronic) (peripheral)C ramp and spasm Feb-0 4 Saravanan CARRILLO RVT, NUNU Will. [address] [facility], [place] [address], [place], [place], [id number], [place]. tel:[phone] Referring Provider: Mundo Camacho MD, [address] [place] [address] Dr [address] [facility], [address]. tel:[phone] [facility], [address] [facility] [address], [place], [id number], [place] tel:[phone] R - [facility] Varicose veins of bilateral lower extremities with pain b-0 4 Saravanan CARRILLO RVT, NUNU Will. [address] [facility], [place] [address], [place], [place], [id number], [place]. tel:[phone] Referring Provider: Mundo Camacho MD, [address] [place] [address] Dr [address] [facility] [place], [address]. tel:[phone] Family History Family Member Type Diagnosis Age At Onset No Information Payers Payer name Insurance type Covered democrat ID Everett nicole(s) [employer] [employer] Medicare CI [id number] Social History Type Description Quantity Date Captured [...]
--- OUTSIDE RECORDS SUMMARY | 2025-01-07 10:53 | XMS_ITS | Data Portability ---
Author Organization [facility], [address] Address [address] [place] [address] Care Team Providers Care Auto Claims Adjuster Name Role Phone LACEYHUBERT Primary Care Provider Assessment No assessment recorded. Plan of Treatment Reminders Order Date Submit Date Provider Last Modified By Organization Details Last Modified Time Details Appointments None recorded. Lab urinalysis, dipstick 2022 023 fijaz3 [facility], [address] [place], [address], 3 16:54:19 vaginal pathogens panel, LIZZETH+probe, vaginal fluid 2022 023 [facility], [address] [place] [address], [place], [address], 3 06:08:24 Referral None recorded. Procedures None recorded. Surgeries None recorded. Imaging None recorded. Medication Orders terconazole 80 mg vaginal suppository 2022 023 MENDON [id number], [phone] [place], [address], 3 16:54:23 Patient TargetsNo targets recorded. Patient Instructions Encounter Date Encounter Id Patient Instructions Last Modified By Organization Details Last Modified Time 02/19/2023 [id number] -Reviewed the various causes of vaginal problems. [...] LOW - 0 score Not Available [facility] ([facility]) [address], [place], [address], 02/23/2023 06:08:24 02/20/20 23 02/21/2023 [facility] B VAGIN ITIS PLUS (VG+) bvab 2 LOW - 0 score Not Available [facility] ([facility]) [address] [facility], [place], [address], 02/23/2023 06:08:24 02/20/20 23 02/21/2023 NUA B [...] Drug Admin istra tion. Not Available [facility] ([facility]) [address] [facility], [place], [address], 02/23/2023 06:08:24 02/20/20 23 02/21/2023 NUSWA B VAGIN ITIS PLUS (VG+) hilary albicans, LIZZETH NEGATI VE negati ve Not Available [facility] ([facility]) [address] [facility], [place], [address], 02/23/2023 06:08:24 02/20/20 23 02/21/2023 NUSWA B VAGIN ITIS PLUS (VG+) hilary glabrata, LIZZETH NEGATI VE negati ve Not Available [facility] ([facility]) [address] [facility], [place], [address], 02/23/2023 06:08:24 02/20/20 23 02/23/2023 NUA B VAGIN ITIS PLUS (VG+) trich vag by LIZZETH NEGATI VE negati ve Not Available [facility] ([facility]) [address] [facility] [address], [place], [address], 02/23/2023 06:08:24 02/20/20 23 02/23/2023 NUA B VAGIN ITIS PLUS (VG+) chlamydia trachomatis, LIZZETH NEGATI VE negati ve Not Available [facility] ([facility]) [address] [facility], [place], [address], 02/23/2023 06:08:24 02/20/20 23 02/23/2023 NUA B VAGIN ITIS PLUS (VG+) neisseria gonorrhoeae, LIZZETH NEGATI VE negati ve Not Available [facility] ([facility]) [address] [place], [address], 02/23/2023 06:08:24 02/20/20 23 02/19/2023 urina lysis , dipst ick Unknown Analyte Normal = light yellow Not Available [address] [place], [address], 02/19/2023 16:29:42 02/20/20 23 02/19/2023 urina lysis , dipst ick Unknown Analyte Yellow Not Available [address] [place] [address] [address] [place], [address], 02/19/2023 16:29:42 02/20/20 23 02/19/2023 urina lysis , dipst ick Unknown Analyte Normal = clear Not Available [address] [place], [address], 02/19/2023 16:29:42 02/20/20 23 02/19/2023 urina lysis , dipst ick Unknown Analyte Clear Not Available [address] [place] [address] [address] [place], [address], 02/19/2023 16:29:42 02/20/20 23 02/19/2023 urina lysis , dipst ick Unknown Analyte Normal = negati ve Not Available [address] [place], [address], 02/19/2023 16:29:42 02/20/20 23 02/19/2023 urina lysis , dipst ick Unknown Analyte Negati ve Not Available [address] [place], [address], 02/19/2023 16:29:42 02/20/20 23 02/19/2023 urina lysis , dipst ick Unknown Analyte Normal = Negati ve Not Available [address] [place], [address], 02/19/2023 16:29:42 02/20/20 23 02/19/2023 urina lysis , dipst ick Unknown Analyte Negati ve Not Available [address] [place], [address], 02/19/2023 16:29:42 02/20/20 23 02/19/2023 urina lysis , dipst ick Unknown Analyte Normal = Negati ve Not Available analiin g[address] [place], [address], 02/19/2023 16:29:42 02/20/20 23 02/19/2023 urina lysis , dipst ick Unknown Analyte Negati ve Not Available [address] [place], [address], 02/19/2023 16:29:42 02/20/20 23 02/19/2023 urina lysis , dipst ick Unknown Analyte Normal = 1.010, 1.015, 1.020 Not Available [facility] [address] [place], [address], 02/19/2023 16:29:42 02/20/20 23 02/19/2023 urina lysis , dipst ick Unknown Analyte 1.020 Not Available [address] [place] [address] [address] [place], [address], 02/19/2023 16:29:42 02/20/20 23 02/19/2023 urina lysis , dipst ick Unknown Analyte Normal = Negati ve Not Available [address] [address] [place], [address], 02/19/2023 16:29:42 02/20/20 23 02/19/2023 urina lysis , dipst ick Unknown Analyte Negati ve Not Available [address] [place], [address], 02/19/2023 16:29:42 02/20/20 23 02/19/2023 urina lysis , dipst ick Unknown Analyte Normal = 6.5, 7.0, 7.5, 8.0 Not Available [address] [place], [address], 02/19/2023 16:29:42 02/20/20 23 02/19/2023 urina lysis , dipst ick Unknown Analyte 7.0 Not Available [facility] [address] [place], [address], 02/19/2023 16:29:42 02/20/20 23 02/19/2023 urina lysis , dipst ick Unknown Analyte Normal = Negati ve Not Available [address] [place], [address], 02/19/2023 16:29:42 02/20/20 23 02/19/2023 urina lysis , dipst ick Unknown Analyte Negati ve Not Available analiin [address] [place], [address], 02/19/2023 16:29:42 02/20/20 23 02/19/2023 urina lysis , dipst ick Unknown Analyte Normal = 0.2, 1.0 Not Available [address] [place], [address], 02/19/2023 16:29:42 02/20/20 23 02/19/2023 urina lysis , dipst ick Unknown Analyte 0.2 E.U./d L Not Available spr[address] [place], [address], 02/19/2023 16:29:42 02/20/20 23 02/19/2023 urina lysis , dipst ick Unknown Analyte Normal = Negati ve Not Available [address] [place], [address], 02/19/2023 16:29:42 02/20/20 23 02/19/2023 urina lysis , dipst ick Unknown Analyte Negati ve Not Available [address] [place], [address], 02/19/2023 16:29:42 02/20/20 23 02/19/2023 urina lysis , dipst ick Unknown Analyte Normal = Negati ve Not Available [address] [place], [address], 02/19/2023 16:29:42 02/20/20 23 02/19/2023 urina lysis , dipst ick Unknown Analyte Negati ve Not Available [address] [place], [address], 02/19/2023 16:29:42 Result Notes None recorded. Problems Name Problem SNOMED Code Status Onset Date Resolution Date Notes Provider Name and Address Organization Details Recorded Time Disorder of thyroid gland 34649862 Active 2022 KORI DRINKWINE null, [place] - [facility] 3 16:23:22 Gastroesophage al reflux disease 004555141 Active 2022 KORI DRINKWINE null, [place] - [facility] 3 16:24:19 Diverticulitis 615664482 Active 2022 KORI DRINKWINE null, [place] - [...] Name and Address Organization Details Recorded Time 513147 latex environme nt,medica tion rash Not available Not available 02/19/2023 99302 91 RxNorm YANIRA [facility] 3 16:22:30 [...] Updated DateTime 3 149.86 cm 30.9 kg/m2 10972.6 3 g 0 97.9 [degF] 16 /min [...] by Organization Details LastModified Time Father Malignant neoplasm of lung ldrinkwine Not available 02/19 16:26:11 [...] SNOMED-CT Code Diagnosis ICD10 Code Diagnosis Note [id number] [facility] [place] [address] 10/07/2018 14:05:34 10/07/2018 14:34:25 [id number] [place] [address] [place] [address] 02/19/2023 16:08:16 02/19/2023 17:12:57 Acute vaginitis 48515945 N76.0 Health Concerns Section Related Observation LastModified by Organization Detai ls LastModified Time None Recorded Concern Status LastModified by Organization Details LastModified Time None Recorded Advance Directives Directive None Recorded Payers Encounter Date Sequence Insurance Name Policy Number Policy Billings Covered Member ID Billings Member ID Guarantor Name 10/07/2018 1 [employer] (MEDICARE REPLACEMENT PPO) Venus Nguyen [id number] Venus Nguyen 02/19/2023 1 [employer] (MEDICARE REPLACEMENT PPO) Venus Nguyen [id number] Venus Nguyen Notes Date Note Type Note Provider Name and Address Organization Details Recorded Time 3 text/html 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
== END 2025-01-07 10:09 | disposition home or self-care (01) ==
LOC: HO.ENCR 09:47
PROVIDERS: PCP Internal Medicine; Visit Provider Internal Medicine Endocrinology, Diabetes & Metabolism
DX: M81.0 Age-related osteoporosis without current pathological fracture (principal)

== ENCOUNTER → 2025-01-07 09:47 | Outpatient (BNVA) | payer MEDICARE, SELFPAY | PROVIDERS: PCP Internal Medicine; Visit Provider Internal Medicine Endocrinology, Diabetes & Metabolism | DX: M81.0 Age-related osteoporosis without current pathological fracture (principal) | CPT/HCPCS: 96372; J3111 ==

== ENCOUNTER 2025-01-10 09:17 | Outpatient (AMB) | payer MEDICARE, SELFPAY ==
--- NOTE | 2025-01-10 09:28 | A.OFFVIS_ITS ---
VS Expanded 01/10/25 09:29 Height 4 ft 11 in Weight 149 lb 14.629 oz BMI 30.3 Intake Visit Reasons: Obesity Allergies nystatin Allergy (Intermediate, Verified 12/11/24 11:20) Rash Nutrition Presentation Details: Pt presents for MNT f/u for obesity Pt reports feeling well , energetic Reports reducing on the snacks (empty calories) and choosing yogurt or fruit instead Pt reports having 3 meals/d B: oatmeal made with almond milk , drinks water L: 1-2 fried eggs with banana, water dinner : rice/beans, chicken ,water including fish twice/wk, no beef/pork in this past month Denies diarrhea/constipation Pt reports feeling comfortable , sleeps well BS Monitoring Most Recent Diabetes Results: No Data to Display [facility] Medical History Overweight (BMI 25.0-29.9) Pruritic rash Superficial thrombophlebitis Small bowel obstruction Rash Varicose vein of leg Screening for breast cancer Hyperparathyroidism Age-related osteoporosis without current pathological fracture Multinodular thyroid Screening for diabetes mellitus Impacted cerumen of left ear History of seizures Peripheral vascular disease Thyroid nodule GERD (gastroesophageal reflux disease) Hypothyroidism Osteoporosis Surgical History History of colonoscopy History of surgery History of total abdominal hysterectomy and bilateral salpingo-oophorectomy History of cholecystectomy Family History Father Throat cancer Mother No problems noted. Brother Liver cancer Social History Household Members: Spouse Housing: Condominium Do you presently have visiting nurse or other home services: No Alcohol intake: never Patient Tobacco Use Status: Never used Tobacco Tobacco use type: Cigarette e-Cigarette/Vaping Use: Never Used Second Hand Smoke Exposure: No service: No Current occupational status: unemployed Cognitive needs: No Hearing needs: No Vision needs: Yes Assessment & Plan Assessment & Plan (1) Obesity (BMI 30.0-34.9): Code(s): E66.9 - Obesity, unspecified Category: Medical Plan: Wt: 73 Kg ( 12/28 ), 68 kg (01/27) Est kcal needs as per MSJ: 1400 (40% carb, 30% protein/fat) Est fluid needs as per 25-30 ml/d: 2200 Est prot per day as per 1 g/kg bw: 70 Recommend fiber intake : 8-10 g per day and gradually increase to 25-28 g per day for women and 35-38 g for men or as tolerated Recommend sodium intake per day : less than 1500 mg less than 2000 mg Educated patient on: ( R = reviewed V = verbalizes understanding N/R = needs review N/A = not applicable * Food sources of carbohydrate, adequate serving sizes and its role in various health conditions: R * Differences between complex carbohydrates a simple carbohydrates, role of fiber in diet: R * Lean protein sources of foods: R V NR * Differences between types of fats and role in diet (mono on saturated fat fatty acids, saturated fatty acids, trans fats): R V N/R * Food sources of sodium in salt and healthy modifications for heart health in kidney health: R V R/V * Vitamins and minerals: R V N/R * Healthy plate method concept: R * Physical activity: Benefits a precaution: R V N/R * Patient Instructions: Continue engaging in walking , 45 min daily Include food source of calcium in the diet , 1200 mg/d- see list of choices Coding Level of Care Code Nutr Indiv Subseq (71000) Diagnoses Obesity (BMI 30.0-34.9) E66.9 Time Spent (min) 20
[2025-01-10 09:29] VITALS: BMI 30.3
--- OUTSIDE RECORDS SUMMARY | 2025-01-10 09:54 | XMS_ITS | Patient Health Record ---
Author Organization [facility] Address [address] [place] [address] Care Team Providers Care Publicity Expert Name Role Phone Mundo Camacho MD Primary Care Provider Suman Orta [phone] Allergies Allergen (clinical drug ingredient) Drug/Non Drug Allergy documented on EMR Reaction Allergy Type Onset Date Status nystatin Nystatin rash Drug Allergy Active Latex Latex Unknown Allergy Active Reason For Referral No Information Medications Medication SIG (Take, Route, Frequency, Duration) Notes Start Date End Date Status traMADol HCl 50 MG 1 tablet as needed Orally BID/PRN Active Dicyclomine HCl 10 MG 1 0r 2 capsules Or ally Every 6 hours if needed for abdominal discomfort, cramps, or bloating for 30 days Active Vitamin D (Cholecalciferol) Active Levothyroxine Sodium 75 MCG 1 capsule Or ally Once a day Active PriLOSEC OTC 20 MG 1 tablet Orally Once a day 01/29/2014 Active Immunizations Vaccine Route Administration Date Status Comme nts Influenza Unknown 05/07/2021 Administered Problems Problem Type SNOMED Code ICD Code Onset Dates Problem Status W/U Status Risk Notes Problem Abdominal bloating (609940495) Abdominal bloating (R14.0) Active confirmed Problem Irritable bowel syndrome (62810861) IBS (irritable bowel syndrome) (K58.9) Active confirmed Problem Epigastric pain (17101609) Abdominal pain, epigastric (R10.13) Active confirmed Problem Flatus (29772484) Flatus (R14.3) Active confirmed Plan Of Treatment Future Test Test Name Order Date COLONOSCOPY 05/06/2015 Insurance Providers Payer Name Payer Address Payer Phone Subscriber Number Group Number Insured Name Patient Relationship to Insured Coverage Start Date Coverage End Date [facility] [address] [place] [phone] [id number] ZOLTAN NGUYEN Self - patient is the [...]
--- OUTSIDE RECORDS SUMMARY | 2025-01-10 09:54 | XMS_ITS | Continuity of Care Document ---
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 [address] [place] [address], [place], [id number], [place]. tel:[phone] Referring Provider: Mundo Camacho MD, [address] [place] [address] [address] [facility] In [facility], [place], [address]. tel:[phone] [facility], [address] [place] [address] [address] [address], [id number], [place] tel:[phone] [facility] Chronic venous hypertension (idiopathic) with other complications of right lower extremity 4 Saravanan CARRILLO RVT, RPVI Robert. [address] [place] [address], [facility] [place], [id number], [place]. tel:[phone] Referring Provider: Mundo Camacho MD, [address] [place] [address] [place], [address]. tel:[phone] [facility], [address] [place] [address] Dr [address]Suite [place] Espino[place], [id number], [place] tel:[phone] CV[place] - [place] Encounter for follow-up examination after completed treatment for conditions other than malignant neoplasmPain in right leg 4 Saravanan CARRILLO RVT, NUNU Will. [address] [place] [address], Suite [facility], [facility] [place], [id number], [place]. tel:[phone] Referring Provider: Mundo Camacho MD, [address] [place] [address], [address]. tel:[phone] [place] [facility], [address] [place] [address] Dr [address], [id number], [place] tel:[phone] CVR - [facility] Varicose veins of right lower extremity with other complications 4 Saravanan CARRILLO RVT, NUNU Will. [address] [place] [address], [address], [facility] [place], [id number], [place]. tel:[phone] Referring Provider: Mundo Camacho MD, [address] [place] [address] [address] [place] [address], [address]. tel:[phone] [facility], [address] [place] [address] Dr [address] [place]ino[place], [id number], [place] tel:[phone] [place] Encounter for follow-up examination after completed treatment for conditions other than malignant nePain in right leg 4 Saravanan CARRILLO RVT, NUNU Will. [address] [facility], [address], [facility] [place], [id number], [place]. tel:[phone] Referring Provider: Mundo Camacho MD, [address] [facility] [place], [address]. tel:[phone] [facility], [address] [place] [address] [address] [address], [id number], [place] tel:[phone] [facility] Varicose veins of right lower extremity with other complications Jul-2 0 4 Matteo Martinez. [facility], Suite [facility], [facility] [place], [id number], [place]. tel:[phone] Referring Provider: Mundo Camacho MD, [address] [facility] [place], [address]. tel:[phone] Offic Cons New/estab Mod 40 Mi- [place] & [place] [facility], [address] [place] [address] Dr [address], [id number], [place] tel:[phone] [facility] Body mass index [BMI] 30.0-30.9, adultChronic venous hypertension (idiopathic) without complications of right lower extremity Jun- 4 Saravanan CARRILLO RVT, RPVI Robert. [address] [place] [address], [place] [address], [facility] [place], [id number], [place]. tel:[phone] Referring Provider: Mundo Camacho MD, [address] [facility] [place], [address]. tel:[phone] [facility], [address] [place] [address] [address] [address], [id number], [place] tel:[phone] [place] Chronic venous hypertension (idiopathic) with other complications of right lower extremity Jun- 4 Saravanan CARRILLO RVT, RPVI Robert. [address] [place] [address], Suite [facility], [facility] [place] [place], [id number], [place]. tel:[phone] Referring Provider: Mundo Camacho MD, [address] [facility] [place], [address]. tel:[phone] Office/Outpt E&M Established 15 Mins- [place] & [place] [facility], [address] [place] [address] Dr [address]Suite [place]ino[place], [id number], [place] tel:[phone] [facility] - [place] Venous insufficiency (chronic) (peripheral) 4 Saravanan CARRILLO RVT, NUNU Will. [address] [place] [address], Suite [facility], [place], [place], [id number], [place]. tel:[phone] Referring Provider: Mundo Camacho MD, [address] [place] [address] Dr [address] [facility] [place], [address]. tel:[phone] [place] [facility], [address] [place] [address] Dr [address]Suite [place]bra[place]ima Espinoza [place], [id number], [place] tel:[phone] [place] Varicose veins of bilateral lower extremities with pain 4 Saravanan CARRILLO RVT, NUNU Will. [address] [place] [address], [place] [address], [facility] [place], [place], [id number], [place]. tel:[phone] Referring Provider: Mundo Camacho MD, [address] [place] [address] [place] [address] [place], [address]. tel:[phone] [facility], [address] [place] [address] [address] [place]ino[place], [id number], [place] tel:[phone] [facility] - [place] Encounter for follow-up examination after completed treatment for conditions other than malignant neChronic venous hypertension (idiopathic) with other complications of bilateral lower extremity 4 Saravanan CARRILLO RVT, NUNU Will. [address] [place] [address], [address], [facility] [place] [place], [id number], [place]. tel:[phone] Referring Provider: Mundo Camacho MD, [address] [place] [address] Dr [address] [place] [address] [place], [address]. tel:[phone] [facility], [address] [place] [address] Dr [address] [place] Espino[place], [id number], [place] tel:[phone] [facility] Varicose veins of left lower extremity with other complications 0 4 Leonel Cotton. [address] [address], [place], [place], [id number], [place]. tel:[phone] Referring Provider: Mundo Camacho MD, [address] [place] [address] Dr [address] [place] [address] [place], [address]. tel:[phone] [facility], [address] [place] [address] [address]Suite [place] Espino[place], [id number], [place] tel:[phone] [facility] Encounter for follow-up examination after completed treatment for conditions other than malignant neVaricose veins of right lower extremity with pain 4 Saravanan CARRILLO, RVT, RPVI Suman. [address] [place] [address], [place], [place], [id number], [place]. tel:[phone] Referring Provider: Mundo Camacho MD, [address] [place] [address] Dr [address] [place] [address] [place], [address]. tel:[phone] [facility], [address] [place] [address] [address] [place] Espino[place], [id number], [place] tel:[phone] [facility] Chronic venous hypertension (idiopathic) with inflammation of right lower extremity Nov-0 4 Leonel Cotton. [address] [address], [place], [place], [id number], [place]. tel:[phone] Referring Provider: Mundo Camacho MD, [address] [place] [address] Dr [address] [facility] In [facility], [place], [address]. tel:[phone] Offic Cons New/estab Mod-hi 60 [facility], [address] [place] [address] Dr [address] [place]bra[place] Espinoza [place], [id number], [place] tel:[phone] CVR [facility] Chronic venous hypertension (idiopathic) with other complications of bilateral lower extremityPain in left lower legPain in right legPain in left legVenous insufficiency (chronic) (peripheral)C ramp and spasm Feb-0 4 Saravanan CARRILLO RVT, NUNU Will. [address] [facility], [place] [address], [place], [place], [id number], [place]. tel:[phone] Referring Provider: Mundo Camacho MD, [address] [place] [address] Dr [address] [facility] [place], [address]. tel:[phone] [facility], [address], [place], [id number], [place] tel:[phone] R - [facility] Varicose veins of bilateral lower extremities with pain b-0 4 Saravanan CARRILLO RVT, NUNU Will. [address] [facility], [place] [address], [place], [place], [id number], [place]. tel:[phone] Referring Provider: Mundo Camacho MD, [address] [place] [address] Dr [address] [facility] [place], [address]. tel:[phone] Family History Family Member Type Diagnosis Age At Onset No Information Payers Payer name Insurance type Covered green party ID Everett nicole(s) [employer] CI [id number] Social History Type Description Quantity Date Captured [...]
--- OUTSIDE RECORDS SUMMARY | 2025-01-10 09:54 | XMS_ITS | Data Portability ---
Author Organization [facility], [address] Address [address] [place] [address] Care Team Providers Care Mold Cooler Name Role Phone LACEYHUBERT Primary Care Provider [phone] Assessment No assessment recorded. Plan of Treatment Reminders Order Date Submit Date Provider Last Modified By Organization Details Last Modified Time Details Appointments None recorded. Lab urinalysis, dipstick 2022 023 [email or web address] [facility], [address] [place], [address], 3 16:54:19 vaginal pathogens panel, LIZZETH+probe, vaginal fluid 2022 023 [place] [facility] [facility], [address] [place] [address], [place], [address], 3 06:08:24 Referral None recorded. Procedures None recorded. Surgeries None recorded. Imaging None recorded. Medication Orders terconazole 80 mg vaginal suppository 2022 023 [place] [id number], [phone] [place], [address], 3 16:54:23 Patient TargetsNo targets recorded. Patient Instructions Encounter Date Encounter Id Patient Instructions Last Modified By Organization Details Last Modified Time 02/19/2023 [id number] -Reviewed the various causes of vaginal problems. [...] LOW - 0 score Not Available [facility] ([facility]) [address] [facility], [place], [address], 02/23/2023 06:08:24 02/20/20 23 02/21/2023 [facility] B VAGIN ITIS PLUS (VG+) bvab 2 LOW - 0 score Not Available [facility] ([facility]) [address] [facility], [place], [address], 02/23/2023 06:08:24 02/20/20 23 02/21/2023 NUA B [...] Drug Admin istra tion. Not Available [facility] ([facility]) [address] [facility], [place], [address], 02/23/2023 06:08:24 02/20/20 23 02/21/2023 [facility] B VAGIN ITIS PLUS (VG+) hilary albicans, LIZZETH NEGATI VE negati ve Not Available [facility] ([facility]) [address] [facility], [place], [address], 02/23/2023 06:08:24 02/20/20 23 02/21/2023 [facility] B VAGIN ITIS PLUS (VG+) hilary glabrata, LIZZETH NEGATI VE negati ve Not Available [facility] ([facility]) [address] [facility], [place], [address], 02/23/2023 06:08:24 02/20/20 23 02/23/2023 NUA B VAGIN ITIS PLUS (VG+) trich vag by LIZZETH NEGATI VE negati ve Not Available [facility] ([facility]) [address] [facility], [place], [address], 02/23/2023 06:08:24 02/20/20 23 02/23/2023 NUA B VAGIN ITIS PLUS (VG+) chlamydia trachomatis, LIZZETH NEGATI VE negati ve Not Available [facility] ([facility]) [address] [facility], [place], [address], 02/23/2023 06:08:24 02/20/20 23 02/23/2023 NUA B VAGIN ITIS PLUS (VG+) neisseria gonorrhoeae, LIZZETH NEGATI VE negati ve Not Available [facility] ([facility]) [address] [place], [address], 02/23/2023 06:08:24 02/20/20 23 02/19/2023 urina lysis , dipst ick Unknown Analyte Normal = light yellow Not Available [address] [place], [address], 02/19/2023 16:29:42 02/20/20 23 02/19/2023 urina lysis , dipst ick Unknown Analyte Yellow Not Available [address] [place] [address] [address] [place], [address], 02/19/2023 16:29:42 02/20/20 23 02/19/2023 urina lysis , dipst ick Unknown Analyte Normal = clear Not Available [facility] [place], [address], 02/19/2023 16:29:42 02/20/20 23 02/19/2023 urina lysis , dipst ick Unknown Analyte Clear Not Available [address] [place] [address] [address] [place], [address], 02/19/2023 16:29:42 02/20/20 23 02/19/2023 urina lysis , dipst ick Unknown Analyte Normal = negati ve Not Available [address] [place], [address], 02/19/2023 16:29:42 02/20/20 23 02/19/2023 urina lysis , dipst ick Unknown Analyte Negati ve Not Available [address] [place], [address], 02/19/2023 16:29:42 02/20/20 23 02/19/2023 urina lysis , dipst ick Unknown Analyte Normal = Negati ve Not Available [address] [place], [address], 02/19/2023 16:29:42 02/20/20 23 02/19/2023 urina lysis , dipst ick Unknown Analyte Negati ve Not Available [address] [place], [address], 02/19/2023 16:29:42 02/20/20 23 02/19/2023 urina lysis , dipst ick Unknown Analyte Normal = Negati ve Not Available [address] [facility] [place], [address], 02/19/2023 16:29:42 02/20/20 23 02/19/2023 urina lysis , dipst ick Unknown Analyte Negati ve Not Available [address] [place], [address], 02/19/2023 16:29:42 02/20/20 23 02/19/2023 urina lysis , dipst ick Unknown Analyte Normal = 1.010, 1.015, 1.020 Not Available [facility] [address] [place], [address], 02/19/2023 16:29:42 02/20/20 23 02/19/2023 urina lysis , dipst ick Unknown Analyte 1.020 Not Available [address] [place] [address] [address] [place], [address], 02/19/2023 16:29:42 02/20/20 23 02/19/2023 urina lysis , dipst ick Unknown Analyte Normal = Negati ve Not Available [address] [place], [address], 02/19/2023 16:29:42 02/20/20 23 02/19/2023 urina lysis , dipst ick Unknown Analyte Negati ve Not Available [address] [place], [address], 02/19/2023 16:29:42 02/20/20 23 02/19/2023 urina lysis , dipst ick Unknown Analyte Normal = 6.5, 7.0, 7.5, 8.0 Not Available [address] [place], [address], 02/19/2023 16:29:42 02/20/20 23 02/19/2023 urina lysis , dipst ick Unknown Analyte 7.0 Not Available [facility] [address] [place], [address], 02/19/2023 16:29:42 02/20/20 23 02/19/2023 urina lysis , dipst ick Unknown Analyte Normal = Negati ve Not Available [address] [place], [address], 02/19/2023 16:29:42 02/20/20 23 02/19/2023 urina lysis , dipst ick Unknown Analyte Negati ve Not Available [address] [place], [address], 02/19/2023 16:29:42 02/20/20 23 02/19/2023 urina lysis , dipst ick Unknown Analyte Normal = 0.2, 1.0 Not Available [address] [place], [address], 02/19/2023 16:29:42 02/20/20 23 02/19/2023 urina lysis , dipst ick Unknown Analyte 0.2 E.U./d L Not Available [address] [place], [address], 02/19/2023 16:29:42 02/20/20 23 02/19/2023 urina lysis , dipst ick Unknown Analyte Normal = Negati ve Not Available [address] [place], [address], 02/19/2023 16:29:42 02/20/20 23 02/19/2023 urina lysis , dipst ick Unknown Analyte Negati ve Not Available _[facility] [place], [address], 02/19/2023 16:29:42 02/20/20 23 02/19/2023 urina lysis , dipst ick Unknown Analyte Normal = Negati ve Not Available [address] [place], [address], 02/19/2023 16:29:42 02/20/20 23 02/19/2023 urina lysis , dipst ick Unknown Analyte Negati ve Not Available [address] [place], [address], 02/19/2023 16:29:42 Result Notes None recorded. Problems Name Problem SNOMED Code Status Onset Date Resolution Date Notes Provider Name and Address Organization Details Recorded Time Disorder of thyroid gland 83248165 Active 2022 KORI DRINKWINE null, [place] - [facility] 3 16:23:22 Gastroesophage al reflux disease 646057881 Active 2022 KORI DRINKWINE null, [place] - [facility] 3 16:24:19 Diverticulitis 181111856 Active 2022 KORI DRINKWINE null, [place] - [...] Name and Address Organization Details Recorded Time 263348 latex environme nt,medica tion rash Not available Not available 02/19/2023 48462 91 RxNorm [facility] 3 16:22:30 Medications Name Sig [...] Updated DateTime 3 149.86 cm 30.9 kg/m2 03247.6 3 g 0 97.9 [degF] 16 /min [...] SNOMED-CT Code Diagnosis ICD10 Code Diagnosis Note [id number] [facility] [place] [address] 10/07/2018 14:05:34 10/07/2018 14:34:25 [id number] [place] [address] [place] [address] 02/19/2023 16:08:16 02/19/2023 17:12:57 Acute vaginitis 71920760 N76.0 Health Concerns Section Related Observation LastModified by Organization Detai ls LastModified Time None Recorded Concern Status LastModified by Organization Details LastModified Time None Recorded Advance Directives Directive None Recorded Payers Insurance Date Sequence Insurance Name Policy Number Policy Billings Covered Member ID Billings Member ID Guarantor Name 02/19/[address] [facility] (MEDICARE REPLACEMENT PPO) Venus Nguyen [id number] Venus Nguyen Notes Date Note Type Note Provider Name and Address Organization Details Recorded Time 3 text/html Urinary / Drying Machine Tender Problems-FemaleReported bypatient.source of patient informationInformation obtained from [...] Larson NP [address] [place], [address], [place] - [facility] 02/19/2023 16:54:34 OBGyn Episode No OBEpisode recorded.
== END 2025-01-10 09:56 | disposition home or self-care (01) ==
LOC: HO.ENCR 09:18
PROVIDERS: PCP Internal Medicine; Visit Provider Dietitian, Registered
DX: E66.9 Obesity, unspecified (principal)

== ENCOUNTER → 2025-01-10 09:17 | Outpatient (BNVA) | payer MEDICARE, SELFPAY | PROVIDERS: PCP Internal Medicine; Visit Provider Dietitian, Registered | DX: E66.9 Obesity, unspecified (principal); Z71.3 Dietary counseling and surveillance; Z68.30 Body mass index [BMI] 30.0-30.9, adult | CPT/HCPCS: 97803 ==

== ENCOUNTER 2025-02-04 09:46 | Outpatient (AMB) | payer MEDICARE, SELFPAY ==
--- NOTE | 2025-02-04 10:01 | AM.OFFVISNUR ---
Intake Visit Reasons: evenity # 8 Allergies nystatin Allergy (Intermediate, Verified 12/11/24 11:20) Rash Office Meds romosozumab-aqqg 210 mg/2.34 mL(105 mg/1.17 mL x2)subcutaneous syringe Performing Provider: Suman Perez MD Performing Location: [facility] Endocrinology Administered by: Althea Root RN on 02/04/25 10:01 Dose Route Admin Location Dispensed Lot Number Expiration Date [facility] [employer] Administrator 210 mg subcut bilateral upper a 2.34 mL [id number] 04/04/27 38294-519-81 AMGEN Comments: Patient tolerated injection well and denies any problems with previous injections Assessment & Plan Assessment & Plan Orders: Orders AMB Romosozumab Injection Patient Supplied Today M81.0 - Age-related osteoporosis without current pathological fracture Medications: New romosozumab-aqqg 210 mg (2.34 mL) subcut ONCE 2.34 mL 0RF M81.0 - Age-related osteoporosis without current pathological fracture Coding
--- OUTSIDE RECORDS SUMMARY | 2025-02-04 10:31 | XMS_ITS | Data Portability ---
Author Organization [facility], [address] Address [address] [place] [address] Care Team Providers Care Whiskey Proof Reader Name Role Phone LACEYHUBERT Primary Care Provider Assessment No assessment recorded. Plan of Treatment Reminders Order Date Submit Date Provider Last Modified By Organization Details Last Modified Time Details Appointments None recorded. Lab urinalysis, dipstick 2022 023 [email or web address] _[facility] [address], [address] [place], [address], 3 16:54:19 vaginal pathogens panel, LIZZETH+probe, vaginal fluid 2022 023 [facility] [address] [place] [address], [place], [address], 3 06:08:24 Referral None recorded. Procedures None recorded. Surgeries None recorded. Imaging None recorded. Medication Orders terconazole 80 mg vaginal suppository 2022 023 [id number], [phone] [place], [address], 3 16:54:23 Patient TargetsNo targets recorded. Patient Instructions Encounter Date Encounter Id Patient Instructions Last Modified By Organization Details Last Modified Time 02/19/2023 [id number] -Reviewed the various causes of vaginal problems. [...] LOW - 0 score Not Available [facility] ([facility]) [address] [facility], [place], [address], 02/23/2023 06:08:24 02/20/20 23 02/21/2023 [facility] B VAGIN ITIS PLUS (VG+) bvab 2 LOW - 0 score Not Available [facility] ([facility]) [address] [facility], [place], [address], 02/23/2023 06:08:24 02/20/20 23 02/21/2023 NUA B [...] Drug Admin istra tion. Not Available [facility] ([facility]) [address] [facility], [place], [address], 02/23/2023 06:08:24 02/20/20 23 02/21/2023 [facility] B VAGIN ITIS PLUS (VG+) hilary albicans, LIZZETH NEGATI VE negati ve Not Available [facility] ([facility]) [address] [facility], [place], [address], 02/23/2023 06:08:24 02/20/20 23 02/21/2023 [facility] B VAGIN ITIS PLUS (VG+) hilary glabrata, LIZZETH NEGATI VE negati ve Not Available [facility] ([facility]) [address] [facility], [place], [address], 02/23/2023 06:08:24 02/20/20 23 02/23/2023 NUA B VAGIN ITIS PLUS (VG+) trich vag by LIZZETH NEGATI VE negati ve Not Available [facility] ([facility]) [address] [facility], [place], [address], 02/23/2023 06:08:24 02/20/20 23 02/23/2023 NUA B VAGIN ITIS PLUS (VG+) chlamydia trachomatis, LIZZETH NEGATI VE negati ve Not Available [facility] ([facility]) [address] [facility], [place], [address], 02/23/2023 06:08:24 02/20/20 23 02/23/2023 NUA B VAGIN ITIS PLUS (VG+) neisseria gonorrhoeae, LIZZETH NEGATI VE negati ve Not Available [facility] ([facility]) [address] [place], [address], 02/23/2023 06:08:24 02/20/20 23 02/19/2023 urina lysis , dipst ick Unknown Analyte Normal = light yellow Not Available [address] [place], [address], 02/19/2023 16:29:42 02/20/20 23 02/19/2023 urina lysis , dipst ick Unknown Analyte Yellow Not Available [address] [place] [address] [address] [place], [address], 02/19/2023 16:29:42 02/20/20 23 02/19/2023 urina lysis , dipst ick Unknown Analyte Normal = clear Not Available [facility] [address] [place], [address], 02/19/2023 16:29:42 02/20/20 23 02/19/2023 urina lysis , dipst ick Unknown Analyte Clear Not Available [address] [place] [address] [address] [place], [address], 02/19/2023 16:29:42 02/20/20 23 02/19/2023 urina lysis , dipst ick Unknown Analyte Normal = negati ve Not Available [address] [place], [address], 02/19/2023 16:29:42 02/20/20 23 02/19/2023 urina lysis , dipst ick Unknown Analyte Negati ve Not Available [address] [place], [address], 02/19/2023 16:29:42 02/20/20 23 02/19/2023 urina lysis , dipst ick Unknown Analyte Normal = Negati ve Not Available [address] [place], [address], 02/19/2023 16:29:42 02/20/20 23 02/19/2023 urina lysis , dipst ick Unknown Analyte Negati ve Not Available [address] [place], [address], 02/19/2023 16:29:42 02/20/20 23 02/19/2023 urina lysis , dipst ick Unknown Analyte Normal = Negati ve Not Available [address] [place], [address], 02/19/2023 16:29:42 02/20/20 23 02/19/2023 urina lysis , dipst ick Unknown Analyte Negati ve Not Available [address] [place], [address], 02/19/2023 16:29:42 02/20/20 23 02/19/2023 urina lysis , dipst ick Unknown Analyte Normal = 1.010, 1.015, 1.020 [facility] Available [facility] [address] [place], [address], 02/19/2023 16:29:42 02/20/20 23 02/19/2023 urina lysis , dipst ick Unknown Analyte 1.020 Not Available [address] [place] [address] [address] [place], [address], 02/19/2023 16:29:42 02/20/20 23 02/19/2023 urina lysis , dipst ick Unknown Analyte Normal = Negati ve Not Available [address] [place], [address], 02/19/2023 16:29:42 02/20/20 23 02/19/2023 urina lysis , dipst ick Unknown Analyte Negati ve Not Available [address] [place], [address], 02/19/2023 16:29:42 02/20/20 23 02/19/2023 urina lysis , dipst ick Unknown Analyte Normal = 6.5, 7.0, 7.5, 8.0 Not Available [address] [place], [address], 02/19/2023 16:29:42 02/20/20 23 02/19/2023 urina lysis , dipst ick Unknown Analyte 7.0 Not Available [facility] [address] [place], [address], 02/19/2023 16:29:42 02/20/20 23 02/19/2023 urina lysis , dipst ick Unknown Analyte Normal = Negati ve Not Available [facility] [place], [address], 02/19/2023 16:29:42 02/20/20 23 02/19/2023 urina lysis , dipst ick Unknown Analyte Negati ve Not Available [address] [place], [address], 02/19/2023 16:29:42 02/20/20 23 02/19/2023 urina lysis , dipst ick Unknown Analyte Normal = 0.2, 1.0 Not Available [address] [place], [address], 02/19/2023 16:29:42 02/20/20 23 02/19/2023 urina lysis , dipst ick Unknown Analyte 0.2 E.U./d L Not Available [address] [place], [address], 02/19/2023 16:29:42 02/20/20 23 02/19/2023 urina lysis , dipst ick Unknown Analyte Normal = Negati ve Not Available [address] [place], [address], 02/19/2023 16:29:42 02/20/20 23 02/19/2023 urina lysis , dipst ick Unknown Analyte Negati ve Not Available [address] [place], [address], 02/19/2023 16:29:42 02/20/20 23 02/19/2023 urina lysis , dipst ick Unknown Analyte Normal = Negati ve Not Available [address] [place], [address], 02/19/2023 16:29:42 02/20/20 23 02/19/2023 urina lysis , dipst ick Unknown Analyte Negati ve Not Available [address] [place], [address], 02/19/2023 16:29:42 Result Notes None recorded. Problems Name Problem SNOMED Code Status Onset Date Resolution Date Notes Provider Name and Address Organization Details Recorded Time Disorder of thyroid gland 26960671 Active 2022 KORI DRINKWINE null, [place] - [facility] 3 16:23:22 Gastroesophage al reflux disease 263679066 Active 2022 KORI DRINKWINE null, [place] - [facility] 3 16:24:19 Diverticulitis 551065227 Active 2022 KORI DRINKWINE null, [place] - [...] Name and Address Organization Details Recorded Time 490339 latex environme nt,medica tion rash Not available Not available 02/19/2023 91862 91 RxNorm YANIRA [facility] 3 16:22:30 [...] height Body mass index (BMI) Body weight Body temperature Respiratory rate Heart rate Oxygen saturation Oxygen saturation in Arterial blood by Pulse oximetry Systolic blood pressure Diastolic blood pressure Provider Name and Address Organization Details Last Updated DateTime 3 149.86 cm 30.9 kg/m2 09408.6 3 g 97.9 [degF] 16 /min 78 /min 100 % 100 % 130 mm[Hg] 82 mm[Hg] KORI DOYLE [employer] [facility] 3 16:29:01 Social History Question Answer Notes LastModified by Organizat ion Details LastModified Time Tobacco Smoking Status Never Smoker [facility] 02/19/2023 16:26:30 Have You Recently Traveled Abroad? No Information not available 02/19/2023 Sex: Unknown Functional Status Question Answer Note LastModified by Organizat ion Details LastModified Time Do you use any illicit or recreational drugs? No Information not available 02/19/2023 Do you or have you ever used any other forms of tobacco or nicotine? No Information not available 02/19/2023 Mental Status None recorded. Family History Relationship [...] SNOMED-CT Code Diagnosis ICD10 Code Diagnosis Note [id number] [facility] [facility] [address] [place] [address] 10/07/2018 14:05:34 10/07/2018 14:34:25 [id number] [place] [address] [place] [address] 02/19/2023 16:08:16 02/19/2023 17:12:57 Acute vaginitis 98710746 N76.0 Health Concerns Section Related Observation LastModified by Organization Detai ls LastModified Time None Recorded Concern Status LastModified by Organization Details LastModified Time None Recorded Advance Directives Directive None Recorded Payers Insurance Date Sequence Insurance Name Policy Number Policy Billings Covered Member ID Billings Member ID Guarantor Name 02/19/2023 1 [employer] [facility] (MEDICARE REPLACEMENT PPO) Venus Nguyen [id number] Venus Nguyen Notes Date Note Type Note Provider Name and Address Organization Details Recorded Time 3 text/html 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
== END 2025-02-04 10:00 | disposition home or self-care (01) ==
LOC: HO.ENCR 09:47
PROVIDERS: PCP Internal Medicine; Visit Provider Internal Medicine Endocrinology, Diabetes & Metabolism
DX: M81.0 Age-related osteoporosis without current pathological fracture (principal)

== ENCOUNTER → 2025-02-04 09:46 | Outpatient (BNVA) | payer MEDICARE, SELFPAY | PROVIDERS: PCP Internal Medicine; Visit Provider Internal Medicine Endocrinology, Diabetes & Metabolism | DX: M81.0 Age-related osteoporosis without current pathological fracture (principal) | CPT/HCPCS: 96372; J3111 ==

== ENCOUNTER 2025-03-04 09:52 | Outpatient (AMB) | payer MEDICARE, SELFPAY ==
--- NOTE | 2025-03-04 10:14 | AM.OFFVISNUR ---
Intake Visit Reasons: Evenity #9 Allergies nystatin Allergy (Intermediate, Verified 12/11/24 11:20) Rash Office Meds romosozumab-aqqg 210 mg/2.34 mL(105 mg/1.17 mL x2)subcutaneous syringe Performing Provider: Suman Perez MD Performing Location: [facility] Endocrinology Administered by: Althea Root RN on 03/04/25 10:00 Dose Route Admin Location Dispensed Lot Number Expiration Date [facility] Plate Gauger 210 mg subcut 2.34 mL [id number] 04/04/27 08622-502-59 AMGEN Total Dispensed Waste 2.34 mL 0 % Comments: Patient tolerated injection well. Patient denies any problems with previous injections. Assessment & Plan Assessment & Plan Orders: Orders AMB Romosozumab Injection Patient Supplied Today M81.0 - Age-related osteoporosis without current pathological fracture Coding
--- OUTSIDE RECORDS SUMMARY | 2025-03-04 10:26 | XMS_ITS | Data Portability ---
Author Organization [facility], [address] Address [address] [place] [address] Care Team Providers Care Epidemiologist Name Role Phone LACEY MELISSAMATT Primary Care Provider Assessment No assessment recorded. Plan of Treatment Reminders Order Date Submit Date Provider Last Modified By Organization Details Last Modified Time Details Appointments None recorded. Lab urinalysis, dipstick 2022 023 [email or web address] [facility] [address], [address] [place], [address], 3 16:54:19 vaginal pathogens panel, LIZZETH+probe, vaginal fluid 2022 023 CICERO [facility], [address] [place] [address], [address], 3 06:08:24 Referral None recorded. Procedures None recorded. Surgeries None recorded. Imaging None recorded. Medication Orders terconazole 80 mg vaginal suppository 2022 023 CICERO [id number], [id number] [place], [address], 3 16:54:23 Patient TargetsNo targets recorded. Patient Instructions Encounter Date Encounter Id Patient Instructions Last Modified By Organization Details Last Modified Time 02/19/2023 [id number] -Reviewed the various causes of vaginal problems. [...] Abnormal Flag Note LastModifiedBy Organization Detail LastModifiedTime 02/20/2002/21/2023 NUA B VAGIN ITIS PLUS (VG+) atopobium vaginae LOW - 0 score Not Available [facility] ([facility]) [address] [facility], [place], [address], 02/23/2023 06:08:24 02/20/20 23 02/21/2023 NUA B VAGIN ITIS PLUS (VG+) bvab 2 LOW - 0 score Not Available [facility] ([facility]) [address] [facility], [place], [address], 02/23/2023 06:08:24 02/20/20 23 02/21/2023 NUA B [...] Drug Admin istra tion. Not Available [facility] ([facility]) [address] [facility], [place], [address], 02/23/2023 06:08:24 02/20/20 23 02/21/2023 NUSWA B VAGIN ITIS PLUS (VG+) hilary albicans, LIZZETH NEGATI VE negati ve Not Available [facility] ([facility]) [address] [facility], [place], [address], 02/23/2023 06:08:24 02/20/20 23 02/21/2023 NUA B VAGIN ITIS PLUS (VG+) hilary glabrata, LIZZETH NEGATI VE negati ve Not Available [facility] ([facility]) [address] [facility], [place], [address], 02/23/2023 06:08:24 02/20/20 23 02/23/2023 NUA B VAGIN ITIS PLUS (VG+) trich vag by LIZZETH NEGATI VE negati ve Not Available [facility] ([facility]) [address] [facility], [place], [address], 02/23/2023 06:08:24 02/20/20 23 02/23/2023 NUA B VAGIN ITIS PLUS (VG+) chlamydia trachomatis, LIZZETH NEGATI VE negati ve Not Available [facility] ([facility]) [address] [place], [address], 02/23/2023 06:08:24 02/20/20 23 02/23/2023 NUA B VAGIN ITIS PLUS (VG+) neisseria gonorrhoeae, LIZZETH NEGATI VE negati ve Not Available [facility] ([facility]) [address] [place], [address], 02/23/2023 06:08:24 02/20/20 23 02/19/2023 urina lysis , dipst ick Unknown Analyte Normal = light yellow Not Available [address] [place], [address], 02/19/2023 16:29:42 02/20/20 23 02/19/2023 urina lysis , dipst ick Unknown Analyte Yellow Not Available [address] [place] [address] [address] [place], [address], 02/19/2023 16:29:42 02/20/20 23 02/19/2023 urina lysis , dipst ick Unknown Analyte Normal = clear Not Available [address] [place], [address], 02/19/2023 16:29:42 02/20/20 23 02/19/2023 urina lysis , dipst ick Unknown Analyte Clear Not Available [address] [place] [address] [address] [place], [address], 02/19/2023 16:29:42 02/20/20 23 02/19/2023 urina lysis , dipst ick Unknown Analyte Normal = negati ve Not Available [address] [place], [address], 02/19/2023 16:29:42 02/20/20 23 02/19/2023 urina lysis , dipst ick Unknown Analyte Negati ve Not Available [address] [place], [address], 02/19/2023 16:29:42 02/20/20 23 02/19/2023 urina lysis , dipst ick Unknown Analyte Normal = Negati ve Not Available [address] [place], [address], 02/19/2023 16:29:42 02/20/20 23 02/19/2023 urina lysis , dipst ick Unknown Analyte Negati ve Not Available [address] [place], [address], 02/19/2023 16:29:42 02/20/20 23 02/19/2023 urina lysis , dipst ick Unknown Analyte Normal = Negati ve Not Available [address] [place], [address], 02/19/2023 16:29:42 02/20/20 23 02/19/2023 urina lysis , dipst ick Unknown Analyte Negati ve Not Available [address] [place], [address], 02/19/2023 16:29:42 02/20/20 23 02/19/2023 urina lysis , dipst ick Unknown Analyte Normal = 1.010, 1.015, 1.020 Not Available [address] [place], [address], 02/19/2023 16:29:42 02/20/20 23 02/19/2023 urina lysis , dipst ick Unknown Analyte 1.020 Not Available [facility] [address] [place], [address], 02/19/2023 16:29:42 02/20/20 23 02/19/2023 urina lysis , dipst ick Unknown Analyte Normal = Negati ve Not Available [address] [place], [address], 02/19/2023 16:29:42 02/20/20 23 02/19/2023 urina lysis , dipst ick Unknown Analyte Negati ve Not Available [address] [place], [address], 02/19/2023 16:29:42 02/20/20 23 02/19/2023 urina lysis , dipst ick Unknown Analyte Normal = 6.5, 7.0, 7.5, 8.0 Not Available [address] [place], [address], 02/19/2023 16:29:42 02/20/20 23 02/19/2023 urina lysis , dipst ick Unknown Analyte 7.0 Not Available [facility] [address] [place], [address], 02/19/2023 16:29:42 02/20/20 23 02/19/2023 urina lysis , dipst ick Unknown Analyte Normal = Negati ve Not Available [facility] [place], [address], 02/19/2023 16:29:42 02/20/20 23 02/19/2023 urina lysis , dipst ick Unknown Analyte Negati ve Not Available [address] [place], [address], 02/19/2023 16:29:42 02/20/20 23 02/19/2023 urina lysis , dipst ick Unknown Analyte Normal = 0.2, 1.0 Not Available [address] [place], [address], 02/19/2023 16:29:42 02/20/20 23 02/19/2023 urina lysis , dipst ick Unknown Analyte 0.2 E.U./d L Not Available [address] [place], [address], 02/19/2023 16:29:42 02/20/20 23 02/19/2023 urina lysis , dipst ick Unknown Analyte Normal = Negati ve Not Available [address] [place], [address], 02/19/2023 16:29:42 02/20/20 23 02/19/2023 urina lysis , dipst ick Unknown Analyte Negati ve Not Available [address] [place], [address], 02/19/2023 16:29:42 02/20/2002/19/2023 urina lysis , dipst ick Unknown Analyte Normal = Negati ve Not Available [address] [place], [address], 02/19/2023 16:29:42 02/20/2002/19/2023 urina lysis , dipst ick Unknown Analyte Negati ve Not Available [address] [place], [address], 02/19/2023 16:29:42 Result Notes None recorded. Problems Name Problem SNOMED Code Status Onset Date Resolution Date Notes Provider Name and Address Organization Details Recorded Time Disorder of thyroid gland 52161138 Active 2022 KORI DRINKWINE null, [place] - [facility] 3 16:23:22 Gastroesophage al reflux disease 886890097 Active 2022 KORI DRINKWINE null, [place] - [facility] 3 16:24:19 Diverticulitis 810967271 Active 2022 KORI DRINKWINE null, [place] - [...] Name and Address Organization Details Recorded Time 575608 latex environme nt,medica tion rash Not available Not available 02/19/2023 51514 91 RxNorm YANIRA Baker [facility] 3 16:22:30 Medications Name Sig Start [...] Updated DateTime 3 149.86 cm 30.9 kg/m2 32132.6 3 g 97.9 [degF] 16 /min 78 /min 100 % 100 % 130 mm[Hg] 82 mm[Hg] KORI ROSENTHAL [place] - [facility] 3 16:29:01 Social History Question Answer Notes LastModified by Organizat ion Details LastModified Time Tobacco Smoking Status Never Smoker YANIRA Baker [facility] 02/19/2023 16:26:30 Have You Recently Traveled [...] SNOMED-CT Code Diagnosis ICD10 Code Diagnosis Note [id number] [facility] [address] [place] [address] 10/07/2018 14:05:34 10/07/2018 14:34:25 [id number] [place] [address] [facility] [address] [place] [address] 02/19/2023 16:08:16 02/19/2023 17:12:57 Acute vaginitis 19191418 N76.0 Health Concerns Section Related Observation LastModified by Organization Detai ls LastModified Time None Recorded Concern Status LastModified by Organization Details LastModified Time None Recorded Advance Directives Directive None Recorded Payers Insurance Date Sequence Insurance Name Policy Number Policy Billings Covered Member ID Billings Member ID Guarantor Name 02/19/2023 1 [facility] (MEDICARE REPLACEMENT PPO) Venus Nguyen [id number] Venus Nugyen Notes Date Note Type Note Provider Name and Address Organization Details Recorded Time 3 text/html 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
== END 2025-03-04 10:09 | disposition home or self-care (01) ==
LOC: HO.ENCR 09:52
PROVIDERS: PCP Internal Medicine; Visit Provider Internal Medicine Endocrinology, Diabetes & Metabolism
DX: M81.0 Age-related osteoporosis without current pathological fracture (principal)

== ENCOUNTER → 2025-03-04 09:52 | Outpatient (BNVA) | payer MEDICARE, SELFPAY | PROVIDERS: PCP Internal Medicine; Visit Provider Internal Medicine Endocrinology, Diabetes & Metabolism | DX: M81.0 Age-related osteoporosis without current pathological fracture (principal) | CPT/HCPCS: 96372; J3111 ==

== ENCOUNTER 2025-03-05 09:33 | Outpatient (AMB) | payer MEDICARE, SELFPAY ==
--- OUTSIDE RECORDS SUMMARY | 2024-09-04 05:00 | XMS_ITS | Continuity of Care Document ---
Author Organization [facility] Address [address] [place] [address] Phone Care Team Providers Care Miller Head Wet Process Name Role Phone Saravanan CARRILLO, GIANA, Suman [...] Mins- [place] & [place] [facility], [address] [place] [address] Dr [address] [address]I[place]hima [place], [id number], [place] tel:[phone] [facility] Venous insufficiency (chronic) (peripheral) 4 Saravanan CARRILLO RVT, RPVI Robert. [address] [place] [address], [place], [id number], [place]. tel:[phone] Referring Provider: Mundo Camacho MD, [address] [place] [address] [address] [facility] In [facility], [place], [address]. tel:[phone] [facility], [address] [place] [address] Dr Escobedo 1000[facility] 1000Ibrahima [place], [id number], [place] tel:[phone] [facility] Chronic venous hypertension (idiopathic) with other complications of right lower extremity 4 Saravanan CARRILLO RVT, RPVI Robert. [address] [place] [address], [facility] [place], [id number], [place]. tel:[phone] Referring Provider: Mundo Camacho MD, [address] [facility] [address] [place] [address] [place], [address]. tel:[phone] [facility], [address] [place] [address] Dr [address]Suite Ibrahima Espinoza MD, [id number], [place] tel:[phone] CVR - [place] Encounter for follow-up examination after completed treatment for conditions other than malignant neoplasmPain in right leg 4 Saravanan CARRILLO RVT, NUNU Will. [address] [place] [address], Suite [facility], [facility] [place], [id number], [place]. tel:[phone] Referring Provider: Mundo Camacho MD, [address] [facility] [address] [place] [address], [address]. tel:[phone] [place] [facility], [address] [place] [address] Dr [address]Suite 1000Ibrahima [place], [id number], [place] tel:[phone] CVR - [facility] Varicose veins of right lower extremity with other complications 4 Saravanan CARRILLO RVT, NUNU Will. [address] [place] [address], [address], [facility] [place], [id number], [place]. tel:[phone] Referring Provider: Mundo Camacho MD, [address] [place] [address] [address] [place] [address], [address]. tel:[phone] [facility], [address] [place] [address] Dr [address]Suite Ibrahima Espinoza MD, [id number], [place] tel:[phone] CVR - [place] Encounter for follow-up examination after completed treatment for conditions other than malignant nePain in right leg 4 Saravanan CARRILLO RVT, NUNU Will. [address] [facility], [address], [facility] [place], [id number], [place]. tel:[phone] Referring Provider: Mundo Camacho MD, [address] [facility] [address] [facility] [place], [address]. tel:[phone] [facility], [address] [place] [address] Suite [address]Suite 1000Ibrahima MD, [id number], [place] tel:[phone] CV[place] Varicose veins of right lower extremity with other complications Jul-2 0 4 Matteo Martinez. [facility]0 [facility], Suite [facility], [facility] [place], [id number], [place]. tel:[phone] Referring Provider: Mundo Camacho MD, [address] [facility] [address] [facility] [place], [address]. tel:[phone] Offic Cons New/estab Mod 40 Mi- CT & [place] [facility], [address] [place] [address] Dr Escobedo 1000Suite 1000Ibrahima MD, [id number], [place] tel:[phone] [place] Body mass index [BMI] 30.0-30.9, adultChronic venous hypertension (idiopathic) without complications of right lower extremity Jun- 4 Saravanan CARRILLO RVT, RPVI Robert. [address] [place] [address], [place] [address], [facility] [place] [place], [id number], [place]. tel:[phone] Referring Provider: Mundo Camacho MD, [address] [facility] [address] [facility] [place], [address]. tel:[phone] [facility], [address] [place] [address] Suite [address]Suite 1000Ibarhima MD, [id number], [place] tel:[phone] CVR - [place] Chronic venous hypertension (idiopathic) with other complications of right lower extremity Jun- 4 Saravanan CARRILLO RVT, RPVI Robert. [address] [place] [address], Suite [facility], [facility] [place], [id number], [place]. tel:[phone] Referring Provider: Mundo Camacho MD, [address] [facility] [address] [facility] [place], [address]. tel:[phone] Office/Outpt E&M Established 15 Mins- CT & [place] [facility], [address] [place] [address] Dr Escobedo 1000Suite Ibrahima Espinoza MD, [id number], [place] tel:[phone] CVR - [place] Venous insufficiency (chronic) (peripheral) 4 Saravanan CARRILLO RVT, NUNU Will. [address] [place] [address], Suite [facility], [place], [place], [id number], [place]. tel:[phone] Referring Provider: Mundo Camacho MD, [address] [place] [address] Dr [address] [facility] [place], [address]. tel:[phone] [facility], [address] [place] [address] Dr Escobedo 1000Suite Ibrahima Espinoza MD, [id number], [place] tel:[phone] CVR - [place] Varicose veins of bilateral lower extremities with pain 4 Saravanan CARRILLO RVT, NUNU Will. [address] [place] [address], [place] [address], [facility] [place], [id number], [place]. tel:[phone] Referring Provider: Mundo Camacho MD, [address] [place] [address] [place] [address] [place], [address]. tel:[phone] [facility], [address] [place] [address] Dr Escobedo 1000Suite Ibrahima Espinoza MD, [id number], [place] tel:[phone] CVR - [place] Encounter for follow-up examination after completed treatment for conditions other than malignant neChronic venous hypertension (idiopathic) with other complications of bilateral lower extremity 4 Saravanan CARRILLO RVT, NUNU Will. [address] [place] [address], [address], [facility] [place] [place], [id number], [place]. tel:[phone] Referring Provider: Mundo Camacho MD, [address] [place] [address] [address] [place] [address] [place], [address]. tel:[phone] [facility], [address] [place] [address] Dr Escobedo 1000Suite Ibrahima Espinoza MD, [id number], [place] tel:[phone] [facility] Varicose veins of left lower extremity with other complications 0 4 Leonel Cotton. [address] [place] [address], [place], [place], [id number], [place]. tel:[phone] Referring Provider: Mundo Camacho MD, [address] [place] [address] [address] [place] [address] [place], [address]. tel:[phone] [facility], [address] [place] [address] Dr Escobedo 1000Suite Ibrahima Espinoza [place], [id number], [place] tel:[phone] [facility] Encounter for follow-up examination after completed treatment for conditions other than malignant neVaricose veins of right lower extremity with pain 4 Saravanan CARRILLO, RVT, RPVI Suman. [address] [place] [address], [place], [place], [id number], [place]. tel:[phone] Referring Provider: Mundo Camacho MD, [address] [place] [address] [address] [place] [address] [place], [address]. tel:[phone] [facility], [address] [place] [address] Dr [address]obedo 1000Suite Ibrahima Espinoza MD, [id number], [place] tel:[phone] [facility] Chronic venous hypertension (idiopathic) with inflammation of right lower extremity Nov-0 4 Leonel Cotton. [address] [address], [place], [place], [id number], [place]. tel:[phone] Referring Provider: Mundo Camacho MD, [address] [place] [address] Dr [address] [facility] In [facility], [place], [address]. tel:[phone] Offic Cons New/estab Mod-hi 60 [facility], [address] [place] [address] Dr [address]obedo 1000Suite Ibrahima Espinoza MD, [id number], [place] tel:[phone] [facility] Chronic venous hypertension (idiopathic) with other complications of bilateral lower extremityPain in left lower legPain in right legPain in left legVenous insufficiency (chronic) (peripheral)C ramp and spasm Feb-0 4 Saravanan CARRILLO RVT, NUNU Will. [address] [facility], [place] [address], [place], [place], [id number], [place]. tel:[phone] Referring Provider: Mundo Camacho MD, [address] [place] [address] Dr [address] [facility] [place], [address]. tel:[phone] [facility], [address] [facility] [address], [place], [id number], [place] tel:[phone] R - [facility] Varicose veins of bilateral lower extremities with pain b-0 4 Saravanan CARRILLO RVT, NUNU Will. [address] [facility], [place] [address], [place], [place], [id number], [place]. tel:[phone] Referring Provider: Mundo Camacho MD, [address] [place] [address] Dr [address] [facility] [place], [address]. tel:[phone] Family History Family Member Type Diagnosis Age At Onset No Information Payers Payer name Insurance type Covered libertarian ID Everett nicole(s) [employer] Medicare CI [id number] Social History Type Description Quantity Date Captured [...]
[2025-03-05 09:42] VITALS: BP 106/70; PULSE 82; TEMP 36.6; O2SAT 98; BMI 28.9
--- NOTE | 2025-03-05 09:42 | AM.OFFWIN_ITS ---
Intake Vital Signs 03/05/25 09:42 Height 4 ft 11 in Weight 143 lb BMI 28.9 BP 106/70 Blood Pressure Location Lt brachial Position Sitting Pulse 82 Pulse Source Pulse Oximeter Temp 97.8 F Temp Source Oral Pulse Oximetry (%) 98 Oxygen Delivery Method Room Air Intake Visit Reasons: EP fainted last night, cold symptoms, nausea Intake Note: pt presents with cold started 4 days ago, productive cough, nausea, right eye bruise without injury; vision is fine, body weakness, mild headache. 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 History - The patient is a 75-year-old female wi th past med hx of remote seizure disorder (30yrs ago), HLD, GERD, osteoporosis, multinodular thyroid, hyperparathyroidism s/p thyroidectomy and hypothyroidism presenting with syncope and cold symptoms. - She developed a cold with coughing 4 d ays ago which is worsening. - Developed bruising on her right upper eyelid on Tuesday night without any trauma. Denies changes in vision. - She had a witnessed fainting episode l night, feeling a cano in her head before falling. Her was there, she tells me she was passed out for only a few minutes . She tells me it did not feel like her seizures felt, she did not have any incontinence of urine. - No chest pain, shortness of breath, or dizziness was noted before fainting. - She is not on a blood thinner and did not hit her head. - Post-fainting, she felt nauseous and s weaty. She did not feel confused, she also denies chest pain or dizzyness. She did have some diarrhea, non bloody and not black. Denies fevers. - She received an osteoporosis shot sandy ier in the day. - Prior to this, she had been eating and drinking her normal amount. - Denies any cardiac history and has nev er seen a stretcher leveler operator. - Current medications include calcium vi tamins, dicyclomine prn, estradiol, levothyroxine, omeprazole, and tramadol. Physical Exam General: Cooperative, healthy appearing, comfortable and no acute distress Orientation/consciousness: Patient oriented x3 Limitations: No limitations Head: normal to inspection otherwise Ears: Hearing grossly normal bilaterally, external ears normal, TMs with fluid R>L Nose: Normal external nose present, Normal nares present and No nasal discharge present Face and sinus: Normal facial exam and Yes sinuses nontender Mouth: Normal oral and palatal mucosa present and moist mucous membranes Throat: Yes tonsils normal, Yes uvula midline. Posterior oropharynx erythema, no exudates Eyes: small area of ecchymosis on upper inner right eyelid, appearance otherwise normal, both eyes and all related structures Neck: Normal visual inspection, full ROM Respiratory: Clear to auscultation bilaterally. Normal respiratory effort, able to speak in complete sentences, not actively coughing, no respiratory distress, not tachypneic, no tripod positioning and no use of accessory muscles Cardiovascular: Regular rate and rhythm. Normal S1 and S2 Skin: No rashes or lesions noted Neuro: Patient oriented x3 Extremities: Normal to inspection and Yes no clubbing, cyanosis or [facility] Overweight (BMI 25.0-29.9) Pruritic rash Superficial thrombophlebitis Small bowel obstruction Rash Varicose vein of leg Screening for breast cancer Hyperparathyroidism Age-related osteoporosis without current pathological fracture Multinodular thyroid Screening for diabetes mellitus Impacted cerumen of left ear History of seizures Peripheral vascular disease Thyroid nodule GERD (gastroesophageal reflux disease) Hypothyroidism Osteoporosis Surgical History History of colonoscopy History of surgery History of total abdominal hysterectomy and bilateral salpingo-oophorectomy History of cholecystectomy Family History Father Throat cancer Mother No problems noted. Brother Liver cancer Social History Household Members: Spouse Housing: Condominium Do you presently have visiting nurse or other home services: No Alcohol intake: never Patient Tobacco Use Status: Never used Tobacco Tobacco use type: Cigarette e-Cigarette/Vaping Use: Never Used Second Hand Smoke Exposure: No service: No Current occupational status: unemployed Cognitive needs: No Hearing needs: No Vision needs: Yes Review of Systems Const All systems reviewed & are unremarkable except as noted in HPI and below Physical Exam Vital Signs: Last Vital Signs Temp 97.8 F 03/05/25 09:42 Pulse 82 03/05/25 09:42 BP 106/70 03/05/25 09:42 Pulse Ox 98 03/05/25 09:42 Oxygen Delivery Method Room Air 03/05/25 09:42 BMI result Body Mass Index 28.9 Assessment & Plan Assessment & Plan (1) Syncope: Code(s): R55 - Syncope and collapse Qualifiers: Syncope type: unspecified Qualified Code(s): R55 - Syncope and collapse Plan: - VSS, pt well appearing and PE remarkable for small ecchymosis on right upper eyelid and fluid in both TM's - Recommend emergency department evaluation to rule out cardiac causes for syncope, with her sweating and nausea. Also, potential dehydration from illness or possible vasovagal. - Patient is stable and well-appearing so her daughter will drive her to the emergency department. - I did call the [facility] emergency department with delfino, spoke with Leticia at 10:20AM. Patient was informed and verbally consented to the use of an ambient scribe for clinic note documentation during this visit Coding Level of Care Code Est Pt Level 5 (58031) Diagnoses Syncope, unspecified syncope type R55 Syncope type: unspecified
--- OUTSIDE RECORDS SUMMARY | 2025-03-05 10:15 | XMS_ITS | Data Portability ---
Author Organization [facility], [address] Address [address] [place] [address] Care Team Providers Care Certified Registered Nurse Anesthetist Name Role Phone LACEY MELISSAMATT Primary Care Provider Assessment No assessment recorded. Plan of Treatment Reminders Order Date Submit Date Provider Last Modified By Organization Details Last Modified Time Details Appointments None recorded. Lab urinalysis, dipstick 2022 023 fijaz3 [facility], [address] [place], [address], 3 16:54:19 vaginal pathogens panel, LIZZETH+probe, vaginal fluid 2022 023 OLNEY [facility], [address] [place] [address], [address], 3 06:08:24 Referral None recorded. Procedures None recorded. Surgeries None recorded. Imaging None recorded. Medication Orders terconazole 80 mg vaginal suppository 2022 023 OLNEY [id number], [phone] [place], [address], 3 16:54:23 Patient TargetsNo targets recorded. Patient Instructions Encounter Date Encounter Id Patient Instructions Last Modified By Organization Details Last Modified Time 02/19/2023 [id number] -Reviewed the various causes of vaginal problems. [...] LOW - 0 score Not Available [facility] ([facility]) [address], [place], [address], 02/23/2023 06:08:24 02/20/20 23 02/21/2023 NUA B VAGIN ITIS PLUS (VG+) bvab 2 LOW - 0 score Not Available [facility] ([facility]) [address] [facility], [place], [address], 02/23/2023 06:08:24 02/20/20 23 02/21/2023 NUA B [...] Drug Admin istra tion. Not Available [facility] ([facility]) [address] [facility], [place], [address], 02/23/2023 06:08:24 02/20/20 23 02/21/2023 NUSWA B VAGIN ITIS PLUS (VG+) hilary albicans, LIZZETH NEGATI VE negati ve Not Available [facility] ([facility]) [address] [facility], [place], [address], 02/23/2023 06:08:24 02/20/20 23 02/21/2023 NUA B VAGIN ITIS PLUS (VG+) hilary glabrata, LIZZETH NEGATI VE negati ve Not Available [facility] ([facility]) [address] [facility], [place], [address], 02/23/2023 06:08:24 02/20/20 23 02/23/2023 NUA B VAGIN ITIS PLUS (VG+) trich vag by LIZZETH NEGATI VE negati ve Not Available [facility] ([facility]) [address] [facility], [place], [address], 02/23/2023 06:08:24 02/20/20 23 02/23/2023 NUA B VAGIN ITIS PLUS (VG+) chlamydia trachomatis, LIZZETH NEGATI VE negati ve Not Available [facility] ([facility]) [address] [place], [address], 02/23/2023 06:08:24 02/20/20 23 02/23/2023 NUA B VAGIN ITIS PLUS (VG+) neisseria gonorrhoeae, LIZZETH NEGATI VE negati ve Not Available [facility] ([facility]) [address] [place], [address], 02/23/2023 06:08:24 02/20/20 23 02/19/2023 urina lysis , dipst ick Unknown Analyte Normal = light yellow Not Available [address] [place], [address], 02/19/2023 16:29:42 02/20/20 23 02/19/2023 urina lysis , dipst ick Unknown Analyte Yellow Not Available [address] [place] [address] [address] [place], [address], 02/19/2023 16:29:42 02/20/20 23 02/19/2023 urina lysis , dipst ick Unknown Analyte Normal = clear Not Available [facility] [place], [address], 02/19/2023 16:29:42 02/20/20 23 02/19/2023 urina lysis , dipst ick Unknown Analyte Clear Not Available [address] [place] [address] [address] [place], [address], 02/19/2023 16:29:42 02/20/20 23 02/19/2023 urina lysis , dipst ick Unknown Analyte Normal = negati ve Not Available [address] [place], [address], 02/19/2023 16:29:42 02/20/20 23 02/19/2023 urina lysis , dipst ick Unknown Analyte Negati ve Not Available [address] [place], [address], 02/19/2023 16:29:42 02/20/20 23 02/19/2023 urina lysis , dipst ick Unknown Analyte Normal = Negati ve Not Available [address] [place], [address], 02/19/2023 16:29:42 02/20/20 23 02/19/2023 urina lysis , dipst ick Unknown Analyte Negati ve Not Available [address] [place], [address], 02/19/2023 16:29:42 02/20/20 23 02/19/2023 urina lysis , dipst ick Unknown Analyte Normal = Negati ve Not Available [address] [place], [address], 02/19/2023 16:29:42 02/20/20 23 02/19/2023 urina lysis , dipst ick Unknown Analyte Negati ve Not Available [address] [place], [address], 02/19/2023 16:29:42 02/20/20 23 02/19/2023 urina lysis , dipst ick Unknown Analyte Normal = 1.010, 1.015, 1.020 Not Available [facility] [place], [address], 02/19/2023 16:29:42 02/20/20 23 02/19/2023 urina lysis , dipst ick Unknown Analyte 1.020 Not Available [facility] [address] [place], [address], 02/19/2023 16:29:42 02/20/20 23 02/19/2023 urina lysis , dipst ick Unknown Analyte Normal = Negati ve Not Available [address] [place], [address], 02/19/2023 16:29:42 02/20/20 23 02/19/2023 urina lysis , dipst ick Unknown Analyte Negati ve Not Available [address] [place], [address], 02/19/2023 16:29:42 02/20/20 23 02/19/2023 urina lysis , dipst ick Unknown Analyte Normal = 6.5, 7.0, 7.5, 8.0 Not Available [address] [place], [address], 02/19/2023 16:29:42 02/20/20 23 02/19/2023 urina lysis , dipst ick Unknown Analyte 7.0 Not Available [facility] [address] [place], [address], 02/19/2023 16:29:42 02/20/20 23 02/19/2023 urina lysis , dipst ick Unknown Analyte Normal = Negati ve Not Available [address] [place], [address], 02/19/2023 16:29:42 02/20/20 23 02/19/2023 urina lysis , dipst ick Unknown Analyte Negati ve Not Available [address] [place], [address], 02/19/2023 16:29:42 02/20/20 23 02/19/2023 urina lysis , dipst ick Unknown Analyte Normal = 0.2, 1.0 Not Available [address] [place], [address], 02/19/2023 16:29:42 02/20/20 23 02/19/2023 urina lysis , dipst ick Unknown Analyte 0.2 E.U./d L Not Available [address] [place], [address], 02/19/2023 16:29:42 02/20/20 23 02/19/2023 urina lysis , dipst ick Unknown Analyte Normal = Negati ve Not Available [address] [place], [address], 02/19/2023 16:29:42 02/20/20 23 02/19/2023 urina lysis , dipst ick Unknown Analyte Negati ve Not Available [address] [place], [address], 02/19/2023 16:29:42 02/20/2002/19/2023 urina lysis , dipst ick Unknown Analyte Normal = Negati ve Not Available [address] [place], [address], 02/19/2023 16:29:42 02/20/2002/19/2023 urina lysis , dipst ick Unknown Analyte Negati ve Not Available [address] [place], [address], 02/19/2023 16:29:42 Result Notes None recorded. Problems Name Problem SNOMED Code Status Onset Date Resolution Date Notes Provider Name and Address Organization Details Recorded Time Disorder of thyroid gland 06286796 Active 2022 KORI DRINKWINE null, [place] - [facility] 3 16:23:22 Gastroesophage al reflux disease 226908443 Active 2022 KORI DRINKWINE [place], [place] - [facility] 3 16:24:19 Diverticulitis 884241146 Active 2022 KORI DRINKWINE null, [place] - [...] Name and Address Organization Details Recorded Time 635264 latex environme nt,medica tion rash Not available Not available 02/19/2023 [id number] RxNorm YANIRA Baker [facility] 3 [...] Updated DateTime 3 149.86 cm 30.9 kg/m2 90916.6 3 g 97.9 [degF] 16 /min 78 [...] SNOMED-CT Code Diagnosis ICD10 Code Diagnosis Note [id number] [facility] [place] [address] 10/07/2018 14:05:34 10/07/2018 14:34:25 [id number] [place] [address] [facility] [address] [place] [address] 02/19/2023 16:08:16 02/19/2023 17:12:57 Acute vaginitis 13047280 N76.0 Health Concerns Section Related Observation LastModified by Organization Detai ls LastModified Time None Recorded Concern Status LastModified by Organization Details LastModified Time None Recorded Advance Directives Directive None Recorded Payers Insurance Date Sequence Insurance Name Policy Number Policy Billings Covered Member ID Billings Member ID Guarantor Name 02/19/2023 1 [facility] (MEDICARE REPLACEMENT PPO) Venus Nguyen [id number] Venus Nguyen Notes Date Note Type Note Provider Name and Address Organization Details Recorded Time 3 text/html Urinary / Spinning Doffer Problems-FemaleReported bypatient.source of patient informationInformation obtained from [...] Larson NP [address] [place], [address], [place] - [facility] 02/19/2023 16:54:34 OBGyn Episode No OBEpisode recorded.
--- OUTSIDE RECORDS SUMMARY | 2025-03-05 10:15 | XMS_ITS | Patient Health Record ---
Author Organization [facility] Address [address] [place] [address] Care Team Providers Care Laborer [employer] Name Role Phone Mundo Camacho MD Primary Care Provider Suman Orta [phone] Allergies Allergen (clinical drug ingredient) Drug/Non Drug [...] W/U Status Risk Notes Problem Abdominal bloating (663237692) Abdominal bloating (R14.0) Active confirmed Problem Irritable bowel syndrome (81807138) IBS (irritable bowel syndrome) (K58.9) Active confirmed Problem Epigastric pain (59771587) Abdominal pain, epigastric (R10.13) Active confirmed Problem Flatus (00023233) Flatus (R14.3) Active confirmed Plan Of Treatment Future Test Test Name Order Date COLONOSCOPY 05/06/2015 Insurance Providers Payer Name Payer Address Payer Phone Subscriber Number Group Number Insured Name Patient Relationship to Insured Coverage Start Date Coverage End Date [facility] [address] [place] [phone] [id number] ZOLTAN NGUYEN Self - patient is the insured Medical (General) History Medical History History ICD Code Colonoscopy 12-04-2004--no markel yps-small internal hemorrhoids and mild diverticulosis GERD--EGD in 2001 with a sma ll HH-no esophagitis,; EGD in 04/2014-small HH, but otherwise negative for esophagitis or Navarro's esophagus Hypothyroidism Osteoporosis Arthritis Negative colonoscopy in 07/2015 Denies CA,DM,CVA,Lung disease,renal dise ase Small bowel obstruction--December 2021--res olved with a NG tube-Dr. Gifford Surgical History Surgery Date(Month/Year) [facility] ARINA Varicose vein stripping Tubal ligation Hemorrhoid surgery in [address] Jorgito blackmon
== END 2025-03-05 10:11 | disposition home or self-care (01) ==
PROVIDERS: PCP Internal Medicine; Visit Provider Physician Assistant
DX: R55 Syncope and collapse (principal)

== ENCOUNTER → 2025-03-05 09:33 | Outpatient (BNVA) | payer MEDICARE, SELFPAY | PROVIDERS: PCP Internal Medicine; Visit Provider Physician Assistant | DX: R55 Syncope and collapse (principal) | CPT/HCPCS: 99212 ==

== ENCOUNTER 2025-03-05 10:31 | Emergency (ER) | payer MEDICARE, SELFPAY ==
--- NOTE | 2025-03-05 | ECG_ITS ---
Test Reason : SYNCOPE Blood Pressure : */* mmHG Vent. Rate : 65 BPM Atrial Rate : 65 BPM P-R Int : 154 ms QRS Dur : 68 ms QT Int : 426 ms P-R-T Axes : 2 56 52 degrees QTcB Int : 443 ms Normal sinus rhythm Normal ECG When compared with ECG of 05-Oct-2023 11:13, No significant change was found Referred By: Generic ED Physician Electronically Signed By: DAVE CHUNG MD
--- NOTE | ~2025-03-05 | XR_ITS ---
EXAMINATION: XR CHEST CLINICAL INFORMATION: cough COMPARISON: April 09, 2024 TECHNIQUE: 2 views of the chest were obtained. FINDINGS: Heart and mediastinal contours are within normal limits. There is calcification in the aortic knob. Lungs are clear and well expanded. There is no pleural effusion. XR/XR chest 2V IMPRESSION: No acute disease Electronically signed by: Avelino Zeng MD 03/05/2025 01:05 PM EDT
[2025-03-05 10:42] VITALS: BP 133/56; PULSE 70; RESP 18; TEMP 36.8; O2SAT 96; BMI 28.9
[2025-03-05 11:07] LABS: MANUAL DIFF FLAG NO
[2025-03-05 11:10] LABS: Hematocrit 42.3 % (37.0-47.0); Hemoglobin 14.0 g/dl (12.0-16.0); Imm Gran Abs Auto 0.01 X10*3/uL (0.00-0.03); Imm Gran Pct Auto 0.3 % (0.0-0.4); Lymphocytes Absolute Auto 1.9 X10*3/uL (1.2-4.9); Mean Corpuscular HGB Conc 33.1 g/dl (31.0-35.0); Mean Corpuscular Hemoglobin 31.5 pg (27.0-33.0); Mean Corpuscular Volume 95.1 fL (80.0-98.0); NRBC Abs Auto 0.000 X10*3/uL (0.0-0.012); NRBC Pct Auto 0.0 /100WBC (0.0-0.2); Platelet Count 160 X10*3/uL (160-400); Red Blood Count 4.45 X10*6/uL (4.20-5.50); White Blood Count 3.9 X10*3/uL (4.8-10.8)
[2025-03-05 11:21] LABS: IDNOW Serial# 58CA691E; Strep A Nucleic Acid Negative (Negative)
[2025-03-05 11:26] LABS: Alanine Aminotransferase 39 U/L (0-31); Albumin Level 4.4 g/dL (3.5-5.0); Alkaline Phosphatase 162 U/L (39-117); Anion Gap 12 (12-20); Aspartate Amino Transferase 53 U/L (5-31); Blood Urea Nitrogen 12 mg/dL (9-16); Calcium 8.1 mg/dL (8.4-10.2); Carbon Dioxide 25 mmol/L (22-29); Chloride 104 mmol/L (96-108); Creatinine Clr Calc Pharmacy 64.1; Estimated Glomerular Filt Rate > 60; Magnesium 1.9 mg/dL (1.6-2.6); Potassium 4.2 mmol/L (3.3-5.1); Sodium 137 mmol/L (135-145); Total Protein 7.0 g/dL (6.5-8.0)
[2025-03-05 11:40] VITALS: BP 131/65; PULSE 65
[2025-03-05 11:42] VITALS: BP 122/63; PULSE 71
[2025-03-05 11:44] VITALS: BP 118/70; PULSE 78
[2025-03-05 11:51] LABS: Resp Syncy Virus RNA Qual PCR NEGATIVE (Negative); SARS COV2 PCR INHOUSE NEGATIVE (Negative)
--- NOTE | 2025-03-05 12:47 | ED.URI ---
HPI - URI/Sore Throat General Chief Complaint: Syncope Stated Complaint: Fainted Last Night Cold Symptoms Time Seen by Provider: 03/05/25 12:34 Source: patient Mode of arrival: ambulatory Limitations: no limitations History of Present Illness ED Provider: Cinthya Alonzo HPI Narrative: 75-year-old female presenting to emergency department today with past medical history significant for osteoarthritis, osteoporosis, hypothyroidism, GERD status post an episode of presyncope last night and setting of URI symptoms that began approximately 4 days ago. Patient is accompanied by her daughter. Starting on Tuesday patient had ?cold-like symptoms?. These symptoms include nasal congestion scratchy throat and a cough. She also had chills but no fever. These symptoms continued for the next 2 days and she only took Tylenol. On Tuesday evening patient went upstairs to go to the bathroom and then to bed however and walking in the hallway she suddenly felt really hot and sweaty like she was going to pass out so she called for her 's name and while patient nearly syncopized she did not experience any loss of consciousness or complete fall to the ground. She was able to void and have a bowel movement afterwards without any difficulty or pain. She reports that skipping any meals and feels hydrated. She is denying any muscle cramps joint pain or rashes that is new onset. She also has some bruising on her right eyelid but denies any falls or trauma or visual changes or eye pressure. She is not sure what could have caused it. She does not feel lightheaded but head feels full in her ears. She is denying any tinnitus or hearing loss though and no neck pain or difficulty with swallowing. She feels like her appetite is good. Patient does have a history of lightheadedness before in the past but no syncope she is denying any chest pain palpitations or shortness of breath and the symptoms did not exist both before and after her episode of presyncope. She is not on any anticoagulation. She denies any confusion. Patient did have a single episode of diarrhea the day before but not presently. Patient has sought medical attention at urgent Care today however because she reported syncope they referred her to the emergency department. The urgent care note was reviewed she did report of loss of consciousness for only a few minutes however patient denied this to me and she denied it in front of her daughter as well as witness. MD elicited complaint: cough Related Data Home Medications ?Medication ?Instructions ?Recorded ?Confirmed dicyclomine 10 mg capsule 10 mg PO BID PRN 09/19/23 07/10/24 Previous Rx's ?Medication ?Instructions ?Recorded calcium 650 mg-vitamin D3 12.5 1 tab PO BID #60 tabs 04/16/24 mcg-vitamin K 40 mcg chewable tablet (Viactiv) cholecalciferol (vitamin D3) 25 25 mcg PO DAILY #30 caps 04/16/24 mcg (1,000 unit) capsule omeprazole 20 mg capsule,delayed 20 mg PO DAILY 90 days #90 caps 07/10/24 release tramadol 50 mg tablet 50 mg PO DAILY PRN pain #30 tabs 07/10/24 romosozumab-aqqg 210 mg/2.34 210 mg (2.34 mL) subcut .q month 07/12/24 mL(105 mg/1.17 mL x2)subcutaneous #2.34 mL syringe (Violet Grey) levothyroxine 75 mcg tablet 75 mcg PO DAILY #90 tabs 12/10/24 estradiol 0.01% (0.1 mg/gram) 1 g vaginal 2XW #42.5 grams 12/11/24 vaginal cream (Estrace) amoxicillin 500 mg-potassium 1 tab PO BID #14 tabs 03/05/25 clavulanate 125 mg tablet (Augmentin) benzonatate 100 mg capsule 100 mg PO TID PRN cough 7 days #21 03/05/25 caps Allergies Allergy/AdvReac Type Severity Reaction Status Date / Time nystatin Allergy Intermediate Rash Verified 03/05/25 10:45 Review of Systems Review of Systems: Yes all other systems are reviewed and are negative [facility] Past Medical History Attestation statement: The following information was validated with the patient. Source: old records reviewed and nursing notes reviewed Medical History Overweight (BMI 25.0-29.9) Pruritic rash Superficial thrombophlebitis Small bowel obstruction Rash Varicose vein of leg Screening for breast cancer Hyperparathyroidism Age-related osteoporosis without current pathological fracture Multinodular thyroid Screening for diabetes mellitus Impacted cerumen of left ear History of seizures Peripheral vascular disease Thyroid nodule GERD (gastroesophageal reflux disease) Hypothyroidism Osteoporosis Surgical History History of colonoscopy History of surgery History of total abdominal hysterectomy and bilateral salpingo-oophorectomy History of cholecystectomy Family History Family History Father Throat cancer Mother No problems noted. Brother Liver cancer Social History Social History Household Members: Spouse Housing: Condominium Do you presently have visiting nurse or other home services: No Alcohol intake: never Patient Tobacco Use Status: Never used Tobacco Tobacco use type: Cigarette e-Cigarette/Vaping Use: Never Used Second Hand Smoke Exposure: No Advance Directives Date on File: 01/06/21 service: No Current occupational status: unemployed Cognitive needs: No Hearing needs: No Vision needs: Yes Physical Exam Vital Signs: Vital Signs: Last Vital Signs Temp 98.2 F 03/05/25 14:52 Pulse 63 03/05/25 14:52 Resp 16 03/05/25 14:52 BP 114/67 03/05/25 14:52 Pulse Ox 96 03/05/25 14:52 O2 Del Method Room Air 03/05/25 14:52 BMI result Body Mass Index 28.9 General: Appears in no acute distress, appears well-nourished body habitus is Overweight, appears stated age. No septic or ill-appearing. Vitals were reviewed as normal, and PMH/Social and Surgical hx was reviewed, including allergies and current medications. - reviewed for prior visits here Head: Normocephalic, no obvious trauma or skin lesions noted. Eyes: EOMI ENMT: moist oral mucosa, TMs are clear, Posterior pharynx clear uvula is midline no trismus Neck: trachea midline Cardiovascular: peripheral perfusion normal, Regular heart rateRegular rhythm Respiratory: no respiratory distress, Lungs are clear to auscultation bilaterally no respiratory distress noted Abdomen: non-distended, soft Extremities: warm and moving without difficulty, No midline tenderness step-offs or deformities of entire spine moving neck in each direction without any pain. Strength is 4+ throughout cap refill is 3 seconds distal pulses are 2+ Psych: Cooperative Neuro: Alert and oriented. Medical Decision Making Medical Decision Making MDM Narrative: 75-year-old female with history of osteoarthritis, osteoporosis, hypothyroidism, and GERD presents to the ED after an episode of presyncope last night. She reports 4 days of URI symptoms (nasal congestion, scratchy throat, cough, chills without fever). On the night of symptom onset (Tuesday), while walking upstairs to bed, she experienced sudden warmth, sweating, and a sensation of nearly passing out. She did not lose consciousness, fall, or injure herself. She was able to void and have a bowel movement afterward without issue. She denies chest pain, palpitations, shortness of breath, visual changes, focal weakness, or confusion. Appetite and oral intake are reportedly normal; no recent vomiting or diarrhea aside from one isolated episode the prior day. She notes right upper eyelid bruising but not present on exam. No current lightheadedness, though she reports a fullness in her ears. No tinnitus, hearing loss, or dysphagia. No new rashes, myalgias, or joint pain. Not on anticoagulants. Patient was evaluated earlier today at urgent care; due to her reported presyncope and a mention of possible loss of consciousness in that note (which she and her daughter deny), she was referred to the ED. Urgent care note reviewed. Vitals on arrival: Stable. Physical exam: Alert, oriented, no focal deficits. Lungs clear bilaterally. Cardiovascular exam normal. ENT exam without signs of otitis media or externa, though clear fluid noted behind tympanic membranes bilaterally. Abdomen soft, non-tender. No signs of trauma. Labs/Imaging: CBC, CMP within normal limits; no electrolyte disturbances or renal impairment. Mild elevation in liver enzymes (not 3x ULN); not suggestive of acute hepatitis. Chest X-ray: Clear, no infiltrates or effusions. COVID, influenza, and strep tests: Negative. Overall impression: 75-year-old female with an isolated episode of presyncope, likely vasovagal in nature, occurring in the setting of mild viral URI symptoms. No concerning findings on exam, labs, or imaging to suggest serious etiology (e.g., cardiac arrhythmia, stroke, infection, or GI bleeding). No loss of consciousness, no recurrent episodes, and no current symptoms. Fluid noted behind ears may account for some sensation of fullness but is chronic in nature. Plan: Discharged home in stable condition. UTI: will treat could contribute will send culture. Recheck liver enzymes with PCP. If ear symptoms persist, refer to ENT for evaluation of possible Eustachian tube dysfunction. Return to ED for any worsening symptoms, recurrent episodes, chest pain, shortness of breath, confusion, or trauma. Discussion held with patient and daughter. All questions answered. Patient is agreeable with plan. Differential Diagnosis Differential Diagnoses: The differential diagnosis associated with the presentation includes dehydration electrolyte imbalance viral URI UTI- patient has leuks, could be presenting atypically given age, will treat and send cx. Admission/Observation Consideration of admission/observation: Escalation of care including admission/observation considered Patient would have been admitted to the hospital had her work up had any findings where hospital admission was appropriate and her clinical presentation warranted hospital admission. Lab Data MDM Lab Attestation statement: I reviewed the patient's lab results. 03/05/25 11:00 03/05/25 11:00 Labs: Lab Results 03/05/25 03/05/25 Range/Units 11:00 14:40 WBC 3.9 L (4.8-10.8) X10*3/uL RBC 4.45 (4.20-5.50) X10*6/uL Hgb 14.0 (12.0-16.0) g/dl Hct 42.3 (37.0-47.0) % MCV 95.1 (80.0-98.0) fL MCH 31.5 (27.0-33.0) pg MCHC 33.1 (31.0-35.0) g/dl RDW 13.4 (11.0-16.0) % Plt Count 160 D (160-400) X10*3/uL MPV 9.0 L (9.4-12.3) fL Immature Gran % (Auto) 0.3 (0.0-0.4) % Neut % (Auto) 42.6 L (45-73) % Lymph % (Auto) 47.4 H (20-40) % [place] % (Auto) 9.4 (2-11) % Eos % (Auto) 0.0 (0-4) % Baso % (Auto) 0.3 (0-2) % Lymph # (Auto) 1.9 (1.2-4.9) X10*3/uL [place] # (Auto) 0.4 (0.1-1.2) X10*3/uL Eos # (Auto) 0.0 (0.0-0.4) X10*3/uL Baso # (Auto) 0.0 (0.0-0.2) X10*3/uL Abs Immat Gran (auto) 0.01 (0.00-0.03) X10*3/uL Absolute Neuts (auto) 1.7 L (2.0-8.3) x10*3/uL Absolute Nucleated RBC 0.000 (0.0-0.012) X10*3/uL Nucleated RBC % (auto) 0.0 (0.0-0.2) /100WBC Sodium 137 (135-145) mmol/L Potassium 4.2 (3.3-5.1) mmol/L Chloride 104 (96-108) mmol/L Carbon Dioxide 25 (22-29) mmol/L Anion Gap 12 (12-20) BUN 12 (9-16) mg/dL Creatinine 0.63 (0.5-1.4) mg/dL Estim Creat Clear Calc 64.1 Estimated GFR > 60 Random Glucose 97 (60-115) mg/dL Calcium 8.1 L D (8.4-10.2) mg/dL Magnesium 1.9 (1.6-2.6) mg/dL Total Bilirubin 0.3 (0.0-1.0) mg/dL AST 53 H (5-31) U/L ALT 39 H (0-31) U/L Alkaline Phosphatase 162 H (39-117) U/L Total Protein 7.0 (6.5-8.0) g/dL Albumin 4.4 (3.5-5.0) g/dL Urine Color Yellow Urine Appearance Clear Urine pH 7.0 (5.0-9.0) Ur Specific [place] 1.010 (1.005-1.025) Urine Protein Negative (Neg-Trace) mg/dL Urine Glucose (UA) Negative (Negative) mg/dL Urine Ketones Trace (Negative) mg/dL Urine Blood Negative (Negative) Urine Nitrite Negative (Negative) Ur Leukocyte Esterase Moderate (2+) H (Negative) Urine RBC 0-2 (0-2) /HPF Urine WBC 0-5 (0-5) /HPF Ur Squamous Epith Cells 0-2 (0-2) /HPF Urine Bacteria None Seen (None Seen) Hyaline Casts 0-2 (0-2) /LPF Influenza Type A (PCR) NEGATIVE (Negative) Influenza Type B (PCR) NEGATIVE (Negative) RSV RNA Qual (PCR) NEGATIVE (Negative) SARS-CoV-2 RNA (RT-PCR) NEGATIVE (Negative) S. pyogenes GrpA LAXMI Negative (Negative) Independent Interpretation I performed an independent interpretation of an: EKG (66 bpm, NSR, no delta wave, epsilon wave, malignant arrhythmia or ischemia noted) and Plain X-Ray Interpretation: EK bpm, NSR, no malignant arrhythmia or ischemia noted. CXR: no obvious infiltrate or mass Independent Historian Clinical information obtained from an independent historian. History obtained from or confirmed by: Other (daughter) External Record Review External record reviewed: Outpatient record and Primary care record Discharge Plan Discharge Clinical Impression: Pre-syncope, Acute cough, Acute viral syndrome, Increased urinary frequency Patient Disposition: Home, Self-Care Instructions: Viral Syndrome (ED), Near Syncope (ED), Polyuria (ED) Additional Instructions: You were evaluated in the ER for your episode of fainting without loss of conciousness. You had blood work done that showed no evidence of electrolyte imbalance kidney dysfunction or infection. There was slight elevation of her liver enzymes but not 3 times upper limit of normal concerning for hepatitis however please have this rechecked with your primary care provider. The abdomen is soft and nontender in your lungs were clear to auscultation bilaterally. You had a chest x-ray that shows no evidence for pneumonia. You are negative for COVID flu and a strep. There is no indication that you have a middle or external ear infection either on exam but you do have clear fluid behind them which appears chronic in nature sometimes this can cause dizziness ringing in the ears are muffled hearing. This can be self resolving however should it continue to be an issue for you follow up with wound care specialist Your episode of fainting was likely a vasovagal episode, or fainting as a result of sensitivity of your vagus nerve causing your blood pressure and heart rate to drop. The EKG showed no evidence of malignant arrhythmia or ischemia, essentially normal. Your urine in the past has had leuks. We will treat this given your frequency and send for culture. Slight elevation of liver enzymes, please recheck these with your primary care provider. Please follow-up with your PCP regarding your episode today. You may also follow-up with the Maintenance Planner. If you have a recurrent episode please lay down on the ground and elevate your legs. If you develop any chest pain, palpitations or sense that your heart is racing, difficulty breathing, or any other new, concerning symptoms please return. To note: Your health insurance does not cover any cough medicine I sent 1 that is the least expensive however please consider over the counter cough medicine such as Delsym or Robitussin DM Prescriptions: New amoxicillin-pot clavulanate [Augmentin] 500-125 mg tablet 1 tab PO BID Qty: 14 0RF benzonatate 100 mg capsule 100 mg PO TID PRN (Reason: cough) 7 Days Qty: 21 0RF No Action Evenity 210mg/2.34mL ( 105mg/1.17mLx2) syringe 210 mg subcut .q month Qty: 2.34 11RF Rx Instructions: Inject in office levothyroxine 75 mcg tablet 75 mcg PO DAILY Qty: 90 1RF calcium-vitamin D3-vitamin K [Viactiv] 650 mg-12.5 mcg-40 mcg tablet,chewable 1 tab PO BID Qty: 60 0RF cholecalciferol (vitamin D3) 25 mcg (1,000 unit) capsule 25 mcg PO DAILY Qty: 30 0RF dicyclomine 10 mg capsule 10 mg PO BID PRN estradiol [Estrace] 0.01 % (0.1 mg/gram) cream 1 g vaginal 2XW Qty: 42.5 3RF Rx Instructions: use nightly externally for two weeks, then twice a week omeprazole 20 mg capsule,delayed release(DR/EC) 20 mg PO DAILY 90 Days Qty: 90 3RF tramadol 50 mg tablet 50 mg PO DAILY PRN (Reason: pain) Qty: 30 1RF Referrals: Po,Mundo Espinoza MD [Primary Care Provider, Internal Medicine] - 1 week Referral Note: recheck liver enzymes Interventions: ED Discharge Assessment Last Done: 03/05/25 14:52 Discharge Date/Time: 03/05/25 14:53 Print Language: Upper Sorbian
[2025-03-05 14:05] VITALS: BP 114/67; PULSE 63; RESP 16; O2SAT 96
[2025-03-05 14:46] LABS: Appearance Urine Clear; Glucose Urine UA Negative (Negative); PH 7.0 (5.0-9.0); Specific Gravity - Urine 1.010 (1.005-1.025); UMIC TRIGGER UACC YES
[2025-03-05 14:52] VITALS: BP 114/67; PULSE 63; RESP 16; TEMP 36.8; O2SAT 96
[2025-03-05 15:00] LABS: UACC Culture Trigger YES
== END 2025-03-05 14:53 | disposition home or self-care (01) ==
PROVIDERS: Physician Assistant Medical; Emergency Provider Emergency Medicine; PCP Internal Medicine
DX: B34.9 Viral infection, unspecified (principal); R55 Syncope and collapse; J02.9 Acute pharyngitis, unspecified; R09.81 Nasal congestion; R05.9 Cough, unspecified; R35.0 Frequency of micturition; Z03.818 Encounter for observation for suspected exposure to other biological agents ruled out; Z79.899 Other long term (current) drug therapy
CPT/HCPCS: 71046; 80053; 81001; 83735; 85025; 87086; 87637; 87651; 93005; 99283; 99284

== ENCOUNTER → 2025-03-05 11:53 | Outpatient (BNV) | payer MEDICARE, SELFPAY | PROVIDERS: Emergency Provider Emergency Medicine; PCP Internal Medicine; Visit Provider Internal Medicine Cardiovascular Disease | DX: R55 Syncope and collapse (principal) | CPT/HCPCS: 93010 ==

== ENCOUNTER → 2025-03-05 12:47 | Outpatient (BNV) | payer MEDICARE, SELFPAY | PROVIDERS: Emergency Provider Emergency Medicine; PCP Internal Medicine; Visit Provider Radiology Diagnostic Radiology | DX: R05.9 Cough, unspecified (principal) | CPT/HCPCS: 71046 ==

== ENCOUNTER 2025-03-14 09:48 | Outpatient (AMB) | payer MEDICARE, SELFPAY ==
--- OUTSIDE RECORDS SUMMARY | 2024-09-04 05:00 | XMS_ITS | Continuity of Care Document ---
Author Organization [facility] Address [address] [place] [address] Phone Care Team Providers Care Healthcare Facility Administrator Name Role Phone Saravanan CARRILLO, GIANA, Suman [...] Mins- [place] & [place] [facility], [address] [place] [address] Dr [address]ob[address] [address]I[place], [id number], [place] tel:[phone] [facility] Venous insufficiency (chronic) (peripheral) 4 Saravanan CARRILLO RVT, RPVI Robert. [address] [place] [address], [place], [id number], [place]. tel:[phone] Referring Provider: Mundo Camacho MD, [address] [place] [address] [address] [facility], [place], [address]. tel:[phone] [facility], [address] [place] [address] Dr Escobedo 1000[facility] 1000Ibrahima [place], [id number], [place] tel:[phone] [facility] Chronic venous hypertension (idiopathic) with other complications of right lower extremity 4 Saravanan CARRILLO RVT, RPVI Robert. [address] [place] [address], [facility] [place], [id number], [place]. tel:[phone] Referring Provider: Mundo Camacho MD, [address] [facility] [address] [place] [address] [place], [address]. tel:[phone] [facility], [address] [place] [address] Dr [address]Suite Ibrahima Espinoza [place], [id number], [place] tel:[phone] [facility] [facility] [place] Encounter for follow-up examination after completed treatment for conditions other than malignant neoplasmPain in right leg 4 Saravanan CARRILLO RVT, NUNU Will. [address] [place] [address], Suite [facility], [facility] [place], [id number], [place]. tel:[phone] Referring Provider: Mundo Camacho MD, [address] [facility] [address] [place] [address], [address]. tel:[phone] [place] [facility], [address] [place] [address] Dr [address]Suite 1000Ibrahima [place], [id number], [place] tel:[phone] CVR - [facility] Varicose veins of right lower extremity with other complications 4 Saravanan CARRILLO RVT, NUNU Will. [address] [place] [address], [address], [facility] [place], [id number], [place]. tel:[phone] Referring Provider: Mundo Camacho MD, [address] [place] [address] Dr [address] [place] [address], [address]. tel:[phone] [facility], [address] [place] [address] Dr [address]Suite Ibrahima Espinoza MD, [id number], [place] tel:[phone] [facility] [place] [facility] [place] Encounter for follow-up examination after completed treatment for conditions other than malignant nePain in right leg 4 Saravanan CARRILLO RVT, NUNU Will. [address] [facility], [address], [facility] [place], [id number], [place]. tel:[phone] Referring Provider: Mundo Camacho MD, [address] [facility] [address] [facility] [place], [address]. tel:[phone] [facility], [address] [place] [address] [address] 1000Ibrahima MD, [id number], [place] tel:[phone] [facility] [place] [facility] [place] Varicose veins of right lower extremity with other complications Jul-2 0 4 Matteo Martinez. [facility]0 [facility], Suite [facility], [facility] [place], [id number], [place]. tel:[phone] Referring Provider: Mundo Camacho MD, [address] [facility] [address] [facility] [place], [address]. tel:[phone] Offic Cons New/estab Mod 40 Mi- CT & [place] [facility], [address] [place] [address] Dr Escobedo 1000Suite 1000Ibrahima [place], [id number], [place] tel:[phone] [facility] [place] [facility] [place] Body mass index [BMI] 30.0-30.9, adultChronic venous hypertension (idiopathic) without complications of right lower extremity Jun- 4 Saravanan CARRILLO RVT, RPVI Robert. [address] [place] [address], [place] [address], [facility] [place], [id number], [place]. tel:[phone] Referring Provider: Mundo Camacho MD, [address] [facility] [address] [facility] [place], [address]. tel:[phone] [facility], [address] [place] [address] [address] 1000Ibrahima MD, [id number], [place] tel:[phone] [facility] [place] [facility] [place] Chronic venous hypertension (idiopathic) with other complications of right lower extremity Jun- 4 Saravanan CARRILLO RVT, RPVI Robert. [address] [place] [address], Suite [facility], [facility] [place], [id number], [place]. tel:[phone] Referring Provider: Mundo Camacho MD, [address] [facility] [address] [facility] [place], [address]. tel:[phone] Office/Outpt E&M Established 15 Mins- [place] & [place] [facility], [address] [place] [address] Dr Escobedo 1000Suite Ibrahima Espinoza MD, [id number], [place] tel:[phone] CVR - [place] Venous insufficiency (chronic) (peripheral) 4 Saravanan CARRILLO RVT, NUNU Will. [address] [place] [address], Suite [facility], [place], [place], [id number], [place]. tel:[phone] Referring Provider: Mundo Camacho MD, [address] [place] [address] Dr [address] [facility] [place], [address]. tel:[phone] [place] [facility], [address] [place] [address] Dr Escobedo 1000Suite Ibrahima Espinoza MD, [id number], [place] tel:[phone] [facility] [place] [facility] [place] Varicose veins of bilateral lower extremities with pain 4 Saravanan CARRILLO RVT, NUNU Will. [address] [place] [address], [place] [address], [facility] [place], [id number], [place]. tel:[phone] Referring Provider: Mundo Camacho MD, [address] [place] [address] [place] [address] [place], [address]. tel:[phone] [facility], [address] [place] [address] Dr Escobedo 1000Suite Ibrahima Espinoza MD, [id number], [place] tel:[phone] [facility] [place] [facility] [place] Encounter for follow-up examination after completed treatment for conditions other than malignant neChronic venous hypertension (idiopathic) with other complications of bilateral lower extremity 4 Saravanan CARRILLO RVT, NUNU Will. [address] [place] [address], [address], [facility] [place], [id number], [place]. tel:[phone] Referring Provider: Mundo Camacho MD, [address] [place] [address] Dr [address] [place] [address] [place], [address]. tel:[phone] [facility], [address] [place] [address] Dr Escobedo 1000Suite Ibrahima Espinoza [place], [id number], [place] tel:[phone] [facility] Varicose veins of left lower extremity with other complications 0 4 Leonel Cotton. [address] [place] [address], [place], [place], [id number], [place]. tel:[phone] Referring Provider: Mundo Camacho MD, [address] [place] [address] Dr [address] [place] [address] [place], [address]. tel:[phone] [facility], [address] [place] [address] Dr Escobedo 1000Suite Ibrahima Espinoza MD, [id number], [place] tel:[phone] [facility] Encounter for follow-up examination after completed treatment for conditions other than malignant neVaricose veins of right lower extremity with pain 4 Saravanan CARRILLO, RVT, RPVI Suman. [address] [place] [address], [place], [place], [id number], [place]. tel:[phone] Referring Provider: Mundo Camacho MD, [address] [place] [address] Dr [address] [place] [address] [place], [address]. tel:[phone] [facility], [address] [place] [address] Dr Escobedo 1000Suite Ibrahima Espinoza [place], [id number], [place] tel:[phone] [facility] Chronic venous hypertension (idiopathic) with inflammation of right lower extremity Nov-0 4 Leonel Cotton. [address] [place] [address], [place], [place], [id number], [place]. tel:[phone] Referring Provider: Mundo Camacho MD, [address] [place] [address] Dr [address] [facility] In [facility], [place], [address]. tel:[phone] Offic Cons New/estab Mod-hi 60 [facility], [address] [place] [address] Dr Escobedo 1000Suite Ibrahima Espinoza MD, [id number], [place] tel:[phone] CVR [facility] Chronic venous hypertension (idiopathic) with other complications of bilateral lower extremityPain in left lower legPain in right legPain in left legVenous insufficiency (chronic) (peripheral)C ramp and spasm Feb-0 4 Saravanan CARRILLO RVT, NUNU Will. [address] [facility], [place] [address], [place], [place], [id number], [place]. tel:[phone] Referring Provider: Mundo Camacho MD, [address] [place] [address] Dr [address] [facility] [place], [address]. tel:[phone] [facility], [address], [place], [id number], [place] tel:[phone] R - [facility] Varicose veins of bilateral lower extremities with pain b-0 4 Saravanan CARRILLO RVT, NUNU Will. [address] [facility], [place] [address], [place], [place], [id number], [place]. tel:[phone] Referring Provider: Mundo Camacho MD, [address] [place] [address] Dr [address] [facility] [place], [address]. tel:[phone] Family History Family Member Type Diagnosis Age At Onset No Information Payers Payer name Insurance type Covered constitution party ID Everett nicole(s) [employer] Medicare CI [id number] Social History Type Description Quantity Date Captured [...] Information Instructions Date Instruction Additional Infor mation Diet education Related to Body mass index (BMI) 30.0-30.9, adult Giving Encouragement to exercise Related to Body mass index (BMI) 30.0-30.9, adult Lifestyle education Related to B jasmin mass index (BMI) 30.0-30.9, adult Compression stocking usage as conservative measure Related to Venous insufficiency (chronic) (peripheral) Patient education booklet given Related to Venous insufficiency (chronic) (peripheral) Giving Encouragement to Exercise Related to Body mass index [BMI] 30.0-30.9, adult Diet education Related to Body mass index [BMI] 30.0-30.9, adult Continue compression stocking us e [...]
[2025-03-14 10:07] VITALS: BMI 29.2
--- NOTE | 2025-03-14 10:07 | A.OFFVIS_ITS ---
VS Expanded 03/14/25 10:07 Height 4 ft 11 in Weight 144 lb 6.444 oz BMI 29.2 Intake Visit Reasons: Obesity Allergies nystatin Allergy (Intermediate, Verified 03/05/25 10:45) Rash Nutrition Presentation Details: Pt presents for MNT f/u for obesity food frequency fruit:2-3/d dairy: 0-1/d protein foods: each meal beans/ fish/eggs, poultry, cheese fish: 2-3x/wk vegetables: 2 daily beverages: water, juices diluted with water Pt reports having 3 meals/day and 1-2 snack b/l: ww toast with egg/ham/cheese , cofffe diet sugar a bit of milk 2% L/snack: fruit and nuts dinner: rice/chicken /cauliflower, fruit , water snack : crackers and butter, water walking: daily 40 min (5-6x/wk) Pt reports feeling well, motivated, energetic BS Monitoring Most Recent Diabetes Results: Creatinine, (0.5-1.4) 0.63 mg/dL 03/05/25 BUN, (9-16) 12 mg/dL 03/05/25 Sodium, (135-145) 137 mmol/L 03/05/25 Potassium, (3.3-5.1) 4.2 mmol/L 03/05/25 Chloride, (96-108) 104 mmol/L 03/05/25 Carbon Dioxide, (22-29) 25 mmol/L 03/05/25 Calcium, (8.4-10.2) 8.1 mg/dL L Δ 03/05/25 AST, (5-31) 53 U/L H 03/05/25 ALT, (0-31) 39 U/L H 03/05/25 Total Protein, (6.5-8.0) 7.0 g/dL 03/05/25 Albumin, (3.5-5.0) 4.4 g/dL 03/05/25 [facility] Medical History Overweight (BMI 25.0-29.9) Pruritic rash Superficial thrombophlebitis Small bowel obstruction Rash Varicose vein of leg Screening for breast cancer Hyperparathyroidism Age-related osteoporosis without current pathological fracture Multinodular thyroid Screening for diabetes mellitus Impacted cerumen of left ear History of seizures Peripheral vascular disease Thyroid nodule GERD (gastroesophageal reflux disease) Hypothyroidism Osteoporosis Surgical History History of colonoscopy History of surgery History of total abdominal hysterectomy and bilateral salpingo-oophorectomy History of cholecystectomy Family History Father Throat cancer Mother No problems noted. Brother Liver cancer Social History Household Members: [facility] Do you presently have visiting nurse or other home services: No Alcohol intake: never Patient Tobacco Use Status: Never used Tobacco Tobacco use type: Cigarette e-Cigarette/Vaping Use: Never Used Second Hand Smoke Exposure: No Advance Directives Date on File: 01/06/21 service: No Current occupational status: unemployed Cognitive needs: No Hearing needs: No Vision needs: Yes Assessment & Plan Assessment & Plan (1) Obesity (BMI 30.0-34.9): Code(s): E66.9 - Obesity, unspecified Category: Medical Plan: Wt: 73 Kg ( 12/28 ), 68 kg (01/27), 65kg (03/29) Est kcal needs as per MSJ: 1400 (40% carb, 30% protein/fat) Est fluid needs as per 25-30 ml/d: 2000 Est prot per day as per 1 g/kg bw: 65 Recommend fiber intake : 8-10 g per day and gradually increase to 25-28 g per day for women and 35-38 g for men or as tolerated Recommend sodium intake per day : less than 1500 mg less than 2000 mg Educated patient on: ( R = reviewed V = verbalizes understanding N/R = needs review N/A = not applicable * Food sources of carbohydrate, adequate serving sizes and its role in various health conditions: R ,V * Differences between complex carbohydrates a simple carbohydrates, role of fiber in diet: R * Lean protein sources of foods: R V * Differences between types of fats and role in diet (mono on saturated fat fatty acids, saturated fatty acids, trans fats): R basic * Food sources of sodium in salt and healthy modifications for heart health in kidney health: R V R/V * Vitamins and minerals: R via foods (calcium) * Healthy plate method concept: R ,V * Physical activity: Benefits a precaution: R V N/R * Patient Instructions: Have a yogurt with 1/2 c of fruit or a cup of milk and 4 crackers with peanut butter as a bedtime work on including at least 3 serving of dairy a day (1 cup of yogurt, 2 cups of milk (or milk alternatives fortified with calcium and vitamin D) keep hydrated by having water with meals/snacks keep walking as established, keep hydrated Coding Level of Care Code Nutr Indiv Subseq (87195) Diagnoses Obesity (BMI 30.0-34.9) E66.9 Time Spent (min) 30
--- OUTSIDE RECORDS SUMMARY | 2025-03-14 10:21 | XMS_ITS | Patient Health Record ---
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 Name Role Phone Mundo Camacho MD Primary Care Provider Suman Orta [phone] Allergies Allergen (clinical drug ingredient) Drug/Non Drug [...] W/U Status Risk Notes Problem Abdominal bloating (897866919) Abdominal bloating (R14.0) Active confirmed Problem Irritable bowel syndrome (84040474) IBS (irritable bowel syndrome) (K58.9) Active confirmed Problem Abdominal pain, epigastric (R10.13) Active confirmed Problem Flatus (61206775) Flatus (R14.3) Active confirmed Plan Of Treatment Future Test Test Name Order Date COLONOSCOPY 05/06/2015 Insurance Providers Payer Name Payer Address Payer Phone Subscriber Number Group Number Insured Name Patient Relationship to Insured Coverage Start Date Coverage End Date [facility] [address] [place] [phone] [id number] ZOLTAN NGUYEN Self - patient is the insured Medical (General) History Medical History History ICD Code Colonoscopy 12-04-2004--no markel yps-small internal hemorrhoids and mild diverticulosis GERD--EGD in 2001 with a sma ll HH-no esophagitis,; EGD in 04/2014-small HH, but otherwise negative for esophagitis or Navarro's esophagus Hypothyroidism Osteoporosis Arthritis Negative colonoscopy in 07/2015 Denies ID,DM,CVA,Lung disease,renal dise ase Small bowel obstruction--December 2021--res olved with a NG tube-Dr. Gifford Surgical History Surgery Date(Month/Year) [facility] ARINA Varicose vein stripping Tubal ligation Hemorrhoid surgery in [address] Jorgito blackmon
--- OUTSIDE RECORDS SUMMARY | 2025-03-14 10:21 | XMS_ITS | Data Portability ---
Author Organization [facility], [address] Address [address] [place] [address] Care Team Providers Care Vp Of Technology Name Role Phone LACEY MELISSAMATT Primary Care Provider [phone] Assessment No assessment recorded. Plan of Treatment Reminders Order Date Submit Date Provider Last Modified By Organization Details Last Modified Time Details Appointments None recorded. Lab urinalysis, dipstick 2022 023 [facility] [address], [address] [place], [address], 3 16:54:19 vaginal pathogens panel, LIZZETH+probe, vaginal fluid 2022 023 [place] [facility], [address] [place] [address], [address], 3 06:08:24 Referral None recorded. Procedures None recorded. Surgeries None recorded. Imaging None recorded. Medication Orders terconazole 80 mg vaginal suppository 2022 023 [place] [id number], [phone] [place], [address], 3 16:54:23 Patient TargetsNo targets recorded. Patient Instructions Encounter Date Encounter Id Patient Instructions Last Modified By Organization Details Last Modified Time 02/19/2023 [id number] -Reviewed the various causes of vaginal problems. [...] LOW - 0 score Not Available [facility] ([facility]) [address] [facility], [place], [address], 02/23/2023 06:08:24 02/20/20 23 02/21/2023 NUA B VAGIN ITIS PLUS (VG+) bvab 2 LOW - 0 score Not Available [facility] ([facility]) [address] [facility], [place], [address], 02/23/2023 06:08:24 02/20/20 23 02/21/2023 NUA B [...] Drug Admin istra tion. Not Available [facility] ([facility]) [address] [facility], [place], [address], 02/23/2023 06:08:24 02/20/20 23 02/21/2023 NUSWA B VAGIN ITIS PLUS (VG+) hilary albicans, LIZZETH NEGATI VE negati ve Not Available [facility] ([facility]) [address] [facility], [place], [address], 02/23/2023 06:08:24 02/20/20 23 02/21/2023 NUA B VAGIN ITIS PLUS (VG+) hilary glabrata, LIZZETH NEGATI VE negati ve Not Available [facility] ([facility]) [address] [facility], [place], [address], 02/23/2023 06:08:24 02/20/20 23 02/23/2023 NUA B VAGIN ITIS PLUS (VG+) trich vag by LIZZETH NEGATI VE negati ve Not Available [facility] ([facility]) [address] [facility], [place], [address], 02/23/2023 06:08:24 02/20/20 23 02/23/2023 NUA B VAGIN ITIS PLUS (VG+) chlamydia trachomatis, LIZZETH NEGATI VE negati ve Not Available [facility] ([facility]) [address] [place], [address], 02/23/2023 06:08:24 02/20/20 23 02/23/2023 NUA B VAGIN ITIS PLUS (VG+) neisseria gonorrhoeae, LIZZETH NEGATI VE negati ve Not Available [facility] ([facility]) [address] [place], [address], 02/23/2023 06:08:24 02/20/20 23 02/19/2023 urina lysis , dipst ick Unknown Analyte Normal = light yellow Not Available [address] [place], [address], 02/19/2023 16:29:42 02/20/20 23 02/19/2023 urina lysis , dipst ick Unknown Analyte Yellow Not Available [address] [place] [address] [address] [place], [address], 02/19/2023 16:29:42 02/20/20 23 02/19/2023 urina lysis , dipst ick Unknown Analyte Normal = clear Not Available [address] [place], [address], 02/19/2023 16:29:42 02/20/20 23 02/19/2023 urina lysis , dipst ick Unknown Analyte Clear Not Available [id number] [place] [address] [address] [place], [address], 02/19/2023 16:29:42 02/20/20 23 02/19/2023 urina lysis , dipst ick Unknown Analyte Normal = negati ve Not Available [address] [place], [address], 02/19/2023 16:29:42 02/20/20 23 02/19/2023 urina lysis , dipst ick Unknown Analyte Negati ve Not Available [address] [place], [address], 02/19/2023 16:29:42 02/20/20 23 02/19/2023 urina lysis , dipst ick Unknown Analyte Normal = Negati ve Not Available [address] [place], [address], 02/19/2023 16:29:42 02/20/20 23 02/19/2023 urina lysis , dipst ick Unknown Analyte Negati ve Not Available [address] [place], [address], 02/19/2023 16:29:42 02/20/20 23 02/19/2023 urina lysis , dipst ick Unknown Analyte Normal = Negati ve Not Available [address] [place], [address], 02/19/2023 16:29:42 02/20/20 23 02/19/2023 urina lysis , dipst ick Unknown Analyte Negati ve Not Available [address] [place], [address], 02/19/2023 16:29:42 02/20/20 23 02/19/2023 urina lysis , dipst ick Unknown Analyte Normal = 1.010, 1.015, 1.020 Not Available [address] [place], [address], 02/19/2023 16:29:42 02/20/20 23 02/19/2023 urina lysis , dipst ick Unknown Analyte 1.020 Not Available [facility] [address] [place], [address], 02/19/2023 16:29:42 02/20/20 23 02/19/2023 urina lysis , dipst ick Unknown Analyte Normal = Negati ve Not Available [address] [place], [address], 02/19/2023 16:29:42 02/20/20 23 02/19/2023 urina lysis , dipst ick Unknown Analyte Negati ve Not Available [address] [place], [address], 02/19/2023 16:29:42 02/20/20 23 02/19/2023 urina lysis , dipst ick Unknown Analyte Normal = 6.5, 7.0, 7.5, 8.0 Not Available [address] [place], [address], 02/19/2023 16:29:42 02/20/20 23 02/19/2023 urina lysis , dipst ick Unknown Analyte 7.0 Not Available [facility] [address] [place], [address], 02/19/2023 16:29:42 02/20/20 23 02/19/2023 urina lysis , dipst ick Unknown Analyte Normal = Negati ve Not Available [address] [place], [address], 02/19/2023 16:29:42 02/20/20 23 02/19/2023 urina lysis , dipst ick Unknown Analyte Negati ve Not Available [address] [place], [address], 02/19/2023 16:29:42 02/20/20 23 02/19/2023 urina lysis , dipst ick Unknown Analyte Normal = 0.2, 1.0 Not Available [address] [place], [address], 02/19/2023 16:29:42 02/20/20 23 02/19/2023 urina lysis , dipst ick Unknown Analyte 0.2 E.U./d L Not Available [address] [place], [address], 02/19/2023 16:29:42 02/20/20 23 02/19/2023 urina lysis , dipst ick Unknown Analyte Normal = Negati ve Not Available [address] [place], [address], 02/19/2023 16:29:42 02/20/20 23 02/19/2023 urina lysis , dipst ick Unknown Analyte Negati ve Not Available [address] [place], [address], 02/19/2023 16:29:42 02/20/2002/19/2023 urina lysis , dipst ick Unknown Analyte Normal = Negati ve Not Available [address] [place], [address], 02/19/2023 16:29:42 02/20/2002/19/2023 urina lysis , dipst ick Unknown Analyte Negati ve Not Available [address] [place], [address], 02/19/2023 16:29:42 Result Notes None recorded. Problems Name Problem SNOMED Code Status Onset Date Resolution Date Notes Provider Name and Address Organization Details Recorded Time Disorder of thyroid gland 54684201 Active 2022 KORI DRINKWINE null, [place] - [facility] 3 16:23:22 Gastroesophage al reflux disease 735167800 Active 2022 KORI DRINKWINE null, [place] - [facility] 3 16:24:19 Diverticulitis 765212167 Active 2022 KORI DRINKWINE null, [place] - [...] Name and Address Organization Details Recorded Time 494938 latex environme nt,medica tion rash Not available Not available 02/19/2023 68994 91 RxNorm [facility] 3 16:22:30 [...] in Arterial blood by Pulse oximetry Systolic And Diastolic Provider Name and Address Organization Details Last Updated DateTime 3 149.86 cm 30.9 kg/m2 64465.6 3 g 97.9 [degF] 16 /min 78 /min 100 % 100 % 130/82 mm[Hg] KORI DOYLE - [facility] 3 [...] SNOMED-CT Code Diagnosis ICD10 Code Diagnosis Note [id number] [address] [facility] [address] [place] [address] 10/07/2018 14:05:34 10/07/2018 14:34:25 [id number] [place] [address] [place] [address] 02/19/2023 16:08:16 02/19/2023 17:12:57 Acute vaginitis 03513133 N76.0 Health Concerns Section Related Observation LastModified by Organization Detai ls LastModified Time None Recorded Concern Status LastModified by Organization Details LastModified Time None Recorded Advance Directives Directive None Recorded Payers Insurance Date Sequence Insurance Name Policy Number Policy Billings Covered Member ID Billings Member ID Guarantor Name 02/19/2023 1 [employer] INCLUDES THE [facility] (MEDICARE REPLACEMENT PPO) Venus Nguyen [id number] Venus Nguyen Notes Date Note Type Note Provider Name and Address Organization Details Recorded Time 3 text/html 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
== END 2025-03-14 10:26 | disposition home or self-care (01) ==
LOC: HO.ENCR 09:49
PROVIDERS: PCP Internal Medicine; Visit Provider Dietitian, Registered
DX: E66.9 Obesity, unspecified (principal)

== ENCOUNTER → 2025-03-14 09:48 | Outpatient (BNVA) | payer MEDICARE, SELFPAY | PROVIDERS: PCP Internal Medicine; Visit Provider Dietitian, Registered | DX: E66.9 Obesity, unspecified (principal); Z68.29 Body mass index [BMI] 29.0-29.9, adult | CPT/HCPCS: 97803 ==

== ENCOUNTER 2025-03-20 06:23 | Outpatient (REF) | payer MEDICARE, SELFPAY ==
[2025-03-20 06:49] LABS: MANUAL DIFF FLAG NO
[2025-03-20 07:35] LABS: Hematocrit 40.6 % (37.0-47.0); Hemoglobin 13.2 g/dl (12.0-16.0); Imm Gran Abs Auto 0.01 X10*3/uL (0.00-0.03); Imm Gran Pct Auto 0.3 % (0.0-0.4); Lymphocytes Absolute Auto 2.0 X10*3/uL (1.2-4.9); Mean Corpuscular HGB Conc 32.5 g/dl (31.0-35.0); Mean Corpuscular Hemoglobin 31.1 pg (27.0-33.0); Mean Corpuscular Volume 95.8 fL (80.0-98.0); NRBC Abs Auto 0.000 X10*3/uL (0.0-0.012); NRBC Pct Auto 0.0 /100WBC (0.0-0.2); Platelet Count 205 X10*3/uL (160-400); Red Blood Count 4.24 X10*6/uL (4.20-5.50); White Blood Count 3.8 X10*3/uL (4.8-10.8)
[2025-03-20 07:59] LABS: Appearance Urine Clear; Glucose Urine UA Negative (Negative); PH 6.0 (5.0-9.0); Specific Gravity - Urine 1.020 (1.005-1.025); UMIC TRIGGER UACC YES
[2025-03-20 08:04] LABS: UACC Culture Trigger YES
[2025-03-20 08:11] LABS: Alanine Aminotransferase 17 U/L (0-31); Albumin Level 4.1 g/dL (3.5-5.0); Alkaline Phosphatase 102 U/L (39-117); Anion Gap 11 (12-20); Aspartate Amino Transferase 29 U/L (5-31); Blood Urea Nitrogen 11 mg/dL (9-16); Calcium 8.3 mg/dL (8.4-10.2); Carbon Dioxide 25 mmol/L (22-29); Chloride 109 mmol/L (96-108); Cholesterol 198 mg/dL (<200); Estimated Glomerular Filt Rate > 60; HDL Cholesterol 64 mg/dL (>40); Potassium 4.1 mmol/L (3.3-5.1); Sodium 141 mmol/L (135-145); Total Protein 6.3 g/dL (6.5-8.0); Triglycerides 72 mg/dL (<150)
[2025-03-20 08:29] LABS: Free T4 (Free Thyroxine) 1.08 ng/dL (0.71-1.85); Thyroid Stimulating Hormone 0.69 uIU/mL (0.32-4.0)
[2025-03-20 08:37] LABS: Folate 12.1 ng/mL (> or = 4.0); Vitamin B12 491 pg/mL (200-900)
== END 2025-03-20 06:24 | disposition home or self-care (01) ==
LOC: HO.LAB 06:23
PROVIDERS: PCP Internal Medicine; Visit Provider Internal Medicine
DX: E78.00 Pure hypercholesterolemia, unspecified (principal); E21.3 Hyperparathyroidism, unspecified; R30.0 Dysuria
CPT/HCPCS: 36415; 80053; 80061; 81001; 81003; 82607; 82746; 84439; 84443; 85025; 87086

== ENCOUNTER 2025-03-26 13:40 | Outpatient (AMB) | payer MEDICARE, SELFPAY ==
[2025-03-26 13:45] VITALS: BP 112/66; PULSE 83; RESP 18; TEMP 36.2; O2SAT 98; BMI 28.7
--- NOTE | 2025-03-26 13:45 | MHC.PC.OV ---
Vital Signs 03/26/25 13:45 Height 4 ft 11 in Weight 142 lb BMI 28.7 BP 112/66 Blood Pressure Location Lt brachial Position Sitting Respiration 18 Pulse 83 Pulse Source Pulse Oximeter Temp 97.1 F Temp Source Temporal Artery Scan Pulse Oximetry (%) 98 Oxygen Delivery Method Room Air Intake Visit Reasons: hypothyroid Allergies nystatin Allergy (Intermediate, Verified 03/26/25 13:48) Rash Tobacco use date assessed: 03/26/25 Fall risk assessment: No Falls in past year Last assessed Fall Risk: 03/26/25 Dental Screening Dental Screen Date: 03/26/25 Did you have a dental visit in the last 12 months?: Yes Did you have a dental problem in the last 6 months where you did not have access to dental care?: No Was dental information given to patient?: Patient has dentist [facility] Medical History Overweight (BMI 25.0-29.9) Pruritic rash Superficial thrombophlebitis Small bowel obstruction Rash Varicose vein of leg Screening for breast cancer Hyperparathyroidism Age-related osteoporosis without current pathological fracture Multinodular thyroid Screening for diabetes mellitus Impacted cerumen of left ear History of seizures Peripheral vascular disease Thyroid nodule GERD (gastroesophageal reflux disease) Hypothyroidism Osteoporosis Surgical History History of colonoscopy History of surgery History of total abdominal hysterectomy and bilateral salpingo-oophorectomy History of cholecystectomy Family History Father Throat cancer Mother No problems noted. Brother Liver cancer Social History Household Members: Spouse Housing: Condominium Do you presently have visiting nurse or other home services: No Alcohol intake: never Patient Tobacco Use Status: Never used Tobacco Tobacco use type: Cigarette e-Cigarette/Vaping Use: Never Used Second Hand Smoke Exposure: No Advance Directives Date on File: 01/06/21 service: No Current occupational status: unemployed Cognitive needs: No Hearing needs: No Vision needs: Yes Questionnaire PHQ-9 Over the last 2 weeks, how often have you been bothered by any of the following problems? 1. Little interest or pleasure in doing things: not at all 2. Feeling down, depressed, or hopeless: not at all 3. Trouble falling or staying asleep, or sleeping too much: not at all 4. Feeling tired or having little energy: not at all 5. Poor appetite or overeating: not at all 6. Feeling bad about yourself - or that you are a failure or have let yourself or your family down: not at all 7. Trouble concentrating on things, such as reading the newspaper or watching television: not at all 8. Moving or speaking so slowly that other people could have noticed. Or the opposite - being so fidgety or restless that you have been moving around a lot more than usual: not at all 9. Thoughts that you would be better off or of hurting yourself in some way: not at all Total score: 0 Depression Screening Interpretation: Negative Depression Screening Done: Yes 25662 - PHQ-9 Billing: Yes Source: Developed by Drs. Suman Domingo, Josefa Al, Jay Zepeda and colleagues, with an educational atul from [employer]. Thrive Questionnaire Date Thrive assessed: 03/26/25 I am a: Patient What is your living situation today?: I have a steady place to live Within the past 12 months, did the food you bought not last and you didn't have the money to get more?: Never true Within the past 12 months, did you worry whether your food would run out before you got money to buy more?: Never true Do you have trouble paying for medicines?: No Do you have trouble getting transportation to medical appointments?: No Do you have trouble paying your heating and electricity bill?: No Do you have trouble taking care of your child, family member or friend?: No Do you have trouble with day-to-day activities such as bathing, preparing meals, shopping, managing finances, etc.?: No Are you currently unemployed and looking for a job?: No Are you interested in more education?: No Currently or been in a relationship where the following occur: No concerns reported THRIVE Score: 0 AUDIT C Alcohol Use Questionnaire (AUDIT-C) 1. How often do you have a drink containing alcohol?: Never 3. How often do you have six or more drinks on one occasion?: Never Total Score: 0 LUCIA-7 AMB Questionnaire LUCIA-7 Date LUCIA - 7 assessed: 03/26/25 Feeling nervous, anxious, or on edge: 0 = Not at all Not being able to stop or control worryin = Not at all Worrying too much about different things: 0 = Not at all Trouble relaxin = Not at all Being so restless that it is hard to sit still: 0 = Not at all Becoming easily annoyed or irritable: 0 = Not at all Feeling afraid as if something awful might happen: 0 = Not at all Total LUCIA-7 score (0-4 normal; 5-9 mild; 10-14 moderate; 15-21 severe): 0 Source: Developed by Drs. Suman Domingo, Josefa Al, Jay Zepeda and colleagues, with an educational taul from [employer]. LUCIA-7 Assessment Billing LUCIA-7 Assessment Tool: LUCIA-7 Assessment 76987 Physical exam (Primary Care) Vital Signs: Last Vital Signs Temp 97.1 F 03/26/25 13:45 Pulse 83 03/26/25 13:45 Resp 18 03/26/25 13:45 BP 112/66 03/26/25 13:45 Pulse Ox 98 03/26/25 13:45 Oxygen Delivery Method Room Air 03/26/25 13:45 BMI result Body Mass Index 28.7 Tobacco/Smoking Status: Tobacco use Status Tobacco use date assessed 03/26/25 03/26/25 13:51 Patient Tobacco Use Status Never used Tobacco 03/26/25 13:51 Tobacco use type Cigarette 03/26/25 13:51 e-Cigarette/Vaping Use Never Used 03/26/25 13:51 PHQ-9: PHQ-9 Score PHQ-9: Total score 0 03/26/25 14:16 Depression Screening Interpretation: Negative Thrive Assessment: Date of Thrive Assessment Date Thrive assessed 03/26/25 03/26/25 13:51 Currently or been in a relationship where the following occur: No concerns reported Const General: alert; No acute distress Eyes Conjunctivae: conjunctivae normal Resp Auscultation: clear to auscultation bilaterally Cardio Rate: regular rate Rhythm: regular rhythm GI Inspection: Yes normal to inspection Extrem General: Yes normal to inspection and No edema Coding Level of Care Code Est Pt Level 4 (91758) Complex EM visit Add On G2211 Diagnoses Hypothyroidism, unspecified type E03.9 Hypothyroidism type: unspecified Gastroesophageal reflux disease without esophagitis K21.9 Esophagitis presence: without esophagitis LFT elevation R79.89 Hypercholesterolemia E78.00 Varicose veins of both lower extremities, unspecified whether complicated I83.93 Varicose vein complication: unspecified Generalized anxiety disorder F41.1 Additional Codes LUCIA-7 Assessment Billing - LUCIA-7 Assessment Tool: LUCIA-7 Assessment 60676 ([id number]) PHQ-9 - 88984 - PHQ-9 Billing: Yes ([id number]) Assessment & Plan Assessment & Plan (1) Hypothyroidism: Code(s): E03.9 - Hypothyroidism, unspecified Category: Medical Qualifiers: Hypothyroidism type: unspecified Qualified Code(s): E03.9 - Hypothyroidism, unspecified Plan: Continue with thyroid medication (2) GERD (gastroesophageal reflux disease): Code(s): K21.9 - Gastro-esophageal reflux disease without esophagitis Category: Medical Qualifiers: Esophagitis presence: without esophagitis Qualified Code(s): K21.9 - Gastro-esophageal reflux disease without esophagitis Plan: Avoid the foods that causes that usually spicy foods, tomato products, juices, coffee, soda and foods that your sensitive to. After eating do not lie down, allow 3-4 hours before in lie down. And keep the head of bed above 30 degrees to avoid the acid from going up. (3) LFT elevation: Code(s): R79.89 - Other specified abnormal findings of blood chemistry Category: Medical Plan: Repeat liver function test is normal (4) Hypercholesterolemia: Code(s): E78.00 - Pure hypercholesterolemia, unspecified Category: Medical Plan: Avoid fried foods, chicken skin, eggs, butter margarine, pastries and meat. Be it pork or beef they have a lot of cholesterol (5) Varicose veins of both lower extremities: Code(s): I83.93 - Asymptomatic varicose veins of bilateral lower extremities Category: Medical Qualifiers: Varicose vein complication: unspecified Qualified Code(s): I83.93 - Asymptomatic varicose veins of bilateral lower extremities Plan: When sitting down elevate the legs, exercise, and support stockings (6) Generalized anxiety disorder: Code(s): F41.1 - Generalized anxiety disorder Category: Medical Plan: Stable Plan History of Present Illness The patient is a 75-year-old female presenting with an annual wellness examination. She has a history of osteoporosis, with her last bone density test conducted in June 2024. The patient also has hypothyroidism and a multinodular thyroid, which have been managed with medication. The patient has hypercholesterolemia and hyperparathyroidism, with a history of parathyroidectomy. She also experiences anxiety disorder, which is being monitored. In March, the patient experienced an episode of syncope in the setting of an upper respiratory tract infection, which included symptoms of nasal congestion. She was evaluated in an urgent care center, where it was determined that she did not lose consciousness. The patient has been seeing a elephant tamer and is working on dietary improvements. Her last blood work in March showed normal blood count and electrolytes, with an LDL level of 120 mg/dL. 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 Review of Systems - Cardiovascular: Denies chest pain, orthopnea, or syncope. - Respiratory: Reports nasal congestion. Denies cough, hemoptysis, or wheezing. - Neurological: Denies dizziness or vertigo currently. Physical Exam - Cardiovascular: Regular rate and rhythm, no murmurs, rubs, or gallops - Respiratory: Lungs clear to auscultation bilaterally - Neurological: No focal deficits, normal cranial nerve examination Results - Labs: Normal blood count, normal electrolytes, LDL 120 mg/dL - Tests: Bone density test in June 2024 - Tests: Mammogram in June 2024 Plan The patient will continue with her current thyroid medication regimen to manage hypothyroidism and multinodular thyroid. A cholesterol management plan is in place, with an LDL target below 130 mg/dL, and the patient is advised to maintain a healthy diet and exercise routine. Regular follow-up with a elephant tamer is recommended to support dietary improvements and weight management. The patient is advised to stay hydrated, especially during illness, to prevent episodes of syncope. Routine monitoring of blood work is suggested to ensure stability of electrolytes and liver function. Patient was informed and verbally consented to the use of an ambient scribe for clinic note documentation during this visit. Discussion Notes During the visit, I discussed the importance of continuing thyroid medication and maintaining a healthy lifestyle to manage cholesterol levels. We reviewed the patient's recent lab results, which showed normal blood count and electrolytes, and discussed the significance of staying hydrated to prevent syncope. I emphasized the need for regular follow-ups with the elephant tamer to support dietary improvements and weight management. Patient Instructions - Continue taking thyroid medication as prescribed. - Follow a healthy diet and exercise regularly to manage cholesterol levels. - Stay hydrated, especially when feeling unwell, to prevent fainting episodes. - Attend regular appointments with the elephant tamer for dietary guidance.
--- OUTSIDE RECORDS SUMMARY | 2025-03-26 14:51 | XMS_ITS | Data Portability ---
Author Organization [facility], [address] Address [address] [place] [address] Care Team Providers Care Crimp Setter Name Role Phone LACEY MELISSAMATT Primary Care Provider Assessment No assessment recorded. Plan of Treatment Reminders Order Date Submit Date Provider Last Modified By Organization Details Last Modified Time Details Appointments None recorded. Lab urinalysis, dipstick 2022 023 fijaz3 [facility] [address], [address] [place], [address], 3 16:54:19 vaginal pathogens panel, LIZZETH+probe, vaginal fluid 2022 023 MAKINEN [facility], [address] [place] [address], [address], 3 06:08:24 Referral None recorded. Procedures None recorded. Surgeries None recorded. Imaging None recorded. Medication Orders terconazole 80 mg vaginal suppository 2022 023 MAKINEN [id number], [phone] [place], [address], 3 16:54:23 Patient TargetsNo targets recorded. Patient Instructions Encounter Date Encounter Id Patient Instructions Last Modified By Organization Details Last Modified Time 02/19/2023 [id number] -Reviewed the various causes of vaginal problems. [...] LOW - 0 score Not Available [facility] ([facility]) [address] [facility], [place], [address], 02/23/2023 06:08:24 02/20/20 23 02/21/2023 NUA B VAGIN ITIS PLUS (VG+) bvab 2 LOW - 0 score Not Available [facility] ([facility]) [address] [facility], [place], [address], 02/23/2023 06:08:24 02/20/20 23 02/21/2023 NUA B VAGIN ITIS PLUS (VG+) megasphaera 1 LOW - 0 score Calcu late total score by uhang glass the 3 indiv idual bacte rial [...] Drug Admin istra tion. Not Available [facility] ([facility]) [address] [facility], [place], [address], 02/23/2023 06:08:24 02/20/20 23 02/21/2023 NUSWA B VAGIN ITIS PLUS (VG+) hilary albicans, LIZZETH NEGATI VE negati ve Not Available [facility] ([facility]) [address] [facility], [place], [address], 02/23/2023 06:08:24 02/20/20 23 02/21/2023 NUA B VAGIN ITIS PLUS (VG+) hilary glabrata, LIZZETH NEGATI VE negati ve Not Available [facility] ([facility]) [address] [facility], [place], [address], 02/23/2023 06:08:24 02/20/20 23 02/23/2023 NUA B VAGIN ITIS PLUS (VG+) trich vag by LIZZETH NEGATI VE negati ve Not Available [facility] ([facility]) [address] [facility], [place], [address], 02/23/2023 06:08:24 02/20/20 23 02/23/2023 NUA B VAGIN ITIS PLUS (VG+) chlamydia trachomatis, LIZZETH NEGATI VE negati ve Not Available [facility] ([facility]) [address] [place], [address], 02/23/2023 06:08:24 02/20/20 23 02/23/2023 NUA B VAGIN ITIS PLUS (VG+) neisseria gonorrhoeae, LIZZETH NEGATI VE negati ve Not Available [facility] ([facility]) [address] [place], [address], 02/23/2023 06:08:24 02/20/20 23 02/19/2023 urina lysis , dipst ick Unknown Analyte Normal = light yellow Not Available [address] [place], [address], 02/19/2023 16:29:42 02/20/20 23 02/19/2023 urina lysis , dipst ick Unknown Analyte Yellow Not Available [address] [place] [address] [address] [place], [address], 02/19/2023 16:29:42 02/20/20 23 02/19/2023 urina lysis , dipst ick Unknown Analyte Normal = clear Not Available [address] [place], [address], 02/19/2023 16:29:42 02/20/20 23 02/19/2023 urina lysis , dipst ick Unknown Analyte Clear Not Available [address] [place] [address] [address] [place], [address], 02/19/2023 16:29:42 02/20/20 23 02/19/2023 urina lysis , dipst ick Unknown Analyte Normal = negati ve Not Available [address] [place], [address], 02/19/2023 16:29:42 02/20/20 23 02/19/2023 urina lysis , dipst ick Unknown Analyte Negati ve Not Available [address] [place], [address], 02/19/2023 16:29:42 02/20/20 23 02/19/2023 urina lysis , dipst ick Unknown Analyte Normal = Negati ve Not Available [address] [place], [address], 02/19/2023 16:29:42 02/20/20 23 02/19/2023 urina lysis , dipst ick Unknown Analyte Negati ve Not Available [address] [place], [address], 02/19/2023 16:29:42 02/20/20 23 02/19/2023 urina lysis , dipst ick Unknown Analyte Normal = Negati ve Not Available [address] [place], [address], 02/19/2023 16:29:42 02/20/20 23 02/19/2023 urina lysis , dipst ick Unknown Analyte Negati ve Not Available [address] [place], [address], 02/19/2023 16:29:42 02/20/20 23 02/19/2023 urina lysis , dipst ick Unknown Analyte Normal = 1.010, 1.015, 1.020 Not Available [address] [place], [address], 02/19/2023 16:29:42 02/20/20 23 02/19/2023 urina lysis , dipst ick Unknown Analyte 1.020 Not Available [facility] [address] [place], [address], 02/19/2023 16:29:42 02/20/20 23 02/19/2023 urina lysis , dipst ick Unknown Analyte Normal = Negati ve Not Available [address] [place], [address], 02/19/2023 16:29:42 02/20/20 23 02/19/2023 urina lysis , dipst ick Unknown Analyte Negati ve Not Available [address] [place], [address], 02/19/2023 16:29:42 02/20/20 23 02/19/2023 urina lysis , dipst ick Unknown Analyte Normal = 6.5, 7.0, 7.5, 8.0 Not Available [address] [place], [address], 02/19/2023 16:29:42 02/20/20 23 02/19/2023 urina lysis , dipst ick Unknown Analyte 7.0 Not Available [facility] [address] [place], [address], 02/19/2023 16:29:42 02/20/20 23 02/19/2023 urina lysis , dipst ick Unknown Analyte Normal = Negati ve Not Available [address] [place], [address], 02/19/2023 16:29:42 02/20/20 23 02/19/2023 urina lysis , dipst ick Unknown Analyte Negati ve Not Available [address] [place], [address], 02/19/2023 16:29:42 02/20/20 23 02/19/2023 urina lysis , dipst ick Unknown Analyte Normal = 0.2, 1.0 Not Available [address] [place], [address], 02/19/2023 16:29:42 02/20/20 23 02/19/2023 urina lysis , dipst ick Unknown Analyte 0.2 E.U./d L Not Available [address] [place], [address], 02/19/2023 16:29:42 02/20/20 23 02/19/2023 urina lysis , dipst ick Unknown Analyte Normal = Negati ve Not Available [address] [place], [address], 02/19/2023 16:29:42 02/20/20 23 02/19/2023 urina lysis , dipst ick Unknown Analyte Negati ve Not Available [address] [place], [address], 02/19/2023 16:29:42 02/20/2002/19/2023 urina lysis , dipst ick Unknown Analyte Normal = Negati ve Not Available [address] [place], [address], 02/19/2023 16:29:42 02/20/2002/19/2023 urina lysis , dipst ick Unknown Analyte Negati ve Not Available [address] [place], [address], 02/19/2023 16:29:42 Result Notes None recorded. Problems Name Problem SNOMED Code Status Onset Date Resolution Date Notes Provider Name and Address Organization Details Recorded Time Disorder of thyroid gland 03115983 Active 2022 KORI DRINKWINE null, [place] - [facility] 3 16:23:22 Gastroesophage al reflux disease 012729515 Active 2022 KORI DRINKWINE null, [place] - [facility] 3 16:24:19 Diverticulitis 490539806 Active 2022 KORI DRINKWINE null, [place] - [...] Name and Address Organization Details Recorded Time 894298 latex environme nt,medica tion rash Not available Not available 02/19/2023 97649 91 RxNorm [facility] 3 16:22:30 [...] Updated DateTime 3 149.86 cm 30.9 kg/m2 95233.6 3 g 97.9 [degF] 16 /min 78 [...] SNOMED-CT Code Diagnosis ICD10 Code Diagnosis Note [id number] [facility] [facility] [address] [place] [address] 10/07/2018 14:05:34 10/07/2018 14:34:25 [id number] [place] [address] [place] [address] 02/19/2023 16:08:16 02/19/2023 17:12:57 Acute vaginitis 93115175 N76.0 Health Concerns Section Related Observation LastModified by Organization Detai ls LastModified Time None Recorded Concern Status LastModified by Organization Details LastModified Time None Recorded Advance Directives Directive None Recorded Payers Insurance Date Sequence Insurance Name Policy Number Policy Billings Covered Member ID Billings Member ID Guarantor Name 02/19/2023 1 [facility] PL[facility] (MEDICARE REPLACEMENT PPO) Venus Nguyen [id number] Venus Nguyen Notes Date Note Type Note Provider Name and Address Organization Details Recorded Time 3 text/html 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
--- OUTSIDE RECORDS SUMMARY | 2025-03-26 14:51 | XMS_ITS | Patient Health Record ---
Author Organization [facility] Address [address] [place] [address] Care Team Providers Care Chief Writer Name Role Phone Mundo Camacho MD Primary Care Provider Suman Orta [phone] Allergies Allergen (clinical drug ingredient) Drug/Non Drug [...] W/U Status Risk Notes Problem Abdominal bloating (441927281) Abdominal bloating (R14.0) Active confirmed Problem Irritable bowel syndrome (84602931) IBS (irritable bowel syndrome) (K58.9) Active confirmed Problem Epigastric pain (11445175) Abdominal pain, epigastric (R10.13) Active confirmed Problem Flatus (84044971) Flatus (R14.3) Active confirmed Plan Of Treatment Future Test Test Name Order Date COLONOSCOPY 05/06/2015 Insurance Providers Payer Name Payer Address Payer Phone Subscriber Number Group Number Insured Name Patient Relationship to Insured Coverage Start Date Coverage End Date [facility] [address] [place] [phone] [id number] ZOLTAN NGUYEN Self - patient is the insured Medical (General) History Medical History History ICD Code Colonoscopy 12-04-2004--no markel yps-small internal hemorrhoids and mild diverticulosis GERD--EGD in 2001 with a sma ll HH-no esophagitis,; EGD in 04/2014-small HH, but otherwise negative for esophagitis or Navarro's esophagus Hypothyroidism Osteoporosis Arthritis Negative colonoscopy in 07/2015 Denies LA,DM,CVA,Lung disease,renal dise ase Small bowel obstruction--December 2021--res olved with a NG tube-Dr. Gifford Surgical History Surgery Date(Month/Year) CCY ARINA Varicose vein stripping Tubal ligation Hemorrhoid surgery in [address] Jorgito blackmon
== END 2025-03-26 15:09 | disposition home or self-care (01) ==
LOC: HO.HMCH 13:40
PROVIDERS: PCP Internal Medicine; Visit Provider Internal Medicine
DX: E03.9 Hypothyroidism, unspecified (principal); K21.9 Gastro-esophageal reflux disease without esophagitis; R79.89 Other specified abnormal findings of blood chemistry; E78.00 Pure hypercholesterolemia, unspecified; I83.93 Asymptomatic varicose veins of bilateral lower extremities; F41.1 Generalized anxiety disorder

== ENCOUNTER → 2025-03-26 13:40 | Outpatient (BNVA) | payer MEDICARE, SELFPAY | PROVIDERS: PCP Internal Medicine; Visit Provider Internal Medicine | DX: K21.9 Gastro-esophageal reflux disease without esophagitis (principal); E03.9 Hypothyroidism, unspecified; R79.89 Other specified abnormal findings of blood chemistry; E78.00 Pure hypercholesterolemia, unspecified; I83.93 Asymptomatic varicose veins of bilateral lower extremities; F41.1 Generalized anxiety disorder | CPT/HCPCS: 96127; 99212 ==

== ENCOUNTER 2025-04-01 09:45 | Outpatient (AMB) | payer MEDICARE, SELFPAY ==
--- NOTE | 2025-04-01 09:56 | AM.OFFVISNUR ---
Intake Visit Reasons: Evenity #10 Allergies nystatin Allergy (Intermediate, Verified 03/26/25 13:48) Rash Office Meds romosozumab-aqqg 210 mg/2.34 mL(105 mg/1.17 mL x2)subcutaneous syringe Performing Provider: Suman Perez MD Performing Location: [facility] Endocrinology Administered by: Althea Root RN on 04/01/25 09:56 Dose Route Admin Location Dispensed Lot Number Expiration Date [facility] Cargoman 210 mg subcut bilateral upper ar 2.34 mL [id number] 06/04/27 03774-900-45 AMGEN Total Dispensed Waste 2.34 mL 0 % Comments: patient tolerated injection well and denies any problems with previous injections. Scheduled for f/u in x4 weeks for evenity #11 and for f/u with Dr. Perez to discuss next steps after completion of evenity. Assessment & Plan Assessment & Plan Orders: Orders AMB Romosozumab Injection Patient Supplied Today M81.0 - Age-related osteoporosis without current pathological fracture Coding
--- OUTSIDE RECORDS SUMMARY | 2025-04-01 10:41 | XMS_ITS | Patient Health Record ---
Author Organization [facility] Address [address] [place] [address] Care Team Providers Care Safety Scientist Name Role Phone Mundo Camacho MD Primary Care Provider Suman Orta [phone] Allergies Allergen (clinical drug ingredient) Drug/Non Drug [...] W/U Status Risk Notes Problem Abdominal bloating (752002527) Abdominal bloating (R14.0) Active confirmed Problem Irritable bowel syndrome (17596457) IBS (irritable bowel syndrome) (K58.9) Active confirmed Problem Epigastric pain (92927871) Abdominal pain, epigastric (R10.13) Active confirmed Problem Flatus (76964614) Flatus (R14.3) Active confirmed Plan Of Treatment Future Test Test Name Order Date COLONOSCOPY 05/06/2015 Insurance Providers Payer Name Payer Address Payer Phone Subscriber Number Group Number Insured Name Patient Relationship to Insured Coverage Start Date Coverage End Date [facility] [address] [place] [phone] [id number] ZOLTAN NGUYEN Self - patient is the insured Medical (General) History Medical History History ICD Code Colonoscopy 12-04-2004--no markel yps-small internal hemorrhoids and mild diverticulosis GERD--EGD in 2001 with a sma ll HH-no esophagitis,; EGD in 04/2014-small HH, but otherwise negative for esophagitis or Navarro's esophagus Hypothyroidism Osteoporosis Arthritis Negative colonoscopy in 07/2015 Denies HI,DM,CVA,Lung disease,renal dise ase Small bowel obstruction--December 2021--res olved with a NG tube-Dr. Gifford Surgical History Surgery Date(Month/Year) CCY ARINA Varicose vein stripping Tubal ligation Hemorrhoid surgery in [address] Jorgito blackmon
--- OUTSIDE RECORDS SUMMARY | 2025-04-01 10:41 | XMS_ITS | Data Portability ---
Author Organization [facility], [address] Address [address] [place] [address] Care Team Providers Care Machine Staker Name Role Phone LACEY MELISSAMATT Primary Care Provider [phone] Assessment No assessment recorded. Plan of Treatment Reminders Order Date Submit Date Provider Last Modified By Organization Details Last Modified Time Details Appointments None recorded. Lab urinalysis, dipstick 2022 023 fijaz3 [facility], [address] [place], [address], 3 16:54:19 vaginal pathogens panel, LIZZETH+probe, vaginal fluid 2022 023 OKAY [facility], [address] [place] [address], [address], 3 06:08:24 Referral None recorded. Procedures None recorded. Surgeries None recorded. Imaging None recorded. Medication Orders terconazole 80 mg vaginal suppository 2022 023 OKAY [id number], [phone] [place], [address], 3 16:54:23 Patient TargetsNo targets recorded. Patient Instructions Encounter Date Encounter Id Patient Instructions Last Modified By Organization Details Last Modified Time 02/19/2023 [id number] -Reviewed the various causes of vaginal problems. [...] LOW - 0 score Not Available [facility] ([facility]) [address] [facility], [place], [address], 02/23/2023 06:08:24 02/20/20 23 02/21/2023 NUA B VAGIN ITIS PLUS (VG+) bvab 2 LOW - 0 score Not Available [facility] ([facility]) [address] [facility], [place], [address], 02/23/2023 06:08:24 02/20/20 23 02/21/2023 NUA B [...] Drug Admin istra tion. Not Available [facility] ([facility]) [address] [facility], [place], [address], 02/23/2023 06:08:24 02/20/20 23 02/21/2023 NUSWA B VAGIN ITIS PLUS (VG+) hilary albicans, LIZZETH NEGATI VE negati ve Not Available [facility] ([facility]) [address] [facility], [place], [address], 02/23/2023 06:08:24 02/20/20 23 02/21/2023 NUA B VAGIN ITIS PLUS (VG+) hilary glabrata, LIZZETH NEGATI VE negati ve Not Available [facility] ([facility]) [address] [facility], [place], [address], 02/23/2023 06:08:24 02/20/20 23 02/23/2023 NUA B VAGIN ITIS PLUS (VG+) trich vag by LIZZETH NEGATI VE negati ve Not Available [facility] ([facility]) [address] [facility], [place], [address], 02/23/2023 06:08:24 02/20/20 23 02/23/2023 NUA B VAGIN ITIS PLUS (VG+) chlamydia trachomatis, LIZZETH NEGATI VE negati ve Not Available [facility] ([facility]) [address] [place], [address], 02/23/2023 06:08:24 02/20/20 23 02/23/2023 NUA B VAGIN ITIS PLUS (VG+) neisseria gonorrhoeae, LIZZETH NEGATI VE negati ve Not Available [facility] ([facility]) [address] [place], [address], 02/23/2023 06:08:24 02/20/20 23 02/19/2023 urina lysis , dipst ick Unknown Analyte Normal = light yellow Not Available [address] [place], [address], 02/19/2023 16:29:42 02/20/20 23 02/19/2023 urina lysis , dipst ick Unknown Analyte Yellow Not Available [address] [place] [address] [address] [place], [address], 02/19/2023 16:29:42 02/20/20 23 02/19/2023 urina lysis , dipst ick Unknown Analyte Normal = clear Not Available [address] [place], [address], 02/19/2023 16:29:42 02/20/20 23 02/19/2023 urina lysis , dipst ick Unknown Analyte Clear Not Available [address] [place] [address] [address] [place], [address], 02/19/2023 16:29:42 02/20/20 23 02/19/2023 urina lysis , dipst ick Unknown Analyte Normal = negati ve Not Available [address] [place], [address], 02/19/2023 16:29:42 02/20/20 23 02/19/2023 urina lysis , dipst ick Unknown Analyte Negati ve Not Available [address] [place], [address], 02/19/2023 16:29:42 02/20/20 23 02/19/2023 urina lysis , dipst ick Unknown Analyte Normal = Negati ve Not Available [address] [place], [address], 02/19/2023 16:29:42 02/20/20 23 02/19/2023 urina lysis , dipst ick Unknown Analyte Negati ve Not Available [address] [place], [address], 02/19/2023 16:29:42 02/20/20 23 02/19/2023 urina lysis , dipst ick Unknown Analyte Normal = Negati ve Not Available [address] [place], [address], 02/19/2023 16:29:42 02/20/20 23 02/19/2023 urina lysis , dipst ick Unknown Analyte Negati ve Not Available [address] [place], [address], 02/19/2023 16:29:42 02/20/20 23 02/19/2023 urina lysis , dipst ick Unknown Analyte Normal = 1.010, 1.015, 1.020 Not Available [address] [place], [address], 02/19/2023 16:29:42 02/20/20 23 02/19/2023 urina lysis , dipst ick Unknown Analyte 1.020 Not Available [facility] [address] [place], [address], 02/19/2023 16:29:42 02/20/20 23 02/19/2023 urina lysis , dipst ick Unknown Analyte Normal = Negati ve Not Available [address] [place], [address], 02/19/2023 16:29:42 02/20/20 23 02/19/2023 urina lysis , dipst ick Unknown Analyte Negati ve Not Available [address] [place], [address], 02/19/2023 16:29:42 02/20/20 23 02/19/2023 urina lysis , dipst ick Unknown Analyte Normal = 6.5, 7.0, 7.5, 8.0 Not Available [address] [place], [address], 02/19/2023 16:29:42 02/20/20 23 02/19/2023 urina lysis , dipst ick Unknown Analyte 7.0 Not Available [facility] [address] [place], [address], 02/19/2023 16:29:42 02/20/20 23 02/19/2023 urina lysis , dipst ick Unknown Analyte Normal = Negati ve Not Available [address] [place], [address], 02/19/2023 16:29:42 02/20/20 23 02/19/2023 urina lysis , dipst ick Unknown Analyte Negati ve Not Available [address] [place], [address], 02/19/2023 16:29:42 02/20/20 23 02/19/2023 urina lysis , dipst ick Unknown Analyte Normal = 0.2, 1.0 Not Available [address] [place], [address], 02/19/2023 16:29:42 02/20/20 23 02/19/2023 urina lysis , dipst ick Unknown Analyte 0.2 E.U./d L Not Available [address] [place], [address], 02/19/2023 16:29:42 02/20/20 23 02/19/2023 urina lysis , dipst ick Unknown Analyte Normal = Negati ve Not Available [address] [place], [address], 02/19/2023 16:29:42 02/20/20 23 02/19/2023 urina lysis , dipst ick Unknown Analyte Negati ve Not Available [address] [place], [address], 02/19/2023 16:29:42 02/20/2002/19/2023 urina lysis , dipst ick Unknown Analyte Normal = Negati ve Not Available [address] [place], [address], 02/19/2023 16:29:42 02/20/2002/19/2023 urina lysis , dipst ick Unknown Analyte Negati ve Not Available [address] [place], [address], 02/19/2023 16:29:42 Result Notes None recorded. Problems Name Problem SNOMED Code Status Onset Date Resolution Date Notes Provider Name and Address Organization Details Recorded Time Disorder of thyroid gland 34919087 Active 2022 KORI DRINKWINE null, [place] - [facility] 3 16:23:22 Gastroesophage al reflux disease 356553976 Active 2022 KORI DRINKWINE null, [place] - [facility] 3 16:24:19 Diverticulitis 050317618 Active 2022 KORI DRINKWINE null, [place] - [...] Name and Address Organization Details Recorded Time 998366 latex environme nt,medica tion rash Not available Not available 02/19/2023 21460 91 RxNorm YANIRA Baker [facility] 3 [...] Updated DateTime 3 149.86 cm 30.9 kg/m2 82125.6 3 g 0 97.9 [degF] 16 /min 78 /min 100 % 100 % 130/82 mm[Hg] KORI ROSENTHAL [place] - [facility] 3 16:29:01 Social History Question Answer Notes LastModified by [employer] ion Details LastModified Time Tobacco Smoking Status [...] SNOMED-CT Code Diagnosis ICD10 Code Diagnosis Note [id number] [facility] [address] [place] [address] 10/07/2018 14:05:34 10/07/2018 14:34:25 [id number] [place] [address] [place] [address] 02/19/2023 16:08:16 02/19/2023 17:12:57 Acute vaginitis 72700804 N76.0 Health Concerns Section Related Observation LastModified by Organization Detai ls LastModified Time None Recorded Concern Status LastModified by Organization Details LastModified Time None Recorded Advance Directives Directive None Recorded Payers Insurance Date Sequence Insurance Name Policy Number Policy Billings Covered Member ID Billings Member ID Guarantor Name 02/19/2023 1 [facility] PLAN (MEDICARE REPLACEMENT PPO) Venus Nguyen [id number] Venus Nguyen OBGyirene Episode No OBEpisode recorded.
== END 2025-04-01 09:55 | disposition home or self-care (01) ==
LOC: HO.ENCR 09:45
PROVIDERS: PCP Internal Medicine; Visit Provider Internal Medicine Endocrinology, Diabetes & Metabolism
DX: M81.0 Age-related osteoporosis without current pathological fracture (principal)

== ENCOUNTER → 2025-04-01 09:45 | Outpatient (BNVA) | payer MEDICARE, SELFPAY | PROVIDERS: PCP Internal Medicine; Visit Provider Internal Medicine Endocrinology, Diabetes & Metabolism | DX: M81.0 Age-related osteoporosis without current pathological fracture (principal) | CPT/HCPCS: 96372; J3111 ==

== ENCOUNTER 2025-04-22 08:37 | Outpatient (AMB) | payer MEDICARE, SELFPAY ==
[2025-04-22 08:46] VITALS: BP 122/72; PULSE 71; O2SAT 98; BMI 28.3
--- NOTE | 2025-04-22 08:47 | AM.OFFVISMDC ---
Intake Vital Signs 04/22/25 08:46 Height 4 ft 11 in Weight 140 lb BMI 28.3 BP 122/72 Blood Pressure Location Lt brachial Position Sitting Pulse 71 Pulse Source Pulse Oximeter Pulse Oximetry (%) 98 Oxygen Delivery Method Room Air Intake Visit Reasons: AWV Allergies nystatin Allergy (Intermediate, Verified 04/22/25 08:47) Rash Medication List - Last Reconciled 04/22/25 by Mundo Camacho MD calcium-vitamin D3-vitamin K 650 mg-12.5 mcg-40 mcg (Viactiv) 1 tab PO BID cholecalciferol (vitamin D3) 25 mcg PO DAILY dicyclomine 10 mg PO BID PRN estradiol 0.01%(0.1mg/gram) (Estrace) 1 g vaginal 2XW levothyroxine 75 mcg PO DAILY omeprazole 20 mg PO DAILY 90 days romosozumab-aqqg (Evenity) 210 mg (2.34 mL) subcut .q month tramadol 50 mg PO DAILY PRN HPI AWV HPI Details [place] of care Gastroenterology Dr. Yates endocrinology [facility] Gastroenterology, vascular is [facility] for vein jehovah's witness surgeon Dr. Jigar Oconnor rheumatology doctor DONALD, gynecology [facility] Medical History (Updated 04/22/25 @ 09:02 by Mundo Camacho MD) Overweight (BMI 25.0-29.9) Pruritic rash Superficial thrombophlebitis Small bowel obstruction Rash Varicose vein of leg Screening for breast cancer Hyperparathyroidism Age-related osteoporosis without current pathological fracture Multinodular thyroid Screening for diabetes mellitus Impacted cerumen of left ear History of seizures Peripheral vascular disease Thyroid nodule GERD (gastroesophageal reflux disease) Hypothyroidism Osteoporosis Surgical History History of colonoscopy History of surgery History of total abdominal hysterectomy and bilateral salpingo-oophorectomy History of cholecystectomy Family History Father Throat cancer Mother No problems noted. Brother Liver cancer Social History Household Members: Spouse Housing: Condominium Do you presently have visiting nurse or other home services: No Alcohol intake: never Patient Tobacco Use Status: Never used Tobacco Tobacco use type: Cigarette e-Cigarette/Vaping Use: Never Used Second Hand Smoke Exposure: No Advance Directives Date on File: 01/06/21 service: No Current occupational status: unemployed Cognitive needs: No Hearing needs: No Vision needs: Yes Questionnaire Medicare Wellness Checkup [age] What gender do you identify with?: female During the past 4 weeks, how much have you been bothered by emotional problems such as feeling anxious, depressed, irritable, sad or downhearted, and blue?: not at all During the past 4 weeks, has your physical & emotional health limited your social activities with family, friends, neighbors, or groups?: quite a bit During the past 4 weeks, how much bodily pain have you generally had?: mild pain During the past 4 weeks, was someone available to help you if you needed & wanted help?: no, not at all During the past 4 weeks, what was the hardest physical activity you could do for at least 2 minutes?: light Can you get to places out of walking distance without help? (For eg., can you travel alone on buses, taxis or drive your car?): Yes Can you go shopping for groceries or clothes without someone's help?: Yes Can you prepare your own meals?: Yes Can you do your housework without help?: Yes Because of any health problems, do you need the help of another person with your personal care needs such as eating, bathing, dressing or getting around the house?: No Can you handle your own money without help?: Yes During the past 4 weeks, how would you rate your health in general?: excellent During the past 4 weeks how have things been going for you?: very well; could hardly better Are you having difficulties driving your car?: not applicable, I don't use a car Do you always fasten your seat belt when you are in a car?: yes, usually During past 4 weeks, have you been bothered by the following: never: Falling or dizzy when standing up, Sexual problems?, Trouble eating well?, Teeth or denture problems?, Problems using the telephone? and Tiredness or fatigue? Have you fallen 2 or more times in the past year?: No Are you afraid of falling?: Yes Are you a smoker?: no During the past 4 weeks, how many drinks of wine, beer, or other alcoholic beverages did you have?: no alcohol at all Do you exercise for about 20 minutes 3 or more times a week?: yes, most of the time Have you been given information to help with the following?: yes: Keeping track of your medications? and no: Hazards in your house that might hurt you? How often do you have trouble taking medicines the way you have been told to take them?: I always take medicine as prescribed How confident are you that you can control & manage most of your health problems?: very confident What is your race?: or origin or descent PHQ-9 Over the last 2 weeks, how often have you been bothered by any of the following problems? 1. Little interest or pleasure in doing things: not at all 2. Feeling down, depressed, or hopeless: not at all 3. Trouble falling or staying asleep, or sleeping too much: not at all 4. Feeling tired or having little energy: not at all 5. Poor appetite or overeating: not at all 6. Feeling bad about yourself - or that you are a failure or have let yourself or your family down: not at all 7. Trouble concentrating on things, such as reading the newspaper or watching television: not at all 8. Moving or speaking so slowly that other people could have noticed. Or the opposite - being so fidgety or restless that you have been moving around a lot more than usual: not at all 9. Thoughts that you would be better off or of hurting yourself in some way: not at all Total score: 0 Depression Screening Interpretation: Negative Depression Screening Done: Yes 24762 - PHQ-9 Billing: Yes Source: Developed by Drs. Suman Domingo, Josefa Al, Jay Zepeda and colleagues, with an educational atul from [employer]. Review of Systems Const Denies poor appetite and Denies weakness Eyes Denies no additional complaints ENT Reports Normal hearing present, Denies dizziness, Denies nasal congestion, Denies tinnitus and Denies sore throat Card Denies chest pain, Denies syncope, Denies rapid heart rate and Denies dyspnea Resp Denies cough and Denies dyspnea GI Denies change in stool character, Reports constipation, Denies diarrhea, Denies nausea and Denies vomiting Denies urinary frequency, Denies difficulty voiding and Denies dysuria Neuro Reports Normal hearing present, Denies confusion, Denies dizziness, Denies syncope and Denies weakness Psych Denies confusion Physical Exam Vital Signs: Last Vital Signs Pulse 71 04/22/25 08:46 BP 122/72 04/22/25 08:46 Pulse Ox 98 04/22/25 08:46 Oxygen Delivery Method Room Air 04/22/25 08:46 BMI result Body Mass Index 28.3 Const General: No confusion Orientation/consciousness: No confusion HEENT Head: Yes normocephalic Ears: external ears normal and TM's normal bilaterally Face and sinus: Yes normal facial exam Mouth: moist mucous membranes Throat: Yes tonsils normal Eyes Conjunctivae: conjunctivae normal Pupils: Equal, round and reactive pupils present and Pupil accommodation reflex normal Direct Ophthalmoscopy: normal light reflex Neck Neck: No lymphadenopathy Thyroid: Thyroid normal Chest Chest palpation & inspection: normal inspection of the chest Resp Effort & Inspection: normal respiratory effort and no audible wheezes Auscultation: clear to auscultation bilaterally, no crackles, no wheezes and lung sounds not diminished Cardio Rate: regular rate Rhythm: regular rhythm Peripheral pulses: radial pulses present and dorsalis pedis present GI Palpation (GI): no masses Auscultation: normal bowel sounds and normoactive bowel sounds Rectal Exam - Female: deferred Skin General skin exam: no rashes or lesions noted Rashes: no rashes Neuro General: No confusion Cranial nerves: Yes Equal, round and reactive pupils present and Yes Normal hearing present Cognition (Neuro): normal cognition Gait exam (Neuro): Normal gait present Motor exam (neuro): 5/5 motor strength present throughout Deep tendon reflexes (DTR's): Right brachioradialis reflex intensity grade: 2+, Left brachioradialis reflex intensity grade: 2+, Right patellar reflex intensity grade: 2+ and Left patellar reflex intensity grade: 2+ Extrem General: No edema Assessment & Plan Assessment & Plan (1) Medicare annual wellness visit, subsequent: Code(s): Z00.00 - Encounter for general adult medical examination without abnormal findings Plan: Patient is advised to eat healthy, keep well hydrated, keep active and have adequate sleep. (2) Hyperparathyroidism: Comment: May 2023 status post parathyroidectomy subtotal Code(s): E21.3 - Hyperparathyroidism, unspecified Plan: Patient continue to follow-up with endocrinology (3) Osteoporosis: Comment: 06/24/2024 Code(s): M81.0 - Age-related osteoporosis without current pathological fracture Qualifiers: Osteoporosis type: age-related Presence of current pathological fracture: without current pathological fracture Qualified Code(s): M81.0 - Age-related osteoporosis without current pathological fracture Plan: Patient receives a vanity and up-to-date with bone density (4) Hypothyroidism: Code(s): E03.9 - Hypothyroidism, unspecified Qualifiers: Hypothyroidism type: unspecified Qualified Code(s): E03.9 - Hypothyroidism, unspecified Plan: Continue with thyroid medication March 2025 last blood (5) Hypercholesterolemia: Code(s): E78.00 - Pure hypercholesterolemia, unspecified Plan: Avoid fried foods, chicken skin, eggs, butter margarine, pastries and meat. Be it pork or beef they have a lot of cholesterol LDL goal of less than 130 and triglyceride of less than 150 (6) Generalized anxiety disorder: Code(s): F41.1 - Generalized anxiety disorder Plan: Stable (7) GERD (gastroesophageal reflux disease): Code(s): K21.9 - Gastro-esophageal reflux disease without esophagitis Qualifiers: Esophagitis presence: without esophagitis Qualified Code(s): K21.9 - Gastro-esophageal reflux disease without esophagitis Plan: Avoid the foods that causes that usually spicy foods, tomato products, juices, coffee, soda and foods that your sensitive to. After eating do not lie down, allow 3-4 hours before in lie down. And keep the head of bed above 30 degrees to avoid the acid from going up. (8) Overweight (BMI 25.0-29.9): Code(s): E66.3 - Overweight Plan: Diet and exercise (9) Colon cancer screening: Code(s): Z12.11 - Encounter for screening for malignant neoplasm of colon Plan History of Present Illness The patient is a 75-year-old female presenting for an annual wellness visit. She has a history of osteoporosis, with the last bone density scan conducted in June 2024 showing improvement. She is currently receiving treatment with romosozumab for osteoporosis. The patient has hypothyroidism and a multinodular thyroid, with a history of hyperparathyroidism for which she underwent a parathyroidectomy in 2022. She continues to follow up with endocrinology for these conditions. The patient has hypercholesterolemia, with recent lab results showing an LDL cholesterol level of 120 mg/dL. She is advised to maintain her cholesterol levels with a target LDL of less than 130 mg/dL. She has a diagnosis of generalized anxiety disorder. Recent blood work in March revealed mild leukopenia, but her blood count, electrolytes, renal function, and liver function were normal. Her calcium level was slightly low at 8.3 mg/dL. Urinalysis showed the presence of white blood cells, but without symptoms, no treatment was initiated. The patient engages in regular physical activity, including walking and light weightlifting, and maintains a healthy diet. She denies alcohol and tobacco use. Health Maintenance - Colon cancer screening is due this year. - Mammogram is up to date as of June 2024. - Blood pressure is well-controlled. - Regular exercise includes walking and light weightlifting. - Diet is healthy, with no missed meals. - Vaccinations: Shingles, tetanus, and pneumonia shots are up to date. - Recommended to receive flu and COVID-19 vaccines in June. Social History - Exercise: Engages in daily walking and light weightlifting. - Diet: Consumes a healthy diet without missing meals. - Substance Use: Denies alcohol and tobacco use. Review of Systems - General: Denies fever, weight loss, or fatigue. - HEENT: Denies hearing loss, vision problems, or sore throat. - Cardiovascular: Denies chest pain or palpitations. - Respiratory: Denies dyspnea or cough. - Gastrointestinal: Denies nausea, vomiting, or changes in bowel habits. - Genitourinary: Reports frequent urination but denies dysuria or hematuria. - Musculoskeletal: Denies joint pain or stiffness. Physical Exam General: Cooperative, healthy appearing, comfortable, no acute distress and well developed Orientation: Patient oriented x3 Limitations: No limitations Head: Normal to inspection Ears: Hearing grossly normal bilaterally Nose: Normal external nose present Face and sinus: Normal facial exam Eyes: Appearance normal, both eyes and all related structures Neck: Normal visual inspection and Yes full ROM Respiratory: Normal respiratory effort and able to speak in complete sentences. Clear to auscultation bilaterally Cardiovascular: Regular rate and rhythm. Normal S1 and S2 GI: Normal to inspection. Soft to palpation and nontender Skin: No rashes or lesions noted Neuro: Patient oriented x3 Extremities: Normal to inspection Results - Labs: Mild leukopenia, normal blood count, electrolytes, renal function, and liver function. - Labs: Calcium level at 8.3 mg/dL. - Labs: LDL cholesterol at 120 mg/dL. - Labs: Urinalysis showed white blood cells present. - Imaging: Chest X-ray in March 2025 was negative. Plan The patient will continue her current osteoporosis treatment with romosozumab and follow up with a bone density scan scheduled for June 2026 to monitor progress. 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 For hypercholesterolemia, the patient is advised to maintain her LDL cholesterol below 130 mg/dL through diet and exercise, with current levels at 120 mg/dL being satisfactory. The patient is encouraged to continue her healthy lifestyle, including regular physical activity and a balanced diet, to manage her generalized anxiety disorder and overall health. She will receive her flu and COVID-19 vaccines in June as part of her preventative care regimen. The patient will monitor her urinary symptoms, and if any changes occur, she will report them for further evaluation. Patient was informed and verbally consented to the use of an ambient scribe for clinic note documentation during this visit. Discussion Notes During the visit, I discussed with the patient the importance of continuing her current osteoporosis treatment and the upcoming bone density scan in June 2026 to assess her progress. We reviewed her thyroid management plan, emphasizing the need for regular endocrinology follow-ups. I advised her to maintain her LDL cholesterol levels through diet and exercise, noting her current satisfactory levels. We discussed her healthy lifestyle choices, including exercise and diet, as beneficial for managing her anxiety and overall health. I recommended receiving the flu and COVID-19 vaccines in June and advised her to monitor any changes in her urinary symptoms, with instructions to report any new developments. Patient Instructions - Continue osteoporosis treatment with romosozumab. - Follow up with blade bender furnace tender for thyroid management. - Maintain LDL cholesterol below 130 mg/dL through diet and exercise. - Engage in regular physical activity and maintain a balanced diet. - Receive flu and COVID-19 vaccines in June. - Monitor urinary symptoms and report any changes. Orders: Orders Lipid Panel 6 Months E78.00 - Pure hypercholesterolemia, unspecified Thyroid Stimulating Hormone 6 Months E78.00 - Pure hypercholesterolemia, unspecified Free T4 (Free Thyroxine) 6 Months E78.00 - Pure hypercholesterolemia, unspecified Comprehensive Met. Panel 6 Months E78.00 - Pure hypercholesterolemia, unspecified Referrals Gastroenterology Referral Z12.11 - Encounter for screening for malignant neoplasm of colon Quality Reporting (2020) Depression/Bipolar (159/160/161/177) PHQ-9: Total score: 0 Coding Level of Care Code Medicare Subsequent (G0439) Diagnoses Medicare annual wellness visit, subsequent Z00.00 Hyperparathyroidism E21.3 Age-related osteoporosis without current pathological fracture M81.0 Osteoporosis type: age-related Presence of current pathological fracture: without current pathological fracture Hypothyroidism, unspecified type E03.9 Hypothyroidism type: unspecified Hypercholesterolemia E78.00 Generalized anxiety disorder F41.1 Gastroesophageal reflux disease without esophagitis K21.9 Esophagitis presence: without esophagitis Overweight (BMI 25.0-29.9) E66.3 Colon cancer screening Z12.11 Additional Codes PHQ-9 - 86198 - PHQ-9 Billing: Yes ([id number])
--- OUTSIDE RECORDS SUMMARY | 2025-04-22 08:59 | XMS_ITS | Patient Health Record ---
Author Organization [facility] Address [address] [place] [id number] Care Team Providers Care Secretary Receptionist Name Role Phone Mundo Camacho MD Primary Care Provider Suman Orta [phone] Allergies Allergen (clinical drug ingredient) Drug/Non Drug [...] W/U Status Risk Notes Problem Abdominal bloating (029769511) Abdominal bloating (R14.0) Active confirmed Problem Irritable bowel syndrome (52471133) IBS (irritable bowel syndrome) (K58.9) Active confirmed Problem Epigastric pain (71037253) Abdominal pain, epigastric (R10.13) Active confirmed Problem Flatus (61584039) Flatus (R14.3) Active confirmed Plan Of Treatment Future Test Test Name Order Date COLONOSCOPY 05/06/2015 Insurance Providers Payer Name Payer Address Payer Phone Subscriber Number Group Number Insured Name Patient Relationship to Insured Coverage Start Date Coverage End Date [facility] [address] [place] [phone] [id number] ZOLTAN NGUYEN Self - patient is the insured Medical (General) History Medical History History ICD Code Colonoscopy 12-04-2004--no markel yps-small internal hemorrhoids and mild diverticulosis GERD--EGD in 2001 with a sma ll HH-no esophagitis,; EGD in 04/2014-small HH, but otherwise negative for esophagitis or Navarro's esophagus Hypothyroidism Osteoporosis Arthritis Negative colonoscopy in 07/2015 Denies [place],DM,CVA,Lung disease,renal dise ase Small bowel obstruction--December 2021--res olved with a NG tube-Dr. Gifford Surgical History Surgery Date(Month/Year) [facility] ARINA Varicose vein stripping Tubal ligation Hemorrhoid surgery in [address] Jorgito blackmon
== END 2025-04-22 09:18 | disposition home or self-care (01) ==
LOC: HO.HMCH 08:38
PROVIDERS: PCP Internal Medicine; Visit Provider Internal Medicine
DX: Z00.00 Encounter for general adult medical examination without abnormal findings (principal); E21.3 Hyperparathyroidism, unspecified; Z68.28 Body mass index [BMI] 28.0-28.9, adult; E66.3 Overweight; M81.0 Age-related osteoporosis without current pathological fracture; E03.9 Hypothyroidism, unspecified; E78.00 Pure hypercholesterolemia, unspecified; F41.1 Generalized anxiety disorder; K21.9 Gastro-esophageal reflux disease without esophagitis; Z12.11 Encounter for screening for malignant neoplasm of colon

== ENCOUNTER → 2025-04-22 08:37 | Outpatient (BNVA) | payer MEDICARE, SELFPAY | PROVIDERS: PCP Internal Medicine; Visit Provider Internal Medicine | DX: Z00.00 Encounter for general adult medical examination without abnormal findings (principal); E21.3 Hyperparathyroidism, unspecified; M81.0 Age-related osteoporosis without current pathological fracture; E03.9 Hypothyroidism, unspecified; E78.00 Pure hypercholesterolemia, unspecified; F41.1 Generalized anxiety disorder; K21.9 Gastro-esophageal reflux disease without esophagitis; E66.3 Overweight; Z68.28 Body mass index [BMI] 28.0-28.9, adult | CPT/HCPCS: 96127 ==

== ENCOUNTER 2025-04-29 09:10 | Outpatient (AMB) | payer MEDICARE, SELFPAY ==
--- OUTSIDE RECORDS SUMMARY | 2024-09-04 05:00 | XMS_ITS | Continuity of Care Document ---
Author Organization [facility] Address [address] [place] [address] Phone Care Team Providers Care Customer Service Operator Name Role Phone Saravanan CARRILLO, GIANA, Suman [...] Guidan Needle Bx-rad- CT & [place] N Inj Scleros Solut; [...] CT & [place] [facility], [address] [place] [address] Dr [address]ob[address] [address]Ibrahima [place], [id number], [place] tel:[phone] [facility] Venous insufficiency (chronic) (peripheral) 4 Saravanan CARRILLO RVT, RPVI Robert. [address] [place] [address], [place], [id number], [place]. tel:[phone] Referring Provider: Mundo Camacho MD, [address] [place] [address] [address] [facility], [place], [address]. tel:[phone] [facility], [address] [place] [address] Dr Escobedo 1000[facility] 1000I[place]hima [place], [id number], [place] tel:[phone] [facility] Chronic venous hypertension (idiopathic) with other complications of right lower extremity 4 Saravanan CARRILLO RVT, RPVI Robert. [address] [place] [address], [facility] [place], [id number], [place]. tel:[phone] Referring Provider: Mundo Camacho MD, [address] [place] [address] [place], [address]. tel:[phone] [place] [facility], [address] [place] [address] Dr [address]Suite Ibrahima Espinoza MD, [id number], [place] tel:[phone] CVR - [place] Encounter for follow-up examination after completed treatment for conditions other than malignant neoplasmPain in right leg 4 Saravanan CARRILLO RVT, NUNU Will. [address] [place] [address], [address], [facility] [place], [id number], [place]. tel:[phone] Referring Provider: Mundo Camacho MD, [address] [place] [address], [address]. tel:[phone] [place] [facility], [address] [place] [address] Dr [address] 1000Ibrahima MD, [id number], [place] tel:[phone] CVR - [place] Encounter for follow-up examination after completed treatment for conditions other than malignant nePain in right leg 4 Saravanan CARRILLO RVT, NUNU Will. [address] [facility], [address], [facility] [place], [id number], [place]. tel:[phone] Referring Provider: Mundo Camacho MD, [address] [place] [address], [address]. tel:[phone] [place] [facility], [address] [place] [address] Dr [address] 1000Ibrahima MD, [id number], [place] tel:[phone] CVR - [place] - [place] Varicose veins of right lower extremity with other complications 4 Saravanan CARRILLO RVT, NUNU Will. [address] [facility], [address], [facility] [place], [id number], [place]. tel:[phone] Referring Provider: Mundo Camacho MD, [address] [place] [address] [place], [address]. tel:[phone] [facility], [address] [place] [address] [address]Suite 1000Ibrahima MD, [id number], [place] tel:[phone] CVR - [place] Varicose veins of right lower extremity with other complications Jul-2 0 4 Matteo Martinez. [facility], Suite [facility], [facility] [place], [id number], [place]. tel:[phone] Referring Provider: Mundo Camacho MD, [address] [facility] [place], [address]. tel:[phone] Offic Cons New/estab Mod 40 Mi- CT & [place] [facility], [address] [place] [address] Dr Escobedo 1000Suite 1000Ibrahima MD, [id number], [place] tel:[phone] CV[place] - [place] Body mass index [BMI] 30.0-30.9, adultChronic venous hypertension (idiopathic) without complications of right lower extremity Jun- 4 Saravanan CARRILLO RVT, RPVI Robert. [address] [place] [address], [place] [address], [facility] [place], [id number], [place]. tel:[phone] Referring Provider: Mundo Camacho MD, [address] [facility] [place], [address]. tel:[phone] [facility], [address] [place] [address] [address] 1000Ibrahima MD, [id number], [place] tel:[phone] CVR - [place] Chronic venous hypertension (idiopathic) with other complications of right lower extremity Jun- 4 Saravanan CARRILLO RVT, RPVI Robert. [address] [place] [address], Suite [facility], [facility] [place], [id number], [place]. tel:[phone] Referring Provider: Mundo Camacho MD, [address] [facility] [place], [address]. tel:[phone] Office/Outpt E&M Established 15 Mins- [place] & [place] [facility], [address] [place] [address] Dr Escobedo 1000Suite Ibrahima Espinoza MD, [id number], [place] tel:[phone] CVR - [place] - [place] Venous insufficiency (chronic) (peripheral) 4 Saravanan CARRILLO RVT, NUNU Will. [address] [place] [address], Suite [facility], [place], [place], [id number], [place]. tel:[phone] Referring Provider: Mundo Camacho MD, [address] [place] [address] Dr [address] [facility] [place], [address]. tel:[phone] [place] [facility], [address] [place] [address] Dr Escobedo 1000Suite Ibrahima Espinoza [place], [id number], [place] tel:[phone] CVR - [place] Varicose veins of bilateral lower extremities with pain 4 Saravanan CARRILLO RVT, NUNU Will. [address] [place] [address], [place] [address], [facility] [place], [id number], [place]. tel:[phone] Referring Provider: Mundo Camacho MD, [address] [place] [address] [place] [address] [place], [address]. tel:[phone] [facility], [address] [place] [address] Dr Escobedo 1000Suite Ibrahima Espinoza [place], [id number], [place] tel:[phone] CVR - [place] Encounter for follow-up examination after completed treatment for conditions other than malignant neChronic venous hypertension (idiopathic) with other complications of bilateral lower extremity 4 Saravanan CARRILLO RVT, NUNU Will. [address] [place] [address], [address], [facility] [place], [id number], [place]. tel:[phone] Referring Provider: Mundo Camacho MD, [address] [place] [address] [address] [place] [address] [place], [address]. tel:[phone] [facility], [address] [place] [address] Dr Escobedo 1000Suite Ibrahima Espinoza MD, [id number], [place] tel:[phone] [facility] Varicose veins of left lower extremity with other complications 0 4 Leonel Cotton. [address] [address], [place], [place], [id number], [place]. tel:[phone] Referring Provider: Mundo Camacho MD, [address] [place] [address] [address] [place] [address] [place], [address]. tel:[phone] [facility], [address] [place] [address] Dr Escobedo 1000Suite Ibrahima Espinoza MD, [id number], [place] tel:[phone] [facility] Encounter for follow-up examination after completed treatment for conditions other than malignant neVaricose veins of right lower extremity with pain 4 Saravanan CARRILLO, RVT, RPVI Suman. [address] [place] [address], [place], [place], [id number], [place]. tel:[phone] Referring Provider: Mundo Camacho MD, [address] [place] [address] [address] [place] [address] [place], [address]. tel:[phone] [facility], [address] [place] [address] Dr Escobedo 1000Suite Ibrahima Espinoza [place], [id number], [place] tel:[phone] [facility] Chronic venous hypertension (idiopathic) with inflammation of right lower extremity Nov-0 4 Leonel Cotton. [address] [address], [place], [place], [id number], [place]. tel:[phone] Referring Provider: Mundo Camacho MD, [address] [place] [address] Dr [address] [facility] In [facility], [place], [address]. tel:[phone] Offic Cons New/estab Mod-hi 60 [facility], [address] [place] [address] Dr Escobedo 1000Suite Ibrahima Espinoza MD, [id number], [place] tel:[phone] [facility]R [facility] Chronic venous hypertension (idiopathic) with other complications of bilateral lower extremityPain in left lower legPain in right legPain in left legVenous insufficiency (chronic) (peripheral)C ramp and spasm Feb-0 4 Saravanan CARRILLO RVT, NUNU Will. [address] [facility], [place] [address], [place], [place], [id number], [place]. tel:[phone] Referring Provider: Mundo Camacho MD, [address] [place] [address] Dr [address] [facility] [place], [address]. tel:[phone] [facility], [address], [place], [id number], [place] tel:[phone] R - [facility] Varicose veins of bilateral lower extremities with pain b-0 4 Saravanan CARRILLO RVT, NUNU Will. [address] [facility], [place] [address], [place], [place], [id number], [place]. tel:[phone] Referring Provider: Mundo Camacho MD, [address] [place] [address] Dr [address] [facility] [place], [address]. tel:[phone] Family History Family Member Type Diagnosis Age At Onset No Information Payers Payer name Insurance type Covered constitution party ID Everett nicole(s) [employer] Medicare CI [id number] Social History Type Description Quantity Date Captured [...]
--- NOTE | 2025-04-29 09:13 | MHC.OFFVIS ---
Vital Signs 04/29/25 09:19 Height 4 ft 11.21 in Weight 141 lb 15.643 oz BMI 28.5 BP 94/64 Blood Pressure Location Rt brachial Position Sitting Pulse 69 Pulse Source Pulse Oximeter Pulse Oximetry (%) 98 Oxygen Delivery Method Room Air Intake Visit Reasons: osteoporosis/evenity #11 Intake Note: Patient present today for Osteoporosis follow up and Evenity # 11. 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 Accompanied by: Self / Same As Patient Allergies nystatin Allergy (Intermediate, Verified 04/29/25 09:22) Rash Medication List - Last Reconciled 04/29/25 by Suman Perez MD calcium-vitamin D3-vitamin K 650 mg-12.5 mcg-40 mcg (Viactiv) 1 tab PO BID cholecalciferol (vitamin D3) 25 mcg PO DAILY dicyclomine 10 mg PO BID PRN estradiol 0.01%(0.1mg/gram) (Estrace) 1 g vaginal 2XW levothyroxine 75 mcg PO DAILY omeprazole 20 mg PO DAILY 90 days romosozumab-aqqg (Evenity) 210 mg (2.34 mL) subcut .q month tramadol 50 mg PO DAILY PRN HPI Comments Details: 75 YO F with PMHx Hypothyroidism, a NTMNG and also hyperparathyroidism with resultant osteoporosis who is seen in F/U for osteoporosis. 2) Osteoporosis: Received treatment in the past with Actonel, for approximately 6 years.? She stopped this in 2019. Tolerated treatment well without complication. She also tried Fosamax, but had GI distress from this. She did have significant decline in her BMD while on Actonel, thus failing treatment with bisphosphonate. She underwent a full biochemical evaluation for secondary causes of osteoporosis which revealed an elevated PTH level, but was otherwise WNL. 24 hour urine collection is high normal. She underwent US head and neck which reveals a 0.9 cm L sided parathyroid adenoma. She was referred to Dr. Samayoa and will be undergoing a parathyroidectomy this May. No history of pathologic fracture or ONJ. Has 1 servings of dietary calcium per day in the form of cheese.? Takes Calcium supplement 1200 mg daily in divided doses.? Takes no additional Vitamin D supplement. Does use PPI daily. Denies ever using anticoagulant, antiepileptic or glucocorticoid medication.? Does weight bearing exercise 5 days per week in the form of walking. ? Fracture history: Denies MATERIAL LIAISON history: Menarche was age 16. Menses was always regular. . She did not breastfeed. Menopause was in her 30's after a TAHBSOO. She did not use HRT after. Denies history of Kidney stones: Denies family history of Osteoporosis or hip fracture. UTD on dental cleanings and sees dentist every 6 months.? No planned upcoming dental work or extractions. DXA: 12/22/2021 FINDINGS: AP SPINE L1-L4: Current: BMD 0.770 g/cm2, Z-score -1.7, T-score -3.4, osteoporosis, 10.5% decrease from previous, 16.8% decrease from baseline (<5% change is not significant). Prior: BMD 0.860 g/cm2. Baseline: BMD 0.926 g/cm2. LEFT FEMUR, NECK: Current: BMD 0.721 g/cm2, Z-score -0.6, T-score -2.3, osteopenia. Prior: BMD 0.759 g/cm2. Baseline: BMD 0.818 g/cm2. LEFT FEMUR, TOTAL: Current: BMD 0.774 g/cm2, Z-score -0.3, T-score -1.9, osteopenia, 7.2% decrease from previous, 8.5% decrease from baseline (<5% change is not significant). Prior: BMD 0.834 g/cm2. Baseline: BMD 0.846 g/cm2. Laboratory Tests 02/15/23 02/15/23 02/17/23 11:13 11:13 07:15 Creatinine 0.65 Estimated GFR > 60 Albumin N-Telopeptide X-linked 30 25-OH Vitamin D Total 33.6 PTH Intact 70 Calcium (PTH Intact) 9.3 02/21/23 10:25 Creatinine Estimated GFR Albumin 4.0 N-Telopeptide X-linked 25-OH Vitamin D Total PTH Intact Calcium (PTH Intact) Currently on the 10th dose of Evenity. We will talk to patient about transitioning to Prolia in 2 months The patient is a 75-year-old female presenting with osteoporosis management and preventative care planning. She is currently receiving injections, with the eleventh injection administered today, and has tolerated the treatment well without any fractures since the last visit. The plan includes transitioning to Prolia, administered once every six months, after completing the current treatment regimen in June. A bone density screening is scheduled for June 2026 to evaluate the effectiveness of the treatment and determine the future course of action. The patient has also engaged in nutritional counseling, resulting in weight loss, which is a positive step in managing her condition. [facility] Medical History (Updated 04/22/25 @ 09:02 by Mundo Camacho MD) Overweight (BMI 25.0-29.9) Pruritic rash Superficial thrombophlebitis Small bowel obstruction Rash Varicose vein of leg Screening for breast cancer Hyperparathyroidism Age-related osteoporosis without current pathological fracture Multinodular thyroid Screening for diabetes mellitus Impacted cerumen of left ear History of seizures Peripheral vascular disease Thyroid nodule GERD (gastroesophageal reflux disease) Hypothyroidism Osteoporosis Surgical History History of colonoscopy History of surgery History of total abdominal hysterectomy and bilateral salpingo-oophorectomy History of cholecystectomy Family History Father Throat cancer Mother No problems noted. Brother Liver cancer Social History Household Members: Spouse Housing: Condominium Do you presently have visiting nurse or other home services: No Alcohol intake: never Patient Tobacco Use Status: Never used Tobacco Tobacco use type: Cigarette e-Cigarette/Vaping Use: Never Used Second Hand Smoke Exposure: No Advance Directives Date on File: 01/06/21 service: No Current occupational status: unemployed Cognitive needs: No Hearing needs: No Vision needs: Yes Physical Exam Vital Signs: Last Vital Signs Pulse 69 04/29/25 09:19 BP 94/64 04/29/25 09:19 Pulse Ox 98 04/29/25 09:19 Oxygen Delivery Method Room Air 04/29/25 09:19 BMI result Body Mass Index 28.5 Assessment & Plan Assessment & Plan (1) Osteoporosis: Comment: 06/24/2024 Code(s): M81.0 - Age-related osteoporosis without current pathological fracture Category: Medical Qualifiers: Osteoporosis type: age-related Presence of current pathological fracture: without current pathological fracture Qualified Code(s): M81.0 - Age-related osteoporosis without current pathological fracture Plan: This 74-year-old white female with a history of primary hyperparathyroidism status post parathyroidectomy 05/13/2023 with residual osteoporosis moderate to severe seen on recent bone density. Currently on Evenity for 10th month injection : Ongoing management with the current treatment regimen of Evenity is well-tolerated, with future consideration to switch therapy to an agent like Prolia in 2 months. Daily supplementation with calcium and vitamin D remains crucial. 1. Osteoporosis The patient is currently on Evenity injections, with the eleventh dose administered today. She has tolerated the treatment well, with no fractures reported since the last visit. The plan is to transition to Prolia, administered biannually, after completing the current regimen in June. A bone density screening is scheduled for June 2026 to assess treatment efficacy and guide future management. Nutritional counseling has been beneficial, resulting in weight loss, which supports the management of osteoporosis. During the visit, we discussed the continuation of Evenity injections and the transition to Prolia for osteoporosis management. The patient was informed about the schedule for Prolia administration and the upcoming bone density screening in June 2026. We also reviewed the positive impact of nutritional counseling on her weight management. The patient had an opportunity to ask questions regarding treatment plan. The patient expressed understanding and agreement with the above treatment plan. Patient was informed and verbally consented to the use of an ambient scribe for clinic note documentation during this visit. Orders: Orders Calcium 2 Months M81.0 - Age-related osteoporosis without current pathological fracture Albumin Level 2 Months M81.0 - Age-related osteoporosis without current pathological fracture Basic Metabolic Panel 2 Months M81.0 - Age-related osteoporosis without current pathological fracture Coding Level of Care Code Est Pt Level 3 (29724) Diagnoses Age-related osteoporosis without current pathological fracture M81.0 Osteoporosis type: age-related Presence of current pathological fracture: without current pathological fracture
[2025-04-29 09:19] VITALS: BP 94/64; PULSE 69; O2SAT 98; BMI 28.5
== END 2025-04-29 09:44 | disposition home or self-care (01) ==
LOC: HO.ENCR 09:11
PROVIDERS: PCP Internal Medicine; Visit Provider Internal Medicine Endocrinology, Diabetes & Metabolism
DX: M81.0 Age-related osteoporosis without current pathological fracture (principal)
CPT/HCPCS: 99213

== ENCOUNTER → 2025-04-29 09:10 | Outpatient (BNVA) | payer MEDICARE, SELFPAY | PROVIDERS: PCP Internal Medicine; Visit Provider Internal Medicine Endocrinology, Diabetes & Metabolism | DX: M81.0 Age-related osteoporosis without current pathological fracture (principal) | CPT/HCPCS: 96372; 99212; J3111 ==

== ENCOUNTER 2025-05-27 09:44 | Outpatient (AMB) | payer MEDICARE, SELFPAY ==
--- NOTE | 2025-05-27 10:11 | AM.OFFVISNUR ---
Intake Visit Reasons: Evenity #12 Allergies nystatin Allergy (Intermediate, Verified 04/29/25 09:22) Rash Office Meds romosozumab-aqqg 210 mg/2.34 mL(105 mg/1.17 mL x2)subcutaneous syringe Performing Provider: Suman Perez MD [place] [facility] Administered by: Carola Macias RN on 05/27/25 10:11 Dose Route Admin Location Dispensed Lot Number Expiration Date [facility] Block Cutter 210 mg subcut bilateral upper arms 2.34 mL [id number] 08/04/27 54622-118-10 [employer] Total Dispensed Waste 2.34 mL 0 % Comments: No adverse reactions reported from previous injection. Pt tolerated injection well. Pt will be transitioning to Prolia for next injection. No further questions at this time. Assessment & Plan Assessment & Plan Orders: Orders AMB Romosozumab Injection Patient Supplied Today M81.0 - Age-related osteoporosis without current pathological fracture Coding
--- OUTSIDE RECORDS SUMMARY | 2025-05-27 11:39 | XMS_ITS | Patient Health Record ---
Author Organization [facility] Address [address] [place] [address] Care Team Providers Care Chrome Plater Name Role Phone Mundo Camacho MD Primary Care Provider Suman Orta [phone] Allergies Allergen (clinical drug ingredient) Drug/Non Drug [...] W/U Status Risk Notes Problem Abdominal bloating (508636312) Abdominal bloating (R14.0) Active confirmed Problem Irritable bowel syndrome (64245964) IBS (irritable bowel syndrome) (K58.9) Active confirmed Problem Epigastric pain (02202594) Abdominal pain, epigastric (R10.13) Active confirmed Problem Flatus (24200246) Flatus (R14.3) Active confirmed Plan Of Treatment Future Test Test Name Order Date COLONOSCOPY 05/06/2015 Next Appt Details Provider Name:Suman Yates , 07/30/2025 10:30:00 AM, [address], [address], [place], [address], Insurance Providers Payer Name Payer Address Payer Phone Subscriber Number Group Number Insured Name Patient Relationship to Insured Coverage Start Date Coverage End Date [facility] [address] [place] [phone] [id number] ZOLTAN NGUYEN Self - patient is the insured Medical (General) History Medical History History ICD Code Colonoscopy 12-04-2004--no markel yps-small internal hemorrhoids and mild diverticulosis GERD--EGD in 2001 with a sma ll HH-no esophagitis,; EGD in 04/2014-small HH, but otherwise negative for esophagitis or Navarro's esophagus Hypothyroidism Osteoporosis Arthritis Negative colonoscopy in 07/2015 Denies [place],DM,CVA,Lung disease,renal dise ase Small bowel obstruction--December 2021--res olved with a NG tube-Dr. Gifford Surgical History Surgery Date(Month/Year) [facility] ARINA Varicose vein stripping Tubal ligation Hemorrhoid surgery in [address] Jorgito blackmon
== END 2025-05-27 10:10 | disposition home or self-care (01) ==
LOC: HO.ENCR 09:44
PROVIDERS: PCP Internal Medicine; Visit Provider Internal Medicine Endocrinology, Diabetes & Metabolism
DX: M81.0 Age-related osteoporosis without current pathological fracture (principal)

== ENCOUNTER → 2025-05-27 09:44 | Outpatient (BNVA) | payer MEDICARE, SELFPAY | PROVIDERS: PCP Internal Medicine; Visit Provider Internal Medicine Endocrinology, Diabetes & Metabolism | DX: M81.0 Age-related osteoporosis without current pathological fracture (principal) | CPT/HCPCS: 96372; J3111 ==

== ENCOUNTER 2025-06-24 09:46 | Outpatient (REF) | payer MEDICARE, SELFPAY ==
--- OUTSIDE RECORDS SUMMARY | 2025-06-24 10:59 | XMS_ITS | Patient Health Record ---
Author Organization [facility] Address [address] [place] [address] Care Team Providers Care Set Staff Fitter Name Role Phone Mundo Camacho MD Primary Care Provider Suman Orta [phone] Allergies Allergen (clinical drug ingredient) Drug/Non Drug [...] if needed for abdominal discomfort, cramps, or bloating; Duration: 30 days Active Vitamin D (Cholecalciferol) Active Levothyroxine Sodium 75 MCG 1 capsule Or ally Once a day Active PriLOSEC OTC 20 MG 1 tablet Orally Once a day 01/29/2014 Active Immunizations Vaccine Route Administration Date Status Comme nts Influenza Unknown 05/07/2021 Administered Problems Problem Type SNOMED Code ICD Code Onset Dates Problem Status W/U Status Risk Notes Problem Abdominal bloating (127630808) Abdominal bloating (R14.0) Active confirmed Problem Irritable bowel syndrome (64636301) IBS (irritable bowel syndrome) (K58.9) Active confirmed Problem Epigastric pain (99328714) Abdominal pain, epigastric (R10.13) Active confirmed Problem Flatus (93411249) Flatus (R14.3) Active confirmed Plan Of Treatment Future Test Test Name Order Date COLONOSCOPY 05/06/2015 Next Appt Details Provider Name:Suman Yates , 07/30/2025 10:30:00 AM, [address], [address], [place], [address], Insurance Providers Payer Name Payer Address Payer Phone Subscriber Number Group Number Insured Name Patient Relationship to Insured Coverage Start Date Coverage End Date [facility] [address] [place] [phone] [id number] ZOLTAN NGUYEN Self - patient is the [...]
[2025-06-24 11:10] LABS: Albumin Level 4.4 g/dL (3.5-5.0); Anion Gap 12 (12-20); Blood Urea Nitrogen 12 mg/dL (9-16); Calcium 9.0 mg/dL (8.4-10.2); Carbon Dioxide 28 mmol/L (22-29); Chloride 105 mmol/L (96-108); Estimated Glomerular Filt Rate > 60; Potassium 4.1 mmol/L (3.3-5.1); Sodium 141 mmol/L (135-145)
== END 2025-06-24 09:47 | disposition home or self-care (01) ==
LOC: HO.LAB 09:46
PROVIDERS: PCP Internal Medicine; Visit Provider Internal Medicine Endocrinology, Diabetes & Metabolism
DX: M81.0 Age-related osteoporosis without current pathological fracture (principal)
CPT/HCPCS: 36415; 80048; 82040

== ENCOUNTER 2025-06-28 08:17 | Outpatient (REF) | payer MEDICARE, SELFPAY ==
--- OUTSIDE RECORDS SUMMARY | 2024-09-04 05:00 | XMS_ITS | Continuity of Care Document ---
Author Organization [facility] Address [address] [place] [address] Phone Care Team Providers Care Group Managing Director Name Role Phone Saravanan CARRILLO, GIANA, Suman [...] Mins- [place] & [place] [facility], [address] [place] [address] Dr [address] [address]I[place], [id number], [place] tel:[phone] [facility] Venous insufficiency (chronic) (peripheral) 4 Saravanan CARRILLO RVT, RPVI Robert. [address] [place] [address], [place], [id number], [place]. tel:[phone] Referring Provider: Mundo Camacho MD, [address] [place] [address] [address] [facility], [place], [address]. tel:[phone] [facility], [address] [place] [address] Dr Escobedo 1000[facility] 1000Ibrahima [place], [id number], [place] tel:[phone] [facility] Chronic venous hypertension (idiopathic) with other complications of right lower extremity 4 Saravanan CARRILLO RVT, RPVI Robert. [address] [place] [address], [facility] [place], [id number], [place]. tel:[phone] Referring Provider: Mundo Camacho MD, [address] [place] [address] [place], [address]. tel:[phone] [facility], [address] [place] [address] Dr [address]Suite Ibrahima Espinoza [place], [id number], [place] tel:[phone] CV[place] Encounter for follow-up examination after completed treatment for conditions other than malignant neoplasmPain in right leg 4 Saravanan CARRILLO RVT, NUNU Will. [address] [place] [address], Suite [facility], [facility] [place], [id number], [place]. tel:[phone] Referring Provider: Mundo Camacho MD, [address] [place] [address], [address]. tel:[phone] [place] [facility], [address] [place] [address] Dr [address] 1000Ibrahima MD, [id number], [place] tel:[phone] CVR - [facility] Varicose veins of right lower extremity with other complications 4 Saravanan CARRILLO RVT, NUNU Will. [address] [place] [address], [address], [facility] [place], [id number], [place]. tel:[phone] Referring Provider: Mundo Camacho MD, [address] [place] [address] [address] [place] [address], [address]. tel:[phone] [facility], [address] [place] [address] Dr [address]Suite Ibrahima Espinoza MD, [id number], [place] tel:[phone] CV[place] Encounter for follow-up examination after completed treatment for conditions other than malignant nePain in right leg 4 Saravanan CARRILLO RVT, NUNU Will. [address] [facility], [address], [facility] [place], [id number], [place]. tel:[phone] Referring Provider: Mundo Camacho MD, [address] [facility] [place], [address]. tel:[phone] [facility], [address] [place] [address] [address] 1000Ibrahima [place], [id number], [place] tel:[phone] [place] Varicose veins of right lower extremity with other complications Jul-2 0 4 Matteo Martinez. [facility], Suite [facility], [facility] [place], [id number], [place]. tel:[phone] Referring Provider: Mundo Camacho MD, [address] [facility] [place], [address]. tel:[phone] Offic Cons New/estab Mod 40 Mi- CT & [place] [facility], [address] [place] [address] Dr Escobedo 1000Suite 1000Ibrahima [place], [id number], [place] tel:[phone] [facility] Body mass index [BMI] 30.0-30.9, adultChronic venous hypertension (idiopathic) without complications of right lower extremity Jun- 4 Saravanan CARRILLO RVT, RPVI Robert. [address] [place] [address], [place] [address], [facility] [place], [id number], [place]. tel:[phone] Referring Provider: Mundo Camacho MD, [address] [facility] [place], [address]. tel:[phone] [facility], [address] [place] [address] [address] 1000Ibrahima MD, [id number], [place] tel:[phone] CV[place] - [place] Chronic venous hypertension (idiopathic) with other complications of right lower extremity Jun- 4 Saravanan CARRILLO RVT, RPVI Robert. [address] [place] [address], Suite [facility], [facility] [place], [id number], [place]. tel:[phone] Referring Provider: Mundo Camacho MD, [address] [facility] [place], [address]. tel:[phone] Office/Outpt E&M Established 15 Mins- [place] & [place] [facility], [address] [place] [address] Dr Escobedo 1000Suite Ibrahima Espinoza [place], [id number], [place] tel:[phone] CVR - [place] Venous insufficiency (chronic) (peripheral) 4 Saravanan CARRILLO RVT, NUNU Will. [address] [place] [address], Suite [facility], [place], [place], [id number], [place]. tel:[phone] Referring Provider: Mundo Camacho MD, [address] [place] [address] Dr [address] [facility] [place], [address]. tel:[phone] [place] [facility], [address] [place] [address] Dr Escobedo 1000Suite Ibrahima Espinoza [place], [id number], [place] tel:[phone] CV[place] Varicose veins of bilateral lower extremities with pain 4 Saravanan CARRILLO RVT, NUNU Will. [address] [place] [address], [place] [address], [facility] [place], [id number], [place]. tel:[phone] Referring Provider: Mundo Camacho MD, [address] [place] [address] [place] [address] [place], [address]. tel:[phone] [facility] [place] [facility], [address] [place] [address] Dr Escobedo 1000Suite Ibrahima Espinoza MD, [id number], [place] tel:[phone] CV[place] - [place] Encounter for follow-up examination after completed treatment for conditions other than malignant neChronic venous hypertension (idiopathic) with other complications of bilateral lower extremity 4 Saravanan CARRILLO RVT, NUNU Will. [address] [place] [address], [address], [facility] [place], [id number], [place]. tel:[phone] Referring Provider: Mundo Camacho MD, [address] [place] [address] [address] [place] [address] [place], [address]. tel:[phone] [facility] [place] [facility], [address] [place] [address] Dr Escobedo 1000Suite Ibrahima Espinoza MD, [id number], [place] tel:[phone] [facility] Varicose veins of left lower extremity with other complications 0 4 Leonel Cotton. [address] [address], [place], [place], [id number], [place]. tel:[phone] Referring Provider: Mundo Camacho MD, [address] [place] [address] [address] [place] [address] [place], [address]. tel:[phone] [facility], [address] [place] [address] Dr Escobedo 1000Suite Ibrahima Espinoza MD, [id number], [place] tel:[phone] [facility] Encounter for follow-up examination after completed treatment for conditions other than malignant neVaricose veins of right lower extremity with pain 4 Saravanan CARRILLO, RVT, RPVI Suman. [address] [place] [address], [place], [place], [id number], [place]. tel:[phone] Referring Provider: Mundo Camacho MD, [address] [place] [address] [address] [place] [address] [place], [address]. tel:[phone] [facility], [address] [place] [address] Dr Escobedo 1000Suite Ibrahima Espinoza MD, [id number], [place] tel:[phone] [facility] Chronic venous hypertension (idiopathic) with inflammation of right lower extremity Nov-0 4 Leonel Cotton. [address] [address], [place], [place], [id number], [place]. tel:[phone] Referring Provider: Mundo Camacho MD, [address] [place] [address] Dr [address] [facility] In [facility], [place], [address]. tel:[phone] Offic Cons New/estab Mod-hi 60 [facility], [address] [place] [address] Dr Escobedo 1000Suite Ibrahima Espinoza MD, [id number], [place] tel:[phone] CVR [facility] Chronic venous hypertension (idiopathic) with other complications of bilateral lower extremityPain in left lower legPain in right legPain in left legVenous insufficiency (chronic) (peripheral)C ramp and spasm Feb-0 4 Saravanan CARRILLO RVT, NUNU Will. [address] [facility], [place] [address], [place], [place], [id number], [place]. tel:[phone] Referring Provider: Mundo Camacho MD, [address] [place] [address] Dr [address] [facility] [place], [address]. tel:[phone] [facility] [place] [facility], [address], [place], [id number], [place] tel:[phone] R - [facility] Varicose veins of bilateral lower extremities with pain b-0 4 Saravanan CARRILLO RVT, NUNU Will. [address] [facility], [place] [address], [place], [place], [id number], [place]. tel:[phone] Referring Provider: Mundo Camacho MD, [address] [place] [address] Dr [address] [facility] [place], [address]. tel:[phone] Family History Family Member Type Diagnosis Age At Onset No Information Payers Payer name Insurance type Covered republican ID Everett nicole(s) [employer] Medicare CI [id number] Social History Type Description Quantity Date Captured [...] to Body mass index (BMI) 30.0-30.9, adult Continue compression stocking us e Related to Chrn Vns Hypertnsn w/o Compl; RIGHT Patient education booklet given Related to Chrn Vns Hypertnsn w/o Compl; RIGHT Diet education Related to Body mass index [BMI] 30.0-30.9, adult Giving Encouragement to Exercise Related to Body mass index [BMI] 30.0-30.9, adult Patient education booklet given Related to Venous [...]
--- NOTE | ~2025-06-28 | MM_ITS ---
EXAMINATION: MM SCREENING DIGITAL BREAST TOMOSYNTHESIS, BILATERAL CLINICAL INFORMATION: Screening. Asymptomatic. COMPARISON: Mammography: Comparison is made with available priors TECHNIQUE: Digital breast mammography with tomosynthesis is performed in both the craniocaudal and mediolateral oblique views along with computer-aided detection (CAD). FINDINGS: There are scattered areas of fibroglandular density. Left marker clip. There are no significant masses, abnormal calcifications, or other abnormalities. MM/MM tomosynthesis screening BI IMPRESSION: No mammographic evidence of malignancy. ASSESSMENT: BI-RADS Category 2: Benign RECOMMENDATION: Routine annual mammography screening. 1 year F/U This examination should not preclude the clinical evaluation of a suspicious palpable abnormality. This patient's information was entered into a reminder system with a target due date for their next mammogram. Electronically signed by: Elba White DO 07/01/2025 12:58 PM EDT
--- OUTSIDE RECORDS SUMMARY | 2025-06-28 08:35 | XMS_ITS | Patient Health Record ---
Author Organization [facility] Address [address] [place] [address] Care Team Providers Care Pack Puller Name Role Phone Mundo Camacho MD Primary Care Provider Suman Orta Unavailable [phone] Allergies Allergen (clinical drug ingredient) Drug/Non Drug Allergy documented on EMR Reaction Allergy Type Onset Date Status Information temporarily unavailable Nystatin rash Drug Allergy Active Information temporarily unavailable Latex Unknown Allergy Active Reason For Referral [...] Problem Status W/U Status Risk Notes Problem Information temporarily unavailable Abdominal bloating (R14.0) Active confirmed Problem Information temporarily unavailable IBS (irritable bowel syndrome) (K58.9) Active confirmed Problem Information temporarily unavailable Abdominal pain, epigastric (R10.13) Active confirmed Problem Information temporarily unavailable Flatus (R14.3) Active confirmed Plan Of Treatment Future Test Test Name Order Date COLONOSCOPY 05/06/2015 Next Appt Details Provider Name:Suman Yates , 07/30/2025 10:30:00 AM, [address], [address], [place], [address], Insurance Providers Payer Name Payer Address Payer Phone Subscriber Number Group Number Insured Name Patient Relationship to Insured Coverage Start Date Coverage End Date [facility] [address] [place] [phone] [id number] ZOLTAN NGUYEN Self - patient is the insured Medical (General) History Medical History History ICD Code Colonoscopy 12-04-2004--no markel yps-small internal hemorrhoids and mild diverticulosis GERD--EGD in 2001 with a sma ll HH-no esophagitis,; EGD in 04/2014-small HH, but otherwise negative for esophagitis or Navarro's esophagus Hypothyroidism Osteoporosis Arthritis Negative colonoscopy in 07/2015 Denies [place],DM,CVA,Lung disease,renal dise ase Small bowel obstruction--December 2021--res olved with a NG tube-Dr. Gifford Surgical History Surgery Date(Month/Year) [facility] ARINA Varicose vein stripping Tubal ligation Hemorrhoid surgery in [address] Jorgito blackmon
== END 2025-06-28 08:18 | disposition home or self-care (01) ==
LOC: HO.MAMMO 08:17
PROVIDERS: PCP Internal Medicine; Visit Provider Internal Medicine
DX: Z12.31 Encounter for screening mammogram for malignant neoplasm of breast (principal)
CPT/HCPCS: 77063; 77067

== ENCOUNTER → 2025-06-28 08:30 | Outpatient (BNV) | payer MEDICARE, SELFPAY | PROVIDERS: PCP Internal Medicine; Visit Provider Internal Medicine | DX: Z12.31 Encounter for screening mammogram for malignant neoplasm of breast (principal) | CPT/HCPCS: 77063; 77067 ==

== ENCOUNTER 2025-07-09 10:10 | Outpatient (AMB) | payer MEDICARE, SELFPAY ==
--- OUTSIDE RECORDS SUMMARY | 2024-09-04 04:00 | XMS_ITS | Continuity of Care Document ---
Author Organization [facility] Address [address] [place] [address] Phone Care Team Providers Care [employer] Business Manager Name Role Phone Saravanan CARRILLO, GIANA, Suman EDDY Unavailable U navailable Allergies, Adverse Reactions, Alerts Substance Reaction Status Criticality latex Active No Information Medications Medication Instructions Dosage Effective Dates (start - stop) Status Comments levothyroxine 88 mcg tablet - Active Prilosec OTC 20 mg tablet,delayed release - Active Calcium 500 500 mg calcium (1,250 mg) chewable tablet - Active Procedures Procedure Date Office/Outpt E&M Established 15 Mins- CT & [place] Duplex Scan-extrem Veins; Uni/ CT & [place] D Duplex Scan-extrem Veins; Uni/ CT & MA [...] Scan-extrem Veins; Uni/ CT & [place] O Office/Outpt E&M Established 15 Mins- CT & [place] Duplex Scan-extrem Veins; Comp- CT & [place] Duplex Scan-extrem Veins; Comp- CT & [place] Inj Scleros Solut; Mx Veins 1- CT & [place] M Ultrason Guidan Needle Bx-rad- CT & [place] M Duplex Scan-extrem Veins; Uni/ Inj Scleros Solut; Mx Veins 1 4 Ultrason Guidan Needle Bx-rad 4 Offic Cons New/estab Mod-hi 60 Duplex Scan-extrem Veins; Comp Advance Directives Directive Yes / No Effective Date File Name Other Directive No 09/04/2024 N/A WARNING:The information contained in this section is historical and is provided for information only and does not constitute a legal document or any assurance that the information is still accurate. Please verify the information with the da silva of the legal document before using it for clinical purposes. Encounters Encounter Description Practice Location Reason(s) For Visit Diagnoses Date Provider Providers Copied on Encounter Office/Outpt E&M Established 15 Mins- [place] & [place] [facility], [address] [place] [address] [address] [address], [id number], [place] tel:[phone] [facility] Venous insufficiency (chronic) (peripheral) 4 Saravanan CARRILLO RVT, RPVI Robert. [address] [place] [address], [place], [id number], [place]. tel:[phone] Referring Provider: Mundo Camacho MD, [address] [place] [address] [address] [facility], [place], [address]. tel:[phone] [facility], [address] [place] [address] Dr [address]obedo [address] [address], [id number], [place] tel:[phone] [facility] Chronic venous hypertension (idiopathic) with other complications of right lower extremity 4 Saravanan CARRILLO RVT, RPVI Robert. [address] [place] [address], [facility] [place], [id number], [place]. tel:[phone] Referring Provider: Mundo Camacho MD, [address] [place] [address] [place], [address]. tel:[phone] [facility], [address] [place] [address] Dr [address]Suite [place], [id number], [place] tel:[phone] [facility] - [place] [facility] [place] Encounter for follow-up examination after completed treatment for conditions other than malignant neoplasmPain in right leg 4 Saravanan CARRILLO RVT, NUNU Will. [address] [place] [address], Suite [facility], [facility] [place], [id number], [place]. tel:[phone] Referring Provider: Mundo Camacho MD, [address] [place] [address], [address]. tel:[phone] [facility], [address] [place] [address] Dr [address] [address], [id number], [place] tel:[phone] CVR - [facility] Varicose veins of right lower extremity with other complications 4 Saravanan CARRILLO RVT, NUNU Will. [address] [place] [address], [address], [facility] [place], [id number], [place]. tel:[phone] Referring Provider: Mundo Camacho MD, [address] [place] [address] [address] [place] [address], [address]. tel:[phone] [facility], [address] [place] [address] Dr [address]Suite [place] Espinoza [place], [id number], [place] tel:[phone] [facility] [place] [facility] [place] Encounter for follow-up examination after completed treatment for conditions other than malignant nePain in right leg 4 Saravanan CARRILLO RVT, NUNU Will. [address] [facility], [address], [facility] [place], [id number], [place]. tel:[phone] Referring Provider: Mundo Camacho MD, [address] [facility] [place], [address]. tel:[phone] [facility], [address] [place] [address] [address] [address], [id number], [place] tel:[phone] [facility] [place] [facility] Varicose veins of right lower extremity with other complications Jul-2 0 4 Matteo Martinez. [facility], Suite [facility], [facility] [place], [id number], [place]. tel:[phone] Referring Provider: Mundo Camacho MD, [address] [facility] [place], [address]. tel:[phone] Offic Cons New/estab Mod 40 Mi- CT & [place] [facility], [address] [place] [address] Dr [address], [id number], [place] tel:[phone] [facility] [place] [facility] Body mass index [BMI] 30.0-30.9, adultChronic venous hypertension (idiopathic) without complications of right lower extremity Jun- 4 Saravanan CARRILLO RVT, RPVI Robert. [address] [place] [address], [place] [address], [facility] [place], [id number], [place]. tel:[phone] Referring Provider: Mundo Camacho MD, [address] [facility] [place], [address]. tel:[phone] [facility], [address] [place] [address] [address] [address], [id number], [place] tel:[phone] [facility] [place] [facility] [place] Chronic venous hypertension (idiopathic) with other complications of right lower extremity Jun- 4 Saravanan CARRILLO RVT, RPVI Robert. [address] [place] [address], Suite [facility], [facility] [place], [id number], [place]. tel:[phone] Referring Provider: Mundo Camacho MD, [address] [facility] [place], [address]. tel:[phone] Office/Outpt E&M Established 15 Mins- CT & [place] [facility], [address] [place] [address] Dr [address] [place], [id number], [place] tel:[phone] [facility] - [place] [facility] [place] Venous insufficiency (chronic) (peripheral) 4 Saravanan CARRILLO RVT, NUNU Will. [address] [place] [address], Suite [facility], [place], [id number], [place]. tel:[phone] Referring Provider: Mundo Camacho MD, [address] [place] [address] Dr [address] [facility] [place], [address]. tel:[phone] [facility], [address] [place] [address] Dr [address]Suite [place], [id number], [place] tel:[phone] [facility] - [place] [facility] [place] Varicose veins of bilateral lower extremities with pain 4 Saravanan CARRILLO RVT, NUNU Will. [address] [place] [address], [place] [address], [facility] [place], [id number], [place]. tel:[phone] Referring Provider: Mundo Camacho MD, [address] [place] [address] [place] [address] [place], [address]. tel:[phone] [facility], [address] [place] [address] Dr [address]Suite [place], [id number], [place] tel:[phone] [facility] - [place] [facility] [place] Encounter for follow-up examination after completed treatment for conditions other than malignant neChronic venous hypertension (idiopathic) with other complications of bilateral lower extremity 4 Saravanan CARRILLO RVT, NUNU Will. [address] [place] [address], [address], [facility] [place], [id number], [place]. tel:[phone] Referring Provider: Mundo Camacho MD, [address] [place] [address] Dr [address] [place] [address] [place], [address]. tel:[phone] [facility], [address] [place] [address] Dr [address] [place], [id number], [place] tel:[phone] [facility] Varicose veins of left lower extremity with other complications 0 4 Leonel Cotton. [address] [address], [place], [id number], [place]. tel:[phone] Referring Provider: Mundo Camacho MD, [address] [place] [address] Dr [address] [place] [address] [place], [address]. tel:[phone] [facility], [address] [place] [address] Dr [address] [place], [id number], [place] tel:[phone] [facility] En[facility] for follow-up examination after completed treatment for conditions other than malignant neVaricose veins of right lower extremity with pain 4 Saravanan CARRILLO, RVT, RPVI Suman. [address] [place] [address], [place], [id number], [place]. tel:[phone] Referring Provider: Mundo Camacho MD, [address] [place] [address] Dr [address] [place] [address] [place], [address]. tel:[phone] [facility], [address] [place] [address] Dr [address] [place], [id number], [place] tel:[phone] [facility] Chronic venous hypertension (idiopathic) with inflammation of right lower extremity Nov-0 4 Leonel Cotton. [address] [address], [place], [id number], [place]. tel:[phone] Referring Provider: Mundo Camacho MD, [address] [place] [address] Dr [address] [facility] In [facility], [place], [address]. tel:[phone] Offic Cons New/estab Mod-hi 60 [facility], [address] [place] [address] Dr [address] [place], [id number], [place] tel:[phone] [facility] Chronic venous hypertension (idiopathic) with other complications of bilateral lower extremityPain in left lower legPain in right legPain in left legVenous insufficiency (chronic) (peripheral)C ramp and spasm Feb-0 4 Saravanan CARRILLO RVT, NUNU Will. [address] [facility], [place] [address], [place], [id number], [place]. tel:[phone] Referring Provider: Mundo Camacho MD, [address] [place] [address] Dr [address] [facility] [place], [address]. tel:[phone] [facility], [address] [facility] [address], [place], [id number], [place] tel:[phone] R - [facility] Varicose veins of bilateral lower extremities with pain b-0 4 Saravanan CARRILLO RVT, NUNU Will. [address] [facility], [place] [address], [place], [id number], [place]. tel:[phone] Referring Provider: Mundo Camacho MD, [address] [place] [address] Dr [address] [facility] [place], [address]. tel:[phone] Family History Family Member Type Diagnosis Age At Onset No Information Payers Payer name Insurance type Covered constitution party ID Everett nicole(s) [employer] Medicare CI [id number] Social History Type Description Quantity Date Captured Comments Alcohol Use Details Unknown Caffeine Use Details Unknown Tobacco Use Status Current non-smoker Smoking Status Never Smoker Non-Smoking Tobacco Use Details : No Details Available : No Details Available Sex Female Vital Signs Date / Time: Height Weight BMI Pulse Rate Blood Pressure Temperature Respiratory Rate Body Surface Area Head Circumference Head Circ. Percentile Wt./Lion. Percentile BMI percentile Pulse Ox Inhaled Ox 67.590 kg (149.00 lbs) 30.0 9 kg/m eter (2) 122/82 mm[Hg] Chief Complaint And Reason For Visit No Information Reason For Referral Reason For Referral No Information Plan Of Treatment Date Type Action Status Goal Diet education completed Goal Diet education completed Goal Diet education completed Goal Diet education completed Referral Ordered: Weight management: Referral to physician timeframe: 3 Months (related to Body mass index (BMI) 30.0-30.9, adult) ordered Referral Ordered: Weight management: Referral to physician timeframe: 3 Months (related to Body mass index (BMI) 30.0-30.9, adult) ordered Referral Ordered: Weight management: Referral to physician timeframe: 3 Months (related to Body mass index (BMI) 30.0-30.9, adult) ordered History Of Present Illness Encounter Date Complaint History Of Prese nt Illness No Information Functional Status Date Functional Assessmen t No Information Instructions Date Instruction Additional Infor mation Patient education booklet given Related to Venous [...]
[2025-07-09 10:29] VITALS: BP 108/62; PULSE 74; O2SAT 96; BMI 29.0
--- NOTE | 2025-07-09 10:29 | A.OFFVIS_ITS ---
Vital Signs 07/09/25 10:29 Height 4 ft 10.54 in Weight 141 lb 8.588 oz BMI 29.0 BP 108/62 Blood Pressure Location Lt brachial Position Sitting Pulse 74 Pulse Source Pulse Oximeter Pulse Oximetry (%) 96 Oxygen Delivery Method Room Air Intake Visit Reasons: f/u osteoporosis/prolia #1 Intake Note: Patient present today for Osteoporosis follow up and Prolia injection. 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 2) Osteoporosis: Received treatment in the past with Actonel, for approximately 6 years.? She stopped this in 2019. Tolerated treatment well without complication. She also tried Fosamax, but had GI distress from this. She did have significant decline in her BMD while on Actonel, thus failing treatment with bisphosphonate. She underwent a full biochemical evaluation for secondary causes of osteoporosis which revealed an elevated PTH level, but was otherwise WNL. 24 hour urine collection is high normal. She underwent US head and neck which reveals a 0.9 cm L sided parathyroid adenoma. She was referred to Dr. Samayoa and will be undergoing a parathyroidectomy this May. No history of pathologic fracture or ONJ. Has 1 servings of dietary calcium per day in the form of cheese.? Takes Calcium supplement 1200 mg daily in divided doses.? Takes no additional Vitamin D supplement. Does use PPI daily. Denies ever using anticoagulant, antiepileptic or glucocorticoid medication.? Does weight bearing exercise 5 days per week in the form of walking. ? 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 Menses was always regular. . She did not breastfeed. Menopause was in her 30's after a TAHBSOO. She did not use HRT after. Denies history of Kidney stones: Denies family history of Osteoporosis or hip fracture. UTD on dental cleanings and sees dentist every 6 months.? No planned upcoming dental work or extractions. DXA: 12/22/2021 FINDINGS: AP SPINE L1-L4: Current: BMD 0.770 g/cm2, Z-score -1.7, T-score -3.4, osteoporosis, 10.5% decrease from previous, 16.8% decrease from baseline (<5% change is not significant). Prior: BMD 0.860 g/cm2. Baseline: BMD 0.926 g/cm2. LEFT FEMUR, NECK: Current: BMD 0.721 g/cm2, Z-score -0.6, T-score -2.3, osteopenia. Prior: BMD 0.759 g/cm2. Baseline: BMD 0.818 g/cm2. LEFT FEMUR, TOTAL: Current: BMD 0.774 g/cm2, Z-score -0.3, T-score -1.9, osteopenia, 7.2% decrease from previous, 8.5% decrease from baseline (<5% change is not significant). Prior: BMD 0.834 g/cm2. Baseline: BMD 0.846 g/cm2. Laboratory Tests 02/15/23 02/15/23 02/17/23 11:13 11:13 07:15 Creatinine 0.65 Estimated GFR > 60 Albumin N-Telopeptide X-linked 30 25-OH Vitamin D Total 33.6 PTH Intact 70 Calcium (PTH Intact) 9.3 02/21/23 10:25 Creatinine Estimated GFR Albumin 4.0 N-Telopeptide X-linked 25-OH Vitamin D Total PTH Intact Calcium (PTH Intact) Completed a course of Evenity. Scheduled to get 1st Prolia injection today COUNTS INCLUDE 234 BEDS AT THE [facility] Medical History (Updated 04/22/25 @ 09:02 by Mundo Camacho MD) Overweight (BMI 25.0-29.9) Pruritic rash Superficial thrombophlebitis Small bowel obstruction Rash Varicose vein of leg Screening for breast cancer Hyperparathyroidism Age-related osteoporosis without current pathological fracture Multinodular thyroid Screening for diabetes mellitus Impacted cerumen of left ear History of seizures Peripheral vascular disease Thyroid nodule GERD (gastroesophageal reflux disease) Hypothyroidism Osteoporosis Surgical History History of colonoscopy History of surgery History of total abdominal hysterectomy and bilateral salpingo-oophorectomy History of cholecystectomy Family History Father Throat cancer Mother No problems noted. Brother Liver cancer Social History Household Members: Spouse Housing: Condominium Do you presently have visiting nurse or other home services: No Alcohol intake: never Patient Tobacco Use Status: Never used Tobacco Tobacco use type: Cigarette e-Cigarette/Vaping Use: Never Used Second Hand Smoke Exposure: No Advance Directives Date on File: 01/06/21 service: No Current occupational status: unemployed Cognitive needs: No Hearing needs: No Vision needs: Yes Physical Exam Vital Signs: Last Vital Signs Pulse 74 07/09/25 10:29 BP 108/62 07/09/25 10:29 Pulse Ox 96 07/09/25 10:29 Oxygen Delivery Method Room Air 07/09/25 10:29 BMI result Body Mass Index 29.0 Office Meds Prolia 60 mg/mL subcutaneous syringe Performing Provider: Suman Perez MD Performing Location: [facility] [place] End[facility] Administered by: Althea Root RN on 07/09/25 10:46 Dose Route Admin Location Dispensed Lot Number Expiration Date [employer] 60 mg subcut left upper arm 1 mL [id number] 09/04/27 70067-389-30 [employer] EN Total Dispensed Waste 1 mL 0 % Comments: Patient tolerated injection well. Given first prolia. Observed x15 minutes without adverse reaction Assessment & Plan Assessment & Plan (1) Osteoporosis: Comment: 06/24/2024 Code(s): M81.0 - Age-related osteoporosis without current pathological fracture Category: Medical Qualifiers: Osteoporosis type: age-related Presence of current pathological fracture: without current pathological fracture Qualified Code(s): M81.0 - Age- related osteoporosis without current pathological fracture Plan: This 74-year-old white female with a history of primary hyperparathyroidism status post parathyroidectomy 05/13/2023 with residual osteoporosis moderate to severe seen on recent bone density. Completed a course of Evenity in his about to get 1st Prolia injection today : Plan is to proceed with the Prolia. We will repeat DEXA bone density. Depending on results of DEXA bone density we will determine the course of Prolia and timing of transition to bisphosphonate in the future Orders: Orders XR DEXA axial skeleton Today M81.0 - Age-related osteoporosis without current pathological fracture AMB Denosumab Injection Practice Supplied Today M81.0 - Age-related osteoporosis without current pathological fracture Medications: Discontinued romosozumab-aqqg (Evenity) Inject in office Discontinued Reason: Doctor's Order 210 mg (2.34 mL) subcut .q month 2.34 mL 11RF Coding Level of Care Code Est Pt Level 3 (51760) Diagnoses Age-related osteoporosis without current pathological fracture M81.0 Osteoporosis type: age-related Presence of current pathological fracture: without current pathological fracture
--- OUTSIDE RECORDS SUMMARY | 2025-07-09 11:55 | XMS_ITS | Patient Health Record ---
Author Organization [facility] Address [address] [place] [address] Care Team Providers Care Residential Care Officer Name Role Phone Po Mundo CARRILLO Primary Care Provider Suman Orta Unavailable [phone] Allergies Allergen (clinical drug ingredient) Drug/Non Drug Allergy documented on EMR Reaction Allergy Type Onset Date Status nystatin Nystatin rash Drug Allergy Active Latex Latex Unknown Allergy Active Reason For Referral Referring Provider First Name Mundo Referring Provider Last Name Doug Referring Provider Speciality Internal M edicine Referred Organization [facility] Referred Provider Suman Yates Referred Address [address] [facility], [place],[address], Referred Provider Specialty Gastroentero logy General Notes Shanti Lockwood 2024 04:20:26 PM >left voice message requesting a raphael insurance referral for visit with Dr. Yates on [phone], Shanti Lockwood 07/03/2025 10:05:20 AM >no referral required Referral Priority Routine Medications Medication SIG (Take, Route, Frequency, Duration) [...] W/U Status Risk Notes Problem Abdominal bloating (425622368) Abdominal bloating (R14.0) Active confirmed Problem Irritable bowel syndrome (99394335) IBS (irritable bowel syndrome) (K58.9) Active confirmed Problem Epigastric pain (38965065) Abdominal pain, epigastric (R10.13) Active confirmed Problem Flatus (97875550) Flatus (R14.3) Active confirmed Plan Of Treatment Future Test Test Name Order Date COLONOSCOPY 05/06/2015 Next Appt Details Provider Name:Suman Yates , 07/30/2025 10:30:00 AM, [address] [place] [address], [address], [place], [address], Insurance Providers Payer Name Payer Address Payer Phone Subscriber Number Group Number Insured Name Patient Relationship to Insured Coverage Start Date Coverage End Date [facility] [address] LISA Stiles [phone] [id number] ZOLTAN NGUYEN Self - patient is the insured Medical (General) History Medical History History ICD Code Colonoscopy 12-04-2004--no markel yps-small internal hemorrhoids and mild diverticulosis GERD--EGD in 2001 with a sma ll HH-no esophagitis,; EGD in 04/2014-small HH, but otherwise negative for esophagitis or Navarro's esophagus Hypothyroidism Osteoporosis Arthritis Negative colonoscopy in 07/2015 Denies NC,DM,CVA,Lung disease,renal dise ase Small bowel obstruction--December 2021--res olved with a NG tube-Dr. Gifford Surgical History Surgery Date(Month/Year) CCY ARINA Varicose vein stripping Tubal ligation Hemorrhoid surgery in [address] Jorgito blackmon
--- OUTSIDE RECORDS SUMMARY | 2025-07-09 11:55 | XMS_ITS | Data Portability ---
Author Organization [facility] Address [address] [place] [address] Care Team Providers Care Patient Resource Specialist Name Role Phone LACEY MELISSAMTAT Primary Care Provider [phone] Assessment No assessment recorded. Plan of Treatment Reminders Order Date Submit Date Provider Last Modified By Organization Details Last Modified Time Details Appointments None recorded. Lab urinalysis, dipstick 2022 023 [email or web address], [address] [place], [address], 3 16:54:19 vaginal pathogens panel, LIZZETH+probe, vaginal fluid 2022 023 [place] [facility], [address] [place] [address], [address], 3 06:08:24 Referral None recorded. Procedures None recorded. Surgeries None recorded. Imaging None recorded. Medication Orders terconazole 80 mg vaginal suppository 2022 023 [place] [id number], [phone] [place], [address], 3 16:54:23 Patient TargetsNo targets recorded. Patient Instructions Encounter Date Encounter Id Patient Instructions Last Modified By Organization Details Last Modified Time 02/19/2023 [id number] -Reviewed the various causes of vaginal problems. [...] LOW - 0 score Not Available [facility] ([facility]) [address] [facility], [place], [address], 02/23/2023 06:08:24 02/20/20 23 02/21/2023 NUA B VAGIN ITIS PLUS (VG+) bvab 2 LOW - 0 score Not Available [facility] ([facility]) [address] [facility], [place], [address], 02/23/2023 06:08:24 02/20/20 23 02/21/2023 NUA B [...] Drug Admin istra tion. Not Available [facility] ([facility]) [address] [facility], [place], [address], 02/23/2023 06:08:24 02/20/20 23 02/21/2023 NUSWA B VAGIN ITIS PLUS (VG+) hilary albicans, LIZZETH NEGATI VE negati ve Not Available [facility] ([facility]) [address] [facility], [place], [address], 02/23/2023 06:08:24 02/20/20 23 02/21/2023 NUA B VAGIN ITIS PLUS (VG+) hilary glabrata, LIZZETH NEGATI VE negati ve Not Available [facility] ([facility]) [address] [facility], [place], [address], 02/23/2023 06:08:24 02/20/20 23 02/23/2023 NUA B VAGIN ITIS PLUS (VG+) trich vag by LIZZETH NEGATI VE negati ve Not Available [facility] ([facility]) [address] [facility], [place], [address], 02/23/2023 06:08:24 02/20/20 23 02/23/2023 NUA B VAGIN ITIS PLUS (VG+) chlamydia trachomatis, LIZZETH NEGATI VE negati ve Not Available [facility] ([facility]) [address] [place], [address], 02/23/2023 06:08:24 02/20/20 23 02/23/2023 NUA B VAGIN ITIS PLUS (VG+) neisseria gonorrhoeae, LIZZETH NEGATI VE negati ve Not Available [facility] ([facility]) [address] [place], [address], 02/23/2023 06:08:24 02/20/20 23 02/19/2023 urina lysis , dipst ick Unknown Analyte Normal = light yellow Not Available [address] [place], [address], 02/19/2023 16:29:42 02/20/20 23 02/19/2023 urina lysis , dipst ick Unknown Analyte Yellow Not Available [address] [place] [address] [address] [place], [address], 02/19/2023 16:29:42 02/20/20 23 02/19/2023 urina lysis , dipst ick Unknown Analyte Normal = clear Not Available [address] [place], [address], 02/19/2023 16:29:42 02/20/20 23 02/19/2023 urina lysis , dipst ick Unknown Analyte Clear Not Available [address] [place] [address] [address] [place], [address], 02/19/2023 16:29:42 02/20/20 23 02/19/2023 urina lysis , dipst ick Unknown Analyte Normal = negati ve Not Available [address] [place], [address], 02/19/2023 16:29:42 02/20/20 23 02/19/2023 urina lysis , dipst ick Unknown Analyte Negati ve Not Available [address] [place], [address], 02/19/2023 16:29:42 02/20/20 23 02/19/2023 urina lysis , dipst ick Unknown Analyte Normal = Negati ve Not Available [address] [place], [address], 02/19/2023 16:29:42 02/20/20 23 02/19/2023 urina lysis , dipst ick Unknown Analyte Negati ve Not Available [address] [place], [address], 02/19/2023 16:29:42 02/20/20 23 02/19/2023 urina lysis , dipst ick Unknown Analyte Normal = Negati ve Not Available [address] [place], [address], 02/19/2023 16:29:42 02/20/20 23 02/19/2023 urina lysis , dipst ick Unknown Analyte Negati ve Not Available [address] [place], [address], 02/19/2023 16:29:42 02/20/20 23 02/19/2023 urina lysis , dipst ick Unknown Analyte Normal = 1.010, 1.015, 1.020 Not Available [address] [place], [address], 02/19/2023 16:29:42 02/20/20 23 02/19/2023 urina lysis , dipst ick Unknown Analyte 1.020 Not Available [facility] [address] [place], [address], 02/19/2023 16:29:42 02/20/20 23 02/19/2023 urina lysis , dipst ick Unknown Analyte Normal = Negati ve Not Available [address] [place], [address], 02/19/2023 16:29:42 02/20/20 23 02/19/2023 urina lysis , dipst ick Unknown Analyte Negati ve Not Available [address] [place], [address], 02/19/2023 16:29:42 02/20/20 23 02/19/2023 urina lysis , dipst ick Unknown Analyte Normal = 6.5, 7.0, 7.5, 8.0 Not Available [address] [place], [address], 02/19/2023 16:29:42 02/20/20 23 02/19/2023 urina lysis , dipst ick Unknown Analyte 7.0 Not Available [facility] [address] [place], [address], 02/19/2023 16:29:42 02/20/20 23 02/19/2023 urina lysis , dipst ick Unknown Analyte Normal = Negati ve Not Available [facility] [address] [place], [address], 02/19/2023 16:29:42 02/20/20 23 02/19/2023 urina lysis , dipst ick Unknown Analyte Negati ve Not Available [address] [place], [address], 02/19/2023 16:29:42 02/20/20 23 02/19/2023 urina lysis , dipst ick Unknown Analyte Normal = 0.2, 1.0 Not Available [address] [place], [address], 02/19/2023 16:29:42 02/20/20 23 02/19/2023 urina lysis , dipst ick Unknown Analyte 0.2 E.U./d L Not Available [address] [place], [address], 02/19/2023 16:29:42 02/20/20 23 02/19/2023 urina lysis , dipst ick Unknown Analyte Normal = Negati ve Not Available [address] [place], [address], 02/19/2023 16:29:42 02/20/20 23 02/19/2023 urina lysis , dipst ick Unknown Analyte Negati ve Not Available [address] [place], [address], 02/19/2023 16:29:42 02/20/2002/19/2023 urina lysis , dipst ick Unknown Analyte Normal = Negati ve Not Available [address] [place], [address], 02/19/2023 16:29:42 02/20/2002/19/2023 urina lysis , dipst ick Unknown Analyte Negati ve Not Available [address] [place], [address], 02/19/2023 16:29:42 Result Notes None recorded. Problems Name Problem SNOMED Code Status Onset Date Resolution Date Notes Provider Name and Address Organization Details Recorded Time Disorder of thyroid gland 88552929 Active 2022 KORI DRINKWINE null, [place] - [facility] 3 16:23:22 Gastroesophage al reflux disease 432621950 Active 2022 KORI DRINKWINE null, [place] - [facility] 3 16:24:19 Diverticulitis 120750319 Active 2022 KORI DRINKWINE null, [place] - [...] Name and Address Organization Details Recorded Time 103076 latex environme nt,medica tion rash Not available Not available 02/19/2023 55764 91 RxNorm YANIRA Baker [facility] 3 [...] Updated DateTime 3 149.86 cm 30.9 kg/m2 13294.6 3 g 0 97.9 [degF] 16 /min 78 /min 100 % 100 % 130/82 mm[Hg] KORI ROSENTHAL PA - [facility] 3 16:29:01 Social History Question Answer Notes LastModified by vBrandat ion Details LastModified Time Tobacco Smoking Status [...] Diagnosis SNOMED-CT Code Diagnosis ICD10 Code Diagnosis IMO Codes Diagnosis Note [id number] [facility] [facility] [address] [place] [address] 10/07/2018 14:05:34 10/07/2018 14:34:25 [id number] [place] [address] [place] [address] 02/19/2023 16:08:16 02/19/2023 17:12:57 Acute vaginitis 93409038 N76.0 Health Concerns Section Related Observation LastModified by Organization Detai ls LastModified Time None Recorded Concern Status LastModified by Organization Details LastModified Time None Recorded Advance Directives Directive None Recorded Payers Insurance Date Sequence Insurance Name Policy Number Policy Billings Covered Member ID Billings Member ID Guarantor Name 02/19/2023 1 MAYTE [employer] [facility] (MEDICARE REPLACEMENT PPO) Venus Nguyen [id number] Venus Nguyen Notes Date Note Type Note Provider Name and Address Organization Details Recorded Time 02/20/20 23 text/htm 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 For onset/timing, patient reportsworse. For associated symptoms, patient reportsclear vaginal dischargebut reportsno flank pain,no jaundice,no blood in the urine,no pain during urination, andno urgency. For source of patient information, patient reportsinformation obtained from patient,patient arrived at urgent care ambulatory, andlearning styles: auditory. For location, patient reportsvaginal. For severity, patient reportsmoderate. For duration, patient reportsconstantandsymptoms lasting over 2 weeks. For context, patient reportsnot sexually active,no sexual dysfunction, andno prior history of stds. For modifying factors, patient reportsnothing gives relief. Jackson Larson NP [address] [place], [address], [place] - [facility] 02/19/2023 16:54:34 OBGyn Episode No OBEpisode recorded.
== END 2025-07-09 10:48 | disposition home or self-care (01) ==
LOC: HO.ENCR 10:10
PROVIDERS: PCP Internal Medicine; Visit Provider Internal Medicine Endocrinology, Diabetes & Metabolism
DX: M81.0 Age-related osteoporosis without current pathological fracture (principal)
CPT/HCPCS: 99213

== ENCOUNTER → 2025-07-09 10:10 | Outpatient (BNVA) | payer MEDICARE, SELFPAY | PROVIDERS: PCP Internal Medicine; Visit Provider Internal Medicine Endocrinology, Diabetes & Metabolism | DX: M81.0 Age-related osteoporosis without current pathological fracture (principal) | CPT/HCPCS: 96372; 99212; J0897 ==

== ENCOUNTER 2025-08-19 09:45 | Outpatient (AMB) | payer MEDICARE, SELFPAY ==
[2025-08-19 10:00] VITALS: BMI 29.2
--- NOTE | 2025-08-19 10:00 | A.OFFVIS_ITS ---
VS Expanded 08/19/25 10:00 Height 4 ft 10.5 in Weight 142 lb BMI 29.2 Intake Visit Reasons: Obesity Allergies nystatin Allergy (Intermediate, Verified 07/09/25 10:33) Rash Nutrition Presentation Details: Pt presents for MNT for obesity Patient reports doing well keeping, continuing to make small dietary modifications reducing on amounts of fats consumed and starches. Patient reports feeling great, no concerns expressed at this time B: cereal , varies between oatmeal, Special K, Cheerios, with milk (3 x/week) Lunch has a salad with chicken or with fish and alternates between a salad 1 today in soup another Following healthy plate method and for dinner varies with the starches (choosing starchy vegetables) with a loading protein food and always and non starchy veggies Snack at bedtime cheese and crackers with coffee decaf with evaporated milk takes a daily mvi for over 50 BS Monitoring Most Recent Diabetes Results: Creatinine, (0.5-1.4) 0.58 mg/dL 06/24/25 BUN, (9-16) 12 mg/dL 06/24/25 Sodium, (135-145) 141 mmol/L 06/24/25 Potassium, (3.3-5.1) 4.1 mmol/L 06/24/25 Chloride, (96-108) 105 mmol/L 06/24/25 Carbon Dioxide, (22-29) 28 mmol/L 06/24/25 Calcium, (8.4-10.2) 9.0 mg/dL Δ 06/24/25 Albumin, (3.5-5.0) 4.4 g/dL 06/24/25 [facility] Medical History (Updated 04/22/25 @ 09:02 by Mundo Camacho MD) Overweight (BMI 25.0-29.9) Pruritic rash Superficial thrombophlebitis Small bowel obstruction Rash Varicose vein of leg Screening for breast cancer Hyperparathyroidism Age-related osteoporosis without current pathological fracture Multinodular thyroid Screening for diabetes mellitus Impacted cerumen of left ear History of seizures Peripheral vascular disease Thyroid nodule GERD (gastroesophageal reflux disease) Hypothyroidism Osteoporosis Surgical History History of colonoscopy History of surgery History of total abdominal hysterectomy and bilateral salpingo-oophorectomy History of cholecystectomy Family History Father Throat cancer Mother No problems noted. Brother Liver cancer Social History Household Members: Spouse Housing: Condominium Do you presently have visiting nurse or other home services: No Alcohol intake: never Patient Tobacco Use Status: Never used Tobacco Tobacco use type: Cigarette e-Cigarette/Vaping Use: Never Used Second Hand Smoke Exposure: No Advance Directives Date on File: 01/06/21 service: No Current occupational status: unemployed Cognitive needs: No Hearing needs: No Vision needs: Yes Assessment & Plan Assessment & Plan (1) Obesity (BMI 30.0-34.9): Code(s): E66.9 - Obesity, unspecified Category: Medical Plan: Wt: 73 Kg ( 12/28 ), 68 kg (01/27), 65kg (03/29), 64kg (08/29) Est kcal needs as per MSJ: 1400 (40% carb, 30% protein/fat) Est fluid needs as per 25-30 ml/d: 2000 Est prot per day as per 1 g/kg bw: 65 Recommend fiber intake : 8-10 g per day and gradually increase to 25-28 g per day for women and 35-38 g for men or as tolerated Recommend sodium intake per day : less than 1500 mg less than 2000 mg Educated patient on: ( R = reviewed V = verbalizes understanding N/R = needs review N/A = not applicable * Food sources of carbohydrate, adequate serving sizes and its role in various health conditions: R ,V * Differences between complex carbohydrates a simple carbohydrates, role of fiber in diet: R * Lean protein sources of foods: R V * Differences between types of fats and role in diet (mono on saturated fat fat ty acids, saturated fatty acids, trans fats): R basic * Food sources of sodium in salt and healthy modifications for heart health in kidney health: R V * Vitamins and minerals: R via foods (calcium) * Healthy plate method concept: R ,V * Physical activity: Benefits a precaution: R V * Patient Instructions: Continue working on following healthy plate method it and including fiber rich foods, try a new vegetable per week Keep hydrated by having water with meals and snacks Keep physically active as able Coding Level of Care Code Nutr Indiv Subseq (41033) Diagnoses Obesity (BMI 30.0-34.9) E66.9 Time Spent (min) 30
== END 2025-08-19 10:31 | disposition home or self-care (01) ==
LOC: HO.ENCR 09:46
PROVIDERS: PCP Internal Medicine; Visit Provider Dietitian, Registered
DX: E66.9 Obesity, unspecified (principal)

== ENCOUNTER → 2025-08-19 09:45 | Outpatient (BNVA) | payer MEDICARE, SELFPAY | PROVIDERS: PCP Internal Medicine; Visit Provider Dietitian, Registered | DX: E66.9 Obesity, unspecified (principal); Z68.29 Body mass index [BMI] 29.0-29.9, adult; Z71.3 Dietary counseling and surveillance | CPT/HCPCS: 97803 ==